=== PATIENT | male | born 1950 | race Caucasian/White ===

== ENCOUNTER → 2017-03-26 | Outpatient (CLI) | payer MEDICARE, OTHER | END | disposition home or self-care (01) | LOC: LABPAT 09:42 | PROVIDERS: ATTEND Orthopaedic Surgery | DX: Z01.812 Encounter for preprocedural laboratory examination (principal); Z79.01 Long term (current) use of anticoagulants; Z51.81 Encounter for therapeutic drug level monitoring; Z01.810 Encounter for preprocedural cardiovascular examination | CPT/HCPCS: 87070 ==

== ENCOUNTER → 2017-05-11 | Outpatient (CLI) | payer MEDICARE, OTHER ==
[2017-05-11 11:22] LABS: Appearance,Urine Clear (Clear); Bilirubin,Urine Negative (Negative); Blood,Urine Negative (Negative); Color,Urine Yellow; Glucose,Urine (UA) Negative (Negative); Ketones,Urine Negative (Negative); Leukocyte Esterase,Urine Negative (Negative); Protein,Urine Negative (Negative); Specific Gravity,Urine 1.015 (1.001-1.035); Urobilinogen,Urine <2.0 mg/dL (<2.0)
[2017-05-11 11:32] LABS: HCT 39.5 % (39.0-53.0); HGB 13.7 gm/dL (13.0-17.5); MCH 30.6 pg (25.0-35.0); MCHC 34.7 g/dL (31.0-37.0); MCV 88.1 fL (80.0-100.0); Mean Platelet Volume 9.6; Platelet Count 248 k/uL (150-450); RBC 4.49 m/uL (4.30-5.90); WBC 6.9 k/uL (3.8-10.6)
[2017-05-11 11:40] LABS: Albumin 4.3 g/dL (3.5-5.0); Calcium 10.8 mg/dL (8.4-10.2); Potassium 4.9 mmol/L (3.5-5.1); Total Bilirubin 0.9 mg/dL (0.2-1.3); Total Protein 7.5 g/dL (6.3-8.2)
[2017-05-11 11:55] LABS: Partial Thromboplastin Time 22.7 sec (22.0-30.0); Prothrombin Time 10.2 sec (9.0-12.0)
== END | disposition home or self-care (01) ==
LOC: LABPAT 10:40
PROVIDERS: ATTEND Orthopaedic Surgery
DX: Z01.812 Encounter for preprocedural laboratory examination (principal)
CPT/HCPCS: 36415; 80053; 81003; 85027; 85610; 85730

== ENCOUNTER 2017-06-01 11:08 | Inpatient (IN) | payer MEDICARE, OTHER ==
[2017-05-18 13:09] VITALS: BMI 36.3
[~2017-06-01 11:08] MED LIST: ACETAMINOPHEN TAB 500 MG TAB PO ONE; DEXAMETHASONE SOD PHOSPHATE 10 MG/ML 1 ML VIAL IV ONE; LIDOCAINE 1% 20 ML VIAL (10MG/ML) FOR IV START INTRADERMA PRN; MELOXICAM 7.5 MG TAB PO ONE; MIDAZOLAM 2 MG/2 ML VIAL IV PRN; MORPHINE SULFATE 2 MG/ML SYRINGE IV PRN; ONDANSETRON 4 MG/2 ML VIAL IVP ONE; ROPIVACAINE 246.25 MG, EPINEPHrine 0.5 MG, KETOROLAC 30 MG, cloNIDine HCL/PF 80 MCG, WA... MISCELLANE ONE; SCOPOLAMINE 1.5MG/72HR PATCH TRANSDERM ONE; TRANEXAMIC ACID 1,000 MG in SODIUM CHLORIDE 0.9% 50 ML IVPB ONE; ceFAZolin IN SWFI 2 GM/20 ML SYRINGE IVP ONE
[2017-06-01] MEDS ORDERED: ONDANSETRON 4 MG/2 ML VIAL ONE (12:27)
[2017-06-01] MEDS ORDERED: MIDAZOLAM 2 MG/2 ML VIAL ONE ×2 (12:28→13:12)
[2017-06-01] MEDS: LACTATED RINGERS 1,000 ML IV SCH ×2 (12:30→18:34)
[2017-06-01] MEDS ORDERED: PROPOFOL 10 MG/ML 20 ML VIAL IV ONE (13:12)
[2017-06-01] MEDS ORDERED: LIDOCAINE 1% INJ 10MG/ML (20 ML MDV) ONE (13:12)
[2017-06-01] MEDS ORDERED: SODIUM CHLORIDE 0.9% 100 ML BAG ONE (13:12)
[2017-06-01] MEDS ORDERED: PHENYLEPHRINE-0.9% NACL SYG 1 MG/10 ML SYRINGE ONE (13:12)
[2017-06-01] MEDS ORDERED: ePHEDrine SULFATE/0.9% NACL/PF 50 MG/5 ML SYRINGE IV ONE (13:12)
[2017-06-01] MEDS ORDERED: fentaNYL (PF) 50 MCG/ML 2 ML AMP ONE (13:12)
[2017-06-01] MEDS ORDERED: ceFAZolin 3,000 MG in SODIUM CHLORIDE 0.9% IRRIGATIO 3,000 ML IRRIGATION ONE (13:12)
[2017-06-01] MEDS ORDERED: TRANEXAMIC ACID 1,000 MG/10 ML VIAL ONE (13:12)
[2017-06-01] MEDS ORDERED: ROPIVACAINE 1,100 MG, SODIUM CHLORIDE 0.9% 330 ML MISCELLANE PRN ×2 (13:13)
--- NOTE | 2017-06-01 13:14 | P.ONQ ---
Anesthesiology Proc Note - PNB - Peripheral Nerve Block Performed Left Adductor Canal Indication: Acute Post-Operative Pain, Requested by physician (Dr Quan Roy ) Sedation Type: Sedate with meaningful contact maintained Preparation: Sterile Dressing Position: Supine Catheter: Indwelling Needle Types: Other (see comment) (Aman) Needle Size: 100mm (4") Needle Gauge: 18 Technique: Ultrasound Injectate: 0.5% Ropivacaine (see comment for volume) (20cc) Blood Aspirated: No Pain Paresthesia on Injection Noted: No Resistance on Injection: Normal Events: Uneventful and Well Tolerated
[2017-06-01] MEDS ORDERED: HYDROcodone/APAP 5-325MG 1 EACH TAB PO PRN (13:21)
[2017-06-01] MEDS ORDERED: NALOXONE 0.4 MG/ML 1 ML VIAL IV PRN (13:21)
[2017-06-01] MEDS ORDERED: BISACODYL 10 MG SUPP RECTAL PRN (13:21)
[2017-06-01] MEDS ORDERED: NA PHOS,M-B/NA PHOS,DI-BA 133 ML ENEMA RECTAL PRN (13:21)
[2017-06-01] MEDS ORDERED: MORPHINE SULFATE/PF 10MG/10ML VL IVP PRN ×4 (13:21)
[2017-06-01] MEDS ORDERED: DIAZEPAM 5 MG TAB PO PRN (13:21)
[2017-06-01] MEDS ORDERED: ONDANSETRON 4 MG/2 ML VIAL IVP PRN (13:21)
[2017-06-01] MEDS ORDERED: MAGNESIUM HYDROXIDE 2,400 MG/10 ML CUP PO PRN (13:21)
--- NOTE | 2017-06-01 14:40 | P.OP ---
Date of Procedure: 06/01/17 Preoperative Diagnosis: Severe osteoarthritis left knee Postoperative Diagnosis: Severe osteoarthritis left knee Procedure(s) Performed: Left total knee arthroplasty Implants: Maguire [employer] Nephew Oxinium femoral component size 6, left Maguire [employer]hew Gloria II left nonporous tibial baseplate size 5 [employer]uire [employer]hew size 9 mm Legion XLPE dished articular insert, size 5-6 [employer]hew Gloria II resurfacing patellar component, 29 mm All components were cemented using Jeffrey bone cement.. The articulation is Oxinium on polyethylene. Anesthesia: spinal Surgeon: Quan Roy Land Degradation Analyst #1: Nichol Buckner Estimated Blood Loss (ml): 50 Pathology: other (Bone and cartilage) Condition: stable Disposition: PACU Indications for Procedure: After failure of conservative treatment we discussed the surgical and nonsurgical treatment options at length. Patient wishes to proceed with a total knee arthroplasty. Complications specific to this procedure were discussed at length, including but not limited to infection, bleeding, stiffness , and nerve injury. Patient is aware of all these complications and informed consent was obtained Operative Findings: The operative findings are consistent with severe osteoarthritis of the left knee Description of Procedure: Patient was seen in the preoperative area consent was reviewed and operative site was marked with a skin marker. An adductor canal pain catheter was placed by anesthesia in the preoperative area. Patient was then brought to the operating room and given preoperative antibiotics intravenously. A spinal anesthetic was administered by the anesthesia department. A tourniquet was placed on the upper thigh and the lower extremity was prepped and draped in usual sterile fashion. A gram of transexamic acid was given. A universal timeout was then performed which confirmed the patient's name, surgical site, ALLERGIES, and consent. The lower extremity was then exsanguinated and tourniquet was inflated to 250 mmHg. A standard and anterior midline approach to the knee was performed. The skin and subcutaneous tissue was dissected down to the patellar tendon. A medial parapatellar arthrotomy was then performed. The knee was then extended, the patellar was everted, and the knee was again flexed. Anterior horns of both menisci were excised, and a release was performed to the posterior medial aspect of the knee. On gross visual inspection, there was complete loss of articular cartilage in the medial and patellofemoral joint spaces. There was also significant cartilage damage in the lateral compartment. There were multiple periarticular osteophytes which were then removed with a Ronguer. The femoral canal was then opened with the appropriate drill, and the intramedullary femoral cutting guide was then placed and set for 4 of valgus. The distal femoral cutting block was then pinned in place, and the distal femur was then cut. The cutting block was then removed and the cut was checked for flatness. Next, the sizing guide was then placed and set for 3 external rotation based off of the epicondylar axis and Whitesides line. After the femur was sized, the appropriate 4-in-1 cutting block was then pinned in place. The anterior condyles were cut without notching. The posterior and chamfer cuts were performed while protecting the collateral ligaments. The cutting block was then removed, and the femoral canal was plugged with autologous bone. Attention was then directed to the tibia. The remaining ACL was removed with a Ronguer, and the tibia was then gently subluxed forward with a large bent knee retractor. Any remaining menisci was excised. The posterior lateral corner was cauterized in order to cauterize the lateral geniculate artery. The extra medullary tibial cutting guide was then placed, set for the appropriate rotation , slope, and depth of resection. The proximal tibia cutting guide was then pinned in place. Proximal tibia was then cut and sized. Next trials were then placed with the appropriate-sized insert. The knee was able to fully extend and flex to 130 and was stable throughout all range of motion. The knee was then extended, patella everted. Patella was then measured, and then using an osteotomy guide, the patella was cut at the appropriate level. The patella was then measured and drilled and the patella trial was then placed. The knee was then taken through range of motion with the patella trial and the patella tracked normally. The knee was then extended patella trial was then removed and the patella was everted. Knee was then flexed and lug holes were drilled through the femoral trial and the femoral trial was then removed. The tibial was then exposed, and the tibial broach guide was then pinned in place after it was set for the appropriate rotation to allow for the most coverage without overhang. The tibia was then reamed and broached. The cut surfaces of bone were then irrigated with pulsatile lavage. The posterior structures were injected with the ropivacaine solution. The knee was also irrigated with Irrisept solution. The components were then opened, the cement was mixed, and the components were then cemented in place. The cement was allowed to harden with the knee in full extension. While the cement was hardening, the remaining soft tissues were then injected with a ropivacaine solution, which consisted of 246.25 mg of ropivacaine, 0.5 mg of epinephrine, 30 mg of Toradol, 80 g of clonidine, and 48.45 mL of sterile water, for a total of 100 mL of fluid injected. After the cemented hardened. The tourniquet was released, and hemostasis was obtained. A second gram of transexamic acid was given. The knee was again irrigated. The knee was again taken through range of motion and found to be stable throughout all range of motion of 0-130 , and the patella tracked normally. The fascia was then closed with #2 strata fix suture. The subcutaneous tissue was closed with 3-0 Vicryl and 3-0 strata fix. Dermabond glue was used for the skin and placed with the knee in flexion. The patient was placed in a sterile silver dressing. Patient was then transferred to recovery room in stable condition. The assistant director of security KATLYN Davison was required due the complexity surgery and the need for a skilled surgical clinical reviewer. She assisted in positioning, draping, retraction, and closure of the wound.
--- NOTE | 2017-06-01 15:27 | XR ---
Limited left knee HISTORY: Postop left knee arthroplasty 2 views of the left knee No comparisons Patient is status post left knee arthroplasty. There is anatomic alignment. Lucency is present in the soft tissues compatible with postop state. IMPRESSION: Orthopedic follow-up
[2017-06-01] MEDS: SODIUM CHLORIDE 0.9% 1,000 ML IV SCH (16:46)
[2017-06-01] MEDS: HYDROcodone/APAP 5-325MG 1 EACH TAB PO PRN (19:25)
[2017-06-01] MEDS: ceFAZolin IN SWFI 2 GM/20 ML SYRINGE IVP SCH (20:47)
[2017-06-01] MEDS: FUROSEMIDE 20 MG TAB PO SCH (20:47)
[2017-06-01] MEDS: SENNOSIDES-DOCUSATE SODIUM 1 EACH TAB PO SCH (20:47)
[2017-06-01] MEDS: POTASSIUM CHLORIDE ER 20 MEQ TAB.ER PO SCH (20:47)
[2017-06-01] MEDS: ASPIRIN 325 MG TAB PO SCH (20:47)
[2017-06-01] MEDS: DIAZEPAM 5 MG TAB PO PRN (22:47)
[2017-06-02] MEDS: hydrOXYzine PAMOATE 25 MG CAP PO PRN ×2 (01:25→20:28)
[2017-06-02] MEDS: HYDROcodone/APAP 5-325MG 1 EACH TAB PO PRN ×4 (01:25→20:27)
[2017-06-02] MEDS: SODIUM CHLORIDE 0.9% 1,000 ML IV SCH ×2 (05:02→20:19)
[2017-06-02] MEDS: ceFAZolin IN SWFI 2 GM/20 ML SYRINGE IVP SCH (05:02)
--- NOTE | 2017-06-02 06:27 | P.PN ---
Progress Note - Text The patient is status post left adductor canal catheter placement. The catheter was placed for postoperative pain control, status post total left arthroplasty. Ropivacaine 0.2% is infusing at 8 mLs per hour. The patient has no complaints of left lower extremity numbness or weakness. Patient's VAS score is 0 -10. Assessment: Patient's adductor canal catheter is in place and working appropriately. Plan: continue infusion and adjust it as needed.
[2017-06-02 07:11] LABS: Glucose,Whole Blood 120 mg/dL (75-99)
[2017-06-02 07:57] LABS: Basophils % (A) 0 %; Eosinophils % (A) 0 %; HCT 33.4 % (39.0-53.0); HGB 11.3 gm/dL (13.0-17.5); Lymphocytes # (A) 0.8 k/uL (1.0-4.8); Lymphocytes % (A) 6 %; MCH 29.9 pg (25.0-35.0); MCHC 33.9 g/dL (31.0-37.0); MCV 88.1 fL (80.0-100.0); Mean Platelet Volume 8.2; Monocytes # (A) 0.7 k/uL (0-1.0); Monocytes % (A) 6 %; Neutrophils # (A) 10.6 k/uL (1.3-7.7); Neutrophils % (A) 86 %; Platelet Count 212 k/uL (150-450); RBC 3.79 m/uL (4.30-5.90); RDW 14.4 % (11.5-15.5); WBC 12.3 k/uL (3.8-10.6)
[2017-06-02] MEDS: amLODIPine 5 MG TAB PO SCH (08:37)
[2017-06-02] MEDS: PANTOPRAZOLE 40 MG TABLET PO SCH (08:37)
[2017-06-02] MEDS: ISOSORBIDE MONONITRATE ER 30 MG TAB.ER.24H PO SCH (08:37)
[2017-06-02] MEDS: ASPIRIN 325 MG TAB PO SCH ×2 (08:37→20:27)
[2017-06-02] MEDS: POTASSIUM CHLORIDE ER 20 MEQ TAB.ER PO SCH ×2 (08:37→20:27)
[2017-06-02] MEDS: FUROSEMIDE 20 MG TAB PO SCH ×2 (08:38→15:51)
[2017-06-02] MEDS: METOPROLOL SUCCINATE (ER) 50 MG TAB.ER.24H PO SCH (08:38)
[2017-06-02] MEDS: ATORVASTATIN 20 MG TAB PO SCH (08:38)
[2017-06-02] MEDS: ALLOPURINOL 300 MG TAB PO SCH (08:38)
[2017-06-02] MEDS: MELOXICAM 7.5 MG TAB PO SCH (08:38)
[2017-06-02] MEDS ORDERED: ASPIRIN 81 MG PO SCH (09:00)
--- NOTE | 2017-06-02 09:19 | P.PN ---
Subjective Progress Note Date: 06/02/17 This is a 67-year-old male who is status post a left total knee arthroplasty. This is postoperative day #1. Patient is seen and evaluated at bedside with Dr. Quan Roy. Patient does complain of pain to the left knee, but states this is controlled. Patient does report some pain and stiffness in the left ankle and he has a history of previous left ankle fusion. Patient states he has not been up and walking with physical therapy yet. Patient denies any fever/ chills, numbness, weakness, tingling, abdominal pain, shortness of breath or chest pain. Objective - Vital Signs Vital signs: Vital Signs Temp 97.9 F 06/02/17 08:27 Pulse 66 06/02/17 08:27 Resp 16 06/02/17 08:27 BP 126/69 06/02/17 08:27 Pulse Ox 96 06/02/17 08:27 Intake & Output 06/01/17 06/02/17 06/02/17 18:59 06:59 18:59 Intake Total 1051 520 300 Output Total 50 250 275 Balance 1001 270 25 Weight 102.058 kg Intake: IV 801 Intake, IV Titration 520 Amount Sodium Chloride 0.9% 1, 520 000 ml @ 65 mls/hr IV . [id number] [facility] Rx#:[id number] Oral 250 300 Output: Urine 250 275 Estimated Blood Loss 50 Other: Voiding Method Toilet # Voids 3 - Exam Vital signs are stable. Patient is in no acute distress and is alert and oriented 3. Calf is soft and nontender to palpation. Dressing is clean, dry, and intact. Patient has limited foot and ankle motion with some discomfort in the ankle due to previous left ankle fusion. Neurovascular status and circulatory status are intact. - Labs CBC & Chem 7: 06/02/17 06:51 Labs: Abnormal Lab Results - Last 24 Hours (Table) 06/02/17 06/02/17 Range/Units 06:51 07:07 WBC 12.3 H (3.8-10.6) k/uL RBC 3.79 L (4.30-5.90) m/uL Hgb 11.3 L (13.0-17.5) gm/dL Hct 33.4 L (39.0-53.0) % Neutrophils # 10.6 H (1.3-7.7) k/uL Lymphocytes # 0.8 L (1.0-4.8) k/uL POC Glucose (mg/dL) 120 H (75-99) mg/dL Assessment and Plan (1) Primary osteoarthritis of left knee Current Visit: Yes Status: Acute Code(s): M17.12 - UNILATERAL PRIMARY OSTEOARTHRITIS, LEFT KNEE SNOMED Code(s): 387836665349799 (2) S/P total knee arthroplasty Current Visit: Yes Status: Acute Code(s): Z96.659 - PRESENCE OF UNSPECIFIED ARTIFICIAL KNEE JOINT SNOMED Code(s): 3076943025165 Plan: #1 Continue with routine postoperative care, leave dressing in place for 10-14 days. #2 Anticoagulation with aspirin. #3 Physical therapy and CPM today. #4 Appreciate input from medicine. #5 Anticipate discharge home with home care likely tomorrow.
[2017-06-02] MEDS ORDERED: HYDROmorphone 2 MG TAB PO PRN ×3 (14:55→14:56)
[2017-06-02] MEDS ORDERED: HYDROmorphone 4 MG TABLET PO PRN (14:56)
--- NOTE | 2017-06-02 18:00 | P.HPIM ---
History of Present Illness H&P Date: 06/02/17 Patient is a 67-year-old male who was admitted to [facility] with severe arthritis of the left knee. He is status post a left total knee arthroplasty post operative day #1. Medical cosultation was requested for management while hospitalized. 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 Date of last positivie culture/infection: 1999 MDRO Source:: right knee Past Surgical History: Hernia Repair, Joint Replacement, Orthopedic Surgery Additional Past Surgical History / Comment(s): left ankle & right knee replaced , arthroscopies knee, ulnar nerve surg., multiple EGD's Past Anesthesia/Blood Transfusion Reactions: Previous Problems w/ Anesthesia Additional Past Anesthesia/Blood Transfusion Reaction / Comment(s): states had problem after knee replacement w/paranoia-from anesthesia-didn't start until 4- 5 days after surg., cannot fully extend sara arms d/t fixated elbows Past Psychological History: No Psychological Hx Reported Smoking Status: Never smoker Past Alcohol Use History: Rare Past Drug Use History: None Reported - Past Family History Mother Family Medical History: Cancer Father Family Medical History: Cancer Medications and Allergies Home Medications Medication Instructions Recorded Confirmed Type Allopurinol [Zyloprim] 300 mg PO DAILY 04/08/15 06/01/17 History Aspirin 81 mg PO DAILY 04/08/15 06/01/17 History Atorvastatin [Lipitor] 20 mg PO DAILY 04/08/15 06/01/17 History Furosemide [Lasix] 20 mg PO BID 04/08/15 06/01/17 History Isosorbide Mononitrate [Isosorbide 30 mg PO DAILY 04/08/15 06/01/17 History Mononitrate ER] Metoprolol Succinate [Toprol XL] 50 mg PO DAILY 04/08/15 06/01/17 History Omeprazole 40 mg PO AC-BRKFST 04/08/15 06/01/17 History Potassium Chloride [Klor-Con 20] 20 meq PO BID 04/08/15 06/01/17 History amLODIPine [Norvasc] 5 mg PO DAILY 04/08/15 06/01/17 History Meloxicam 15 mg PO DAILY PRN 05/18/17 06/01/17 History Allergies Allergy/AdvReac Type Severity Reaction Status Date / Time gabapentin Allergy severe pain Verified 06/01/17 15:29 tramadol Allergy severe pain Verified 06/01/17 15:29 Physical Exam Vitals: Vital Signs Temp Pulse Resp BP BP Pulse Ox 06/02/17 15:00 97.8 F 60 16 107/68 99 06/02/17 08:27 97.9 F 66 16 126/69 96 06/02/17 00:47 97.9 F 68 16 108/69 97 06/01/17 20:00 98.5 F 95 18 127/66 95 06/01/17 17:53 97 Intake and Output 06/02/17 06/02/17 06/02/17 06:59 14:59 22:59 Intake Total 300 Output Total 250 275 Balance -250 25 Intake: Intake, IV Titration 0 Amount Sodium Chloride 0.9% 1, 0 000 ml @ 65 mls/hr IV . [id number] [facility] Rx#:[id number] Oral 300 Output: Urine 250 275 Other: Voiding Method Toilet Toilet In General patient is alert and oriented in no apparent distress HEENT head normocephalic and atraumatic Neck is supple no JVD, no goiter Chest exam is clear to ausc. no crackles no wheezing Cardiac exam reveals regular S1 S2 no gallop no murmur Abdomen is soft non tender no organomegaly EXtrmities exam reveals no edema Results CBC & Chem 7: 06/02/17 06:51 Labs: Abnormal Lab Results - Last 24 Hours (Table) 06/02/17 06/02/17 Range/Units 06:51 07:07 WBC 12.3 H (3.8-10.6) k/uL RBC 3.79 L (4.30-5.90) m/uL Hgb 11.3 L (13.0-17.5) gm/dL Hct 33.4 L (39.0-53.0) % Neutrophils # 10.6 H (1.3-7.7) k/uL Lymphocytes # 0.8 L (1.0-4.8) k/uL POC Glucose (mg/dL) 120 H (75-99) mg/dL Thrombosis Risk Factor Assmnt - Choose All That Apply Any of the Below Risk Factors Present?: Yes Each Factor Represents 1 point: Obesity (BMI >25) Each Risk Factor Represents 2 Points: Age 61-74 years Each Risk Factor Represents 5 Points: Elective major lower extremity arthoplasty Thrombosis Risk Factor Assessment Total Risk Factor Score: 8 Thrombosis Risk Factor Assessment Level: High Risk Assessment and Plan Plan: #1 Osteoarthritis of the left knee S/P left TKA #2 History of hypertention #3 History of hyperlipidemia #4 History of Gout Medication reviewed and reordered Labs reviewed Continue current care will follow in am
[2017-06-02] MEDS: SENNOSIDES-DOCUSATE SODIUM 1 EACH TAB PO SCH (20:28)
[2017-06-02] MEDS: DIAZEPAM 5 MG TAB PO PRN (23:24)
[2017-06-03] MEDS: HYDROcodone/APAP 5-325MG 1 EACH TAB PO PRN ×2 (04:59→10:03)
[2017-06-03] MEDS: hydrOXYzine PAMOATE 25 MG CAP PO PRN ×2 (05:00→10:03)
[2017-06-03 07:14] VITALS: RESP 17; TEMP 97.1
[2017-06-03] MEDS: ISOSORBIDE MONONITRATE ER 30 MG TAB.ER.24H PO SCH (07:14)
[2017-06-03] MEDS: ATORVASTATIN 20 MG TAB PO SCH (07:15)
[2017-06-03] MEDS: POTASSIUM CHLORIDE ER 20 MEQ TAB.ER PO SCH (07:15)
[2017-06-03] MEDS: ALLOPURINOL 300 MG TAB PO SCH (07:15)
[2017-06-03] MEDS: METOPROLOL SUCCINATE (ER) 50 MG TAB.ER.24H PO SCH (07:15)
[2017-06-03] MEDS: ASPIRIN 325 MG TAB PO SCH (07:15)
[2017-06-03] MEDS: MELOXICAM 7.5 MG TAB PO SCH (07:15)
[2017-06-03] MEDS: PANTOPRAZOLE 40 MG TABLET PO SCH (07:16)
[2017-06-03] MEDS: FUROSEMIDE 20 MG TAB PO SCH (07:16)
[2017-06-03] MEDS: amLODIPine 5 MG TAB PO SCH (07:16)
--- NOTE | 2017-06-03 07:54 | P.PN ---
Progress Note - Text The patient is status post left adductor canal catheter placement. The catheter was placed for postoperative pain control, status post total left arthroplasty. Ropivacaine 0.2% is infusing at 8 mLs per hour. The patient has no complaints of left lower extremity numbness or weakness. Patient's VAS score is 1 -10. Assessment: Patient's adductor canal catheter is in place and working appropriately. Plan: continue infusion and adjust it as needed.
[2017-06-03] MEDS: SODIUM CHLORIDE 0.9% 1,000 ML IV SCH (08:09)
[2017-06-03 08:17] LABS: Basophils # (A) 0.1 k/uL (0-0.2); Basophils % (A) 1 %; Eosinophils # (A) 0.3 k/uL (0-0.7); Eosinophils % (A) 5 %; HCT 33.4 % (39.0-53.0); HGB 11.5 gm/dL (13.0-17.5); Lymphocytes # (A) 1.2 k/uL (1.0-4.8); Lymphocytes % (A) 17 %; MCH 30.2 pg (25.0-35.0); MCHC 34.5 g/dL (31.0-37.0); MCV 87.7 fL (80.0-100.0); Mean Platelet Volume 8.7; Monocytes # (A) 0.6 k/uL (0-1.0); Monocytes % (A) 8 %; Neutrophils # (A) 4.8 k/uL (1.3-7.7); Neutrophils % (A) 67 %; Platelet Count 205 k/uL (150-450); RBC 3.81 m/uL (4.30-5.90); RDW 15.1 % (11.5-15.5); WBC 7.2 k/uL (3.8-10.6)
[2017-06-03 08:44] LABS: Albumin 3.5 g/dL (3.5-5.0); Calcium 9.2 mg/dL (8.4-10.2); Potassium 4.5 mmol/L (3.5-5.1); Total Bilirubin 0.5 mg/dL (0.2-1.3)
--- NOTE | 2017-06-03 09:02 | P.DS ---
Providers Date of admission: 06/01/17 11:08 Expected date of discharge: 06/03/17 Attending physician: Quan Roy Consults: 06/01/17 13:21 Consult Physician Routine Consulting Provider: Adie Nguyen Consult Reason/Comments: medical management Do you want consulting provider notified?: Yes Primary care physician: Liz Lucero - Discharge Diagnosis(es) (1) Primary osteoarthritis of left knee Current Visit: Yes Status: Acute (2) S/P total knee arthroplasty Current Visit: Yes Status: Acute Hospital Course: This is a 67-year-old male with known history of degenerative arthritis of the left knee. The patient presents for evaluation. After discussion and consideration patient elects to proceed with total knee arthroplasty. The patient is seen preoperatively by Dr. Roy and medically cleared for surgery by their primary care physician. Patient is admitted to [facility] on 06/01/2017 for total knee arthroplasty. The procedures performed without complication or sequelae. The patient is doing well postoperatively. Labs and vital signs are stable on day of discharge. On day of discharge patient's knee incision is healing well. There is minimal erythema. There is no drainage noted at this time. There is minimal soft tissue swelling to the knee. Patient has full foot and ankle motion without difficulty or pain. Neurovascular status to the left lower extremity is intact. Patient is discharged home in good condition. Please see med rec for accurate list of home medications. Plan - Discharge Summary Discharge Rx Participant: Yes New Discharge Prescriptions: New Aspirin 325 mg PO BID #60 tab HYDROcodone/APAP 5-325MG [Clements 5-325] 1 - 2 tab PO Q4-6H PRN #90 tab PRN Reason: Pain Sennosides [Senokot] 1 tab PO BID #60 tablet No Action amLODIPine [Norvasc] 5 mg PO DAILY Potassium Chloride [Klor-Con 20] 20 meq PO BID Atorvastatin [Lipitor] 20 mg PO DAILY Omeprazole 40 mg PO AC-BRKFST Metoprolol Succinate [Toprol XL] 50 mg PO DAILY Furosemide [Lasix] 20 mg PO BID Allopurinol [Zyloprim] 300 mg PO DAILY Aspirin 81 mg PO DAILY Isosorbide Mononitrate [Isosorbide Mononitrate ER] 30 mg PO DAILY Meloxicam 15 mg PO DAILY PRN PRN Reason: Pain Discharge Medication List Allopurinol [Zyloprim] 300 mg PO DAILY 04/08/15 [History] Aspirin 81 mg PO DAILY 04/08/15 [History] Atorvastatin [Lipitor] 20 mg PO DAILY 04/08/15 [History] Furosemide [Lasix] 20 mg PO BID 04/08/15 [History] Isosorbide Mononitrate [Isosorbide Mononitrate ER] 30 mg PO DAILY 04/08/15 [ History] Metoprolol Succinate [Toprol XL] 50 mg PO DAILY 04/08/15 [History] Omeprazole 40 mg PO AC-BRKFST 04/08/15 [History] Potassium Chloride [Klor-Con 20] 20 meq PO BID 04/08/15 [History] amLODIPine [Norvasc] 5 mg PO DAILY 04/08/15 [History] Meloxicam 15 mg PO DAILY PRN 05/18/17 [History] Aspirin 325 mg PO BID #60 tab 06/03/17 [Rx] HYDROcodone/APAP 5-325MG [Clements 5-325] 1 - 2 tab PO Q4-6H PRN #90 tab 06/03/17 [ Rx] Sennosides [Senokot] 1 tab PO BID #60 tablet 06/03/17 [Rx] Follow up Appointment(s)/Referral(s): [facility], [NON-STAFF] - Quan Roy DO [Doctor of Osteopathic Medicine] - 2 Weeks Ambulatory/Diagnostic Orders: Continuous Passive Motion (CPM) Machine [DME.AMB1] Time Frame: 3 Weeks, Location : Determined By Patient Activity/Diet/Wound Care/Special Instructions: Weightbearing as tolerated with a walker Leave dressing intact. May be removed by home care nurse in 10-14 days. May shower with dressing on. [facility] with questions or concerns [phone] Discharge Disposition: HOME WITH HOME HEALTH SERVICES
[2017-06-03 09:33] VITALS: BP 107/66; PULSE 78
--- NOTE | 2017-06-03 09:46 | P.PN ---
Subjective Progress Note Date: 06/03/17 Status post left total knee arthroplasty Patient has been up and ambulating without difficulty. Denies any chest pain or shortness of breath. Denies any nausea or vomiting. Reports having regular bowel movements. Denies any difficulty urinating. Orthopedics have cleared him for discharge. He'll be discharged home with home care today. Patient had a blood pressure this morning of 111/72 and received blood pressure pills. Repeat blood pressure 107/66. Patient denies any dizziness or lightheadedness. We'll continue with current regimen of BP meds Objective - Vital Signs Vital signs: Vital Signs Temp 97.1 F L 06/03/17 07:13 Pulse 78 06/03/17 09:33 Resp 17 06/03/17 08:31 BP 107/66 06/03/17 09:33 Pulse Ox 96 06/03/17 07:13 Intake & Output 06/02/17 06/03/17 06/03/17 18:59 06:59 18:59 Intake Total 300 820 240 Output Total 275 900 Balance 25 -80 240 Intake: Intake, IV Titration 0 Amount Sodium Chloride 0.9% 1, 0 000 ml @ 65 mls/hr IV . [id number] [facility] Rx#:[id number] Oral 300 240 Other 820 Output: Urine 275 900 Other: Voiding Method Toilet Toilet # Voids 3 1 - Exam Head normocephalic Neck supple Lungs clear to auscultation bilaterally no wheezing or crackles Heart regular rate and rhythm S1-S2, no rub or gallop Abdomen is soft nontender nondistended positive bowel sounds no hepatosplenomegaly Extremities left knee swelling. Dressing clean dry and intact. No calf tenderness. Neuro alert and orientated to 3 - Labs CBC & Chem 7: 06/03/17 07:45 06/03/17 07:45 Labs: Abnormal Lab Results - Last 24 Hours (Table) 06/03/17 06/03/17 Range/Units 07:45 07:45 RBC 3.81 L (4.30-5.90) m/uL Hgb 11.5 L (13.0-17.5) gm/dL Hct 33.4 L (39.0-53.0) % BUN 23 H (9-20) mg/dL AST 13 L (17-59) U/L ALT 16 L (21-72) U/L Total Protein 6.0 L (6.3-8.2) g/dL Assessment and Plan Assessment: #1 Osteoarthritis of the left knee S/P left TKA #2 History of hypertention: BP stable. #3 History of hyperlipidemia #4 History of Gout Patient is medically stable for discharge. He's follow-up with his PCP on June 10. I performed an examination of the patient and discussed their management with the physician Branch Library Clerk. I have reviewed the Physician Branch Library Clerk's notes and agree with the documented findings and plan of care
== END 2017-06-03 10:33 | disposition home health service (06) | DRG 470 ==
LOC: 2ORMAIN 11:08 → 3SUR 16:42
PROVIDERS: ADMIT Orthopaedic Surgery; ATTEND Orthopaedic Surgery
PROC: 0SRD069 Replacement of Left Knee Joint with Oxidized Zirconium on Polyethylene Synthetic Substitute, Cemented, Open Approach (ICD-10-PCS; principal; 2017-06-01 14:00)
DX: M17.12 Unilateral primary osteoarthritis, left knee (principal); E78.5 Hyperlipidemia, unspecified; K21.9 Gastro-esophageal reflux disease without esophagitis; G47.33 Obstructive sleep apnea (adult) (pediatric); I25.10 Atherosclerotic heart disease of native coronary artery without angina pectoris; M10.9 Gout, unspecified; I10 Essential (primary) hypertension; K44.9 Diaphragmatic hernia without obstruction or gangrene; H91.90 Unspecified hearing loss, unspecified ear; Z79.82 Long term (current) use of aspirin; Z79.899 Other long term (current) drug therapy; Z86.14 Personal history of Methicillin resistant Staphylococcus aureus infection; Z77.098 Contact with and (suspected) exposure to other hazardous, chiefly nonmedicinal, chemicals; Z96.651 Presence of right artificial knee joint; Z88.5 Allergy status to narcotic agent; Z88.8 Allergy status to other drugs, medicaments and biological substances
CPT/HCPCS: 80053; 85025; 88300; 94760

== ENCOUNTER 2023-09-13 01:23 | Inpatient (IN) | payer MEDICARE ==
[2023-09-13 02:12] LABS: Basophils # (A) 0.1 k/uL (0-0.2); Basophils % (A) 1 %; Eosinophils # (A) 0.3 k/uL (0-0.7); Eosinophils % (A) 3 %; HCT 41.5 % (39.0-53.0); HGB 13.3 gm/dL (13.0-17.5); Lymphocytes # (A) 1.7 k/uL (1.0-4.8); Lymphocytes % (A) 21 %; MCH 29.1 pg (25.0-35.0); Mean Platelet Volume 10.2; Monocytes # (A) 0.5 k/uL (0-1.0); Monocytes % (A) 6 %; Neutrophils # (A) 5.2 k/uL (1.3-7.7); Neutrophils % (A) 65 %; Platelet Count 228 k/uL (150-450); RBC 4.56 m/uL (4.30-5.90); RDW 14.7 % (11.5-15.5)
[2023-09-13 02:21] LABS: Prothrombin Time 10.8 sec (10.0-12.5)
--- NOTE | 2023-09-13 02:36 | ED ---
General Adult HPI - General Chief complaint: Chest Pain Stated complaint: chest pain Time Seen by Provider: 09/13/23 01:34 Source: patient, RN notes reviewed, old records reviewed Mode of arrival: ambulatory Limitations: no limitations - History of Present Illness Initial comments: 73-year-old male presenting for evaluation of central chest pressure radiating to the bilateral shoulders. Patient states he has previous diagnosis of coronary artery disease but does not have any stenting. Patient states the pain was severe at onset but has improved. He was diaphoretic according to his . No abdominal pain nausea or vomiting. - Related Data Home Medications Medication Instructions Recorded Confirmed Atorvastatin [Lipitor] 20 mg PO DAILY 04/08/15 06/01/17 Furosemide [Lasix] 20 mg PO BID 04/08/15 06/01/17 Isosorbide Mononitrate [Isosorbide 30 mg PO DAILY 04/08/15 06/01/17 Mononitrate ER] Metoprolol Succinate [Toprol XL] 50 mg PO DAILY 04/08/15 06/01/17 Omeprazole 40 mg PO AC-BRKFST 04/08/15 06/01/17 Potassium Chloride [Klor-Con 20] 20 meq PO BID 04/08/15 06/01/17 allopurinoL [Zyloprim] 300 mg PO DAILY 04/08/15 06/01/17 amLODIPine [Norvasc] 5 mg PO DAILY 04/08/15 06/01/17 Previous Rx's Medication Instructions Recorded Aspirin 325 mg PO BID #60 tab 06/03/17 HYDROcodone/APAP 5-325MG [[place] 1 - 2 tab PO Q4-6H PRN #90 tab 06/03/17 5-325] Sennosides [Senokot] 1 tab PO BID #60 tablet 06/03/17 Allergies Allergy/AdvReac Type Severity Reaction Status Date / Time gabapentin Allergy severe pain Verified 09/13/23 01:28 tramadol Allergy severe pain Verified 09/13/23 01:28 Review of Systems ROS Statement: Those systems with pertinent positive or pertinent negative responses have been documented in the HPI. ROS Other: All systems not noted in ROS Statement are negative. 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 Past Psychological History: No Psychological Hx Reported Past Alcohol Use History: Rare Past Drug Use History: None Reported - Past Family History Mother Family Medical History: Cancer Father Family Medical History: Cancer General Exam Limitations: no limitations General appearance: alert, in no apparent distress Head exam: Present: atraumatic, normocephalic Eye exam: Present: normal appearance, PERRL ENT exam: Present: normal exam Neck exam: Present: normal inspection. Absent: tenderness, meningismus Respiratory exam: Present: normal lung sounds bilaterally. Absent: respiratory distress, wheezes Cardiovascular Exam: Present: regular rate, normal rhythm GI/Abdominal exam: Present: soft. Absent: distended, tenderness, guarding Extremities exam: Present: normal capillary refill, pedal edema Neurological exam: Present: alert, oriented X3, CN II-XII intact. Absent: motor sensory deficit Psychiatric exam: Present: normal affect, normal mood Skin exam: Present: warm, dry, intact Course Vital Signs 09/13/23 09/13/23 09/13/23 01:25 03:06 05:58 Temperature 98.2 F 97.9 F Pulse Rate 67 62 63 Respiratory 20 16 16 Rate Blood Pressure 159/91 143/92 144/95 O2 Sat by Pulse 98 96 95 Oximetry - Reevaluation(s) Reevaluation #1: 09/13/23 05:48 Patient reevaluated, no further chest pain, no complaints. Medical Decision Making - Medical Decision Making Was pt. sent in by a medical professional or institution (, PA, PERSONAL INJURY LAW SPECIALIST, urgent care, hospital, or snf...) When possible be specific @ -No Did you speak to anyone other than the patient for history (EMS, parent, family, police, friend...)? What history was obtained from this source @ -No Did you review nursing and triage notes (agree or disagree)? Why? @ -I reviewed and agree with nursing and triage notes Were old charts reviewed (outside hosp., previous admission, EMS record, old EKG, old radiological studies, urgent care reports/EKG's, snf records)? Report findings @ -No old charts were reviewed Differential Diagnosis (chest pain, altered mental status, abdominal pain women, abdominal pain men, vaginal bleeding, weakness, fever, dyspnea, syncope, headache, dizziness, GI bleed, back pain, seizure, CVA, palpatations, mental health, musculoskeletal)? @ -Not applicable EKG interpreted by me (3pts min.). @ -EKG obtained at 0 131, sinus rhythm rate of 66, OH interval 186, QRS duration 105 EKG obtained at 0144 sinus rhythm low voltage, rate of 63, OH interval 186, QRS duration 92, QTc 416 EG obtained at 0203 sinus rhythm ventricular rate of 65, OH interval 191, QRS duration 91, QTc 423, persistent T wave inversion in the lateral precordium X-rays interpreted by me (1pt min.). @ -Chest x-ray negative for acute cardiopulmonary disease CT interpreted by me (1pt min.). @ -None done U/S interpreted by me (1pt. min.). @ -None done What testing was considered but not performed or refused? (CT, X-rays, U/S, labs)? Why? @ -None What meds were considered but not given or refused? Why? @ -None Did you discuss the management of the patient with other professionals (professionals i.e. , PA, PERSONAL INJURY LAW SPECIALIST, lab, RT, psych nurse, dialysis social worker, wind energy mechanic, teacher, emergency response officer, housing case manager)? Give summary @ -[Discussed with Dr Galvez, will admit. [facility] has been paged Was smoking cessation discussed for >3mins.? @ -No Was critical care preformed (if so, how long)? @ -[Yes, 35 minutes Were there social determinants of health that impacted care today? How? (Homelessness, low income, unemployed, alcoholism, drug addiction, transportation, low edu. Level, literacy, decrease access to med. care, [place] [facility], rehab)? @ -No Was there de-escalation of care discussed even if they declined (Discuss DNR or withdrawal of care, Hospice)? DNR status @ -No What co-morbidities impacted this encounter? (DM, HTN, Smoking, COPD, CAD, Cancer, CVA, ARF, Chemo, Hep., AIDS, mental health diagnosis, sleep apnea, morbid obesity)? @ -None Was patient admitted / discharged? Hospital course, mention meds given and route , prescriptions, significant lab abnormalities, going to OR and other pertinent info. @ -[23-year-old male presenting with chest pain, pain is typical in nature concerning for ACS. EKG was obtained, serial EKGs obtained with T wave abnormality without ST segment elevation. Chest x-ray is clear. Normal CBC. Patient has a magnesium 1.5 which is replaced. He has a initial troponin of 0.06. His symptoms are concerning for ACS and heparin and nitroglycerin are initiated. He is reevaluated and resting comfortably stating pain is significantly improved. Patient will be admitted for non-ST segment elevated CA. Undiagnosed new problem with uncertain prognosis? @ -No Drug Therapy requiring intensive monitoring for toxicity (Heparin, Nitro, Insulin, Cardizem)? @ -No Were any procedures done? @ -No Diagnosis/symptom? @ -[NSTEMI Acute, or Chronic, or Acute on Chronic? @ -Acute Uncomplicated (without systemic symptoms) or Complicated (systemic symptoms)? @ -Default Side effects of treatment? @ -No Exacerbation, Progression, or Severe Exacerbation? @ -No Poses a threat to life or bodily function? How? (Chest pain, USA, CA, pneumonia, PE, COPD, DKA, ARF, appy, cholecystitis, CVA, Diverticulitis, Homicidal, Suicidal, threat to staff... and all critical care pts) @Yes, ACS - Lab Data Result diagrams: 09/13/23 04:22 09/13/23 01:42 Lab Results 09/13/23 09/13/23 09/13/23 Range/Units 01:42 01:42 01:42 WBC 8.0 (3.8-10.6) k/uL RBC 4.56 (4.30-5.90) m/uL Hgb 13.3 (13.0-17.5) gm/dL Hct 41.5 (39.0-53.0) % MCV 91.0 (80.0-100.0) fL MCH 29.1 (25.0-35.0) pg MCHC 32.0 (31.0-37.0) g/dL RDW 14.7 (11.5-15.5) % Plt Count 228 (150-450) k/uL MPV 10.2 Neutrophils % 65 % Lymphocytes % 21 % Monocytes % 6 % Eosinophils % 3 % Basophils % 1 % Neutrophils # 5.2 (1.3-7.7) k/uL Lymphocytes # 1.7 (1.0-4.8) k/uL Monocytes # 0.5 (0-1.0) k/uL Eosinophils # 0.3 (0-0.7) k/uL Basophils # 0.1 (0-0.2) k/uL PT 10.8 (10.0-12.5) sec INR 1.0 (<1.2) APTT 24.0 (22.0-30.0) sec Sodium 142 (137-145) mmol/L Potassium 4.0 (3.5-5.1) mmol/L Chloride 110 H (98-107) mmol/L Carbon Dioxide 22 (22-30) mmol/L Anion Gap 10 mmol/L BUN 23 H (9-20) mg/dL Creatinine 1.12 (0.66-1.25) mg/dL Est GFR (CKD-EPI)AfAm 74 (>60 ml/min/1.73 sqM) Est GFR (CKD-EPI)NonAf 64 (>60 ml/min/1.73 sqM) Glucose 101 H (74-99) mg/dL Calcium 9.9 (8.4-10.2) mg/dL Magnesium 1.4 L (1.6-2.3) mg/dL Total Bilirubin 0.6 (0.2-1.3) mg/dL AST 20 (17-59) U/L ALT 16 (4-49) U/L Alkaline Phosphatase 81 (38-126) U/L Troponin I (0.000-0.034) ng/mL NT-Pro-B Natriuret Pep 368 pg/mL Total Protein 6.7 (6.3-8.2) g/dL Albumin 4.1 (3.5-5.0) g/dL 07/08/24 Range/Units 01:42 WBC (3.8-10.6) k/uL RBC (4.30-5.90) m/uL Hgb (13.0-17.5) gm/dL Hct (39.0-53.0) % MCV (80.0-100.0) fL MCH (25.0-35.0) pg MCHC (31.0-37.0) g/dL RDW (11.5-15.5) % Plt Count (150-450) k/uL MPV Neutrophils % % Lymphocytes % % Monocytes % % Eosinophils % % Basophils % % Neutrophils # (1.3-7.7) k/uL Lymphocytes # (1.0-4.8) k/uL Monocytes # (0-1.0) k/uL Eosinophils # (0-0.7) k/uL Basophils # (0-0.2) k/uL PT (10.0-12.5) sec INR (<1.2) APTT (22.0-30.0) sec Sodium (137-145) mmol/L Potassium (3.5-5.1) mmol/L Chloride (98-107) mmol/L Carbon Dioxide (22-30) mmol/L Anion Gap mmol/L BUN (9-20) mg/dL Creatinine (0.66-1.25) mg/dL Est GFR (CKD-EPI)AfAm (>60 ml/min/1.73 sqM) Est GFR (CKD-EPI)NonAf (>60 ml/min/1.73 sqM) Glucose (74-99) mg/dL Calcium (8.4-10.2) mg/dL Magnesium (1.6-2.3) mg/dL Total Bilirubin (0.2-1.3) mg/dL AST (17-59) U/L ALT (4-49) U/L Alkaline Phosphatase (38-126) U/L Troponin I 0.060 H* (0.000-0.034) ng/mL NT-Pro-B Natriuret Pep pg/mL Total Protein (6.3-8.2) g/dL Albumin (3.5-5.0) g/dL Critical Care Time Critical Care Time: Yes Total Critical Care Time: 35 Disposition Clinical Impression: Acute non-ST elevation myocardial infarction (NSTEMI) Disposition: ADMITTED IP TO THIS HOSP Condition: Stable Is patient prescribed a controlled substance at d/c from ED?: No Time of Disposition: 03:35
[2023-09-13 02:37] LABS: African American GFR (CKD) 74 (>60 ml/min/1.73 sqM); Albumin 4.1 g/dL (3.5-5.0); Anion Gap 10 mmol/L; Blood Urea Nitrogen 23 mg/dL (9-20); Calcium 9.9 mg/dL (8.4-10.2); Carbon Dioxide 22 mmol/L (22-30); Chloride 110 mmol/L (98-107); Glucose 101 mg/dL (74-99); Magnesium 1.4 mg/dL (1.6-2.3); Non-African American GFR(CKD) 64 (>60 ml/min/1.73 sqM); Sodium 142 mmol/L (137-145); Total Bilirubin 0.6 mg/dL (0.2-1.3); Total Protein 6.7 g/dL (6.3-8.2)
[2023-09-13 02:38] LABS: ALT 16 U/L (4-49); AST 20 U/L (17-59); Alkaline Phosphatase 81 U/L (38-126)
[2023-09-13 02:46] LABS: NT-Pro-B-Type Natriuretic Pept 368 pg/mL
[2023-09-13] MEDS: ASPIRIN 325 MG TAB PO STA (03:00)
[2023-09-13] MEDS: MAGNESIUM SULFATE-D5W PMX 1 GM in DEXTROSE/WATER 1 100ML.BAG IVPB ONE (03:02)
[2023-09-13] MEDS ORDERED: NITROGLYCERIN SL TABS 0.4 MG TAB SUBLINGUAL PRN ×2 (03:17→08:58)
--- NOTE | 2023-09-13 03:20 | XR ---
EXAM: XR Chest, 1 View CLINICAL HISTORY: ITS.REASON XR Reason: chest pain TECHNIQUE: Frontal view of the chest. COMPARISON: No relevant prior studies available. FINDINGS: Lungs: No consolidation or mass. Pleural space: No acute findings Heart: cardiomegaly. Bones/joints: No acute findings. IMPRESSION: No acute cardiopulmonary process.
[2023-09-13] MEDS: HEPARIN SODIUM 1,000 UN/ML (10ML VL) IV ONE (04:22)
[2023-09-13] MEDS: HEPARIN SOD,PORK IN 0.45% NACL 25,000 UNIT in 0.45% NACL 1 250ML.BAG IV SCH (04:23)
[2023-09-13 05:02] LABS: Mean Platelet Volume 10.3; Platelet Count 204 k/uL (150-450)
[2023-09-13] MEDS: NITROGLYCERIN OINT 1 INCH/GM PACKET TOPICAL SCH (08:51)
[2023-09-13] MEDS: amLODIPine 5 MG TAB PO SCH (08:53)
[2023-09-13] MEDS: LOSARTAN 25 MG TAB PO SCH (08:53)
[2023-09-13] MEDS: SOTALOL 80 MG TAB PO SCH (08:53)
[2023-09-13] MEDS ORDERED: ALPRAZolam 0.25 MG TAB PO PRN (08:58)
[2023-09-13] MEDS ORDERED: ALPRAZolam 0.5 MG TAB PO PRN (08:58)
[2023-09-13] MEDS ORDERED: ATORVASTATIN 80 MG TAB PO SCH (09:00)
--- NOTE | 2023-09-13 09:52 | P.CRDCN ---
History of Present Illness History of present illness: HISTORY OF PRESENT ILLNESS: This is a 73-year-old male with a past medical history significant for AAA, ischemic cardiomyopathy, atrial fibrillation, hypertension, and hyperlipidemia. Patient follows with 2 driving teacher at [facility], Dr. Head and Dr. Parkinson. We have been asked to see the patient in consultation for elevated troponins. Patient examined at the bedside in the emergency room. Patient states that yesterday evening while he was in bed he developed chest discomfort in the middle of his chest. He states the pain went into his shoulders and into his jaw. He also states that he broke out into a sweat. His brought him to the hospital for further evaluation. Patient was found to have elevated troponins and was started on IV heparin. At the time of examination, he denies any chest pain or pressure. Denies any shortness of breath. Vital signs are st able. The patient does report he had a cardiac catheterization performed approximately 10 years ago. He states that he has never had any stenting or bypass surgery. However he does state he has a history of ischemic heart disease. DIAGNOSTICS: - EKG reveals sinus mechanism with T wave inversions in V3V5 - Chest xray negative for acute process - Laboratory data: WBC 8.0. Hemoglobin 13.3. Platelet count 204. Sodium 142. Potassium 4.0. BUN 23. Creatinine 1.12. Magnesium 1.4. Troponin 0.060. 0.931. 3.330. proBNP 368. - Current home cardiac medications include Lasix 20 mg daily, aspirin 81 mg daily, Eliquis 5 mg twice a day, amlodipine 5 mg daily, sotalol 80 mg twice a day, losartan 25 mg daily, Lipitor 20 mg daily. REVIEW OF SYSTEMS: At the time of my exam: CONSTITUTIONAL: Denies fever or chills. HEENT: Denies blurred vision, vision changes, or eye pain. Denies hemoptysis CARDIOVASCULAR: Denies chest pain. Denies orthopnea. Denies PND. Denies palpitations RESPIRATORY: Denies shortness of breath. GASTROINTESTINAL: Denies abdominal pain. Denies nausea or vomiting. HEMATOLOGIC: Denies bleeding disorders. GENITOURINARY: Denies any blood in urine. SKIN: Denies pruitis. Denies rash. PHYSICAL EXAM: VITAL SIGNS: Reviewed. GENERAL: Well-developed in no acute distress. HEENT: Head is normocephalic. Pupils are equal, round. Sclerae anicteric. Mucous membranes of the mouth are moist. Neck supple. No JVD or thyromegaly LUNGS: Respirations even and unlabored. Lungs essentially clear to auscultation bilaterally. HEART: Regular rate and rhythm. S1 and S2 heard. ABDOMEN: Soft. Nondistended. Nontender. EXTREMITIES: Normal range of motion. No clubbing or cyanosis. Peripheral pulses intact. No lower extremity edema NEUROLOGIC: Awake and alert. Oriented x 3. ASSESSMENT: Non-STEMI History of CAD with ischemic cardiomyopathy, per patient, details unknown Paroxysmal atrial fibrillation History of cardioversion Hypertension Hyperlipidemia History of AAA PLAN: 2D echo to assess cardiac structure and function Continue IV heparin Resume home cardiac medications Continue aspirin 81 mg daily and atorvastatin 80 mg at night Begin Nitropaste 1 inch every 8 hours N.p.o. at midnight Patient to undergo cardiac catheterization tomorrow with Dr. Campoverde Further recommendations pending patient course Nurse practitioner note has been reviewed by physician. Signing provider agrees with the documented findings, assessment, and plan of care documented by [employer] TEACHER as a scribe. 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 Past Psychological History: No Psychological Hx Reported Past Alcohol Use History: Rare Past Drug Use History: None Reported - Past Family History Mother Family Medical History: Cancer Father Family Medical History: Cancer Medications and Allergies Home Medications Medication Instructions Recorded Confirmed Type Atorvastatin [Lipitor] 20 mg PO DAILY 04/08/15 09/13/23 History Furosemide [Lasix] 20 mg PO DAILY 04/08/15 09/13/23 History Omeprazole 40 mg PO DAILY 04/08/15 09/13/23 History Potassium Chloride [Klor-Con 20] 20 meq PO DAILY 04/08/15 09/13/23 History allopurinoL [Zyloprim] 300 mg PO DAILY 04/08/15 09/13/23 History amLODIPine [Norvasc] 5 mg PO DAILY 04/08/15 09/13/23 History Apixaban [Eliquis] 5 mg PO BID 09/13/23 09/13/23 History Aspirin 81 mg PO DAILY 09/13/23 09/13/23 History Celecoxib [CeleBREX] 200 mg PO DAILY 09/13/23 09/13/23 History Levothyroxine Sodium [Synthroid] 50 mcg PO DAILY 09/13/23 09/13/23 History Losartan [Cozaar] 25 mg PO DAILY 09/13/23 09/13/23 History Sotalol [Betapace] 80 mg PO BID 09/13/23 09/13/23 History lamoTRIgine [LaMICtal] 25 mg PO HS 09/13/23 09/13/23 History Allergies Allergy/AdvReac Type Severity Reaction Status Date / Time gabapentin Allergy severe pain Verified 09/13/23 08:27 tramadol Allergy severe pain Verified 09/13/23 08:27 Physical Exam Vitals: Vital Signs Temp Pulse Resp BP Pulse Ox 09/13/23 05:58 97.9 F 63 16 144/95 95 09/13/23 03:06 62 16 143/92 96 09/13/23 01:25 98.2 F 67 20 159/91 98 Intake and Output 09/12/23 09/13/23 09/13/23 22:59 06:59 14:59 Other: Weight 65.771 kg Results 09/13/23 04:22 09/13/23 01:42 Cardiac Enzymes 09/13/23 09/13/23 09/13/23 Range/Units 01:42 01:42 04:22 AST 20 (17-59) U/L Troponin I 0.060 H* 0.931 H* (0.000-0.034) ng/mL Coagulation 09/13/23 09/13/23 Range/Units 01:42 04:22 PT 10.8 (10.0-12.5) sec APTT 24.0 53.2 H (22.0-30.0) sec CBC 09/13/23 09/13/23 Range/Units 01:42 04:22 WBC 8.0 (3.8-10.6) k/uL RBC 4.56 (4.30-5.90) m/uL Hgb 13.3 (13.0-17.5) gm/dL Hct 41.5 (39.0-53.0) % Plt Count 228 204 (150-450) k/uL Comprehensive Metabolic Panel 09/13/23 Range/Units 01:42 Sodium 142 (137-145) mmol/L Potassium 4.0 (3.5-5.1) mmol/L Chloride 110 H (98-107) mmol/L Carbon Dioxide 22 (22-30) mmol/L BUN 23 H (9-20) mg/dL Creatinine 1.12 (0.66-1.25) mg/dL Glucose 101 H (74-99) mg/dL Calcium 9.9 (8.4-10.2) mg/dL AST 20 (17-59) U/L ALT 16 (4-49) U/L Alkaline Phosphatase 81 (38-126) U/L Total Protein 6.7 (6.3-8.2) g/dL Albumin 4.1 (3.5-5.0) g/dL Current Medications Generic Name Dose Route Start Last Admin Trade Name Freq PRN Reason Stop Dose Admin Aspirin 325 mg 09/14/23 09:00 Aspirin 325 Mg Tab PO DAILY [facility] Atorvastatin Calcium 80 mg 09/13/23 09:00 Atorvastatin 80 Mg Tab PO DAILY [facility] Heparin Sodium/Sodium Chloride 250 mls @ 7.893 mls/hr 09/13/23 03:30 09/13/23 04:23 25,000 unit/ Sodium Chloride IV 12 units/kg/hr .Q24H ADILIA 7.893 mls/hr Administration Protocol 12 UNITS/KG/HR Nitroglycerin 0.4 mg 09/13/23 03:17 Nitroglycerin Sl Tabs 0.4 Mg Tab SUBLINGUAL Q5M PRN Chest Pain Intake and Output 09/12/23 09/13/23 09/13/23 22:59 06:59 14:59 Other: Weight 65.771 kg 09/13/23 04:22 09/13/23 01:42
[2023-09-13 15:25] LABS: Glucose,Whole Blood 116 mg/dL (70-110)
--- NOTE | 2023-09-13 19:07 | P.HPIM ---
History of Present Illness H&P Date: 09/13/23 Chief Complaint: Chest pain This is a pleasant 73-year-old gentleman with past medical history significant for ischemic cardiomyopathy, atrial fibrillation,AAA, hypertension, h yperlipidemia, sleep apnea wears CPAP, hiatal hernia, gastroesophageal reflux disease and multiple other medical issues follows with [facility] cardiology, presented to the ER with complaints of chest pain. Reports he developed midsternal chest pressure while up at his cottage in [place]. Re ports nonexertional. Chest pain occurred after midnight last night, radiated to bilateral shoulders and into his jaw, accompanied by sweating, shortness of breath and bilateral lower extremity edema. transported him to the ER, troponins elevated, 0.060, 0.931, 3.330, heparin drip initiated. He currently denies any chest pain, palpitations or shortness of breath. Evaluated by cardiology with abnormal EKG reviewed sinus with-T wave inversion. Chest x-ray reporting no acute cardiopulmonary process.. Hematology, coagulation unremarkable. Sodium 142, potassium 4, bicarb 22, BUN 23, creatinine 1.12 glucose 101 magnesium 1.4-supplemented. Review of Systems ROS Statement: Those systems with pertinent positive or pertinent negative responses have been documented in the HPI. ROS Other: All systems not noted in ROS Statement are negative. 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 Past Psychological History: No Psychological Hx Reported Past Alcohol Use History: Rare Past Drug Use History: None Reported - Past Family History Mother Family Medical History: Cancer Father Family Medical History: Cancer Medications and Allergies Home Medications Medication Instructions Recorded Confirmed Type Atorvastatin [Lipitor] 20 mg PO DAILY 04/08/15 09/13/23 History Furosemide [Lasix] 20 mg PO DAILY 04/08/15 09/13/23 History Omeprazole 40 mg PO DAILY 04/08/15 09/13/23 History Potassium Chloride [Klor-Con 20] 20 meq PO DAILY 04/08/15 09/13/23 History allopurinoL [Zyloprim] 300 mg PO DAILY 04/08/15 09/13/23 History amLODIPine [Norvasc] 5 mg PO DAILY 04/08/15 09/13/23 History Apixaban [Eliquis] 5 mg PO BID 09/13/23 09/13/23 History Aspirin 81 mg PO DAILY 09/13/23 09/13/23 History Celecoxib [CeleBREX] 200 mg PO DAILY 09/13/23 09/13/23 History Levothyroxine Sodium [Synthroid] 50 mcg PO DAILY 09/13/23 09/13/23 History Losartan [Cozaar] 25 mg PO DAILY 09/13/23 09/13/23 History Sotalol [Betapace] 80 mg PO BID 09/13/23 09/13/23 History lamoTRIgine [LaMICtal] 25 mg PO HS 09/13/23 09/13/23 History Allergies Allergy/AdvReac Type Severity Reaction Status Date / Time gabapentin Allergy severe pain Verified 09/13/23 08:27 tramadol Allergy severe pain Verified 09/13/23 08:27 Physical Exam Vitals: Vital Signs Temp Pulse Resp BP Pulse Ox 09/13/23 18:21 98.3 F 76 19 145/89 96 09/13/23 14:16 67 14 127/93 95 09/13/23 08:39 72 16 170/110 94 L 09/13/23 05:58 97.9 F 63 16 144/95 95 09/13/23 03:06 62 16 143/92 96 09/13/23 01:25 98.2 F 67 20 159/91 98 Intake and Output 09/13/23 09/13/23 09/13/23 06:59 14:59 22:59 Output Total 1500 Balance -1500 Output: Urine 1500 Other: # Voids 5 Weight 65.771 kg PHYSICAL EXAM: VITAL SIGNS: [As above] GENERAL: Alert and oriented x 3, no acute distress HEENT: Normocephalic, atraumatic, conjunctivae normal. eyes normal. NECK: Supple, no JVD. No thyroid enlargement. No LNs CARDIOVASCULAR: S1, S2 regular. No murmur RESPIRATION: Unlabored, equal air entry, clear to auscultation. ABDOMEN: Soft, nondistended, nontender . No guarding. no masses palpable. No ascites, No hepatosplenomegaly.Bowel sounds heard. LEGS: No edema. no swelling PSYCHIATRY: Alert and oriented X3, mood and affect normal. NERVOUS SYSTEM: Cranial N 2-12 grossly normal. No focal deficits. Strength and sensation grossly intact. Skin: Warm and dry, no rash Results CBC & Chem 7: 09/13/23 04:22 09/13/23 01:42 Labs: Abnormal Lab Results - Last 24 Hours (Table) 09/13/23 09/13/23 09/13/23 Range/Units 01:42 01:42 04:22 APTT 53.2 H (22.0-30.0) sec Chloride 110 H (98-107) mmol/L BUN 23 H (9-20) mg/dL Glucose 101 H (74-99) mg/dL POC Glucose (mg/dL) (70-110) mg/dL Magnesium 1.4 L (1.6-2.3) mg/dL Troponin I 0.060 H* (0.000-0.034) ng/mL 09/13/23 09/13/23 09/13/23 Range/Units 04:22 07:01 15:24 APTT (22.0-30.0) sec Chloride (98-107) mmol/L BUN (9-20) mg/dL Glucose (74-99) mg/dL POC Glucose (mg/dL) 116 H (70-110) mg/dL Magnesium (1.6-2.3) mg/dL Troponin I 0.931 H* 3.330 H* (0.000-0.034) ng/mL Assessment and Plan Assessment: Chest pain, NSTEMI CAD with ischemic cardiomyopathy, no stenting, follows with [facility] cardiology Paroxysmal atrial fibrillation Hypertension Hyperlipidemia History of AAA Plan: Continue on current medication resume ,monitoring and symptomatic treatment. Evaluated by cardiology, patient is scheduled for cardiac cathet erization tomorrow. 2D echo ordered. Maintain IV heparin drip. The impression and plan of care has been dictated as directed. : I performed a history and examination of this patient, discussed the same with the dictator. I agree with the dictator's note ,documented as a scribe. Any additional findings or plans will be noted.
[2023-09-13] MEDS: ATORVASTATIN 80 MG TAB PO SCH (20:43)
[2023-09-14] MEDS: SODIUM CHLORIDE 0.9% 1,000 ML in EMPTY BAG 1 BAG IV SCH (01:58)
[2023-09-14] MEDS: ASPIRIN 81 MG PO SCH (03:31)
[2023-09-14] MEDS: ASPIRIN 325 MG TAB PO ONE (05:43)
[2023-09-14] MEDS: ATORVASTATIN 80 MG TAB PO ONE (05:43)
[2023-09-14 05:56] LABS: Glucose,Whole Blood 94 mg/dL (70-110)
[2023-09-14] MEDS ORDERED: HEPARIN SODIUM,PORCINE 10,000 UNIT in SODIUM CHLORIDE 0.9% 1,000 ML IRRIGATION PRN (07:00)
[2023-09-14] MEDS ORDERED: HEPARIN SODIUM,PORCINE (1 ML) 2,500 UNIT in SODIUM CHLORIDE 0.9% 250 ML IRRIGATION PRN (07:00)
[2023-09-14] MEDS ORDERED: VERAPAMIL 2.5 MG/ML 2 ML AMP ONE (08:47)
[2023-09-14] MEDS ORDERED: LIDOCAINE 1% INJ 10MG/ML (20 ML MDV) ONE (08:47)
[2023-09-14] MEDS ORDERED: ASPIRIN 325 MG TAB PO SCH (09:00)
[2023-09-14] MEDS ORDERED: fentaNYL (PF) 50 MCG/ML 2 ML AMP ONE (09:19)
[2023-09-14] MEDS: fentaNYL (PF) 50 MCG/ML 2 ML AMP IVP ONE (09:21)
[2023-09-14] MEDS ORDERED: HEPARIN SODIUM 1,000 UN/ML (10ML VL) ONE (09:21)
[2023-09-14] MEDS: LIDOCAINE 1% INJ 10MG/ML (20 ML MDV) SQ ONE (09:21)
[2023-09-14] MEDS: IV FLUID CONTINUATION 600 ML IV ONE (09:21)
[2023-09-14] MEDS: MIDAZOLAM 2 MG/2 ML VIAL IVP ONE (09:21)
[2023-09-14] MEDS: VERAPAMIL SYRINGE (5 MG/10 ML) INTRAARTER ONE (09:24)
[2023-09-14] MEDS: IOPAMIDOL-370 100ML BTL INJ ONE (09:53)
--- NOTE | 2023-09-14 10:27 | CC ---
CARDIAC CATHETERIZATION REPORT INDICATION: Acute [id number] elevation IA. PROCEDURE NOTE: After obtaining informed consent, left heart catheterization and coronary angiogram were performed via the right femoral artery using standard Faith catheters. The patient tolerated the procedure well without any immediate complications. A femoral angiogram was performed and Angio-Seal was deployed for hemostasis. The patient received moderate conscious sedation. Total sedation time was 33 minutes. I initially attempted cardiac cath via the right radial artery. The right radial artery access was obtained using Seldinger technique. A 6-Mont[place]grin sheath was placed. Catheters and wires were floated into the subclavian area; however, because of tortuosity, we could not pass the catheter and wire into the ascending aorta. Hence, I decided to proceed with the femoral catheterization. A TR band will be used for hemostasis. FINDINGS: 1. Hemodynamics: Left ventricular end-diastolic pressure is 18 mm. There is a gradient of 10 mm across the aortic valve. 2. Left ventriculogram: Left ventriculogram is not performed. 3. Angiographic Data: a.Right coronary artery: Right coronary artery is a large dominant vessel that shows a 40% to 50% stenosis in the mid RCA. Left main coronary artery is a small vessel and is free of stenosis divides into left anterior descending coronary artery and circumflex coronary artery. Circumflex coronary artery shows a 70% stenosis in its proximal portion. LAD shows a focal segment of 95% stenosis in the proximal area. CONCLUSIONS: Severe multivessel coronary artery disease including a tight stenosis in the proximal LAD, proximal circumflex coronary artery, and an intermediate disease involving right coronary artery. PLAN: I reviewed angiographic data with Dr. Watkins, the on-call appointment coordinator, who felt the patient will be better after surgical revascularization. I am going to consult Dr. Cox for surgical revascularization on this patient. I have explained these issues at length with the patient. He understands and in agreement with the plans. Echo is still pending on this patient. MMODL / IJN: [id number] /
[2023-09-14] MEDS ORDERED: RX INFO: IV CONTRAST WAS GIVEN 1 EACH MISC MISCELLANE PRN (10:29)
[2023-09-14] MEDS: SODIUM CHLORIDE 0.9% 1,000 ML IV SCH (10:45)
[2023-09-14 11:41] LABS: Glucose,Whole Blood 89 mg/dL (70-110)
[2023-09-14 11:41] LABS: Mean Platelet Volume 9.8; Platelet Count 205 k/uL (150-450)
[2023-09-14 11:58] LABS: African American GFR (CKD) >90 (>60 ml/min/1.73 sqM); Anion Gap 7 mmol/L; Blood Urea Nitrogen 15 mg/dL (9-20); Calcium 9.8 mg/dL (8.4-10.2); Carbon Dioxide 22 mmol/L (22-30); Chloride 108 mmol/L (98-107); Glucose 92 mg/dL (74-99); Magnesium 1.7 mg/dL (1.6-2.3); Non-African American GFR(CKD) 87 (>60 ml/min/1.73 sqM); Sodium 137 mmol/L (137-145)
--- NOTE | 2023-09-14 13:30 | CA ---
Transthoracic Echo Report Name: Cliff Mayer Age: 73 Gender: M : 1950 Exam Date: 09/14/2023 10:18 Exam Location: [facility] Ht (in): 67 Wt (lb): 243 Ordering Physician: Jet Hernandez MD Attending/Referring Phys: [id number], Mary Manager Social Work Melissa Valiente RDCS Procedure CPT: Indications: nstemi Cardiac Hx: Technical Quality: Technically difficult study Contrast 1: Definity Total Dose (mL): 2 Contrast 2: Total Dose (mL): MEASUREMENTS (Male / Female) Normal Values 2D ECHO LV Diastolic Diameter PLAX 5.0 cm 4.2 - 5.9 / 3.9 - 5.3 cm LV Systolic Diameter PLAX 3.2 cm IVS Diastolic Thickness 1.3 cm 0.6 - 1.0 / 0.6 - 0.9 cm LVPW Diastolic Thickness 1.3 cm 0.6 - 1.0 / 0.6 - 0.9 cm LV Relative Wall Thickness 0.5 LVOT Diameter 2.3 cm Ascending Aorta Diameter 4.5 cm DOPPLER AV Peak Velocity 137.6 cm/s AV Peak Gradient 7.6 mmHg AV Mean Velocity 102.7 cm/s AV Mean Gradient 4.5 mmHg AV Velocity Time Integral 29.5 cm LVOT Peak Velocity 94.1 cm/s LVOT Peak Gradient 3.5 mmHg LVOT Velocity Time Integral 20.7 cm LVOT Stroke Volume 83.4 cm??? LVOT Stroke Volume Index 38.0 ml/m??? LVOT Cardiac Index 2254.9 cm???/min???m??? AV Area Cont Eq vti 2.8 cm??? AV Area Cont Eq pk 2.8 cm??? MV Area PHT 3.8 cm??? Mitral E Point Velocity 86.5 cm/s Mitral A Point Velocity 59.9 cm/s Mitral E to A Ratio 1.4 MV Deceleration Time 201.7 ms PV Peak Velocity 93.3 cm/s PV Peak Gradient 3.5 mmHg FINDINGS Left Ventricle Left ventricular ejection fraction is estimated at 55-60 %. Moderately increased septal wall thickness. Apical left ventricular aneurysm. Left ventricular cavity size normal. No obvious regional wall motion abnormalities. Right Ventricle Normal right ventricular size and function. Unable to estimate the right ventricular systolic pressure. Right Atrium Normal right atrial size. Left Atrium Left atrial dilatation by visual. Mitral Valve Structurally normal mitral valve. No evidence for mitral valve prolapse. No mitral stenosis. Trace mitral regurgitation. Aortic Valve Trileaflet aortic valve. Aortic valve sclerosis. No aortic stenosis. Trace aortic regurgitation. Tricuspid Valve Structurally normal tricuspid valve. No tricuspid stenosis. Trace tricuspid regurgitation. Pulmonic Valve Pulmonic valve not well visualized. No pulmonic stenosis. No pulmonic regurgitation. Pericardium No pericardial effusion. Aorta Aortic annulus normal. Mildly dilated ascending aorta. 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 Consider cardiac MRI if clinically indicated Trace mitral regurgitation Trace tricuspid regurgitation Previewed by: Dr. Ilan Watkins DO (Electronically Signed) Final Date: 14 September 2023 13:29
--- NOTE | 2023-09-14 15:01 | P.GSCN ---
History of Present Illness Consult date: 09/14/23 Reason for Consult: Multivessel coronary artery disease, non-ST elevated myocardial infarction this admission Requesting physician: Davis Campoverde History of present illness: This is a 73-year-old gentleman who follows on outpatient basis with Dr. Liz Lucero for his primary care and with Dr. Head and Dr. aPrkinson out of [facility] for his cardiology care. The patient presented to the emergency department here at [facility] on September 13, 2023, after being woken up from sleep with chest pain which radiated to his bilateral shoulders. The patient reports he did have some diaphoresis associated with the chest pain. He denies any complaints of nausea, vomiting, constipation, diarrhea, fever, chills, palpitations, shortness of breath, visual disturbances, headache, presyncope or syncope. The patient has a past medical history significant for coronary artery disease in which he reports he had a heart cath completed around 8 to 9 years ago with no intervention completed at that time, hypertension, hyperlipidemia, ischemic heart disease in which he states is from agent orange exposure in the [place], an ascending aortic aneurysm followed by Dr. Head with serial chest CAT scans, hard of hearing, obstructive sleep apnea wears a home CPAP, atrial fibrillation on Eliquis for anticoagulation as an outpatient, obesity with a BMI of 38.0 kg/m, gout, hypothyroid, prostate disorder on Flomax as an outpatient, neuropathy to his left foot, GERD, PTSD and is a lifetime non- smoker. A chest x-ray was completed in the emergency department which showed no acute cardiopulmonary process. A twelve-lead EKG was completed which showed normal sinus rhythm with T wave inversion and a heart rate of 65 bpm. Initial laboratory results showed a WBC count of 8.0, hemoglobin 13.3, hematocrit 41.5, platelets 228, PT 10.8, INR 1.0, PTT 24.0, sodium 142, potassium 4.0, chloride 110, BUN 23, creatinine 1.12, glucose 101, calcium 9.9, magnesium 1.4, proBNP 368, and elevated serial troponins as high as 3.330. Due to the patient's presenting symptoms and elevated troponins cardiology was consulted and he was recommended to undergo a cardiac catheterization which was completed today by Dr. Campoverde and the cardiac catheterization revealed severe multivessel coronary artery disease including a tight stenosis of 95% in the proximal left anterior descending coronary artery, a 70% stenosis to his his proximal circumflex coronary artery, and intermediate disease involving the right coronary artery with a 40 to 50% stenosis. The patient also had a transthoracic 2D echocardiogram completed today which demonstrated a left ventricular ejection fraction estimated at 55 to 60%, no obvious regional wall motion abnormalities, trace mitral valve regurgitation, trace aortic valve regurgitation, trace tricuspid valve regurgitation, no pericardial effusion and a mildly dilated ascending aorta. Subsequently, due to the findings on the cardiac catheterization films a consult was placed to cardiothoracic surgery for further evaluation and treatment recommendations including myocardial vascularization surgery. Review of Systems A review of systems was completed and was negative except as mentioned in the HPI. 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 Year Discovered:: 1999 MDRO Source:: right knee Past Surgical History: Hernia Repair, Joint Replacement, Orthopedic Surgery Additional Past Surgical History / Comment(s): left ankle & bilat knee replaced, arthroscopies knee., multiple EGD's Past Anesthesia/Blood Transfusion Reactions: Previous Problems w/ Anesthesia Additional Past Anesthesia/Blood Transfusion Reaction / Comm: prolonged confusion Past Psychological History: PTSD (PTSD from previous experiences in [place] war) Smoking Status: Never smoker Past Alcohol Use History: Rare Past Drug Use History: None Reported - Past Family History Mother Family Medical History: Cancer (Leukemia) Father Family Medical History: Cancer (Type of cancer unknown) Medications and Allergies Home Medications Medication Instructions Recorded Confirmed Type Atorvastatin [Lipitor] 20 mg PO DAILY 04/08/15 09/13/23 History Furosemide [Lasix] 20 mg PO DAILY 04/08/15 09/13/23 History Omeprazole 40 mg PO DAILY 04/08/15 09/13/23 History Potassium Chloride [Klor-Con 20] 20 meq PO DAILY 04/08/15 09/13/23 History allopurinoL [Zyloprim] 300 mg PO DAILY 04/08/15 09/13/23 History amLODIPine [Norvasc] 5 mg PO DAILY 04/08/15 09/13/23 History Apixaban [Eliquis] 5 mg PO BID 09/13/23 09/13/23 History Aspirin 81 mg PO DAILY 09/13/23 09/13/23 History Celecoxib [CeleBREX] 200 mg PO DAILY 09/13/23 09/13/23 History Levothyroxine Sodium [Synthroid] 50 mcg PO DAILY 09/13/23 09/13/23 History Losartan [Cozaar] 25 mg PO DAILY 09/13/23 09/13/23 History Sotalol [Betapace] 80 mg PO BID 09/13/23 09/13/23 History lamoTRIgine [LaMICtal] 25 mg PO HS 09/13/23 09/13/23 History Allergies Allergy/AdvReac Type Severity Reaction Status Date / Time gabapentin Allergy severe pain Verified 09/13/23 08:27 tramadol Allergy severe pain Verified 09/13/23 08:27 Surgical - Exam Vital Signs Temp Pulse Resp BP Pulse Ox 98.2 F 67 20 159/91 98 09/13/23 01:25 09/13/23 01:25 09/13/23 01:25 09/13/23 01:25 09/13/23 01:25 - General well developed, well nourished, no distress, no pain, obese - Eyes PERRL, normal ocular movement, no pale, no icteric - ENT normal pinna, normal nares, normal mucosa, no congestion, decreased hearing (Hearing aid bilateral) - Neck Neck is supple, no lymphadenopathy. no masses, no bruits, trachea midline, no venous distension - Respiratory Lung sounds essentially clear throughout, no wheezes, rhonchi or crackles. Respirations are symmetrical and nonlabored. Oxygen saturations 95% on room air. - Cardiovascular Regular rhythm and rate. S1 and S2 present, negative for S3, gallop or murmur. - Abdomen Abdomen is soft, nontender and nondistended. Active bowel sounds present all 4 abdominal quadrants. No guarding or rigidity. No organomegaly appreciated. Obese. - Genitourinary Deferred - Rectum Deferred - Integumentary Skin is warm and dry. No clubbing or cyanosis is present. no rash, no growths, no abnormal pigmentation - Neurologic No focal deficits. - Musculoskeletal Moves all 4 extremities with equal strength bilateral. - Psychiatric oriented to time, oriented to person, oriented to place, speech is normal, memory intact Results - Labs 09/15/23 06:13 09/14/23 11:19 Abnormal Lab Results - Last 24 Hours (Table) 09/13/23 09/14/23 Range/Units 15:24 11:19 Chloride 108 H (98-107) mmol/L POC Glucose (mg/dL) 116 H (70-110) mg/dL Diabetes panel 09/14/23 Range/Units 11:19 Sodium 137 (137-145) mmol/L Potassium 4.0 (3.5-5.1) mmol/L Chloride 108 H (98-107) mmol/L Carbon Dioxide 22 (22-30) mmol/L BUN 15 (9-20) mg/dL Creatinine 0.82 (0.66-1.25) mg/dL Glucose 92 (74-99) mg/dL Calcium 9.8 (8.4-10.2) mg/dL Thyroid panel 09/14/23 Range/Units 11:19 TSH 1.080 (0.465-4.680) mIU/L Calcium panel 09/14/23 Range/Units 11:19 Calcium 9.8 (8.4-10.2) mg/dL Pituitary panel 09/14/23 Range/Units 11:19 Sodium 137 (137-145) mmol/L Potassium 4.0 (3.5-5.1) mmol/L Chloride 108 H (98-107) mmol/L Carbon Dioxide 22 (22-30) mmol/L BUN 15 (9-20) mg/dL Creatinine 0.82 (0.66-1.25) mg/dL Glucose 92 (74-99) mg/dL Calcium 9.8 (8.4-10.2) mg/dL TSH 1.080 (0.465-4.680) mIU/L Adrenal panel 09/14/23 Range/Units 11:19 Sodium 137 (137-145) mmol/L Potassium 4.0 (3.5-5.1) mmol/L Chloride 108 H (98-107) mmol/L Carbon Dioxide 22 (22-30) mmol/L BUN 15 (9-20) mg/dL Creatinine 0.82 (0.66-1.25) mg/dL Glucose 92 (74-99) mg/dL Calcium 9.8 (8.4-10.2) mg/dL - Imaging Chest x-ray: report reviewed, image reviewed EKG: image reviewed Assessment and Plan Assessment: Multivessel coronary artery disease Ischemic cardiomyopathy, according to patient related to agent orange exposure Non-ST elevated myocardial infarction this admission Paroxysmal atrial fibrillation on Eliquis as an outpatient, status post 2 previous cardioversions Hypertension Hyperlipidemia History of ascending aortic aneurysm, followed by Dr. Head Obstructive sleep apnea with home CPAP use Benign prostatic hypertrophy, on Flomax as an outpatient Hard of hearing Gout, on allopurinol GERD Neuropathy to his left foot Lifetime non-smoker PTSD from experiences in [place] Osteoarthritis Plan: The patient was seen and examined at his bedside on the third floor cardiac stepdown unit. His chart and diagnostics were reviewed. His case was discussed in detail with Dr. Luis Stockton from cardiothoracic surgery. The usual perioperative course of open-heart surgery was discussed in detail with the patient, risks and benefits were reviewed, all questions were answered. Preoperative testing and preoperative teaching were initiated. Once completed we will calculate STS risk score and discussed with the patient. Continue to maximize medical management with aspirin, statin and beta-boyd. Once the patient is off bedrest a 5 m walk test test will be completed to complete his frailty testing. A clinical frailty score was calculated which showed a score of 2 which is well, fit/mild frailty. Medical management of other comorbidities per internal medicine, cardiology. More recommendations to follow based on patient's clinical course and has his preoperative testing has been obtained and reviewed. Thank you Dr. Campoverde for this consult and we look forward to working with you in the care of this patient. I have personally seen and examined the patient, performed the documentation and the assessment and plan as written. Number of minutes spent on the visit: 30. VARGHESE Baldwin Attending Addendum: Pt seen and evaluated with the CORRECTIONS CASEWORKER above. Agree with his assessment and plan. This is a 73 year-old M who presents with NSTEMI. Coronary angiography reveals signficant 3v CAD and echo reveals good EF. He does also have a history of recent p-afib. He is a good candidate for CABG with PVI this admission, which is what we have recommended. I spent 45 minutes reviewing the data and discussing the plan of care with the team. Time with Patient: Greater than 30
--- NOTE | 2023-09-14 15:18 | US ---
EXAMINATION TYPE: US vein mapping [facility] DATE OF EXAM: 09/14/2023 1:13 PM COMPARISON: NONE CLINICAL INDICATION: Male, 73 years old with history of PreOp Cardiac Surgery; SIDE PERFORMED: Bilateral TECHNIQUE: Lower extremity saphenous vein is examined and measured utilizing real time linear array sonography. Patient History: Smoker: N/A Heart Disease: yes Previous DVT: no Vascular Surgery: no Discoloration: no Hypertension: N/A Diabetes: N/a Paralysis: no Varicosities: no Edema: bilat ankles DUPLEX FINDINGS: Greater Saphenous: Color flow seen Lesser Saphenous: Color flow seen Measurements in mm: Right Greater Saphenous: Groin: 5.1 x 3.5 mm High Thigh: 5.4 x 3.6 mm Mid Thigh: 3.5 x 3.0 mm Above Knee: 4.0 x 3.6 mm Knee: 2.5 x 2.4 mm Below Knee: 2.4 x 1.6 mm Mid Calf: 1.9 x 1.4 mm At Ankle: 2.6 x 1.6 mm Left Greater Saphenous: Groin: 3.4 x 2.5 mm High Thigh: 3.5 x 3.3 mm Mid Thigh: 3.4 x 2.5 mm Above Knee: 2.2 x 2.0 mm Knee: 2.3 x 2.1 mm Below Knee: 3.1 x 2.1 mm Mid Calf: 2.1 x 1.6 mm At Ankle: 2.1 x 3.1 mm IMPRESSION: 1. Bilateral GSV measurements listed above. 2. Performing surgeon to determine viability as conduit.
--- NOTE | 2023-09-14 15:19 | US ---
EXAMINATION TYPE: Pre-Operative Non-Invasive Evaluation of the hand for Potential Radial Artery Cosmo , Measurements only DATE OF EXAM: 09/14/2023 1:13 PM CLINICAL INDICATION: Male, 73 years old with history of Pre-Op Cardiac Surgery; SIDE PERFORMED: Left TECHNIQUE: Radial artery is measured utilizing real time linear array sonography. Dominant hand: Right Duplex Findings: Radial Artery: Color flow seen Measurements in mm, transverse view: Left Radial: Proximal: 2.8 x 2.7 mm Mid: 2.8 x 2.6 mm Distal: 3.1 x 2.5 mm IMPRESSION: 1. Left Radial artery measurements listed above. 2. Performing surgeon to determine viability as conduit.
--- NOTE | 2023-09-14 15:30 | US ---
EXAMINATION TYPE: US carotid duplex BILAT DATE OF EXAM: 09/14/2023 COMPARISON: NONE CLINICAL INDICATION: Male, 73 years old with history of Pre-Op Cardiac Surgery; PreCABG TECHNIQUE: Carotid duplex ultrasound examination. Indirect Doppler criteria was utilized. FINDINGS: EXAM MEASUREMENTS: RIGHT: Peak Systolic Velocity (PSV) cm/sec ----- Right CCA: 68.8 ----- Right ICA: 66.9 ----- Right ECA: 84.0 ICA/CCA ratio: 1.0 RIGHT: End Diastole cm/sec ----- Right CCA: 12.8 ----- Right ICA: 14.2 ----- Right ECA: 0.0 LEFT: Peak Systolic Velocity (PSV) cm/sec ----- Left CCA: 73.6 ----- Left ICA: 79.8 ----- Left ECA: 58.4 ICA/CCA ratio: 1.1 LEFT: End Diastole cm/sec ----- Left CCA: 16.7 ----- Left ICA: 24.8 ----- Left ECA: 0.0 VERTEBRALS (direction of flow): Right Vertebral: Antegrade Left Vertebral: Antegrade Rhythm: Arrhythmia AIRCRAFT SERVICER NOTES: Limited due to posterior location. Possible plaque right bulb. No prominent w all thickening. IMPRESSION: Atheromatous plaque in bilateral carotid bifurcations without significant flow-limiting stenosis base d on densities. Criteria for Assigning % of Stenosis / Diameter reduction (Estimation based on the indirect measurements of the internal carotid artery velocities (ICA PSV). 1. Normal (no stenosis)=ICA PSV < 125 cm/s: ratio < 2.0: ICA EDV<40 cm/s. 2. Less than 50% stenosis=ICA PSV < 125 cm/s: ratio < 2.0: ICA EDV<40 cm/s. 3. 50 to 69% stenosis=ICA PSV of 125 to 230 cm/s: ration 2.0 ? 4.0: ICA EDV 40-100 cm/s. 4. Greater than 70% stenosis to near occlusion= ICA PSV > 230 cm/s: ratio > 4.0: ICA EDV > 100 cm/s. 5. Near occlusion= ICA PSV velocities may be low or undetectable: variable ratio and ICA EDV. 6. Total occlusion=unable to detect flow.
--- NOTE | 2023-09-14 16:34 | P.PN ---
Subjective Progress Note Date: 09/14/23 H&P Date: 09/13/23 Chief Complaint: Chest pain This is a pleasant 73-year-old gentleman with past medical history significant for ischemic cardiomyopathy, atrial fibrillation,AAA, hypertension, hyperlipidemia, sleep apnea wears CPAP, hiatal hernia, gastroesophageal reflux disease and multiple other medical issues follows with [facility], presented to the ER with complaints of chest pain. Reports he developed midsternal chest pressure while up at his cottage in [place]. Reports nonexertional. Chest pain occurred after midnight last night, radiated to bilateral shoulders and into his jaw, accompanied by sweating, shortness of breath and bilateral lower extremity edema. transported him to the ER, troponins elevated, 0.060, 0.931, 3.330, heparin drip initiated. He currently denies any chest pain, palpitations or shortness of breath. Evaluated by cardiology with abnormal EKG reviewed sinus with-T wave inversion. Chest x-ray reporting no acute cardiopulmonary process.. Hematology, coagulation unremarkable. Sodium 142, potassium 4, bicarb 22, BUN 23, creatinine 1.12 glucose 101 magnesium 1.4-supplemented. 09/14/2023 Just returning back from cardiac catheterization, reporting severe multivessel CAD including a tight stenosis in the proximal LAD, proximal circumflex and intermediate disease involving RCA. 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 C ardiothoracic surgery consulted. Currently denies chest pain, palpitations or shortness of breath. Maintaining O2 sats in the mid 90s on room air. Telemetry sinus rhythm. Objective - Vital Signs Vital signs: Vital Signs Temp 97.4 F L 09/14/23 08:00 Pulse 66 09/14/23 13:30 Resp 18 09/14/23 11:38 BP 141/87 09/14/23 11:38 Pulse Ox 95 09/14/23 11:38 FiO2 Intake & Output 09/13/23 09/14/23 09/14/23 18:59 06:59 18:59 Intake Total 199.824 72.1 Output Total 1500 225 Balance -1500 -25.176 72.1 Weight 110.1 kg Intake: IV 50 Intake, IV Titration 199.824 22.1 Amount Heparin Sod,Pork in 0.45% 199.824 22.1 NaCl 25,000 unit In 0.45 % NaCl 1 250ml.bag @ 12 UNITS/KG/HR 7.893 mls/hr IV .Q24H [facility] Rx#: [id number] Output: Urine 1500 225 Other: Voiding Method Toilet Urinal # Voids 5 - Exam PHYSICAL EXAM: VITAL SIGNS: [As above] GENERAL: Alert and oriented x 3, no acute distress HEENT: Normocephalic, atraumatic, conjunctivae normal. eyes normal. NECK: Supple, no JVD. CARDIOVASCULAR: S1, S2 regular. No murmur RESPIRATION: Unlabored, equal air entry, clear to auscultation. ABDOMEN: Soft, nondistended, nontender . No guarding. +BS LEGS: No edema. no swelling NERVOUS SYSTEM: Cranial N 2-12 grossly normal. No focal deficits. Skin: Warm and dry, no rash - Labs CBC & Chem 7: 09/14/23 11:19 09/14/23 11:19 Labs: Abnormal Lab Results - Last 24 Hours (Table) 09/13/23 09/14/23 Range/Units 15:24 11:19 Chloride 108 H (98-107) mmol/L POC Glucose (mg/dL) 116 H (70-110) mg/dL Assessment and Plan Assessment: Chest pain, NSTEMI. Status post catheterization reporting multivessel CAD CAD with ischemic cardiomyopathy, no stenting, follows with [facility]. 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 Chronic paroxysmal atrial fibrillation Obstructive sleep apnea uses CPAP Hypertension Hyperlipidemia History of AAA, monitoring outpatient with Dr. Head BPH Plan: Continue on current medication resume ,monitoring and symptomatic treatment. Maximizing medical therapy with beta-boyd, statin and aspirin.Anticoagulation as per cardiology. Multivessel CAD ,cardiothoracic surgery consult in place, recommendations pending. The impression and plan of care has been dictated as directed. : I performed a history and examination of this patient, discussed the same with the dictator. I agree with the dictator's note ,documented as a scribe. Any additional findings or plans will be noted.
[2023-09-14 16:46] LABS: Glucose,Whole Blood 122 mg/dL (70-110)
[2023-09-14 17:21] LABS: Appearance,Urine Clear (Clear); Bilirubin,Urine Negative (Negative); Blood,Urine Negative (Negative); Color,Urine Colorless; Glucose,Urine (UA) Negative (Negative); Ketones,Urine Negative (Negative); Leukocyte Esterase,Urine Negative (Negative); Nitrite,Urine Negative (Negative); Protein,Urine Negative (Negative); Specific Gravity,Urine 1.039 (1.001-1.035); Urobilinogen,Urine <2.0 mg/dL (<2.0)
[2023-09-14 18:01] LABS: Chol/HDL Ratio 4.45 Ratio; LDL Cholesterol,Calculated 87.4 mg/dL (0.0-131.0)
[2023-09-14 18:01] LABS: Hepatitis A Antibody IgM Nonreactive (Nonreactive); Hepatitis B Surface Antigen Nonreactive (Nonreactive); Hepatitis C IgG Antibody Nonreactive (Nonreactive)
[2023-09-14 19:25] LABS: Hepatitis B Core IgM Nonreactive (Nonreactive)
[2023-09-14] MEDS: MUPIROCIN 2% OINT 22 GM TUBE NASAL SCH (20:21)
[2023-09-14 20:42] LABS: Glucose,Whole Blood 131 mg/dL (70-110)
[2023-09-15 05:42] LABS: Glucose,Whole Blood 107 mg/dL (70-110)
[2023-09-15 07:08] LABS: Mean Platelet Volume 9.8; Platelet Count 187 k/uL (150-450)
--- NOTE | 2023-09-15 09:52 | P.PN ---
Subjective Progress Note Date: 09/15/23 Principal diagnosis: Multivessel coronary artery disease, NSTEMI this admission. 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 Stockton sitting up at the bedside about to eat breakfast in no acute distress. Denies any current chest pain or shortness of breath. He was seen yesterday as well by Dr. Stockton, recommendations are for coronary artery bypass surgery with pulmonary vein isolation this admission, currently tentatively scheduled for Wednesday. Timing was discussed with the patient and his as well as cardiology and they are in agreement. STS risk score was calculated at 1.4% for operative mortality making patient low risk. Will obtain pulmonary consult for clearance. No other new concerns. Objective - Vital Signs Vital signs: Vital Signs Temp 97.3 F L 09/15/23 04:00 Pulse 64 09/15/23 04:00 Resp 20 09/15/23 04:00 BP 146/84 09/15/23 04:00 Pulse Ox 95 09/15/23 04:00 FiO2 Intake & Output 09/14/23 09/15/23 09/15/23 18:59 06:59 18:59 Intake Total 308.1 61.302 0 Output Total 1000 350 Balance -691.9 -288.698 0 Weight 107 kg Intake: IV 50 Intake, IV Titration 22.1 61.302 Amount Heparin Sod,Pork in 0.45% 22.1 61.302 NaCl 25,000 unit In 0.45 % NaCl 1 250ml.bag @ 12 UNITS/KG/HR 7.893 mls/hr IV .Q24H [facility] Rx#: [id number] Oral 236 0 Output: Urine 1000 350 Other: Voiding Method Toilet Urinal - Exam CONSTITUTIONAL: Appears comfortable, cooperative, no acute distress RESPIRATORY: Lungs sounds diminished bilaterally. Respirations even, nonlabored. Currently on room air with oxygen saturation 93%. Able to achieve 1500 mL on incentive spirometry. Strong cough. CARDIOVASCULAR: S1, S2 present. Regular rate and rhythm, sinus rhythm on telemetry. Palpable peripheral pulses bilaterally. No edema present. No calf pain or tenderness noted GASTROINTESTINAL: Abdomen soft, nontender, nondistended. Active bowel sounds present 4 quadrants. Tolerating diet GENITOURINARY: Continues to void INTEGUMENTARY: Skin is warm and dry NEUROLOGIC: Cranial nerves II through XII intact MUSKULOSKELETAL: Able to move all extremities, strength equal bilaterally, gait normal PSYCHIATRIC: Alert and oriented to person place and time, appropriate affect, intact judgment and insight - Labs CBC & Chem 7: 09/15/23 06:13 09/14/23 11:19 Labs: Abnormal Lab Results - Last 24 Hours (Table) 09/14/23 09/14/23 09/14/23 Range/Units 11:19 16:44 17:10 Chloride 108 H (98-107) mmol/L POC Glucose (mg/dL) 122 H (70-110) mg/dL Triglycerides 249.00 H (0.00-149.00) mg/dL VLDL Cholesterol, Calc 49.80 H (5.00-40.00) mg/dL HDL Cholesterol 39.80 L (40.00-60.00) mg/dL Ur Specific [place] 1.039 H (1.001-1.035) 09/14/23 Range/Units 20:41 Chloride (98-107) mmol/L POC Glucose (mg/dL) 131 H (70-110) mg/dL Triglycerides (0.00-149.00) mg/dL VLDL Cholesterol, Calc (5.00-40.00) mg/dL HDL Cholesterol (40.00-60.00) mg/dL Ur Specific [place] (1.001-1.035) - Imaging and Cardiology Chest x-ray: image reviewed CT scan - chest: pending Assessment and Plan Assessment: Multivessel coronary artery disease, NSTEMI this admission History of ischemic 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 Head Obstructive sleep apnea with home CPAP use Benign prostatic hypertrophy Gout GERD Neuropathy to left foot PTSD from experiences in [place] Osteoarthritis Lifetime non-smoker, preoperative FEV1 89% of predicted Plan: Continue to maximize medical therapy with aspirin, statin, beta-boyd Increase activity as tolerated Encourage incentive spirometry use Will consult pulmonology for open heart clearance Tentatively we are planning on pump coronary artery bypass surgery with left internal mammary artery, left radial artery, endoscopic vein harvesting, ligation of the left atrial appendage and pulmonary vein isolation by Dr. Stockton this Monday, September 18, 2023 5 m walk test completed by cardiac rehab, STS risk score calculated Await CT of the chest to evaluate the ascending aorta for clamp ability, patient does state he is claustrophobic Medical management of other comorbidities per internal medicine, cardiology More recommendations to follow
[2023-09-15 12:04] LABS: Glucose,Whole Blood 92 mg/dL (70-110)
--- NOTE | 2023-09-15 12:21 | US ---
EXAMINATION TYPE: US arterial LE single level DATE OF EXAM: 09/15/2023 10:47 AM CLINICAL INDICATION: Male, 73 years old with history of Ankle Brachial Index ([place]) ; Pre CABG testing Doppler Waveforms: Right: Multiphasic Left: Multiphasic Right Brachial Pressure: 139 Left Brachial Pressure: 138 Ankle-Brachial Indices: Right: 1.1 Left: 1.2 (Vessel hardening > 1.4; Normal 0.9 - 1.4, Moderate 0.7 - 0.9, Severe 0.5-0.7) IMPRESSION: No suspicious flow limiting stenosis.
[2023-09-15] MEDS: ISOSORBIDE MONONITRATE ER 30 MG TAB.ER.24H PO SCH (12:44)
--- NOTE | 2023-09-15 13:33 | P.PN ---
Subjective HISTORY OF PRESENT ILLNESS: This is a 73-year-old male with a past medical history significant for AAA, ischemic cardiomyopathy, atrial fibrillation, hypertension, and hyperlipidemia. Patient follows with 2 corrugated box machine operator at [facility], Dr. Head and Dr. Parkinson. We have been asked to see the patient in consultation for elevated troponins. Patient examined at the bedside in the emergency room. Patient states that yesterday evening while he was in bed he developed chest discomfort in the middle of his chest. He states the pain went into his shoulders and into his jaw. He also states that he broke out into a sweat. His brought him to the hospital for further evaluation. Patient was found to have elevated troponins and was started on IV heparin. At the time of examination, he denies any chest pain or pressure. Denies any shortness of breath. Vital signs are stable. The patient does report he had a cardiac catheterization performed approximately 10 years ago. He states that he has never had any stenting or bypass surgery. However he does state he has a history of ischemic heart disease. DIAGNOSTICS: - EKG reveals sinus mechanism with T wave inversions in V3V5 - Chest xray negative for acute process - Laboratory data: WBC 8.0. Hemoglobin 13.3. Platelet count 204. Sodium 142. Potassium 4.0. BUN 23. Creatinine 1.12. Magnesium 1.4. Troponin 0.060. 0.931. 3.330. proBNP 368. - Current home cardiac medications include Lasix 20 mg daily, aspirin 81 mg daily, Eliquis 5 mg twice a day, amlodipine 5 mg daily, sotalol 80 mg twice a day, losartan 25 mg daily, Lipitor 20 mg daily. 09/15/2023 Patient examined this morning. Patient is sitting up in the chair. Patient currently denies chest pain or pressure. He denies shortness of breath. He remains on IV heparin. 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 Trace MR, trace TR. Vital signs are stable. PHYSICAL EXAM: VITAL SIGNS: Reviewed. GENERAL: Well-developed in no acute distress. HEENT: Head is normocephalic. Pupils are equal, round. Sclerae anicteric. Mucous membranes of the mouth are moist. Neck supple. No JVD or thyromegaly LUNGS: Respirations even and unlabored. Lungs essentially clear to auscultation bilaterally. HEART: Regular rate and rhythm. S1 and S2 heard. ABDOMEN: Soft. Nondistended. Nontender. EXTREMITIES: Normal range of motion. No clubbing or cyanosis. Peripheral pulses intact. No lower extremity edema NEUROLOGIC: Awake and alert. Oriented x 3. ASSESSMENT: Non-STEMI Status post postcardiac catheterization revealing severe multivessel CAD including tight lesion in the proximal LAD, proximal circumflex, and intermediate disease involving right coronary artery Paroxysmal atrial fibrillation History of cardioversion Hypertension Hyperlipidemia History of AAA PLAN: Continue current cardiac medications Continue IV heparin. Patient will need to be transition to Eliquis post operati vely Continue Nitropaste. Begin Imdur [address] surgery is following. Patient is tentatively scheduled for CABG on Wednesday Further recommendations pending patient course Nurse practitioner note has been reviewed by physician. Signing provider agrees with the documented findings, assessment, and plan of care documented by HEEL SANDER RUBBER as a scribe. Objective - Vital Signs Vital signs: Vital Signs Temp 97.9 F 09/15/23 08:00 Pulse 65 09/15/23 08:00 Resp 18 09/15/23 08:00 BP 140/79 09/15/23 08:00 Pulse Ox 94 L 09/15/23 08:00 FiO2 Intake & Output 09/14/23 09/15/23 09/15/23 18:59 06:59 18:59 Intake Total 308.1 61.302 150 Output Total 1000 350 Balance -691.9 -288.698 150 Weight 107 kg Intake: IV 50 Intake, IV Titration 22.1 61.302 Amount Heparin Sod,Pork in 0.45% 22.1 61.302 NaCl 25,000 unit In 0.45 % NaCl 1 250ml.bag @ 12 UNITS/KG/HR 7.893 mls/hr IV .Q24H [facility] Rx#: [id number] Oral 236 150 Output: Urine 1000 350 Other: Voiding Method Toilet Urinal # Bowel Movements 1 - Labs CBC & Chem 7: 09/15/23 06:13 09/14/23 11:19 Labs: Abnormal Lab Results - Last 24 Hours (Table) 09/14/23 09/14/23 09/14/23 Range/Units 11:19 16:44 17:10 Chloride 108 H (98-107) mmol/L POC Glucose (mg/dL) 122 H (70-110) mg/dL Triglycerides 249.00 H (0.00-149.00) mg/dL VLDL Cholesterol, Calc 49.80 H (5.00-40.00) mg/dL HDL Cholesterol 39.80 L (40.00-60.00) mg/dL Ur Specific [place] 1.039 H (1.001-1.035) 09/14/23 Range/Units 20:41 Chloride (98-107) mmol/L POC Glucose (mg/dL) 131 H (70-110) mg/dL Triglycerides (0.00-149.00) mg/dL VLDL Cholesterol, Calc (5.00-40.00) mg/dL HDL Cholesterol (40.00-60.00) mg/dL Ur Specific [place] (1.001-1.035)
--- NOTE | 2023-09-15 15:12 | P.CNPUL ---
History of Present Illness Consult date: 09/15/23 Requesting physician: Luis Stockton Reason for consult: other (Ventilator/critical care management) Chief complaint: Chest pain with radiation to bilateral shoulders History of present illness: This is a very pleasant 73-year-old male patient with a history of atrial fibrillation with previous cardioversions, anticoagulated with Eliquis, gastroesophageal reflux disease, hyperlipidemia, hypertension, obstructive sleep apnea utilizing CPAP at 12 cm of water, gout, agent orange exposure while in [place], multiple orthopedic surgeries. He is a lifelong non-smoker. No history of asthma. No oxygen or inhalers. His FEV1 value was found to be 2.45 L and 89% of predicted. He had presented here to the emergency room on September 13, 2023 with complaints of midsternal chest discomfort radiating to the bilateral shoulders. Troponins were 0.060, 0.931, 3.330. White count 8.0. Hemoglobin 13.3. Platelets 204. Sodium 137. Potassium 4.0. Bicarb 22. BUN 15. Creatinine 0.82. Glucose 131. Chest x-ray revealed no acute pulmonary process. Echocardiogram revealed preserved left ventricular systolic function with ejection fraction 55 to 60%. He did undergo cardiac catheterization on 09/14/2023 that revealed severe multivessel coronary artery disease including a tight stenosis in the proximal LAD, proximal circumflex and intermittent disease involving the RCA. He was recommended surgical revascularization. The plan is for surgery on 09/18/2023. He is seen today in consultation on the selective care unit. He is sitting up in a chair. Awake and alert in no acute distress. He denies any shortness of breath, cough or congestion. Maintaining good O2 saturations in the 90s on room air. He is practicing well with the incentive spirometer. He remains on a heparin drip. He denies any chest discomfort currently. Review of Systems REVIEW OF SYSTEMS: CONSTITUTIONAL: Denies any recent significant weight loss or weight gain. EYES: Denies change in vision. EARS, NOSE, MOUTH, THROAT: Denies headaches, denies sore throat. CARDIOVASCULAR: Positive for chest pain radiating to the bilateral shoulders, no palpitations or syncopal episodes. RESPIRATORY: Denies shortness of breath, cough, congestion or hemoptysis. GASTROINTESTINAL: Denies change in appetite, denies abdominal pain GENITOURINARY: Denies hematuria, denies infections. MUSKULOSKELETAL: Denies pain, denies swelling. INTEGUMENTARY: Denies rash, denies eczema. NEUROLOGICAL: Denies recent memory loss, no recent seizure activity. PSYCHIATRIC: Denies anxiety, denies depression. HEMATOLOGIC/LYMPHATIC: Denies anemia, denies enlarged lymph nodes. 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 Date of last positivie culture/infection: 1999 MDRO Source:: right knee Past Surgical History: Hernia Repair, Joint Replacement, Orthopedic Surgery Additional Past Surgical History / Comment(s): left ankle & bilat knee replaced, arthroscopies knee., multiple EGD's Past Anesthesia/Blood Transfusion Reactions: Previous Problems w/ Anesthesia Additional Past Anesthesia/Blood Transfusion Reaction / Comment(s): prolonged confusion Past Psychological History: PTSD (PTSD from previous experiences in [place] war) Smoking Status: Never smoker Past Alcohol Use History: Rare Past Drug Use History: None Reported - Past Family History Mother Family Medical History: Cancer (Leukemia) Father Family Medical History: Cancer (Type of cancer unknown) Medications and Allergies Home Medications Medication Instructions Recorded Confirmed Type Atorvastatin [Lipitor] 20 mg PO DAILY 04/08/15 09/13/23 History Furosemide [Lasix] 20 mg PO DAILY 04/08/15 09/13/23 History Omeprazole 40 mg PO DAILY 04/08/15 09/13/23 History Potassium Chloride [Klor-Con 20] 20 meq PO DAILY 04/08/15 09/13/23 History allopurinoL [Zyloprim] 300 mg PO DAILY 04/08/15 09/13/23 History amLODIPine [Norvasc] 5 mg PO DAILY 04/08/15 09/13/23 History Apixaban [Eliquis] 5 mg PO BID 09/13/23 09/13/23 History Aspirin 81 mg PO DAILY 09/13/23 09/13/23 History Celecoxib [CeleBREX] 200 mg PO DAILY 09/13/23 09/13/23 History Levothyroxine Sodium [Synthroid] 50 mcg PO DAILY 09/13/23 09/13/23 History Losartan [Cozaar] 25 mg PO DAILY 09/13/23 09/13/23 History Sotalol [Betapace] 80 mg PO BID 09/13/23 09/13/23 History lamoTRIgine [LaMICtal] 25 mg PO HS 09/13/23 09/13/23 History Allergies Allergy/AdvReac Type Severity Reaction Status Date / Time gabapentin Allergy severe pain Verified 09/13/23 08:27 tramadol Allergy severe pain Verified 09/13/23 08:27 Physical Exam Vitals: Vital Signs Temp Pulse Resp BP Pulse Ox 09/15/23 13:43 65 09/15/23 12:00 65 18 143/85 95 09/15/23 08:00 97.9 F 65 18 140/79 94 L 09/15/23 04:00 97.3 F L 64 20 146/84 95 09/15/23 02:00 62 20 09/15/23 00:00 62 20 106/77 93 L 09/14/23 20:00 72 20 161/87 93 L 09/14/23 16:00 64 18 147/82 96 Intake and Output 09/15/23 09/15/23 09/15/23 06:59 14:59 22:59 Intake Total 61.302 150 Output Total 350 Balance -288.698 150 Intake: Intake, IV Titration 61.302 Amount Heparin Sod,Pork in 0.45% 61.302 NaCl 25,000 unit In 0.45 % NaCl 1 250ml.bag @ 12 UNITS/KG/HR 7.893 mls/hr IV .Q24H [facility] Rx#: [id number] Oral 150 Output: Urine 350 Other: Voiding Method Toilet Urinal # Bowel Movements 1 Weight 107 kg GENERAL EXAM: Alert, very pleasant 73-year-old male, up in a chair, on room air, comfortable in no apparent distress. HEAD: Normocephalic. EYES: Normal reaction of pupils, equal size. NOSE: Clear with pink turbinates. THROAT: No erythema or exudates. NECK: No masses, no JVD. CHEST: No chest wall deformity. LUNGS: Equal air entry with no crackles, wheeze, rhonchi or dullness. CVS: S1 and S2 normal with no audible murmur, regular rhythm. ABDOMEN: No hepatosplenomegaly, normal bowel sounds, no guarding or rigidity. SPINE: No scoliosis or deformity SKIN: No rashes CENTRAL NERVOUS SYSTEM: No focal deficits, tone is normal in all 4 extremities. EXTREMITIES: There is no peripheral edema. No clubbing, no cyanosis. Peripheral pulses are intact. Results - Laboratory Findings CBC and BMP: 09/15/23 06:13 09/14/23 11:19 PT/INR, D-dimer PT 10.8 sec (10.0-12.5) 09/13/23 01:42 INR 1.0 (<1.2) 09/13/23 01:42 Abnormal lab findings: Abnormal Labs 09/13/23 09/13/23 09/13/23 01:42 01:42 04:22 APTT 53.2 H Chloride 110 H BUN 23 H Glucose 101 H POC Glucose (mg/dL) Magnesium 1.4 L Troponin I 0.060 H* Triglycerides VLDL Cholesterol, Calc HDL Cholesterol Ur Specific Hart 09/13/23 09/13/23 09/13/23 04:22 07:01 15:24 APTT Chloride BUN Glucose POC Glucose (mg/dL) 116 H Magnesium Troponin I 0.931 H* 3.330 H* Triglycerides VLDL Cholesterol, Calc HDL Cholesterol Ur Specific Hart 09/14/23 09/14/23 09/14/23 11:19 16:44 17:10 APTT Chloride 108 H BUN Glucose POC Glucose (mg/dL) 122 H Magnesium Troponin I Triglycerides 249.00 H VLDL Cholesterol, Calc 49.80 H HDL Cholesterol 39.80 L Ur Specific Hart 1.039 H 09/14/23 20:41 APTT Chloride BUN Glucose POC Glucose (mg/dL) 131 H Magnesium Troponin I Triglycerides VLDL Cholesterol, Calc HDL Cholesterol Ur Specific Hart - Diagnostic Findings Chest x-ray: image reviewed Assessment and Plan Assessment: Acute non-ST segment elevation myocardial infarction in a patient found to have severe multivessel coronary artery disease History of paroxysmal atrial fibrillation with previous cardioversions, anticoa gulated with Eliquis Hypertension Hyperlipidemia Obstructive sleep apnea utilizing home CPAP at 12 cm of water, nasal pillow due to significant claustrophobia History of gout Gastroesophageal reflux disease Agent orange exposure while in [place] Lifelong non-smoker, FEV1 value 2.45 L, 89% of predicted Plan: The patient was seen and evaluated Chest x-ray, labs and medications reviewed Echocardiogram and PFT results reviewed Stable for surgery from the pulmonary standpoint Plan is for CABG on 09/18/2023 Working well with the incentive spirometer Remains on a heparin drip Stable and on room air We will continue to follow and make further recommendations based on his clinical status I have personally seen and examined the patient, performed the documentation and the assessment and plan as written. Number of minutes spent on the visit: 20.
--- NOTE | 2023-09-15 15:52 | CT ---
EXAMINATION TYPE: CT chest wo con DATE OF EXAM: 09/15/2023 COMPARISON: None HISTORY: 73-year-old male Preop CABG evaluate aorta, history with exposure to agent orange TECHNIQUE: Contiguous axial scanning of the chest without IV contrast. Coronal/sagittal reconstructio ns performed. CT DLP: 889.4mGycm. Automatic exposure control utilized for a dose reduction. FINDINGS: Heart mildly enlarged without pericardial effusion. LAD and lesser extent circumflex and RCA coronary artery calcifications are present. Aneurysm ascending aorta 4.7 cm. Conventional arch vessel branching anatomy. Ectatic upper descending thoracic aorta 3.3 cm. A couple borderline sized mediastinal lymph nodes measuring up to 1.0 cm lower right paratracheal. Moderate to severe bilateral gynecomastia. [id number] diffuse bronchial wall thickening. 4 mm posterior right upper lobe pulmonary nodule, axial image 27. 4 mm subpleural pulmonary nodule posterior left lower lobe, axial image 42. Some scattered mosaic attenuation probably reflecting small airways disease. Some hazy dependent atel ectasis in the lower lungs. No consolidation or pleural effusion. Mild circumferential wall thickening distal esophagus. Otherwise, the visualized upper abdomen shows a 3.0 cm fat density mass right adrenal gland. A couple calcified granulomas in the spleen. Probable 1.5 cm cortical cyst lateral upper pole left kidney. Bones: Moderate to severe degenerative disc disease lower thoracic and upper lumbar spine. IMPRESSION: 1. Aneurysmal ascending aorta at 4.7 cm. Ectatic upper descending thoracic aorta at 3.3 cm. Conventio nal arch vessel branching anatomy. 2. Mild cardiomegaly. Hazy opacities, probably atelectasis in the lower lungs. Bronchial wall thicken ing can be seen with bronchitis or chronic asthma. 3. There are a couple 4 mm pulmonary nodules which can be reassessed at a six-month follow-up CT ches t. 4. Mild circumferential wall thickening distal esophagus may reflect a nonspecific mild esophagitis. Correlate with symptoms. 5. An incidental 3.0 cm benign right adrenal myelolipoma.
[2023-09-15 16:58] LABS: Glucose,Whole Blood 115 mg/dL (70-110)
[2023-09-15 20:36] LABS: Glucose,Whole Blood 120 mg/dL (70-110)
[2023-09-15] MEDS: HEPARIN SODIUM 1,000 UN/ML (10ML VL) IV PRN (21:30)
[2023-09-16 06:14] LABS: Glucose,Whole Blood 107 mg/dL (70-110)
--- NOTE | 2023-09-16 10:02 | P.PN ---
Subjective Progress Note Date: 09/16/23 Principal diagnosis: Multivessel coronary artery disease, NSTEMI this admission. 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 Preoperative nasal swab positive for MSSA The patient was seen and examined this morning sitting up at the bedside about to eat breakfast in no acute distress. Denies any current chest pain or shortness of breath. He was seen yesterday as well by Dr. Stockton, recommendations are for coronary artery bypass surgery with pulmonary vein isolation this admission, currently tentatively scheduled for Wednesday. Remains in sinus rhythm, hemodynamically stable. Patient is in good spirits. No other new concerns. Objective - Vital Signs Vital signs: Vital Signs Temp 98.3 F 09/16/23 04:00 Pulse 57 L 09/16/23 04:00 Resp 18 09/16/23 04:00 BP 144/84 09/16/23 04:00 Pulse Ox 96 09/16/23 04:00 FiO2 Intake & Output 09/15/23 09/16/23 09/16/23 18:59 06:59 18:59 Intake Total 426.349 158.382 118 Output Total 950 Balance 426.349 -791.618 118 Weight 111.1 kg Intake: Intake, IV Titration 158.349 158.382 Amount Heparin Sod,Pork in 0.45% 158.349 158.382 NaCl 25,000 unit In 0.45 % NaCl 1 250ml.bag @ 12 UNITS/KG/HR 7.893 mls/hr IV .Q24H [facility] Rx#: [id number] Oral 268 118 Output: Urine 950 Other: Voiding Method Toilet Urinal # Bowel Movements 1 1 - Exam CONSTITUTIONAL: Appears comfortable, cooperative, no acute distress RESPIRATORY: Lungs sounds clear bilaterally. Respirations even, nonlabored. Currently on room air with oxygen saturation 96%. Able to achieve 3000 mL on incentive spirometry. Strong cough. CARDIOVASCULAR: S1, S2 present. Regular rate and rhythm, sinus rhythm on telemetry. Palpable peripheral pulses bilaterally. No edema present. No calf pain or tenderness noted GASTROINTESTINAL: Abdomen soft, nontender, nondistended. Active bowel sounds present 4 quadrants. Tolerating diet. Positive bowel movement 09/14 GENITOURINARY: Continues to void INTEGUMENTARY: Skin is warm and dry NEUROLOGIC: Cranial nerves II through XII intact MUSKULOSKELETAL: Able to move all extremities, strength equal bilaterally, gait normal PSYCHIATRIC: Alert and oriented to person place and time, appropriate affect, intact judgment and insight - Allied health notes Allied health notes reviewed: nursing - Labs CBC & Chem 7: 09/15/23 06:13 09/14/23 11:19 Labs: Abnormal Lab Results - Last 24 Hours (Table) 09/15/23 09/15/23 09/16/23 Range/Units 16:57 20:32 03:44 APTT 42.3 H (22.0-30.0) sec POC Glucose (mg/dL) 115 H 120 H (70-110) mg/dL Microbiology - Last 24 Hours (Table) 09/14/23 11:47 Nasal Screen MRSA/MSSA - Final Nasal Swab Staphylococcus aureus,Not MRSA Assessment and Plan Assessment: Multivessel coronary artery disease, NSTEMI this admission History of ischemic 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 Head Obstructive sleep apnea with home CPAP use Benign prostatic hypertrophy Gout GERD Neuropathy to left foot PTSD from experiences in [place] Osteoarthritis Lifetime non-smoker, preoperative FEV1 89% of predicted Preoperative nasal swab positive for MSSA, treated Plan: Continue to maximize medical therapy with aspirin, statin, beta-boyd Increase activity as tolerated Encourage incentive spirometry use Tentatively we are planning on pump coronary artery bypass surgery with left internal mammary artery, left radial artery, endoscopic vein harvesting, liga tion of the left atrial appendage and pulmonary vein isolation by Dr. Stockton this Monday, September 18, 2023 Medical management of other comorbidities per internal medicine, cardiology More recommendations to follow
[2023-09-16 11:28] LABS: Glucose,Whole Blood 105 mg/dL (70-110)
--- NOTE | 2023-09-16 13:51 | P.PN ---
Subjective HISTORY OF PRESENT ILLNESS: This is a 73-year-old male with a past medical history significant for AAA, ischemic cardiomyopathy, atrial fibrillation, hypertension, and hyperlipidemia. Patient follows with 2 software applications designer at [facility], Dr. Head and Dr. Parkinson. We have been asked to see the patient in consultation for elevated troponins. Patient examined at the bedside in the emergency room. Patient states that yesterday evening while he was in bed he developed chest discomfort in the middle of his chest. He states the pain went into his shoulders and into his jaw. He also states that he broke out into a sweat. His brought him to the hospital for further evaluation. Patient was found to have elevated troponins and was started on IV heparin. At the time of examination, he denies any chest pain or pressure. Denies any shortness of breath. Vital signs are stable. The patient does report he had a cardiac catheterization performed approximately 10 years ago. He states that he has never had any stenting or bypass surgery. However he does state he has a history of ischemic heart disease. DIAGNOSTICS: - EKG reveals sinus mechanism with T wave inversions in V3V5 - Chest xray negative for acute process - Laboratory data: WBC 8.0. Hemoglobin 13.3. Platelet count 204. Sodium 142. Potassium 4.0. BUN 23. Creatinine 1.12. Magnesium 1.4. Troponin 0.060. 0.931. 3.330. proBNP 368. - Current home cardiac medications include Lasix 20 mg daily, aspirin 81 mg daily, Eliquis 5 mg twice a day, amlodipine 5 mg daily, sotalol 80 mg twice a day, losartan 25 mg daily, Lipitor 20 mg daily. 09/15/2023 Patient examined this morning. Patient is sitting up in the chair. Patient currently denies chest pain or pressure. He denies shortness of breath. He remains on IV heparin. 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 Trace MR, trace TR. Vital signs are stable. 09/16/2023 Patient examined this morning. Patient's family is present. Patient is sitting up in the chair. Patient currently denies chest pain or pressure. He denies shortness of breath. He remains on IV heparin. Vital signs are stable. PHYSICAL EXAM: VITAL SIGNS: Reviewed. GENERAL: Well-developed in no acute distress. HEENT: Head is normocephalic. Pupils are equal, round. Sclerae anicteric. Mucous membranes of the mouth are moist. Neck supple. No JVD or thyromegaly LUNGS: Respirations even and unlabored. Lungs essentially clear to auscultation bilaterally. HEART: Regular rate and rhythm. S1 and S2 heard. ABDOMEN: Soft. Nondistended. Nontender. EXTREMITIES: Normal range of motion. No clubbing or cyanosis. Peripheral pulses intact. No lower extremity edema NEUROLOGIC: Awake and alert. Oriented x 3. ASSESSMENT: Non-STEMI Status post postcardiac catheterization revealing severe multivessel CAD inc luding tight lesion in the proximal LAD, proximal circumflex, and intermediate disease involving right coronary artery Paroxysmal atrial fibrillation History of cardioversion Hypertension Hyperlipidemia History of AAA PLAN: Continue current cardiac medications Continue IV heparin. Patient will need to be transition to Eliquis post operatively CT surgery is following. Patient is tentatively scheduled for CABG on Wednesday Further recommendations pending patient course Nurse practitioner note has been reviewed by physician. Signing provider agrees with the documented findings, assessment, and plan of care documented by [employer] as a scribe. Objective - Vital Signs Vital signs: Vital Signs Temp 98.4 F 09/16/23 08:00 Pulse 65 09/16/23 08:00 Resp 18 09/16/23 08:00 BP 129/77 09/16/23 08:00 Pulse Ox 96 09/16/23 08:00 FiO2 Intake & Output 09/15/23 09/16/23 09/16/23 18:59 06:59 18:59 Intake Total 426.349 158.382 209.125 Output Total 950 Balance 426.349 -791.618 209.125 Weight 111.1 kg Intake: Intake, IV Titration 158.349 158.382 91.125 Amount Heparin Sod,Pork in 0.45% 158.349 158.382 91.125 NaCl 25,000 unit In 0.45 % NaCl 1 250ml.bag @ 12 UNITS/KG/HR 7.893 mls/hr IV .Q24H [facility] Rx#: [id number] Oral 268 118 Output: Urine 950 Other: Voiding Method Toilet Urinal # Bowel Movements 1 1 - Labs CBC & Chem 7: 09/15/23 06:13 09/14/23 11:19 Labs: Abnormal Lab Results - Last 24 Hours (Table) 09/15/23 09/15/23 09/16/23 Range/Units 16:57 20:32 03:44 APTT 42.3 H (22.0-30.0) sec POC Glucose (mg/dL) 115 H 120 H (70-110) mg/dL 09/16/23 Range/Units 10:46 APTT 36.5 H (22.0-30.0) sec POC Glucose (mg/dL) (70-110) mg/dL Microbiology - Last 24 Hours (Table) 09/14/23 11:47 Nasal Screen MRSA/MSSA - Final Nasal Swab Staphylococcus aureus,Not MRSA
--- NOTE | 2023-09-16 15:04 | P.PN ---
Subjective Progress Note Date: 09/16/23 Principal diagnosis: Acute non-ST elevation myocardial infarction and severe multivessel coronary artery disease This is a very pleasant 73-year-old male patient with a history of atrial fibrillation with previous cardioversions, anticoagulated with Eliquis, gastroesophageal reflux disease, hyperlipidemia, hypertension, obstructive sleep apnea utilizing CPAP at 12 cm of water, gout, agent orange exposure while in [place], multiple orthopedic surgeries. He is a lifelong non-smoker. No history of asthma. No oxygen or inhalers. His FEV1 value was found to be 2.45 L and 89% of predicted. He had presented here to the emergency room on September 13, 2023 with complaints of midsternal chest discomfort radiating to the bilateral shoulders. Troponins were 0.060, 0.931, 3.330. White count 8.0. Hemoglobin 13.3. Platelets 204. Sodium 137. Potassium 4.0. Bicarb 22. BUN 15. Creatinine 0.82. Glucose 131. Chest x-ray revealed no acute pulmonary process. Echocardiogram revealed preserved left ventricular systolic function with ejection fraction 55 to 60%. He did undergo cardiac catheterization on 09/14/2023 that revealed severe multivessel coronary artery disease including a tight stenosis in the proximal LAD, proximal circumflex and intermittent disease involving the RCA. He was recommended surgical revascularization. The plan is for surgery on 09/18/2023. He is seen today in consultation on the selective care unit. He is sitting up in a chair. Awake and alert in no acute distress. He denies any shortness of breath, cough or congestion. Maintaining good O2 saturations in the 90s on room air. He is practicing well with the incentive spirometer. He remains on a heparin drip. He denies any chest discomfort currently. Patient was evaluated today on 09/16/2023, patient is doing well, scheduled to have surgery in the next few days, continues to have no active pulmonary symptoms no cough no wheezing no shortness of breath, doing excellent with his incentive spirometry. CT of the chest was reviewed, no worrisome findings at this point. Patient had FEV1 of 89%, he never smoked. Objective - Vital Signs Vital signs: Vital Signs Temp 98.4 F 09/16/23 08:00 Pulse 57 L 09/16/23 14:00 Resp 18 09/16/23 12:00 BP 126/58 09/16/23 12:00 Pulse Ox 98 09/16/23 12:00 FiO2 Intake & Output 09/15/23 09/16/23 09/16/23 18:59 06:59 18:59 Intake Total 426.349 158.382 565.125 Output Total 950 Balance 426.349 -791.618 565.125 Weight 111.1 kg Intake: Intake, IV Titration 158.349 158.382 91.125 Amount Heparin Sod,Pork in 0.45% 158.349 158.382 91.125 NaCl 25,000 unit In 0.45 % NaCl 1 250ml.bag @ 12 UNITS/KG/HR 7.893 mls/hr IV .Q24H [facility] Rx#: [id number] Oral 268 474 Output: Urine 950 Other: Voiding Method Toilet Urinal # Voids 3 # Bowel Movements 1 1 1 - Exam General: Revealed a very pleasant 73-year-old white male in no distress Skin: Skin is warm and dry and no rashes or lesions are noted. Eye: Pupils are equal, round and reactive to light, extra-ocular movements are intact; there is normal conjunctiva bilaterally. Ears, nose, mouth and throat: There are moist mucous membranes and no oral lesi ons. Neck: The neck is supple, there is no tenderness or JVD. Cardiovascular: S1-S2, no S3 gallop. Respiratory: Throughout no crackles rhonchi or wheezes Gastrointestinal: Soft, non-distended, non-tender abdomen without masses or organomegaly noted. There is no rebound or guarding present. Bowel sounds are unremarkable. Back: There is no tenderness to palpation in the midline. There is no obvious deformity. Musculoskeletal: Normal ROM, no tenderness, There is no pedal edema. There is no calf tenderness or swelling. No cords were appreciated. Neurological: CN II-XII intact, Cranial nerves III through XII are intact. There are no obvious motor or sensory deficits. Coordination appears grossly intact. Speech is normal. Psychiatric: Cooperative, appropriate mood & affect, normal judgment. - Labs CBC & Chem 7: 09/15/23 06:13 09/14/23 11:19 Labs: Abnormal Lab Results - Last 24 Hours (Table) 09/15/23 09/15/23 09/16/23 Range/Units 16:57 20:32 03:44 APTT 42.3 H (22.0-30.0) sec POC Glucose (mg/dL) 115 H 120 H (70-110) mg/dL 09/16/23 Range/Units 10:46 APTT 36.5 H (22.0-30.0) sec POC Glucose (mg/dL) (70-110) mg/dL Microbiology - Last 24 Hours (Table) 09/14/23 11:47 Nasal Screen MRSA/MSSA - Final Nasal Swab Staphylococcus aureus,Not MRSA Assessment and Plan Assessment: Impression: Acute non-ST segment elevation myocardial infarction in a patient found to have severe multivessel coronary artery disease History of paroxysmal atrial fibrillation with previous cardioversions, antico agulated with Eliquis Hypertension Hyperlipidemia Obstructive sleep apnea utilizing home CPAP at 12 cm of water, nasal pillow due to significant claustrophobia History of gout Gastroesophageal reflux disease Agent orange exposure while in [place] Lifelong non-smoker, FEV1 value 2.45 L, 89% of predicted Recommendation: Continue incentive spirometry Cleared from the pulmonary perspective for surgery as scheduled tomorrow Continue heparin drip for now. CT of the chest was reviewed. All his medications were also reviewed. No contraindication from the pulmonary perspective for surgery. Time with Patient: Less than 30
--- NOTE | 2023-09-16 15:16 | P.PN ---
Subjective Progress Note Date: 09/15/23 H&P Date: 09/13/23 Chief Complaint: Chest pain This is a pleasant 73-year-old gentleman with past medical history significant for ischemic cardiomyopathy, atrial fibrillation,AAA, hypertension, hyperlipidemia, sleep apnea wears CPAP, hiatal hernia, gastroesophageal reflux disease and multiple other medical issues follows with [facility] cardiology, presented to the ER with complaints of chest pain. Reports he developed midsternal chest pressure while up at his cottage in [place]. Reports nonexertional. Chest pain occurred after midnight last night, radiated to bilateral shoulders and into his jaw, accompanied by sweating, shortness of breath and bilateral lower extremity edema. transported him to the ER, troponins elevated, 0.060, 0.931, 3.330, heparin drip initiated. He currently denies any chest pain, palpitations or shortness of breath. Evaluated by cardiology with abnormal EKG reviewed sinus with-T wave inversion. Chest x-ray reporting no acute cardiopulmonary process.. Hematology, coagulation unremarkable. Sodium 142, potassium 4, bicarb 22, BUN 23, creatinine 1.12 glucose 101 magnesium 1.4-supplemented. 09/14/2023 Just returning back from cardiac catheterization, reporting severe multivessel CAD including a tight stenosis in the proximal LAD, proximal circumflex and intermediate disease involving RCA. 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 C ardiothoracic surgery consulted. Currently denies chest pain, palpitations or shortness of breath. Maintaining O2 sats in the mid 90s on room air. Telemetry sinus rhythm. 09/15/23 maintained on heparin drip, IV fluid hydration. Telemetry sinus rhythm .denies chest pain, palpitations or shortness of breath. Maintaining O2 sats in the mid 90s on room air. Objective - Vital Signs Vital signs: Vital Signs Temp 97.9 F 09/15/23 08:00 Pulse 65 09/15/23 13:43 Resp 18 09/15/23 12:00 BP 143/85 09/15/23 12:00 Pulse Ox 95 09/15/23 12:00 FiO2 Intake & Output 09/14/23 09/15/23 09/15/23 18:59 06:59 18:59 Intake Total 308.1 61.302 308.349 Output Total 1000 350 Balance -691.9 -288.698 308.349 Weight 107 kg Intake: IV 50 Intake, IV Titration 22.1 61.302 158.349 Amount Heparin Sod,Pork in 0.45% 22.1 61.302 158.349 NaCl 25,000 unit In 0.45 % NaCl 1 250ml.bag @ 12 UNITS/KG/HR 7.893 mls/hr IV .Q24H [facility] Rx#: [id number] Oral 236 150 Output: Urine 1000 350 Other: Voiding Method Toilet Urinal # Bowel Movements 1 - Exam PHYSICAL EXAM: VITAL SIGNS: [As above] GENERAL: Alert and oriented x 3, sitting up in chair, no acute distress HEENT: Normocephalic, atraumatic, conjunctivae normal. eyes normal. NECK: Supple, no JVD. CARDIOVASCULAR: S1, S2 regular. No murmur RESPIRATION: Unlabored, equal air entry, clear to auscultation. ABDOMEN: Soft, nondistended, nontender . No guarding. +BS LEGS: No edema. no swelling NERVOUS SYSTEM: Cranial N 2-12 grossly normal. No focal deficits. Skin: Warm and dry, no rash - Labs CBC & Chem 7: 09/15/23 06:13 09/14/23 11:19 Labs: Abnormal Lab Results - Last 24 Hours (Table) 09/14/23 09/14/23 09/14/23 Range/Units 11:19 17:10 20:41 Chloride 108 H (98-107) mmol/L POC Glucose (mg/dL) 131 H (70-110) mg/dL Triglycerides 249.00 H (0.00-149.00) mg/dL VLDL Cholesterol, Calc 49.80 H (5.00-40.00) mg/dL HDL Cholesterol 39.80 L (40.00-60.00) mg/dL Ur Specific [place] 1.039 H (1.001-1.035) 09/15/23 Range/Units 16:57 Chloride (98-107) mmol/L POC Glucose (mg/dL) 115 H (70-110) mg/dL Triglycerides (0.00-149.00) mg/dL VLDL Cholesterol, Calc (5.00-40.00) mg/dL HDL Cholesterol (40.00-60.00) mg/dL Ur Specific [place] (1.001-1.035) Microbiology - Last 24 Hours (Table) 09/14/23 11:47 Nasal Screen MRSA/MSSA - Final Nasal Swab Staphylococcus aureus,Not MRSA Assessment and Plan Assessment: Chest pain, NSTEMI. Status post catheterization reporting severe multivessel CAD CAD with ischemic cardiomyopathy, no stenting, follows with [facility] cardiology. 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 Chronic paroxysmal atrial fibrillation, history of cardioversions Obstructive sleep apnea uses CPAP Claustrophobia Agent orange exposure in [place] Hypertension Hyperlipidemia History of AAA, monitoring outpatient with Dr. Head BPH Plan: Continue on current medication resume ,monitoring and symptomatic treatment. Maximizing medical therapy.Anticoagulation with heparin drip. Aggres sive pulmonary toileting with incentive spirometer reinforced. CABG tentatively scheduled for Wednesday. The impression and plan of care has been dictated as directed. : I performed a history and examination of this patient, discussed the same with the dictator. I agree with the dictator's note ,documented as a scribe. Any additional findings or plans will be noted.
--- NOTE | 2023-09-16 15:25 | P.PN ---
Subjective Progress Note Date: 09/16/23 H&P Date: 09/13/23 Chief Complaint: Chest pain This is a pleasant 73-year-old gentleman with past medical history significant for ischemic cardiomyopathy, atrial fibrillation,AAA, hypertension, hyperlipidemia, sleep apnea wears CPAP, hiatal hernia, gastroesophageal reflux disease and multiple other medical issues follows with [facility] cardiology, presented to the ER with complaints of chest pain. Reports he developed midsternal chest pressure while up at his cottage in [place]. Reports nonexertional. Chest pain occurred after midnight last night, radiated to bilateral shoulders and into his jaw, accompanied by sweating, shortness of breath and bilateral lower extremity edema. transported him to the ER, troponins elevated, 0.060, 0.931, 3.330, heparin drip initiated. He currently denies any chest pain, palpitations or shortness of breath. Evaluated by cardiology with abnormal EKG reviewed sinus with-T wave inversion. Chest x-ray reporting no acute cardiopulmonary process.. Hematology, coagulation unremarkable. Sodium 142, potassium 4, bicarb 22, BUN 23, creatinine 1.12 glucose 101 magnesium 1.4-supplemented. 09/14/2023 Just returning back from cardiac catheterization, reporting severe multivessel CAD including a tight stenosis in the proximal LAD, proximal circumflex and intermediate disease involving RCA. 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 C ardiothoracic surgery consulted. Currently denies chest pain, palpitations or shortness of breath. Maintaining O2 sats in the mid 90s on room air. Telemetry sinus rhythm. 09/15/23 maintained on heparin drip, IV fluid hydration. Telemetry sinus rhythm .denies chest pain, palpitations or shortness of breath. Maintaining O2 sats in the mid 90s on room air. 09/16/2023 telemetry sinus rhythm. Sitting up in chair, incentive spirometer 3000. Anticoagulated on heparin drip. Continues on IV fluid hydration. Chest CT reviewed by superintendent of generation. Denies nausea or vomiting. Denies chest pain, pal pitations or shortness of breath. Maintaining O2 sats of 96% on room air. Objective - Vital Signs Vital signs: Vital Signs Temp 98.4 F 09/16/23 08:00 Pulse 57 L 09/16/23 14:00 Resp 18 09/16/23 12:00 BP 126/58 09/16/23 12:00 Pulse Ox 98 09/16/23 12:00 FiO2 Intake & Output 09/15/23 09/16/23 09/16/23 18:59 06:59 18:59 Intake Total 426.349 158.382 565.125 Output Total 950 Balance 426.349 -791.618 565.125 Weight 111.1 kg Intake: Intake, IV Titration 158.349 158.382 91.125 Amount Heparin Sod,Pork in 0.45% 158.349 158.382 91.125 NaCl 25,000 unit In 0.45 % NaCl 1 250ml.bag @ 12 UNITS/KG/HR 7.893 mls/hr IV .Q24H [facility] Rx#: [id number] Oral 268 474 Output: Urine 950 Other: Voiding Method Toilet Urinal # Voids 3 # Bowel Movements 1 1 1 - Exam PHYSICAL EXAM: VITAL SIGNS: [As above] GENERAL: Alert and oriented x 3, sitting up in chair, no acute distress HEENT: Normocephalic, atraumatic, conjunctivae normal. eyes normal. NECK: Supple, no JVD. CARDIOVASCULAR: S1, S2 regular. No murmur RESPIRATION: Unlabored, equal air entry, clear to auscultation. ABDOMEN: Soft, nondistended, nontender . No guarding. +BS LEGS: No edema. no swelling NERVOUS SYSTEM: Cranial N 2-12 grossly normal. No focal deficits. Skin: Warm and dry, no rash - Labs CBC & Chem 7: 09/15/23 06:13 09/14/23 11:19 Labs: Abnormal Lab Results - Last 24 Hours (Table) 09/15/23 09/15/23 09/16/23 Range/Units 16:57 20:32 03:44 APTT 42.3 H (22.0-30.0) sec POC Glucose (mg/dL) 115 H 120 H (70-110) mg/dL 09/16/23 Range/Units 10:46 APTT 36.5 H (22.0-30.0) sec POC Glucose (mg/dL) (70-110) mg/dL Microbiology - Last 24 Hours (Table) 09/14/23 11:47 Nasal Screen MRSA/MSSA - Final Nasal Swab Staphylococcus aureus,Not MRSA Assessment and Plan Assessment: Chest pain, NSTEMI. Status post catheterization reporting severe multivessel CAD CAD with ischemic cardiomyopathy, no stenting, follows with [facility] cardiology. 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 Chronic paroxysmal atrial fibrillation, history of cardioversions Obstructive sleep apnea uses CPAP Claustrophobia Agent orange exposure in [place] Hypertension Hyperlipidemia History of AAA, monitoring outpatient with Dr. Head BPH Plan: Continue on current medication resume ,monitoring and symptomatic treatment. Maintain aggressive pulmonary toileting with incentive spirometer reinforced .increase activity as tolerated. Maximizing medical therapy.Anticoagulation with heparin drip. CABG tentatively scheduled for Wednesday. The impression and plan of care has been dictated as directed. : I performed a history and examination of this patient, discussed the same with the dictator. I agree with the dictator's note ,documented as a scribe. Any additional findings or plans will be noted.
[2023-09-16 16:17] LABS: Glucose,Whole Blood 103 mg/dL (70-110)
[2023-09-16 23:53] LABS: Glucose,Whole Blood 112 mg/dL (70-110)
[2023-09-17 06:14] LABS: Glucose,Whole Blood 102 mg/dL (70-110)
[2023-09-17 08:03] LABS: HCT 35.6 % (39.0-53.0); MCH 30.5 pg (25.0-35.0); MCHC 33.7 g/dL (31.0-37.0); MCV 90.7 fL (80.0-100.0); Mean Platelet Volume 10.4; Platelet Count 184 k/uL (150-450); RBC 3.92 m/uL (4.30-5.90); RDW 14.8 % (11.5-15.5); WBC 7.8 k/uL (3.8-10.6)
[2023-09-17 08:12] LABS: Partial Thromboplastin Time 58.7 sec (22.0-30.0); Prothrombin Time 11.1 sec (10.0-12.5)
[2023-09-17 08:57] LABS: ALT 28 U/L (4-49); AST 31 U/L (17-59); African American GFR (CKD) >90 (>60 ml/min/1.73 sqM); Albumin 3.6 g/dL (3.5-5.0); Alkaline Phosphatase 71 U/L (38-126); Anion Gap 6 mmol/L; Blood Urea Nitrogen 18 mg/dL (9-20); Calcium 9.7 mg/dL (8.4-10.2); Carbon Dioxide 22 mmol/L (22-30); Chloride 111 mmol/L (98-107); Glucose 86 mg/dL (74-99); Magnesium 1.7 mg/dL (1.6-2.3); Non-African American GFR(CKD) 79 (>60 ml/min/1.73 sqM); Sodium 139 mmol/L (137-145); Total Bilirubin 0.8 mg/dL (0.2-1.3); Total Protein 6.1 g/dL (6.3-8.2)
[2023-09-17] MEDS: LEVOTHYROXINE 50 MCG TAB PO SCH (09:11)
--- NOTE | 2023-09-17 10:37 | P.PN ---
Subjective Progress Note Date: 09/17/23 Principal diagnosis: Multivessel coronary artery disease, NSTEMI this admission. 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 Preoperative nasal swab positive for MSSA, treated. The patient was seen and examined in follow-up today September 17, 2023 at his bedside on the third floor cardiac stepdown unit. He is currently sitting up to the bedside chair, his is present at his bedside, he is awake, alert, oriented x 3 and is in no acute apparent distress. Denies any complaints of chest pain, shortness of breath or nausea. He is scheduled for myocardial vascularization surgery tomorrow September 18, 2023 with left internal mammary artery, endoscopic left radial artery harvest, endoscopic vein harvest, exclusion left atrial appendage, pulmonary vein isolation, and intraoperative transesophageal echocardiogram. He remains hemodynamically stable and is currently on no inotropic or pressor support. Preoperative teaching has been reinforced with the patient and his questions have been answered to the best of my ability. Laboratory results reviewed. Preoperative nasal swab was positive for MSSA which is currently being treated. Objective - Vital Signs Vital signs: Vital Signs Temp 98.0 F 09/17/23 08:10 Pulse 55 L 09/17/23 08:10 Resp 16 09/17/23 08:10 BP 139/80 09/17/23 08:10 Pulse Ox 95 09/17/23 08:10 FiO2 Intake & Output 09/16/23 09/17/23 09/17/23 18:59 06:59 18:59 Intake Total 921.125 270.000 Output Total 1225 Balance 921.125 -955.000 Weight 110.7 kg Intake: IV 20 Invasive Line 1 20 Intake, IV Titration 91.125 250.000 Amount Heparin Sod,Pork in 0.45% 91.125 250.000 NaCl 25,000 unit In 0.45 % NaCl 1 250ml.bag @ 12 UNITS/KG/HR 7.893 mls/hr IV .Q24H [facility] Rx#: [id number] Oral 830 Output: Urine 1225 Other: Voiding Method Toilet Toilet Urinal Urinal # Voids 3 # Bowel Movements 1 - Exam CONSTITUTIONAL: Appears comfortable, cooperative, no acute distress. RESPIRATORY: Lungs sounds clear bilaterally. Respirations symmetrical, nonlabored. Currently on room air with oxygen saturation 97%. Able to achieve 3000 mL on his incentive spirometry. Strong cough. CARDIOVASCULAR: S1, S2 present, negative for S3, gallop or murmur. Regular rate and rhythm, normal sinus rhythm on telemetry. Palpable peripheral pulses bilaterally. No edema present. No calf pain or tenderness noted GASTROINTESTINAL: Abdomen soft, nontender, nondistended. Active bowel sounds present 4 quadrants. Tolerating diet. Bowel movement 09/15/23. GENITOURINARY: Continues to void. INTEGUMENTARY: Skin is warm and dry, no clubbing or cyanosis is present. NEUROLOGIC: Cranial nerves II through XII intact. No focal deficit. MUSKULOSKELETAL: Able to move all extremities, strength equal bilaterally, gait normal. PSYCHIATRIC: Alert and oriented to person place and time, appropriate affect, intact judgment and insight. - Allied health notes Allied health notes reviewed: nursing - Labs CBC & Chem 7: 09/17/23 06:22 09/17/23 06:22 Labs: Abnormal Lab Results - Last 24 Hours (Table) 09/16/23 09/16/23 09/16/23 Range/Units 10:46 18:41 23:51 RBC (4.30-5.90) m/uL Hgb (13.0-17.5) gm/dL Hct (39.0-53.0) % APTT 36.5 H 40.4 H (22.0-30.0) sec Chloride (98-107) mmol/L POC Glucose (mg/dL) 112 H (70-110) mg/dL Total Protein (6.3-8.2) g/dL 09/17/23 09/17/23 09/17/23 Range/Units 01:53 06:22 06:22 RBC 3.92 L (4.30-5.90) m/uL Hgb 12.0 L (13.0-17.5) gm/dL Hct 35.6 L (39.0-53.0) % APTT 52.7 H 58.7 H (22.0-30.0) sec Chloride (98-107) mmol/L POC Glucose (mg/dL) (70-110) mg/dL Total Protein (6.3-8.2) g/dL 09/17/23 Range/Units 06:22 RBC (4.30-5.90) m/uL Hgb (13.0-17.5) gm/dL Hct (39.0-53.0) % APTT (22.0-30.0) sec Chloride 111 H (98-107) mmol/L POC Glucose (mg/dL) (70-110) mg/dL Total Protein 6.1 L (6.3-8.2) g/dL Assessment and Plan Assessment: Multivessel coronary artery disease Ischemic cardiomyopathy, according to patient related to agent orange exposure Non-ST elevated myocardial infarction this admission Paroxysmal atrial fibrillation on Eliquis as an outpatient, status post 2 previous cardioversions, currently normal sinus rhythm Hypertension Hyperlipidemia, treated, cholesterol 177, LDL 87 History of ascending aortic aneurysm, followed by Dr. Head on an outpatient basis Obstructive sleep apnea with home CPAP use, preoperative FEV1 89% of predicted Benign prostatic hypertrophy, on Flomax as an outpatient Hard of hearing Gout, on allopurinol GERD Neuropathy to his left foot Lifetime non-smoker PTSD from experiences in [place] Osteoarthritis Preoperative nasal swab positive for MSSA, treated Plan: Continue to maximize medical therapy with aspirin, statin, and beta-boyd. Increase activity as tolerated. Encourage incentive spirometry use 10 times every hour while awake. Scheduled for on pump coronary artery bypass surgery with left internal mammary artery, left radial artery endoscopic harvesting, endoscopic vein harvesting, ligation of the left atrial appendage and pulmonary vein isolation by Dr. Stockton this Monday, September 18, 2023. Medical management of other comorbidities per internal medicine, and cardiology. N.p.o. after midnight. More recommendations to follow based on patient's clinical course. Time with Patient: Greater than 30
[2023-09-17] MEDS ORDERED: MD COMMUNICATION TO PHARMACY 1 EACH MISC PO ONE ×4 (10:38)
[2023-09-17 11:19] LABS: Glucose,Whole Blood 95 mg/dL (70-110)
--- NOTE | 2023-09-17 13:34 | P.PN ---
Subjective HISTORY OF PRESENT ILLNESS: This is a 73-year-old male with a past medical history significant for AAA, ischemic cardiomyopathy, atrial fibrillation, hypertension, and hyperlipidemia. Patient follows with 2 engineering consultant at [facility], Dr. Head and Dr. Parkinson. We have been asked to see the patient in consultation for elevated troponins. Patient examined at the bedside in the emergency room. Patient states that yesterday evening while he was in bed he developed chest discomfort in the middle of his chest. He states the pain went into his shoulders and into his jaw. He also states that he broke out into a sweat. His brought him to the hospital for further evaluation. Patient was found to have elevated troponins and was started on IV heparin. At the time of examination, he denies any chest pain or pressure. Denies any shortness of breath. Vital signs are stable. The patient does report he had a cardiac catheterization performed approximately 10 years ago. He states that he has never had any stenting or bypass surgery. However he does state he has a history of ischemic heart disease. DIAGNOSTICS: - EKG reveals sinus mechanism with T wave inversions in V3V5 - Chest xray negative for acute process - Laboratory data: WBC 8.0. Hemoglobin 13.3. Platelet count 204. Sodium 142. Potassium 4.0. BUN 23. Creatinine 1.12. Magnesium 1.4. Troponin 0.060. 0.931. 3.330. proBNP 368. - Current home cardiac medications include Lasix 20 mg daily, aspirin 81 mg daily, Eliquis 5 mg twice a day, amlodipine 5 mg daily, sotalol 80 mg twice a day, losartan 25 mg daily, Lipitor 20 mg daily. 09/15/2023 Patient examined this morning. Patient is sitting up in the chair. Patient currently denies chest pain or pressure. He denies shortness of breath. He remains on IV heparin. 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 Trace MR, trace TR. Vital signs are stable. 09/16/2023 Patient examined this morning. Patient's family is present. Patient is sitting up in the chair. Patient currently denies chest pain or pressure. He denies shortness of breath. He remains on IV heparin. Vital signs are stable. 09/17/2023 Patient examined this morning. Patient is sitting up in the chair. Patient currently denies chest pain or pressure. He denies shortness of breath. He remains on IV heparin. Vital signs are stable. PHYSICAL EXAM: VITAL SIGNS: Reviewed. GENERAL: Well-developed in no acute distress. HEENT: Head is normocephalic. Pupils are equal, round. Sclerae anicteric. Mucous membranes of the mouth are moist. Neck supple. No JVD or thyromegaly LUNGS: Respirations even and unlabored. Lungs essentially clear to auscultation bilaterally. HEART: Regular rate and rhythm. S1 and S2 heard. ABDOMEN: Soft. Nondistended. Nontender. EXTREMITIES: Normal range of motion. No clubbing or cyanosis. Peripheral pulses intact. No lower extremity edema NEUROLOGIC: Awake and alert. Oriented x 3. ASSESSMENT: Non-STEMI Status post postcardiac catheterization revealing severe multivessel CAD including tight lesion in the proximal LAD, proximal circumflex, and intermediate disease involving right coronary artery Paroxysmal atrial fibrillation History of cardioversion Hypertension Hyperlipidemia History of AAA PLAN: Continue current cardiac medications Continue IV heparin. Patient will need to be transition to [facility] post operatively CT surgery is following. Patient is scheduled for CABG on Wednesday Further recommendations pending patient course Nurse practitioner note has been reviewed by physician. Signing provider agrees with the documented findings, assessment, and plan of care documented by SPAGHETTI PRESS HELPER as a scribe. Objective - Vital Signs Vital signs: Vital Signs Temp 98.0 F 09/17/23 08:10 Pulse 62 09/17/23 12:00 Resp 18 09/17/23 12:00 BP 122/75 09/17/23 12:00 Pulse Ox 96 09/17/23 12:00 FiO2 Intake & Output 09/16/23 09/17/23 09/17/23 18:59 06:59 18:59 Intake Total 921.125 270.000 180 Output Total 1225 450 Balance 921.125 -955.000 -270 Weight 110.7 kg Intake: IV 20 Invasive Line 1 20 Intake, IV Titration 91.125 250.000 Amount Heparin Sod,Pork in 0.45% 91.125 250.000 NaCl 25,000 unit In 0.45 % NaCl 1 250ml.bag @ 12 UNITS/KG/HR 7.893 mls/hr IV .Q24H [facility] Rx#: [id number] Oral 830 180 Output: Urine 1225 450 Other: Voiding Method Toilet Toilet Urinal Urinal # Voids 3 # Bowel Movements 1 - Labs CBC & Chem 7: 09/17/23 06:22 09/17/23 06:22 Labs: Abnormal Lab Results - Last 24 Hours (Table) 09/16/23 09/16/23 09/17/23 Range/Units 18:41 23:51 01:53 RBC (4.30-5.90) m/uL Hgb (13.0-17.5) gm/dL Hct (39.0-53.0) % APTT 40.4 H 52.7 H (22.0-30.0) sec Chloride (98-107) mmol/L POC Glucose (mg/dL) 112 H (70-110) mg/dL Total Protein (6.3-8.2) g/dL Crossmatch 09/17/23 09/17/23 09/17/23 Range/Units 06:22 06:22 06:22 RBC 3.92 L (4.30-5.90) m/uL Hgb 12.0 L (13.0-17.5) gm/dL Hct 35.6 L (39.0-53.0) % APTT 58.7 H (22.0-30.0) sec Chloride (98-107) mmol/L POC Glucose (mg/dL) (70-110) mg/dL Total Protein (6.3-8.2) g/dL Crossmatch See Detail 09/17/23 Range/Units 06:22 RBC (4.30-5.90) m/uL Hgb (13.0-17.5) gm/dL Hct (39.0-53.0) % APTT (22.0-30.0) sec Chloride 111 H (98-107) mmol/L POC Glucose (mg/dL) (70-110) mg/dL Total Protein 6.1 L (6.3-8.2) g/dL Crossmatch
--- NOTE | 2023-09-17 13:39 | P.PN ---
Subjective Progress Note Date: 09/17/23 This is a very pleasant 73-year-old male patient with a history of atrial fibrillation with previous cardioversions, anticoagulated with Eliquis, gastroesophageal reflux disease, hyperlipidemia, hypertension, obstructive sleep apnea utilizing CPAP at 12 cm of water, gout, agent orange exposure while in [facility], multiple orthopedic surgeries. He is a lifelong non-smoker. No history of asthma. No oxygen or inhalers. His FEV1 value was found to be 2.45 L and 89% of predicted. He had presented here to the emergency room on September 13, 2023 with complaints of midsternal chest discomfort radiating to the bilateral shoulders. Troponins were 0.060, 0.931, 3.330. White count 8.0. Hemoglobin 13.3. Platelets 204. Sodium 137. Potassium 4.0. Bicarb 22. BUN 15. Creatinine 0.82. Glucose 131. Chest x-ray revealed no acute pulmonary process. Echocardiogram revealed preserved left ventricular systolic function with ejection fraction 55 to 60%. He did undergo cardiac catheterization on 09/14/2023 that revealed severe multivessel coronary artery disease including a tight stenosis in the proximal LAD, proximal circumflex and intermittent disease involving the RCA. He was recommended surgical revascularization. The plan is for surgery on 09/18/2023. He is seen today in consultation on the selective care unit. He is sitting up in a chair. Awake and alert in no acute distress. He denies any shortness of breath, cough or congestion. Maintaining good O2 saturations in the 90s on room air. He is practicing well with the incentive spirometer. He remains on a heparin drip. He denies any chest discomfort currently. Patient was evaluated today on 09/16/2023, patient is doing well, scheduled to have surgery in the next few days, continues to have no active pulmonary symptoms no cough no wheezing no shortness of breath, doing excellent with his incentive spirometry. CT of the chest was reviewed, no worrisome findings at this point. Patient had FEV1 of 89%, he never smoked. The patient is seen today September 17, 2023 in follow-up on the regular medical floor. He is awake and alert in no acute distress. Sitting up at the bedside. He is working well with his incentive spirometer. He denies any shortness of breath, cough or congestion. No chest pain presently. White count 7.8. Hemoglobin 12.0. Platelets 184. Sodium 139. Potassium 4.0. Bicarb 22. BUN 18. Creatinine 0.94. Glucose 86. He remains on a heparin drip. Objective - Vital Signs Vital signs: Vital Signs Temp 98.0 F 09/17/23 08:10 Pulse 62 09/17/23 12:00 Resp 18 09/17/23 12:00 BP 122/75 09/17/23 12:00 Pulse Ox 96 09/17/23 12:00 FiO2 Intake & Output 09/16/23 09/17/23 09/17/23 18:59 06:59 18:59 Intake Total 921.125 270.000 180 Output Total 1225 450 Balance 921.125 -955.000 -270 Weight 110.7 kg Intake: IV 20 Invasive Line 1 20 Intake, IV Titration 91.125 250.000 Amount Heparin Sod,Pork in 0.45% 91.125 250.000 NaCl 25,000 unit In 0.45 % NaCl 1 250ml.bag @ 12 UNITS/KG/HR 7.893 mls/hr IV .Q24H [facility] Rx#: [id number] Oral 830 180 Output: Urine 1225 450 Other: Voiding Method Toilet Toilet Urinal Urinal # Voids 3 # Bowel Movements 1 - Exam GENERAL EXAM: Alert, active, very pleasant 73-year-old male patient, on room air, comfortable in no apparent distress. HEAD: Normocephalic. EYES: Normal reaction of pupils, equal size. NOSE: Clear with pink turbinates. THROAT: No erythema or exudates. NECK: No masses, no JVD. CHEST: No chest wall deformity. LUNGS: Equal air entry with no crackles, wheeze, rhonchi or dullness. CVS: S1 and S2 normal with no audible murmur, regular rhythm. ABDOMEN: No hepatosplenomegaly, normal bowel sounds, no guarding or rigidity. SPINE: No scoliosis or deformity SKIN: No rashes CENTRAL NERVOUS SYSTEM: No focal deficits, tone is normal in all 4 extremities. EXTREMITIES: There is no peripheral edema. No clubbing, no cyanosis. Peripheral pulses are intact. - Labs CBC & Chem 7: 09/17/23 06:22 09/17/23 06:22 Labs: Abnormal Lab Results - Last 24 Hours (Table) 09/16/23 09/16/23 09/17/23 Range/Units 18:41 23:51 01:53 RBC (4.30-5.90) m/uL Hgb (13.0-17.5) gm/dL Hct (39.0-53.0) % APTT 40.4 H 52.7 H (22.0-30.0) sec Chloride (98-107) mmol/L POC Glucose (mg/dL) 112 H (70-110) mg/dL Total Protein (6.3-8.2) g/dL Crossmatch 09/17/23 09/17/23 09/17/23 Range/Units 06:22 06:22 06:22 RBC 3.92 L (4.30-5.90) m/uL Hgb 12.0 L (13.0-17.5) gm/dL Hct 35.6 L (39.0-53.0) % APTT 58.7 H (22.0-30.0) sec Chloride (98-107) mmol/L POC Glucose (mg/dL) (70-110) mg/dL Total Protein (6.3-8.2) g/dL Crossmatch See Detail 09/17/23 Range/Units 06:22 RBC (4.30-5.90) m/uL Hgb (13.0-17.5) gm/dL Hct (39.0-53.0) % APTT (22.0-30.0) sec Chloride 111 H (98-107) mmol/L POC Glucose (mg/dL) (70-110) mg/dL Total Protein 6.1 L (6.3-8.2) g/dL Crossmatch Assessment and Plan Assessment: Acute non-ST segment elevation myocardial infarction in a patient found to have severe multivessel coronary artery disease. And is for revascularization on 09/18/2023 History of paroxysmal atrial fibrillation with previous cardioversions, anticoagulated with Eliquis currently on hold, on a heparin drip Hypertension Hyperlipidemia Obstructive sleep apnea utilizing home CPAP at 12 cm of water, nasal pillow due to significant claustrophobia History of gout Gastroesophageal reflux disease Agent orange exposure while in [place] Lifelong non-smoker, FEV1 value 2.45 L, 89% of predicted Plan: The patient was seen and evaluated Labs and medications reviewed Plan is for CABG on 09/18/2023 Working well with the incentive spirometer Remains on a heparin drip Stable and on room air Will plan for early extubation protocol if tolerated We will continue to follow I have personally seen and examined the patient, performed the documentation and the assessment and plan as written. Number of minutes spent on the visit: 10.
--- NOTE | 2023-09-17 15:08 | P.PN ---
Subjective Progress Note Date: 09/17/23 H&P Date: 09/13/23 Chief Complaint: Chest pain This is a pleasant 73-year-old gentleman with past medical history significant for ischemic cardiomyopathy, atrial fibrillation,AAA, hypertension, hyperlipidemia, sleep apnea wears CPAP, hiatal hernia, gastroesophageal reflux disease and multiple other medical issues follows with [facility] cardiology, presented to the ER with complaints of chest pain. Reports he developed midsternal chest pressure while up at his cottage in [place]. Reports nonexertional. Chest pain occurred after midnight last night, radiated to bilateral shoulders and into his jaw, accompanied by sweating, shortness of breath and bilateral lower extremity edema. transported him to the ER, troponins elevated, 0.060, 0.931, 3.330, heparin drip initiated. He currently denies any chest pain, palpitations or shortness of breath. Evaluated by cardiology with abnormal EKG reviewed sinus with-T wave inversion. Chest x-ray reporting no acute cardiopulmonary process.. Hematology, coagulation unremarkable. Sodium 142, potassium 4, bicarb 22, BUN 23, creatinine 1.12 glucose 101 magnesium 1.4-supplemented. 09/14/2023 Just returning back from cardiac catheterization, reporting severe multivessel CAD including a tight stenosis in the proximal LAD, proximal circumflex and intermediate disease involving RCA. 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 C ardiothoracic surgery consulted. Currently denies chest pain, palpitations or shortness of breath. Maintaining O2 sats in the mid 90s on room air. Telemetry sinus rhythm. 09/15/23 maintained on heparin drip, IV fluid hydration. Telemetry sinus rhythm .denies chest pain, palpitations or shortness of breath. Maintaining O2 sats in the mid 90s on room air. 09/16/2023 telemetry sinus rhythm. Sitting up in chair, incentive spirometer 3000. Anticoagulated on heparin drip. Continues on IV fluid hydration. Chest CT reviewed by budget specialist. Denies nausea or vomiting. Denies chest pain, pal pitations or shortness of breath. Maintaining O2 sats of 96% on room air. 09/17/2023 maintained on heparin drip. Denies chest pain, palpitations or shortness of breath. 3100 on I-S. Awaiting CABG tomorrow, no complaints. Afebrile, normal WBC. Hemoglobin 12, platelets 184. Electrolytes within normal limits. Bicarb 22, BUN 18, creatinine 0.94. Blood sugars controlled. Objective - Vital Signs Vital signs: Vital Signs Temp 98.0 F 09/17/23 08:10 Pulse 62 09/17/23 12:00 Resp 18 09/17/23 12:00 BP 122/75 09/17/23 12:00 Pulse Ox 96 09/17/23 12:00 FiO2 Intake & Output 09/16/23 09/17/23 09/17/23 18:59 06:59 18:59 Intake Total 921.125 270.000 180 Output Total 1225 450 Balance 921.125 -955.000 -270 Weight 110.7 kg Intake: IV 20 Invasive Line 1 20 Intake, IV Titration 91.125 250.000 Amount Heparin Sod,Pork in 0.45% 91.125 250.000 NaCl 25,000 unit In 0.45 % NaCl 1 250ml.bag @ 12 UNITS/KG/HR 7.893 mls/hr IV .Q24H [facility] Rx#: [id number] Oral 830 180 Output: Urine 1225 450 Other: Voiding Method Toilet Toilet Urinal Urinal # Voids 3 # Bowel Movements 1 - Exam PHYSICAL EXAM: VITAL SIGNS: [As above] GENERAL: Alert and oriented x 3, sitting up in chair, no acute distress HEENT: Normocephalic, atraumatic, conjunctivae normal. eyes normal. NECK: Supple, no JVD. CARDIOVASCULAR: S1, S2 regular. No murmur RESPIRATION: Unlabored, equal air entry, clear to auscultation. ABDOMEN: Soft, nondistended, nontender . No guarding. +BS LEGS: No edema. no swelling NERVOUS SYSTEM: Cranial N 2-12 grossly normal. No focal deficits. Skin: Warm and dry, no rash - Labs CBC & Chem 7: 09/17/23 06:22 09/17/23 06:22 Labs: Abnormal Lab Results - Last 24 Hours (Table) 09/16/23 09/16/23 09/17/23 Range/Units 18:41 23:51 01:53 RBC (4.30-5.90) m/uL Hgb (13.0-17.5) gm/dL Hct (39.0-53.0) % APTT 40.4 H 52.7 H (22.0-30.0) sec Chloride (98-107) mmol/L POC Glucose (mg/dL) 112 H (70-110) mg/dL Total Protein (6.3-8.2) g/dL Crossmatch 09/17/23 09/17/23 09/17/23 Range/Units 06:22 06:22 06:22 RBC 3.92 L (4.30-5.90) m/uL Hgb 12.0 L (13.0-17.5) gm/dL Hct 35.6 L (39.0-53.0) % APTT 58.7 H (22.0-30.0) sec Chloride (98-107) mmol/L POC Glucose (mg/dL) (70-110) mg/dL Total Protein (6.3-8.2) g/dL Crossmatch See Detail 09/17/23 Range/Units 06:22 RBC (4.30-5.90) m/uL Hgb (13.0-17.5) gm/dL Hct (39.0-53.0) % APTT (22.0-30.0) sec Chloride 111 H (98-107) mmol/L POC Glucose (mg/dL) (70-110) mg/dL Total Protein 6.1 L (6.3-8.2) g/dL Crossmatch Assessment and Plan Assessment: Chest pain, NSTEMI. Status post catheterization reporting severe multivessel CAD CAD with ischemic cardiomyopathy, no stenting, follows with [facility] cardiology. 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 Chronic paroxysmal atrial fibrillation, history of cardioversions Obstructive sleep apnea uses CPAP Claustrophobia Agent orange exposure in [place] Hypertension Hyperlipidemia History of AAA, monitoring outpatient with Dr. Head BPH Plan: Continue on current medication resume ,monitoring and symptomatic treatment. CABG scheduled for tomorrow. Maximizing medical therapy.Anticoagulation with heparin drip. Aggressive pulmonary toileting with incentive spirometer reinforced. The impression and plan of care has been dictated as directed. : I performed a history and examination of this patient, discussed the same with the dictator. I agree with the dictator's note ,documented as a scribe. Any additional findings or plans will be noted.
[2023-09-17 16:27] LABS: Glucose,Whole Blood 115 mg/dL (70-110)
[2023-09-17 19:49] LABS: Glucose,Whole Blood 132 mg/dL (70-110)
[2023-09-18] MEDS ORDERED: PROTAMINE SULFATE 250 MG in EMPTY BAG 1 BAG IV ONE (05:00)
[2023-09-18] MEDS ORDERED: HEPARIN SODIUM 1,000 UN/ML (10ML VL) IV ONE (05:00)
[2023-09-18] MEDS ORDERED: MANNITOL 25% 12.5 GM/50 ML VIAL IV ONE ×2 (05:00)
[2023-09-18] MEDS ORDERED: CLEVIDIPINE BUTYRATE 25 MG in EMPTY BAG 1 BAG IV SCH (05:00)
[2023-09-18] MEDS ORDERED: NITROGLYCERIN-D5W PMX 50 MG in DEXTROSE/WATER 1 250ML.BAG IV SCH (05:00)
[2023-09-18] MEDS ORDERED: PROTAMINE SULFATE 10 MG/ML 25 ML VIAL IV ONE ×2 (05:00→07:45)
[2023-09-18] MEDS ORDERED: ALBUMIN HUMAN 25% 50 ML in EMPTY BAG 1 BAG IVPB ONE (05:00)
[2023-09-18] MEDS ORDERED: NITROGLYCERIN-D5W PMX 25 MG/250 ML BTL IV ONE (05:00)
[2023-09-18] MEDS ORDERED: CHLORHEXIDINE GLUCONATE 15 ML CUP MUCOUS MEM ONE (05:00)
[2023-09-18] MEDS ORDERED: PHENYLEPHRINE 40 MG in SODIUM CHLORIDE 0.9% 250 ML IV ONE (05:00)
[2023-09-18] MEDS ORDERED: ALBUMIN HUMAN 5% 500 ML in EMPTY BAG 1 BAG IVPB ONE ×5 (05:00)
[2023-09-18] MEDS ORDERED: SODIUM BICARB 8.4% 50 ML SYR (1 MEQ/ML) IV ONE (05:00)
[2023-09-18] MEDS ORDERED: MAGNESIUM SULFATE 16.24 MEQ in EMPTY SYRINGE 1 SYR IV ONE (05:00)
[2023-09-18] MEDS ORDERED: NOREPINEPHRINE 4 MG in SODIUM CHLORIDE 0.9% 250 ML IV SCH (05:00)
[2023-09-18] MEDS ORDERED: TRANEXAMIC ACID 2,000 MG in SODIUM CHLORIDE 0.9% 80 ML IV ONE (05:00)
[2023-09-18] MEDS ORDERED: CALCIUM CHLORIDE 100 MG/ML 10 ML SYRINGE IVP ONE (05:00)
[2023-09-18 05:27] LABS: Glucose,Whole Blood 114 mg/dL (70-110)
[2023-09-18] MEDS: METOPROLOL TARTRATE 12.5 MG TAB PO ONE (05:37)
[2023-09-18] MEDS: ASPIRIN 81 MG PO ONE (05:38)
[2023-09-18] MEDS: ATORVASTATIN 10 MG TAB PO ONE (05:38)
[2023-09-18] MEDS ORDERED: INSULIN REGULAR 100 UNIT in SODIUM CHLORIDE 0.9% 100 ML IV SCH (06:00)
[2023-09-18] MEDS ORDERED: PHENYLEPHRINE 10 MG/ML VIAL IV ONE (06:00)
[2023-09-18] MEDS ORDERED: ELECTROLYTE-A SOLUTION 1,000 ML with POTASSIUM CHLORIDE 100 MEQ, MAGNESIUM SULFATE 16 M... IV ONE (06:00)
[2023-09-18] MEDS ORDERED: ELECTROLYTE-A SOLUTION 1,000 ML with POTASSIUM CHLORIDE 40 MEQ, MAGNESIUM SULFATE 16 ME... IV ONE (06:00)
[2023-09-18] MEDS ORDERED: fentaNYL (PF) 50 MCG/ML 50 ML VIAL ONE (07:45)
[2023-09-18] MEDS ORDERED: ePHEDrine 50 MG/ML 1 ML VIAL ONE (07:45)
[2023-09-18] MEDS ORDERED: HEPARIN SODIUM,PORCINE 10,000 UNIT/ML 1 ML VIAL ONE (07:45)
[2023-09-18] MEDS ORDERED: SODIUM BICARB 8.4% 50 ML SYR (1 MEQ/ML) ONE (07:45)
[2023-09-18] MEDS ORDERED: VECURONIUM 10 MG VIAL IV ONE (07:45)
[2023-09-18] MEDS ORDERED: MIDAZOLAM HCL 10 MG/10 ML VIAL ONE (07:45)
[2023-09-18] MEDS ORDERED: PROPOFOL 10 MG/ML 20 ML VIAL IV ONE (07:45)
[2023-09-18] MEDS ORDERED: LIDOCAINE 2% SYG (PF) 100 MG/5 ML ONE (07:45)
[2023-09-18] MEDS ORDERED: ALBUMIN HUMAN 5% (25gm) 500 ML VIAL IVPB ONE (07:45)
[2023-09-18] MEDS ORDERED: TRANEXAMIC 1,000 MG/100ML-NACL PREMIX BAG ONE (07:45)
[2023-09-18] MEDS ORDERED: HEPARIN SODIUM,PORCINE 5,000 UNIT/ML 1 ML VIAL ONE (07:45)
[2023-09-18] MEDS ORDERED: INSULIN REGULAR 100 UNIT/ML VIAL (IV) ONE (07:45)
[2023-09-18 08:40] LABS: ABG Base Excess -5.4 mmol/L; ABG Glucose Whole Blood 95 mg/dL (75-99); ABG HCO3 21 mmol/L (21-25); ABG Hematocrit 34 % (34.0-46.0); ABG Ionized Calcium 5.3 mg/dL (4.5-5.3); ABG Lactic Acid Whole Blood 1.7 mmol/L (0.5-1.6); ABG Oxygen Saturation 96.6 % (94-97); ABG PCO2 42 mmHg (35-45); ABG PO2 92 mmHg (83-108); ABG Sodium Whole Blood 141 mmol/L (135-146); ABG TCO2 20 mmol/L (19-24); Allen Test Performed? Yes
--- NOTE | 2023-09-18 08:47 | P.ANPRN ---
Procedure Note - Anesthesia - Invasive Line Right Central Line Time Out Performed: Yes (0722) Date of Procedure: 09/18/23 Time of Procedure: 07:23 Location of Patient: Phase I Preparation: Sterile Prep, Sterile Dressing Central Line Location: Internal Jugular (right IJ cordis) Ultrasound Used: Yes Purpose - Visualization and Identification of Vasculature: Yes Needle Guage: 18g angio Image Stored and Saved: Yes Narrative: Invasive line placement per sterile protocol utilized. Anesthesia note Procedure: Right internal jugular central venous catheter insertion: 8.5-Slovak Cordis Sterile protocol followed. Right neck prepped. Ultrasound used. Lidocaine 1% used. Using ultrasound local anesthetic was instilled site over right Internal Jugular vein. Angiocath was used to gain access via ultrasound. Once free flow non-pulsatile blood flow was confirmed, 12 inch extension tubing was then placed on Angiocath. Once central venous pressure was confirmed, J-wire was then placed through Angiocath. Angiocath was then withdrawn. Local was instilled at J-wire site. Small skin katina was then made with provided sterile scalpel. 8.5- Slovak Cordis was then inserted over the wire while maintaining control of wire at all times. Uneventful insertion with dilation. Free flow nonpulsatile blood flow through Cordis. Hooked up to IV tubing. Secured with suture. Dressings applied. Drapes Removed. Attempts x1.
--- NOTE | 2023-09-18 08:48 | P.ANPRN ---
Procedure Note - Anesthesia - Invasive Line Right Boone Roselyn Time Out Performed: Yes (0722) Date of Procedure: 09/18/23 Time of Procedure: 07:34 Location of Patient: Phase I Preparation: Sterile Prep, Sterile Dressing Boone Roselyn Line Location: Internal Jugular (Right) Ultrasound Used: No Purpose - Visualization and Identification of Vasculature: No Image Stored and Saved: No Narrative: Invasive line placement per sterile protocol utilized. Anesthesia note Procedure right Boone-Roselyn catheter placed through right internal jugular central venous catheter Sterile protocol maintained from previous procedure. Boone-Roselyn catheter sterilely placed in sheath and flushed prior to insertion. After advancing 15 cm Boone-Roselyn catheter was then slowly inserted with balloon up. Advanced through CVP, RV to PA waveform. Boone-Roselyn catheter wedged around 54 cm. Balloon down. Catheter withdrawn 5 cm. . No wedge. Proximal and distal sites locked on sheath. Attempts x1. Sterile drapes removed and dressings applied.
[2023-09-18] MEDS: ceFAZolin 1,000 MG in SODIUM CHLORIDE 0.9% IRRIGATIO 1,000 ML IRRIGATION ONE (09:08)
[2023-09-18] MEDS: PAPAVERINE 360 MG in SODIUM CHLORIDE 0.9% 90 ML IV ONE (09:08)
[2023-09-18] MEDS: HEPARIN SODIUM,PORCINE (1 ML) 5,000 UNIT in SODIUM CHLORIDE 0.9% 500 ML 500 ML IV ONE (09:08)
[2023-09-18] MEDS: DILTIAZEM 125 MG in SODIUM CHLORIDE 0.9% 100 ML IV SCH (09:08)
[2023-09-18 09:49] LABS: ABG Base Excess -4.6 mmol/L; ABG Glucose Whole Blood 105 mg/dL (75-99); ABG HCO3 21 mmol/L (21-25); ABG Hematocrit 30 % (34.0-46.0); ABG Ionized Calcium 4.9 mg/dL (4.5-5.3); ABG Lactic Acid Whole Blood 1.5 mmol/L (0.5-1.6); ABG PCO2 42 mmHg (35-45); ABG PH 7.31 (7.35-7.45); ABG PO2 133 mmHg (83-108); ABG Sodium Whole Blood 142 mmol/L (135-146); ABG TCO2 20 mmol/L (19-24); Allen Test Performed? Yes
--- NOTE | 2023-09-18 10:24 | P.ANPRN ---
Procedure Note - Anesthesia - SIRENA Intraop Pre Bypass SIRENA Intraop - Anesthesia Indication: cad Date of Procedure: 09/18/23 Pre-operative Diagnosis: cad Post-operative Diagnosis: s/P CABG CAD Surgeon: Luis Stockton Left Ventricle: EF 50%. No thrombus appreciated. Ejection Fraction: Normal Regional Wall Motion Abnormalities: None Left Ventricle Hypertrophy: No R. Ventricle Function: Normal Anatomy: Trileaflet Aortic Stenosis: None Aortic Regurgitation: None Mitral Stenosis: None Mitral Regurgitation: Trace Tricuspid Stenosis: None Tricuspid Regurgitation: Trace Pulmonic Stenosis: None Pulmonic Regurgitation: None R. Atrial Dilation: No R. Atrial PFO: No Left Atrium: SHIMON clear L. Atrial Dilation: No Aortic Dissection: No Aortic Calcification: None Plural Effusion: None
[2023-09-18 10:53] LABS: ABG Base Excess -1.1 mmol/L; ABG Glucose Whole Blood 105 mg/dL (75-99); ABG HCO3 23 mmol/L (21-25); ABG Hematocrit 25 % (34.0-46.0); ABG Ionized Calcium 4.2 mg/dL (4.5-5.3); ABG Lactic Acid Whole Blood 1.3 mmol/L (0.5-1.6); ABG Oxygen Saturation >99.4 % (94-97); ABG PCO2 36 mmHg (35-45); ABG PH 7.42 (7.35-7.45); ABG Potassium Whole Blood 4.2 mmol/L (3.4-4.5); ABG Sodium Whole Blood 143 mmol/L (135-146); Allen Test Performed? Yes
[2023-09-18 11:21] LABS: ABG Base Excess -1.5 mmol/L; ABG Glucose Whole Blood 115 mg/dL (75-99); ABG HCO3 23 mmol/L (21-25); ABG Hematocrit 25 % (34.0-46.0); ABG Ionized Calcium 4.3 mg/dL (4.5-5.3); ABG Lactic Acid Whole Blood 1.4 mmol/L (0.5-1.6); ABG Oxygen Saturation >99.4 % (94-97); ABG PCO2 36 mmHg (35-45); ABG PH 7.42 (7.35-7.45); ABG Potassium Whole Blood 4.8 mmol/L (3.4-4.5); ABG Sodium Whole Blood 141 mmol/L (135-146); Allen Test Performed? Yes
[2023-09-18 11:52] LABS: ABG Base Excess 0.8 mmol/L; ABG Glucose Whole Blood 140 mg/dL (75-99); ABG HCO3 25 mmol/L (21-25); ABG Ionized Calcium 4.3 mg/dL (4.5-5.3); ABG Lactic Acid Whole Blood 1.2 mmol/L (0.5-1.6); ABG Oxygen Saturation >99.4 % (94-97); ABG PCO2 36 mmHg (35-45); ABG PH 7.45 (7.35-7.45); ABG Sodium Whole Blood 142 mmol/L (135-146); Allen Test Performed? Yes
[2023-09-18 12:15] LABS: ABG Base Excess -1.3 mmol/L; ABG Glucose Whole Blood 131 mg/dL (75-99); ABG HCO3 24 mmol/L (21-25); ABG Hematocrit 25 % (34.0-46.0); ABG Ionized Calcium 4.4 mg/dL (4.5-5.3); ABG Lactic Acid Whole Blood 1.5 mmol/L (0.5-1.6); ABG Oxygen Saturation >99.4 % (94-97); ABG PCO2 39 mmHg (35-45); ABG PH 7.39 (7.35-7.45); ABG PO2 366 mmHg (83-108); ABG Potassium Whole Blood 4.7 mmol/L (3.4-4.5); ABG Sodium Whole Blood 143 mmol/L (135-146); Allen Test Performed? Yes
--- NOTE | 2023-09-18 12:39 | P.ANPRN ---
Procedure Note - Anesthesia - SIRENA Intraop Post Bypass SIRENA Intraop Post Bypass Procedure Performed: s/p on pump bypass Left Ventricle: unchanged Ejection Fraction: Normal Regional Wall Motion Abnormalities: None R. Ventricle Function: Normal Aortic Valve: Unchanged Mitral Valve: Unchanged Tricuspid: Unchanged Pulmonic: Unchanged Aortic Dissection: No
[2023-09-18 12:54] LABS: ABG Base Excess -2.3 mmol/L; ABG Glucose Whole Blood 132 mg/dL (75-99); ABG HCO3 23 mmol/L (21-25); ABG Hematocrit 28 % (34.0-46.0); ABG Ionized Calcium 4.8 mg/dL (4.5-5.3); ABG Oxygen Saturation 98.1 % (94-97); ABG PCO2 43 mmHg (35-45); ABG PH 7.34 (7.35-7.45); ABG PO2 113 mmHg (83-108); ABG Potassium Whole Blood 4.4 mmol/L (3.4-4.5); ABG Sodium Whole Blood 143 mmol/L (135-146); ABG TCO2 22 mmol/L (19-24); Allen Test Performed? Yes
[2023-09-18 13:01] LABS: ABG PO2 >420 mmHg (83-108)
[2023-09-18 13:02] LABS: ABG PO2 >420 mmHg (83-108)
[2023-09-18 13:03] LABS: ABG Hematocrit 24 % (34.0-46.0); ABG PO2 >420 mmHg (83-108)
[2023-09-18 13:04] LABS: ABG Lactic Acid Whole Blood 2.1 mmol/L (0.5-1.6)
[2023-09-18] MEDS ORDERED: IPRATROPIUM-ALBUTEROL 3 ML NEB INHALATION PRN (13:31)
[2023-09-18] MEDS ORDERED: BENZOCAINE/MENTHOL LOZENG 1 EACH LOZENGE MUCOUS MEM PRN (13:31)
[2023-09-18] MEDS ORDERED: Phosphorus Replacement Protoco 1 EACH MISC MISCELLANE PRN (13:31)
[2023-09-18] MEDS ORDERED: CALCIUM GLUCONATE IN NACL 2 GM in SALINE 1 100ML.BAG IVPB PRN (13:31)
[2023-09-18] MEDS ORDERED: METOCLOPRAMIDE 5 MG/ML 2 ML VIAL IVP PRN (13:31)
[2023-09-18] MEDS ORDERED: Magnesium Replacement Protocol 1 EACH MISC MISCELLANE PRN (13:31)
[2023-09-18] MEDS ORDERED: hydrALAZINE HCL 20 MG/ML 1 ML VIAL IVP PRN (13:31)
[2023-09-18] MEDS ORDERED: DEXTROSE 50% SYRINGE 50 ML IVP PRN ×2 (13:31)
[2023-09-18] MEDS ORDERED: Potassium Replacement Protocol 1 EACH MISC MISCELLANE PRN (13:31)
[2023-09-18] MEDS ORDERED: ONDANSETRON 4 MG/2 ML VIAL IVP PRN (13:31)
--- NOTE | 2023-09-18 13:39 | P.OP ---
Date of Procedure: 09/18/23 Preoperative Diagnosis: NSTEMI, 3v CAD p a-fib htn hld hypothyroidism gerd morbid obesity Postoperative Diagnosis: Same Procedure(s) Performed: 1. On pump coronary artery bypass grafting x 4. Left internal thoracic artery (in-situ) to left anterior descending coronary artery. Radial artery from aorta sequential to ramus intermedius and obtuse marginal artery. Reverse saphenous vein from aorta to distal right coronary artery. 2. Left atrial appendage ligation using #35mm AtriClip 3. Bilateral pulmonary vein isolation with AtriCure RF Clamp 4. Endoscopic left radial artery and right greater saphenous vein harvest 5. Graft flow measurements using the Medi-Stim flow meter system 6. Trans-esophageal echo Implants: #35 AtriClip Anesthesia: ELSIA Surgeon: Luis Stockton Automatic Chief #1: Cliff Sharma Automatic Chief #2: Ivan Melgar Estimated Blood Loss (ml): 250 Pathology: none sent Condition: critical Disposition: ICU Indications for Procedure: This patient is a 73 year-old M with a PMHx of HTN, HLD, paroxysmal atrial fibrillation, hypothyroidism, morbid obesity and MARIELENA who presented with anginal symptoms. Work-up revealed an NSTEMI and angiography revealed significant 3v CAD. His STS risk of morbidity and mortality was discussed with him and CABG with PVI was recommended. He was in agreement to proceed. Operative Findings: TIFFANIE 2.0mm great conduit. LAD 1.75mm good target. CARLISLE-LAD Flow 130ml/min, P.I. 2.3 Radial artery 2.5mm good conduit. RAMUS 1.5mm good target. OM good target, 2.0mm RA-RAMUS-OM Flow 33ml/min, P.I. 2.7 SVG 2.0mm good conduit. RCA 2.0mm good target. SVG-RCA Flow 52ml/min, P.I. 1.6 Description of Procedure: The patient underwent central line, [place]-Roselyn catheter, and right radial arterial line placement by the anesthesia team. The patient was brought back to the operating room and placed on the table supine. General endotracheal anesthesia was induced and the patient was prepped and draped in the usual sterile fashion from the chin to the ankles. A time-out was performed and antibiotics were given. A midline incision was made on the chest. This was carried down to bone and a median sternotomy was performed. Hemostasis on the bone was achieved with electrocautery only. The left pleura was entered and the left internal thoracic artery was harvested in a skeletonized fashion. Simultaneously two other fozia glass harvested the left radial artery and right greater saphenous vein endoscopically. The patient was systemically heparinized and the TIFFANIE was transected and placed in a papaverine jacuzzi. A left sided chest tube was placed. The pericardium was opened in a T-fashion and a pericardial cradle was created. We then cannulated the aortic arch with a 22F arch cannula and right atrial appendage with a dual stage venous cannula. Only the aortic cannulation site was pledgeted. Antegrade and retrograde cannulas were placed in the ascending aorta and indirectly in the coronary sinus respectively. The conduits were prepared. Once the ACT > 480 we initiated cardiopulmonary bypass and evaluated our targets. I then encircled the right pulmonary veins using the favalaro clamp and red rubber was passed. The atricure RF clamp was threaded into the red rubber and the right sided pulmonary veins were clamped and ablated using three doublets. We then arrested the heart with 1L antegrade and 500cc retrograde blood based cardioplegia. Cardioplegia was re-dosed every 15 minutes. At this point, iesha's ligament was taken down and the left sided pulmonary veins were encircled with a red rubber and ablated with three doublets. A 35mm AtriClip was then placed on the left atrial appendage. Next, the distal right coronary artery was identified, and arteriotomy was created. We then performed an end to side with the saphenous vein to the right coronary artery using a running 7-0 Prolene. The RCA was 2.0mm but otherwise a descent target. Next the lateral wall of the heart was examined and the obtuse marginal artery was identified and arteriotomy created. Next we performed the distal end to side anastomosis with the radial artery to obtuse marginal artery using a running 7-0 Prolene. Next, the ramus intermedius artery was identified and opened. It was a good target. A side to side avani anastomosis between the radial artery and ramus was sewn using a running 7-0 prolene. Next, we performed an end to side anastomosis of the TIFFANIE to the LAD using a running 7-0 Prolene. We then performed the two proximal anastomosis with the saphenous vein and radial artery to the ascending aorta using a running 6-0 prolene. The cross-clamp was removed and two ventricular wires were placed on the inferior RV. The patient was then weaned from cardiopulmonary bypass and decannulated. The retrograde site was oversewn and hemostasis was secured. A 19F jacqueline and 32F chest tube was placed in mediastinum. Atrial wires were placed. Graft flows were checked and they were excellent. The sternum was closed with cables. The fascia was closed with Ethibond. The subcutaneous tissues and skin of the sternum, arm and leg were closed in layers of vicryl. All counts were correct and the patient was transported to the CVICU in critical condition on nitro gtt.
[2023-09-18 13:52] LABS: Glucose,Whole Blood 119 mg/dL (70-110)
[2023-09-18 14:02] LABS: Ionized Calcium 4.9 mg/dL (4.5-5.3)
[2023-09-18 14:07] LABS: Basophils % (A) 0 %; Eosinophils # (A) 0.1 k/uL (0-0.7); Eosinophils % (A) 1 %; HCT 29.3 % (39.0-53.0); Lymphocytes # (A) 0.9 k/uL (1.0-4.8); Lymphocytes % (A) 9 %; MCH 31.1 pg (25.0-35.0); MCHC 34.2 g/dL (31.0-37.0); MCV 90.9 fL (80.0-100.0); Mean Platelet Volume 11.2; Monocytes # (A) 0.7 k/uL (0-1.0); Monocytes % (A) 6 %; Neutrophils # (A) 9.2 k/uL (1.3-7.7); Neutrophils % (A) 84 %; Platelet Count 129 k/uL (150-450); RBC 3.22 m/uL (4.30-5.90)
[2023-09-18 14:08] LABS: INR 1.2 (<1.2); Partial Thromboplastin Time 24.8 sec (22.0-30.0); Prothrombin Time 12.4 sec (10.0-12.5)
[2023-09-18 14:11] LABS: ALT 41 U/L (4-49); AST 70 U/L (17-59); African American GFR (CKD) >90 (>60 ml/min/1.73 sqM); Albumin 2.8 g/dL (3.5-5.0); Alkaline Phosphatase 45 U/L (38-126); Anion Gap 6 mmol/L; Blood Urea Nitrogen 20 mg/dL (9-20); Calcium 8.5 mg/dL (8.4-10.2); Carbon Dioxide 22 mmol/L (22-30); Chloride 113 mmol/L (98-107); Glucose 110 mg/dL (74-99); Magnesium 2.3 mg/dL (1.6-2.3); Non-African American GFR(CKD) 87 (>60 ml/min/1.73 sqM); Potassium 4.3 mmol/L (3.5-5.1); Sodium 141 mmol/L (137-145); Total Bilirubin 0.9 mg/dL (0.2-1.3); Total Protein 4.7 g/dL (6.3-8.2)
[2023-09-18 14:12] LABS: ABG Base Excess -1.1 mmol/L; ABG HCO3 24 mmol/L (21-25); ABG Oxygen Saturation 100.3 % (94-97); ABG PCO2 43 mmHg (35-45); ABG PH 7.36 (7.35-7.45); ABG PO2 238 mmHg (83-108); ABG TCO2 26 mmol/L (19-24)
[2023-09-18 14:14] LABS: Allen Test Performed? no
[2023-09-18] MEDS: NITROGLYCERIN-D5W PMX 50 MG in DEXTROSE/WATER 1 250ML.BAG IV SCH (14:18)
[2023-09-18] MEDS: SODIUM CHLORIDE 0.9% 1,000 ML IV SCH (14:19)
--- NOTE | 2023-09-18 14:25 | XR ---
EXAMINATION TYPE: XR chest 1V portable DATE OF EXAM: 09/18/2023 2:08 PM CLINICAL INDICATION:Male, 73 years old with history of Post Operative Cardiac Surgery; [facility] COMPARISON: Chest radiographs from 09/13/2023. TECHNIQUE: XR chest 1V portable Frontal view of the chest. FINDINGS: Lungs/Pleura: There is no evidence of pleural effusion, focal consolidation, or pneumothorax. Pulmonary vascularity: Unremarkable. Heart/mediastinum: Cardiomediastinal silhouette is unremarkable. Left atrial appendage occlusion luly ce is present. Musculoskeletal: No acute osseous pathology. Midline sternotomy wires are noted. Other findings: None Lines/Tubes: Endotracheal tube with distal tip 2.5 cm above the gloria. Nasogastric tube with its distal tip and side-port projecting under the diaphragm. There is a [place]-Roselyn catheter with tip projecting over the spine. Left thoracotomy tube is present without evidence of pneumothorax. IMPRESSION: Postsurgical change with lines and tubes in appropriate position.
[2023-09-18] MEDS: CLEVIDIPINE BUTYRATE 25 MG in EMPTY BAG 1 BAG IV SCH (14:35)
[2023-09-18 14:50] LABS: Glucose,Whole Blood 127 mg/dL (70-110)
--- NOTE | 2023-09-18 15:10 | P.PN ---
Subjective Progress Note Date: 09/18/23 This is a pleasant 73-year-old gentleman with past medical history significant for ischemic cardiomyopathy, atrial fibrillation,AAA, hypertension, hyperlipidemia, sleep apnea wears CPAP, hiatal hernia, gastroesophageal reflux disease and multiple other medical issues follows with [facility] cardiology, presented to the ER with complaints of chest pain. Reports he developed midsternal chest pressure while up at his [place] in [place]. Reports nonexertional. Chest pain occurred after midnight last night, radiated to bilateral shoulders and into his jaw, accompanied by sweating, shortness of breath and bilateral lower extremity edema. transported him to the ER, troponins elevated, 0.060, 0.931, 3.330, heparin drip initiated. He currently denies any chest pain, palpitations or shortness of breath. Evaluated by cardiology with abnormal EKG reviewed sinus with-T wave inversion. Chest x-ray reporting no acute cardiopulmonary process.. Hematology, coagulation unremarkable. Sodium 142, potassium 4, bicarb 22, BUN 23, creatinine 1.12 glucose 101 magnesium 1.4-supplemented. 09/14/2023 Just returning back from cardiac catheterization, reporting severe multivessel CAD including a tight stenosis in the proximal LAD, proximal circumflex and intermediate disease involving RCA. 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 Cardiothoracic surgery consulted. Currently denies chest pain, palpitations or shortness of breath. Maintaining O2 sats in the mid 90s on room air. Telemetry sinus rhythm. 09/15/23 maintained on heparin drip, IV fluid hydration. Telemetry sinus rhythm .denies chest pain, palpitations or shortness of breath. Maintaining O2 sats in the mid 90s on room air. 09/16/2023 telemetry sinus rhythm. Sitting up in chair, incentive spirometer 3000. Anticoagulated on heparin drip. Continues on IV fluid hydration. Chest CT reviewed by mold sheet cleaner. Denies nausea or vomiting. Denies chest pain, p alpitations or shortness of breath. Maintaining O2 sats of 96% on room air. 09/17/2023 maintained on heparin drip. Denies chest pain, palpitations or shortness of breath. 3100 on I-S. Awaiting CABG tomorrow, no complaints. Afebrile, normal WBC. Hemoglobin 12, platelets 184. Electrolytes within normal limits. Bicarb 22, BUN 18, creatinine 0.94. Blood sugars controlled. 09/17. Patient seen and examined. Patient underwent coronary artery bypass grafting x 4. Currently intubated and sedated. REVIEW OF SYSTEMS: Review of system cannot be obtained as patient is intubated and sedated PHYSICAL EXAMINATION: GENERAL: The patient is intubated and sedated HEENT: Pupils are round and equally reacting to light. EOMI. No scleral icterus. No conjunctival pallor. Normocephalic, atraumatic. No pharyngeal erythema. No thyromegaly. CARDIOVASCULAR: S1 and S2 present. No murmurs, rubs, or gallops. PULMONARY: Chest is clear to auscultation, no wheezing or crackles. Chest tube seen, mediastinal tube seen ABDOMEN: Soft, nontender, nondistended, normoactive bowel sounds. No palpable organomegaly. MUSCULOSKELETAL: No joint swelling or deformity. EXTREMITIES: No cyanosis, clubbing, or pedal edema. NEUROLOGICAL: Intubated and sedated SKIN: No rashes. Assessment and plan severe multivessel CAD s/p CABG CAD with ischemic cardiomyopathy, no stenting, follows with Keely cazares. 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 Chronic paroxysmal atrial fibrillation, history of cardioversions Obstructive sleep apnea uses CPAP Claustrophobia Agent orange exposure in [place] Hypertension Hyperlipidemia History of AAA, monitoring outpatient with Dr. Head BPH Monitor vital signs Monitor CBC Monitor CMP Continue vent management per ICU Continue postop antibiotics per cardiac surgery Continue chest tube management per cardiac surgery Monitor blood sugar levels, if needed patient will be started on insulin drip Critical care following Labs and medication were reviewed.. Continue same treatment. Continue with symptomatic treatment. Resume home medication. Monitor labs and vitals. DVT a nd GI prophylaxis. Further recommendations as per clinical course of the patient Dictation was produced using yoone dictation software. please excuse any grammatical, word or spelling errors. Objective - Vital Signs Vital signs: Vital Signs Temp 97.2 F L 09/18/23 14:00 Pulse 61 09/18/23 14:00 Resp 17 09/18/23 14:00 BP 150/88 09/18/23 05:42 Pulse Ox 100 09/18/23 14:00 FiO2 60 07/13/24 14:15 Intake & Output 09/17/23 09/18/23 09/18/23 18:59 06:59 18:59 Intake Total 180 113.523 Output Total 650 1090 Balance -470 -976.477 Weight 108.9 kg Intake: IV 54 Intake, IV Titration 59.523 Amount Nitroglycerin-D5w Pmx 50 1.90 mg In Dextrose/Water 1 250ml.bag @ 5 MCG/MIN 1.5 mls/hr IV .Q24H ADILIA Rx#: [id number] Sodium Chloride 0.9% 1, 50 000 ml @ 50 mls/hr IV . Q20H ADILIA Rx#:[id number] propofoL 1,000 mg In 7.623 Empty Bag 1 bag @ Titrate IV .Q0M ADILIA Rx#: [id number] Oral 180 Output: Chest Tube Drainage 50 Chest Tube Mediastinal 10 Pleural Catheter Left 40 Urine 650 540 Estimated Blood Loss 500 Other: Voiding Method Toilet Toilet Urinal # Bowel Movements 1 ABP, PAP, CO, CI - Last Documented Arterial Blood Pressure 143/70 Pulmonary Artery Pressure 43/23 Cardiac Output 4.7 Cardiac Index 2.2 - Labs CBC & Chem 7: 09/18/23 13:45 09/18/23 13:45 Labs: Abnormal Lab Results - Last 24 Hours (Table) 09/17/23 09/17/23 09/17/23 Range/Units 06:22 16:25 19:47 WBC (3.8-10.6) k/uL RBC (4.30-5.90) m/uL Hgb (13.0-17.5) gm/dL Hct (39.0-53.0) % Plt Count (150-450) k/uL Neutrophils # (1.3-7.7) k/uL Lymphocytes # (1.0-4.8) k/uL INR (<1.2) APTT (22.0-30.0) sec ABG pH (7.35-7.45) ABG pO2 (83-108) mmHg ABG Total CO2 (19-24) mmol/L ABG O2 Saturation (94-97) % ABG Hematocrit (34.0-46.0) % ABG Potassium (3.4-4.5) mmol/L ABG Ionized Calcium (4.5-5.3) mg/dL ABG Glucose (75-99) mg/dL ABG Lactic Acid (0.5-1.6) mmol/L Hemoglobin (13.0-17.5) gm/dL Chloride (98-107) mmol/L Glucose (74-99) mg/dL POC Glucose (mg/dL) 115 H 132 H (70-110) mg/dL AST (17-59) U/L Total Protein (6.3-8.2) g/dL Albumin (3.5-5.0) g/dL Arterial Blood Potassium (3.4-4.5) mmol/L Arterial Blood Glucose (75-99) mg/dL Crossmatch See Detail 09/18/23 09/18/23 09/18/23 Range/Units 05:26 06:16 08:35 WBC (3.8-10.6) k/uL RBC (4.30-5.90) m/uL Hgb (13.0-17.5) gm/dL Hct (39.0-53.0) % Plt Count (150-450) k/uL Neutrophils # (1.3-7.7) k/uL Lymphocytes # (1.0-4.8) k/uL INR (<1.2) APTT 59.1 H (22.0-30.0) sec ABG pH 7.30 L (7.35-7.45) ABG pO2 (83-108) mmHg ABG Total CO2 (19-24) mmol/L ABG O2 Saturation (94-97) % ABG Hematocrit (34.0-46.0) % ABG Potassium (3.4-4.5) mmol/L ABG Ionized Calcium (4.5-5.3) mg/dL ABG Glucose (75-99) mg/dL ABG Lactic Acid 1.7 H (0.5-1.6) mmol/L Hemoglobin 11.2 L (13.0-17.5) gm/dL Chloride (98-107) mmol/L Glucose (74-99) mg/dL POC Glucose (mg/dL) 114 H (70-110) mg/dL AST (17-59) U/L Total Protein (6.3-8.2) g/dL Albumin (3.5-5.0) g/dL Arterial Blood Potassium (3.4-4.5) mmol/L Arterial Blood Glucose (75-99) mg/dL Crossmatch 09/18/23 09/18/23 09/18/23 Range/Units 09:51 10:55 11:23 WBC (3.8-10.6) k/uL RBC (4.30-5.90) m/uL Hgb (13.0-17.5) gm/dL Hct (39.0-53.0) % Plt Count (150-450) k/uL Neutrophils # (1.3-7.7) k/uL Lymphocytes # (1.0-4.8) k/uL INR (<1.2) APTT (22.0-30.0) sec ABG pH 7.31 L (7.35-7.45) ABG pO2 133 H >420 H >420 H (83-108) mmHg ABG Total CO2 (19-24) mmol/L ABG O2 Saturation 98.0 H >99.4 H >99.4 H (94-97) % ABG Hematocrit 30 L 25 L 25 L (34.0-46.0) % ABG Potassium 4.8 H (3.4-4.5) mmol/L ABG Ionized Calcium 4.2 L 4.3 L (4.5-5.3) mg/dL ABG Glucose 105 H 105 H 115 H (75-99) mg/dL ABG Lactic Acid (0.5-1.6) mmol/L Hemoglobin 9.7 L 8.3 L 8.1 L (13.0-17.5) gm/dL Chloride (98-107) mmol/L Glucose (74-99) mg/dL POC Glucose (mg/dL) (70-110) mg/dL AST (17-59) U/L Total Protein (6.3-8.2) g/dL Albumin (3.5-5.0) g/dL Arterial Blood Potassium 4.8 H (3.4-4.5) mmol/L Arterial Blood Glucose 105 H 105 H 115 H (75-99) mg/dL Crossmatch 09/18/23 09/18/23 09/18/23 Range/Units 11:55 12:18 12:56 WBC (3.8-10.6) k/uL RBC (4.30-5.90) m/uL Hgb (13.0-17.5) gm/dL Hct (39.0-53.0) % Plt Count (150-450) k/uL Neutrophils # (1.3-7.7) k/uL Lymphocytes # (1.0-4.8) k/uL INR (<1.2) APTT (22.0-30.0) sec ABG pH 7.34 L (7.35-7.45) ABG pO2 >420 H 366 H 113 H (83-108) mmHg ABG Total CO2 (19-24) mmol/L ABG O2 Saturation >99.4 H >99.4 H 98.1 H (94-97) % ABG Hematocrit 24 L 25 L 28 L (34.0-46.0) % ABG Potassium 5.0 H 4.7 H (3.4-4.5) mmol/L ABG Ionized Calcium 4.3 L 4.4 L (4.5-5.3) mg/dL ABG Glucose 140 H 131 H 132 H (75-99) mg/dL ABG Lactic Acid 2.1 H (0.5-1.6) mmol/L Hemoglobin 7.9 L 8.2 L 9.1 L (13.0-17.5) gm/dL Chloride (98-107) mmol/L Glucose (74-99) mg/dL POC Glucose (mg/dL) (70-110) mg/dL AST (17-59) U/L Total Protein (6.3-8.2) g/dL Albumin (3.5-5.0) g/dL Arterial Blood Potassium 5.0 H 4.7 H (3.4-4.5) mmol/L Arterial Blood Glucose 140 H 131 H 132 H (75-99) mg/dL Crossmatch 09/18/23 09/18/23 09/18/23 Range/Units 13:45 13:45 13:45 WBC 11.0 H (3.8-10.6) k/uL RBC 3.22 L (4.30-5.90) m/uL Hgb 10.0 L D (13.0-17.5) gm/dL Hct 29.3 L (39.0-53.0) % Plt Count 129 L (150-450) k/uL Neutrophils # 9.2 H (1.3-7.7) k/uL Lymphocytes # 0.9 L (1.0-4.8) k/uL INR 1.2 H (<1.2) APTT (22.0-30.0) sec ABG pH (7.35-7.45) ABG pO2 (83-108) mmHg ABG Total CO2 (19-24) mmol/L ABG O2 Saturation (94-97) % ABG Hematocrit (34.0-46.0) % ABG Potassium (3.4-4.5) mmol/L ABG Ionized Calcium (4.5-5.3) mg/dL ABG Glucose (75-99) mg/dL ABG Lactic Acid (0.5-1.6) mmol/L Hemoglobin (13.0-17.5) gm/dL Chloride 113 H (98-107) mmol/L Glucose 110 H (74-99) mg/dL POC Glucose (mg/dL) (70-110) mg/dL AST 70 H (17-59) U/L Total Protein 4.7 L (6.3-8.2) g/dL Albumin 2.8 L (3.5-5.0) g/dL Arterial Blood Potassium (3.4-4.5) mmol/L Arterial Blood Glucose (75-99) mg/dL Crossmatch 09/18/23 09/18/23 09/18/23 Range/Units 13:50 14:11 14:48 WBC (3.8-10.6) k/uL RBC (4.30-5.90) m/uL Hgb (13.0-17.5) gm/dL Hct (39.0-53.0) % Plt Count (150-450) k/uL Neutrophils # (1.3-7.7) k/uL Lymphocytes # (1.0-4.8) k/uL INR (<1.2) APTT (22.0-30.0) sec ABG pH (7.35-7.45) ABG pO2 238 H (83-108) mmHg ABG Total CO2 26 H (19-24) mmol/L ABG O2 Saturation 100.3 H (94-97) % ABG Hematocrit (34.0-46.0) % ABG Potassium (3.4-4.5) mmol/L ABG Ionized Calcium (4.5-5.3) mg/dL ABG Glucose (75-99) mg/dL ABG Lactic Acid (0.5-1.6) mmol/L Hemoglobin (13.0-17.5) gm/dL Chloride (98-107) mmol/L Glucose (74-99) mg/dL POC Glucose (mg/dL) 119 H 127 H (70-110) mg/dL AST (17-59) U/L Total Protein (6.3-8.2) g/dL Albumin (3.5-5.0) g/dL Arterial Blood Potassium (3.4-4.5) mmol/L Arterial Blood Glucose (75-99) mg/dL Crossmatch
[2023-09-18] MEDS: ALBUMIN HUMAN 5% 500 ML in EMPTY BAG 1 BAG IVPB ONE (15:17)
[2023-09-18] MEDS: HEPARIN SODIUM,PORCINE 5,000 UNIT/ML 1 ML VIAL SQ SCH (15:43)
[2023-09-18] MEDS: DEXMEDETOMIDINE/0.9% NACL(PMX) 400 MCG in EMPTY BAG 1 BAG IV SCH (15:56)
[2023-09-18 16:06] LABS: Glucose,Whole Blood 140 mg/dL (70-110)
[2023-09-18] MEDS: ALBUMIN HUMAN 5% 250 ML in EMPTY BAG 1 BAG IVPB PRN (16:21)
[2023-09-18 17:00] LABS: Glucose,Whole Blood 138 mg/dL (70-110)
[2023-09-18 17:20] LABS: Basophils # (A) 0.1 k/uL (0-0.2); Basophils % (A) 0 %; Eosinophils % (A) 0 %; HCT 29.9 % (39.0-53.0); HGB 10.2 gm/dL (13.0-17.5); Lymphocytes % (A) 6 %; MCH 31.1 pg (25.0-35.0); MCHC 34.1 g/dL (31.0-37.0); MCV 91.1 fL (80.0-100.0); Mean Platelet Volume 10.7; Monocytes % (A) 6 %; Neutrophils # (A) 13.9 k/uL (1.3-7.7); Neutrophils % (A) 86 %; Platelet Count 174 k/uL (150-450); RBC 3.29 m/uL (4.30-5.90); RDW 15.3 % (11.5-15.5); WBC 16.2 k/uL (3.8-10.6)
[2023-09-18] MEDS: ACETAMINOPHEN IV (For NPO) 1,000 MG in EMPTY BAG 1 BAG IVPB SCH (17:23)
[2023-09-18] MEDS: IPRATROPIUM-ALBUTEROL 3 ML NEB INHALATION SCH ×2 (17:46→21:07)
[2023-09-18 18:02] LABS: Glucose,Whole Blood 136 mg/dL (70-110)
[2023-09-18 18:14] LABS: ABG Base Excess -1.1 mmol/L; ABG HCO3 23 mmol/L (21-25); ABG PCO2 37 mmHg (35-45); ABG PH 7.41 (7.35-7.45); ABG PO2 107 mmHg (83-108); ABG TCO2 24 mmol/L (19-24)
[2023-09-18 18:15] LABS: Allen Test Performed? no
[2023-09-18 19:11] LABS: Glucose,Whole Blood 140 mg/dL (70-110)
[2023-09-18 20:16] LABS: Glucose,Whole Blood 139 mg/dL (70-110)
[2023-09-18 20:30] LABS: Basophils % (A) 0 %; Eosinophils % (A) 0 %; HCT 28.5 % (39.0-53.0); HGB 9.3 gm/dL (13.0-17.5); Lymphocytes # (A) 0.6 k/uL (1.0-4.8); Lymphocytes % (A) 7 %; MCHC 32.5 g/dL (31.0-37.0); MCV 92.3 fL (80.0-100.0); Monocytes # (A) 0.4 k/uL (0-1.0); Monocytes % (A) 4 %; Neutrophils # (A) 7.4 k/uL (1.3-7.7); Neutrophils % (A) 88 %; Platelet Count 138 k/uL (150-450); RBC 3.09 m/uL (4.30-5.90); WBC 8.4 k/uL (3.8-10.6)
[2023-09-18] MEDS: MUPIROCIN 2% OINT 22 GM TUBE NASAL SCH (21:08)
[2023-09-18 21:35] LABS: Glucose,Whole Blood 136 mg/dL (70-110)
[2023-09-18 22:08] LABS: Glucose,Whole Blood 139 mg/dL (70-110)
[2023-09-18] MEDS: INSULIN REGULAR 100 UNIT in SODIUM CHLORIDE 0.9% 100 ML IV SCH (22:09)
[2023-09-18 23:09] LABS: Glucose,Whole Blood 131 mg/dL (70-110)
[2023-09-19 00:26] LABS: Glucose,Whole Blood 129 mg/dL (70-110)
[2023-09-19 01:17] LABS: Glucose,Whole Blood 127 mg/dL (70-110)
[2023-09-19 02:14] LABS: Glucose,Whole Blood 128 mg/dL (70-110)
[2023-09-19 03:16] LABS: Glucose,Whole Blood 126 mg/dL (70-110)
[2023-09-19 04:04] LABS: Glucose,Whole Blood 125 mg/dL (70-110)
[2023-09-19 04:22] LABS: Basophils % (A) 0 %; Eosinophils % (A) 0 %; HCT 28.5 % (39.0-53.0); HGB 9.4 gm/dL (13.0-17.5); Lymphocytes # (A) 0.9 k/uL (1.0-4.8); Lymphocytes % (A) 8 %; MCH 30.1 pg (25.0-35.0); MCV 91.3 fL (80.0-100.0); Monocytes # (A) 0.5 k/uL (0-1.0); Monocytes % (A) 5 %; Neutrophils % (A) 84 %; Platelet Count 168 k/uL (150-450); RBC 3.12 m/uL (4.30-5.90); RDW 15.2 % (11.5-15.5); WBC 10.7 k/uL (3.8-10.6)
[2023-09-19 04:34] LABS: Ionized Calcium 4.8 mg/dL (4.5-5.3)
[2023-09-19 04:46] LABS: ALT 42 U/L (4-49); AST 64 U/L (17-59); African American GFR (CKD) 89 (>60 ml/min/1.73 sqM); Albumin 3.2 g/dL (3.5-5.0); Alkaline Phosphatase 47 U/L (38-126); Anion Gap 7 mmol/L; Blood Urea Nitrogen 23 mg/dL (9-20); Calcium 8.7 mg/dL (8.4-10.2); Carbon Dioxide 21 mmol/L (22-30); Chloride 111 mmol/L (98-107); Glucose 119 mg/dL (74-99); Non-African American GFR(CKD) 77 (>60 ml/min/1.73 sqM); Potassium 4.1 mmol/L (3.5-5.1); Sodium 139 mmol/L (137-145); Total Bilirubin 0.7 mg/dL (0.2-1.3); Total Protein 5.1 g/dL (6.3-8.2)
[2023-09-19] MEDS: ACETAMINOPHEN TAB 500 MG TAB PO PRN (05:00)
[2023-09-19 05:09] LABS: Glucose,Whole Blood 129 mg/dL (70-110)
[2023-09-19] MEDS: HYDROmorphone 1 MG/ML 1 ML SYRINGE IVP STA (06:01)
[2023-09-19 07:08] LABS: Glucose,Whole Blood 140 mg/dL (70-110)
--- NOTE | 2023-09-19 07:54 | XR ---
EXAMINATION TYPE: XR chest 1V portable DATE OF EXAM: 09/19/2023 HISTORY: Shortness of breath. COMPARISON: 09/18/2023 TECHNIQUE: Single view of the chest is submitted. FINDINGS: [place]-Roselyn catheter remains in place. Left atrial appendage clip noted. Continued cardiomegaly and mil d pulmonary venous engorgement. Hilar and mediastinal structures are within normal limits. Degenerative changes are seen of the dorsal spine. IMPRESSION: 1. Stable post cardiac surgery changes
[2023-09-19 08:26] LABS: Glucose,Whole Blood 143 mg/dL (70-110)
[2023-09-19] MEDS: ASPIRIN 325 MG TAB PO SCH (08:42)
[2023-09-19] MEDS: METOPROLOL TARTRATE 12.5 MG TAB PO SCH (08:42)
[2023-09-19] MEDS: CLOPIDOGREL 75 MG TAB PO SCH (08:42)
[2023-09-19] MEDS: KETOROLAC 15 MG/ML 1 ML VIAL IVP SCH (08:44)
[2023-09-19] MEDS: PANTOPRAZOLE 40 MG/10 ML VIAL IVP SCH (08:44)
[2023-09-19] MEDS: amLODIPine 2.5 MG TAB PO SCH (08:46)
[2023-09-19] MEDS: ATORVASTATIN 40 MG TAB PO SCH (08:46)
[2023-09-19] MEDS ORDERED: bisacodyL 10 MG SUPP RECTAL PRN (09:00)
[2023-09-19] MEDS ORDERED: METOPROLOL TARTRATE 25 MG TAB PO SCH (09:00)
[2023-09-19] MEDS ORDERED: METOPROLOL TARTRATE 12.5 MG TAB PO SCH (09:00)
[2023-09-19 09:15] LABS: Glucose,Whole Blood 137 mg/dL (70-110)
[2023-09-19 11:06] LABS: Glucose,Whole Blood 126 mg/dL (70-110)
[2023-09-19] MEDS: METOPROLOL TARTRATE 12.5 MG TAB PO STA (11:53)
[2023-09-19] MEDS: DEXTROSE 5% IN WATER 100 ML with AMIODARONE 150 MG IV PRN (11:56)
[2023-09-19] MEDS: AMIODARONE 360 MG in DEXTROSE 5% IN WATER 200 ML IV PRN (11:57)
--- NOTE | 2023-09-19 12:04 | P.PN ---
Subjective Progress Note Date: 09/19/23 Principal diagnosis: Multivessel coronary artery disease, NSTEMI this admission. 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 Preoperative nasal swab positive for MSSA, treated. POD #1 On pump coronary artery bypass grafting x 4. Left internal thoracic artery (in-situ) to left anterior descending coronary artery. Radial artery from aorta sequential to ramus intermedius and obtuse marginal artery. Reverse saphenous vein from aorta to distal right coronary artery. Left atrial appendage ligation using #35mm AtriClip. Bilateral pulmonary vein isolation with AtriCure RF Clamp. Endoscopic left radial artery and right greater saphenous vein harvest. Graft flow measurements using the Butter-Stim flow meter system. Trans- esophageal echocardiogram performed by anesthesia. Postoperative acute blood loss anemia, expected given hemodilution and cardiopulmonary bypass. The patient was seen and examined in follow-up today September 19, 2023 at his bedside in the intensive care unit. He is currently sitting up to the bedside chair, he was successfully extubated at 6:22 PM last evening, is currently on 3 L nasal cannula with oxygen saturations 93% and is achieving 500 mL on his incentive spirometry with encouragement. He is awake, alert, oriented x 3 and is in no acute apparent distress. Denies any complaints of shortness of breath at this time, although is complaining of some surgical type pain to his chest tube insertion sites and taking a deep breath. Currently rating his pain 5 out of 10 on the pain scale. Bedside telemetry is showing normal sinus rhythm heart rate 66 bpm. He remains hemodynamically stable and is currently on no inotropic or pressor support. Right IJ cordis and [place]Roselyn catheter remains in place with current hemodynamics showing a cardiac output 4.7, cardiac index 2.2, PA pressures 42/15, and CVP 11 mmHg. Mediastinal and left pleural chest tubes remain in place to low continuous wall suction -20 cm H2O. No air leak is present. Mediastinal chest tube draining thin serosanguineous drainage with 180 mL output in the last 8 hours and 520 mL output since surgery. Left pleural chest tube draining 270 mL of thin serosanguineous drainage in the last 8 hours and 500 mL output since surgery. He has been afebrile in the last 24 hours. Laboratory and chest x-ray results reviewed. Objective - Vital Signs Vital signs: Vital Signs Temp 97.7 F 09/19/23 08:00 Pulse 68 09/19/23 11:00 Resp 19 09/19/23 11:00 BP 148/82 09/19/23 08:00 Pulse Ox 91 L 09/19/23 11:00 FiO2 50 09/18/23 17:48 Intake & Output 09/18/23 09/19/23 09/19/23 18:59 06:59 18:59 Intake Total 724.391 958.370 64.156 Output Total 1625 1145 170 Balance -900.609 -186.630 -105.844 Weight 114.3 kg Intake: IV 134 670 50 ACETAMINOPHEN IV (For NPO 100 ) 1,000 mg In Empty Bag 1 bag @ 400 mls/hr IVPB Q6HR [facility] Rx#:[id number] CO/CI 80 170 Sodium Chloride 0.9% 1, 350 50 000 ml @ 50 mls/hr IV . Q20H [facility] Rx#:[id number] ceFAZolin 2 gm In Sodium 50 Chloride 0.9% 50 ml @ 100 mls/hr IVPB ONCE ONE Rx# :[id number] Intake, IV Titration 590.391 288.370 14.156 Amount Albumin Human 5% 250 ml 250 In Empty Bag 1 bag @ 250 mls/hr IVPB Q1HR PRN Rx#: [id number] Clevidipine Butyrate 25 0.833 mg In Empty Bag 1 bag @ 1 MG/HR 2 mls/hr IV .Q24H [facility] Rx#:[id number] Dexmedetomidine/0.9% NaCl 25.320 36.754 (Pmx) 400 mcg In Empty Bag 1 bag @ Titrate IV . Q0M [facility] Rx#:[id number] Insulin Regular 100 unit 1.616 14.156 In Sodium Chloride 0.9% 100 ml @ Per Protocol IV .Q0M [facility] Rx#:[id number] Nitroglycerin-D5w Pmx 50 5.65 mg In Dextrose/Water 1 250ml.bag @ 5 MCG/MIN 1.5 mls/hr IV .Q24H [facility] Rx#: [id number] Sodium Chloride 0.9% 1, 250 250 000 ml @ 50 mls/hr IV . Q20H [facility] Rx#:[id number] propofoL 1,000 mg In 58.588 Empty Bag 1 bag @ Titrate IV .Q0M [facility] Rx#: [id number] Output: Chest Tube Drainage 280 620 90 Chest Tube Mediastinal 180 320 20 Pleural Catheter Left 100 300 70 Drainage 20 20 Left Arm 20 20 Urine 845 505 60 Estimated Blood Loss 500 Other: Voiding Method Indwelling Catheter Indwelling Catheter ABP, PAP, CO, CI - Last Documented Arterial Blood Pressure 100/43 Pulmonary Artery Pressure 42/15 Cardiac Output 4.7 Cardiac Index 2.2 - Exam CONSTITUTIONAL: Sitting up to the bedside chair in the intensive care unit, appears comfortable, cooperative, no apparent acute distress. HEENT: Neck is supple, no JVD, no lymphadenopathy. Right IJ Cordis and [place] Roselyn catheter in place and functioning. RESPIRATORY: Lungs sounds essentially clear throughout, diminished to his bilateral bases. Respirations are symmetrical and nonlabored. Currently on 3 L nasal cannula with oxygen saturations 93%. Able to achieve 500 mL on his incentive spirometry. Strong cough. CARDIOVASCULAR: Regular rhythm and rate. S1 and S2 present, negative for S3, gallop or murmur. Bedside telemetry showing normal sinus rhythm heart rate 66 bpm. Sternum is stable. Palpable peripheral pulses bilaterally. No calf pain or tenderness noted. Heart hugger in place with patient demonstrating appropriate use. Knee-high ANGEL hose and sequential compression devices in place to his bilateral lower extremities. GASTROINTESTINAL: Abdomen soft, nontender, nondistended. Hypoactive bowel kassandra nds present 4 quadrants. Tolerating diet. Passing flatus. No guarding or rigidity. GENITOURINARY: Johansen present draining clear, yellow urine. Urine output 445 mL in the last 8 hours. INTEGUMENTARY: Skin is warm and dry with no evidence of clubbing or cyanosis. Midline sternal incision clean dry and well approximated, covered with dry intact dressing. Right lower extremity EVH sites well approximated without redness or drainage. Left arm radial artery harvest sites clean, dry and approx imated. No drainage or redness is present. NEUROLOGIC: Cranial nerves II through XII intact. No focal deficits. MUSKULOSKELETAL: Able to move all extremities, strength equal bilaterally, generalized weakness. PSYCHIATRIC: Alert and oriented to person place and time, appropriate affect, intact judgment and insight. INVASIVE LINES AND TUBES: Mediastinal/left pleural chest tubes present and con nected to low continuous wall suction, no air leaks present. Mediastinal tube with 180 mL of thin serosanguineous drainage overnight, 520 mL output in the last 24 hours. Left pleural chest tube with 270 mL of thin serosanguineous drainage overnight, 500 mL output in the last 24 hours. Atrial and ventricular epicardial pacemaker wires present, connected to generator, VVI backup rate 50 bpm. Right internal jugular [place]/Cordis, right radial arterial line present. Last CO 4.7, CI 2.2, PA 42/15 and CVP 11 mmHg. Left arm LAW drain in place with scant thin serosanguineous drainage, 20 mL output in the last 8 hours. - Allied health notes Allied health notes reviewed: nursing - Labs CBC & Chem 7: 09/19/23 04:10 09/19/23 04:10 Labs: Abnormal Lab Results - Last 24 Hours (Table) 09/17/23 09/18/23 09/18/23 Range/Units 06:22 08:35 09:51 WBC (3.8-10.6) k/uL RBC (4.30-5.90) m/uL Hgb (13.0-17.5) gm/dL Hct (39.0-53.0) % Plt Count (150-450) k/uL Neutrophils # (1.3-7.7) k/uL Lymphocytes # (1.0-4.8) k/uL INR (<1.2) ABG pH 7.30 L 7.31 L (7.35-7.45) ABG pO2 133 H (83-108) mmHg ABG Total CO2 (19-24) mmol/L ABG O2 Saturation 98.0 H (94-97) % ABG Hematocrit 30 L (34.0-46.0) % ABG Potassium (3.4-4.5) mmol/L ABG Ionized Calcium (4.5-5.3) mg/dL ABG Glucose 105 H (75-99) mg/dL ABG Lactic Acid 1.7 H (0.5-1.6) mmol/L Hemoglobin 11.2 L 9.7 L (13.0-17.5) gm/dL Chloride (98-107) mmol/L Carbon Dioxide (22-30) mmol/L BUN (9-20) mg/dL Glucose (74-99) mg/dL POC Glucose (mg/dL) (70-110) mg/dL AST (17-59) U/L Total Protein (6.3-8.2) g/dL Albumin (3.5-5.0) g/dL Arterial Blood Potassium (3.4-4.5) mmol/L Arterial Blood Glucose 105 H (75-99) mg/dL Crossmatch See Detail 09/18/23 09/18/23 09/18/23 Range/Units 10:55 11:23 11:55 WBC (3.8-10.6) k/uL RBC (4.30-5.90) m/uL Hgb (13.0-17.5) gm/dL Hct (39.0-53.0) % Plt Count (150-450) k/uL Neutrophils # (1.3-7.7) k/uL Lymphocytes # (1.0-4.8) k/uL INR (<1.2) ABG pH (7.35-7.45) ABG pO2 >420 H >420 H >420 H (83-108) mmHg ABG Total CO2 (19-24) mmol/L ABG O2 Saturation >99.4 H >99.4 H >99.4 H (94-97) % ABG Hematocrit 25 L 25 L 24 L (34.0-46.0) % ABG Potassium 4.8 H 5.0 H (3.4-4.5) mmol/L ABG Ionized Calcium 4.2 L 4.3 L 4.3 L (4.5-5.3) mg/dL ABG Glucose 105 H 115 H 140 H (75-99) mg/dL ABG Lactic Acid (0.5-1.6) mmol/L Hemoglobin 8.3 L 8.1 L 7.9 L (13.0-17.5) gm/dL Chloride (98-107) mmol/L Carbon Dioxide (22-30) mmol/L BUN (9-20) mg/dL Glucose (74-99) mg/dL POC Glucose (mg/dL) (70-110) mg/dL AST (17-59) U/L Total Protein (6.3-8.2) g/dL Albumin (3.5-5.0) g/dL Arterial Blood Potassium 4.8 H 5.0 H (3.4-4.5) mmol/L Arterial Blood Glucose 105 H 115 H 140 H (75-99) mg/dL Crossmatch 09/18/23 09/18/23 09/18/23 Range/Units 12:18 12:56 13:45 WBC 11.0 H (3.8-10.6) k/uL RBC 3.22 L (4.30-5.90) m/uL Hgb 10.0 L D (13.0-17.5) gm/dL Hct 29.3 L (39.0-53.0) % Plt Count 129 L (150-450) k/uL Neutrophils # 9.2 H (1.3-7.7) k/uL Lymphocytes # 0.9 L (1.0-4.8) k/uL INR (<1.2) ABG pH 7.34 L (7.35-7.45) ABG pO2 366 H 113 H (83-108) mmHg ABG Total CO2 (19-24) mmol/L ABG O2 Saturation >99.4 H 98.1 H (94-97) % ABG Hematocrit 25 L 28 L (34.0-46.0) % ABG Potassium 4.7 H (3.4-4.5) mmol/L ABG Ionized Calcium 4.4 L (4.5-5.3) mg/dL ABG Glucose 131 H 132 H (75-99) mg/dL ABG Lactic Acid 2.1 H (0.5-1.6) mmol/L Hemoglobin 8.2 L 9.1 L (13.0-17.5) gm/dL Chloride (98-107) mmol/L Carbon Dioxide (22-30) mmol/L BUN (9-20) mg/dL Glucose (74-99) mg/dL POC Glucose (mg/dL) (70-110) mg/dL AST (17-59) U/L Total Protein (6.3-8.2) g/dL Albumin (3.5-5.0) g/dL Arterial Blood Potassium 4.7 H (3.4-4.5) mmol/L Arterial Blood Glucose 131 H 132 H (75-99) mg/dL Crossmatch 09/18/23 09/18/23 09/18/23 Range/Units 13:45 13:45 13:50 WBC (3.8-10.6) k/uL RBC (4.30-5.90) m/uL Hgb (13.0-17.5) gm/dL Hct (39.0-53.0) % Plt Count (150-450) k/uL Neutrophils # (1.3-7.7) k/uL Lymphocytes # (1.0-4.8) k/uL INR 1.2 H (<1.2) ABG pH (7.35-7.45) ABG pO2 (83-108) mmHg ABG Total CO2 (19-24) mmol/L ABG O2 Saturation (94-97) % ABG Hematocrit (34.0-46.0) % ABG Potassium (3.4-4.5) mmol/L ABG Ionized Calcium (4.5-5.3) mg/dL ABG Glucose (75-99) mg/dL ABG Lactic Acid (0.5-1.6) mmol/L Hemoglobin (13.0-17.5) gm/dL Chloride 113 H (98-107) mmol/L Carbon Dioxide (22-30) mmol/L BUN (9-20) mg/dL Glucose 110 H (74-99) mg/dL POC Glucose (mg/dL) 119 H (70-110) mg/dL AST 70 H (17-59) U/L Total Protein 4.7 L (6.3-8.2) g/dL Albumin 2.8 L (3.5-5.0) g/dL Arterial Blood Potassium (3.4-4.5) mmol/L Arterial Blood Glucose (75-99) mg/dL Crossmatch 09/18/23 09/18/23 09/18/23 Range/Units 14:11 14:48 16:04 WBC (3.8-10.6) k/uL RBC (4.30-5.90) m/uL Hgb (13.0-17.5) gm/dL Hct (39.0-53.0) % Plt Count (150-450) k/uL Neutrophils # (1.3-7.7) k/uL Lymphocytes # (1.0-4.8) k/uL INR (<1.2) ABG pH (7.35-7.45) ABG pO2 238 H (83-108) mmHg ABG Total CO2 26 H (19-24) mmol/L ABG O2 Saturation 100.3 H (94-97) % ABG Hematocrit (34.0-46.0) % ABG Potassium (3.4-4.5) mmol/L ABG Ionized Calcium (4.5-5.3) mg/dL ABG Glucose (75-99) mg/dL ABG Lactic Acid (0.5-1.6) mmol/L Hemoglobin (13.0-17.5) gm/dL Chloride (98-107) mmol/L Carbon Dioxide (22-30) mmol/L BUN (9-20) mg/dL Glucose (74-99) mg/dL POC Glucose (mg/dL) 127 H 140 H (70-110) mg/dL AST (17-59) U/L Total Protein (6.3-8.2) g/dL Albumin (3.5-5.0) g/dL Arterial Blood Potassium (3.4-4.5) mmol/L Arterial Blood Glucose (75-99) mg/dL Crossmatch 09/18/23 09/18/23 09/18/23 Range/Units 16:58 16:58 18:01 WBC 16.2 H (3.8-10.6) k/uL RBC 3.29 L (4.30-5.90) m/uL Hgb 10.2 L (13.0-17.5) gm/dL Hct 29.9 L (39.0-53.0) % Plt Count (150-450) k/uL Neutrophils # 13.9 H (1.3-7.7) k/uL Lymphocytes # (1.0-4.8) k/uL INR (<1.2) ABG pH (7.35-7.45) ABG pO2 (83-108) mmHg ABG Total CO2 (19-24) mmol/L ABG O2 Saturation (94-97) % ABG Hematocrit (34.0-46.0) % ABG Potassium (3.4-4.5) mmol/L ABG Ionized Calcium (4.5-5.3) mg/dL ABG Glucose (75-99) mg/dL ABG Lactic Acid (0.5-1.6) mmol/L Hemoglobin (13.0-17.5) gm/dL Chloride (98-107) mmol/L Carbon Dioxide (22-30) mmol/L BUN (9-20) mg/dL Glucose (74-99) mg/dL POC Glucose (mg/dL) 138 H 136 H (70-110) mg/dL AST (17-59) U/L Total Protein (6.3-8.2) g/dL Albumin (3.5-5.0) g/dL Arterial Blood Potassium (3.4-4.5) mmol/L Arterial Blood Glucose (75-99) mg/dL Crossmatch 09/18/23 09/18/23 09/18/23 Range/Units 18:12 19:09 20:04 WBC (3.8-10.6) k/uL RBC (4.30-5.90) m/uL Hgb (13.0-17.5) gm/dL Hct (39.0-53.0) % Plt Count (150-450) k/uL Neutrophils # (1.3-7.7) k/uL Lymphocytes # (1.0-4.8) k/uL INR (<1.2) ABG pH (7.35-7.45) ABG pO2 (83-108) mmHg ABG Total CO2 (19-24) mmol/L ABG O2 Saturation 99.0 H (94-97) % ABG Hematocrit (34.0-46.0) % ABG Potassium (3.4-4.5) mmol/L ABG Ionized Calcium (4.5-5.3) mg/dL ABG Glucose (75-99) mg/dL ABG Lactic Acid (0.5-1.6) mmol/L Hemoglobin (13.0-17.5) gm/dL Chloride (98-107) mmol/L Carbon Dioxide (22-30) mmol/L BUN (9-20) mg/dL Glucose (74-99) mg/dL POC Glucose (mg/dL) 140 H 139 H (70-110) mg/dL AST (17-59) U/L Total Protein (6.3-8.2) g/dL Albumin (3.5-5.0) g/dL Arterial Blood Potassium (3.4-4.5) mmol/L Arterial Blood Glucose (75-99) mg/dL Crossmatch 09/18/23 09/18/23 09/18/23 Range/Units 20:05 21:21 22:07 WBC (3.8-10.6) k/uL RBC 3.09 L (4.30-5.90) m/uL Hgb 9.3 L (13.0-17.5) gm/dL Hct 28.5 L (39.0-53.0) % Plt Count 138 L (150-450) k/uL Neutrophils # (1.3-7.7) k/uL Lymphocytes # 0.6 L (1.0-4.8) k/uL INR (<1.2) ABG pH (7.35-7.45) ABG pO2 (83-108) mmHg ABG Total CO2 (19-24) mmol/L ABG O2 Saturation (94-97) % ABG Hematocrit (34.0-46.0) % ABG Potassium (3.4-4.5) mmol/L ABG Ionized Calcium (4.5-5.3) mg/dL ABG Glucose (75-99) mg/dL ABG Lactic Acid (0.5-1.6) mmol/L Hemoglobin (13.0-17.5) gm/dL Chloride (98-107) mmol/L Carbon Dioxide (22-30) mmol/L BUN (9-20) mg/dL Glucose (74-99) mg/dL POC Glucose (mg/dL) 136 H 139 H (70-110) mg/dL AST (17-59) U/L Total Protein (6.3-8.2) g/dL Albumin (3.5-5.0) g/dL Arterial Blood Potassium (3.4-4.5) mmol/L Arterial Blood Glucose (75-99) mg/dL Crossmatch 09/18/23 09/19/23 09/19/23 Range/Units 23:08 00:24 01:16 WBC (3.8-10.6) k/uL RBC (4.30-5.90) m/uL Hgb (13.0-17.5) gm/dL Hct (39.0-53.0) % Plt Count (150-450) k/uL Neutrophils # (1.3-7.7) k/uL Lymphocytes # (1.0-4.8) k/uL INR (<1.2) ABG pH (7.35-7.45) ABG pO2 (83-108) mmHg ABG Total CO2 (19-24) mmol/L ABG O2 Saturation (94-97) % ABG Hematocrit (34.0-46.0) % ABG Potassium (3.4-4.5) mmol/L ABG Ionized Calcium (4.5-5.3) mg/dL ABG Glucose (75-99) mg/dL ABG Lactic Acid (0.5-1.6) mmol/L Hemoglobin (13.0-17.5) gm/dL Chloride (98-107) mmol/L Carbon Dioxide (22-30) mmol/L BUN (9-20) mg/dL Glucose (74-99) mg/dL POC Glucose (mg/dL) 131 H 129 H 127 H (70-110) mg/dL AST (17-59) U/L Total Protein (6.3-8.2) g/dL Albumin (3.5-5.0) g/dL Arterial Blood Potassium (3.4-4.5) mmol/L Arterial Blood Glucose (75-99) mg/dL Crossmatch 09/19/23 09/19/23 09/19/23 Range/Units 02:13 03:05 04:02 WBC (3.8-10.6) k/uL RBC (4.30-5.90) m/uL Hgb (13.0-17.5) gm/dL Hct (39.0-53.0) % Plt Count (150-450) k/uL Neutrophils # (1.3-7.7) k/uL Lymphocytes # (1.0-4.8) k/uL INR (<1.2) ABG pH (7.35-7.45) ABG pO2 (83-108) mmHg ABG Total CO2 (19-24) mmol/L ABG O2 Saturation (94-97) % ABG Hematocrit (34.0-46.0) % ABG Potassium (3.4-4.5) mmol/L ABG Ionized Calcium (4.5-5.3) mg/dL ABG Glucose (75-99) mg/dL ABG Lactic Acid (0.5-1.6) mmol/L Hemoglobin (13.0-17.5) gm/dL Chloride (98-107) mmol/L Carbon Dioxide (22-30) mmol/L BUN (9-20) mg/dL Glucose (74-99) mg/dL POC Glucose (mg/dL) 128 H 126 H 125 H (70-110) mg/dL AST (17-59) U/L Total Protein (6.3-8.2) g/dL Albumin (3.5-5.0) g/dL Arterial Blood Potassium (3.4-4.5) mmol/L Arterial Blood Glucose (75-99) mg/dL Crossmatch 09/19/23 09/19/23 09/19/23 Range/Units 04:10 04:10 05:08 WBC 10.7 H (3.8-10.6) k/uL RBC 3.12 L (4.30-5.90) m/uL Hgb 9.4 L (13.0-17.5) gm/dL Hct 28.5 L (39.0-53.0) % Plt Count (150-450) k/uL Neutrophils # 9.0 H (1.3-7.7) k/uL Lymphocytes # 0.9 L (1.0-4.8) k/uL INR (<1.2) ABG pH (7.35-7.45) ABG pO2 (83-108) mmHg ABG Total CO2 (19-24) mmol/L ABG O2 Saturation (94-97) % ABG Hematocrit (34.0-46.0) % ABG Potassium (3.4-4.5) mmol/L ABG Ionized Calcium (4.5-5.3) mg/dL ABG Glucose (75-99) mg/dL ABG Lactic Acid (0.5-1.6) mmol/L Hemoglobin (13.0-17.5) gm/dL Chloride 111 H (98-107) mmol/L Carbon Dioxide 21 L (22-30) mmol/L BUN 23 H (9-20) mg/dL Glucose 119 H (74-99) mg/dL POC Glucose (mg/dL) 129 H (70-110) mg/dL AST 64 H (17-59) U/L Total Protein 5.1 L (6.3-8.2) g/dL Albumin 3.2 L (3.5-5.0) g/dL Arterial Blood Potassium (3.4-4.5) mmol/L Arterial Blood Glucose (75-99) mg/dL Crossmatch 09/19/23 09/19/23 09/19/23 Range/Units 07:07 08:25 09:13 WBC (3.8-10.6) k/uL RBC (4.30-5.90) m/uL Hgb (13.0-17.5) gm/dL Hct (39.0-53.0) % Plt Count (150-450) k/uL Neutrophils # (1.3-7.7) k/uL Lymphocytes # (1.0-4.8) k/uL INR (<1.2) ABG pH (7.35-7.45) ABG pO2 (83-108) mmHg ABG Total CO2 (19-24) mmol/L ABG O2 Saturation (94-97) % ABG Hematocrit (34.0-46.0) % ABG Potassium (3.4-4.5) mmol/L ABG Ionized Calcium (4.5-5.3) mg/dL ABG Glucose (75-99) mg/dL ABG Lactic Acid (0.5-1.6) mmol/L Hemoglobin (13.0-17.5) gm/dL Chloride (98-107) mmol/L Carbon Dioxide (22-30) mmol/L BUN (9-20) mg/dL Glucose (74-99) mg/dL POC Glucose (mg/dL) 140 H 143 H 137 H (70-110) mg/dL AST (17-59) U/L Total Protein (6.3-8.2) g/dL Albumin (3.5-5.0) g/dL Arterial Blood Potassium (3.4-4.5) mmol/L Arterial Blood Glucose (75-99) mg/dL Crossmatch 09/19/23 Range/Units 11:06 WBC (3.8-10.6) k/uL RBC (4.30-5.90) m/uL Hgb (13.0-17.5) gm/dL Hct (39.0-53.0) % Plt Count (150-450) k/uL Neutrophils # (1.3-7.7) k/uL Lymphocytes # (1.0-4.8) k/uL INR (<1.2) ABG pH (7.35-7.45) ABG pO2 (83-108) mmHg ABG Total CO2 (19-24) mmol/L ABG O2 Saturation (94-97) % ABG Hematocrit (34.0-46.0) % ABG Potassium (3.4-4.5) mmol/L ABG Ionized Calcium (4.5-5.3) mg/dL ABG Glucose (75-99) mg/dL ABG Lactic Acid (0.5-1.6) mmol/L Hemoglobin (13.0-17.5) gm/dL Chloride (98-107) mmol/L Carbon Dioxide (22-30) mmol/L BUN (9-20) mg/dL Glucose (74-99) mg/dL POC Glucose (mg/dL) 126 H (70-110) mg/dL AST (17-59) U/L Total Protein (6.3-8.2) g/dL Albumin (3.5-5.0) g/dL Arterial Blood Potassium (3.4-4.5) mmol/L Arterial Blood Glucose (75-99) mg/dL Crossmatch - Imaging and Cardiology Chest x-ray: report reviewed, image reviewed Assessment and Plan Assessment: Multivessel coronary artery disease, status post four-vessel coronary artery bypass grafting surgery Ischemic cardiomyopathy, according to patient related to agent orange exposure Non-ST elevated myocardial infarction this admission Paroxysmal atrial fibrillation on Eliquis as an outpatient, status post 2 previous cardioversions, currently normal sinus rhythm, status post bilateral pulmonary vein isolation and exclusion left atrial appendage with a 35 mm Atriclip Hypertension Hyperlipidemia, treated, cholesterol 177, LDL 87 History of ascending aortic aneurysm, followed by Dr. 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 Will increase metoprolol tartrate to 25 mg p.o. twice daily with hold parameters Discontinue nitroglycerin drip. Start Norvasc 2.5 mg p.o. daily for radial artery spasm prophylaxis with hold parameters. Wean oxygen as tolerated. Bronchodilator management per pulmonary/critical care medicine recommendations. Encourage incentive spirometry use 10 times every hour while awake. Increase activity, ambulate as tolerated. PT/OT/cardiac rehab consulted. Will monitor daily labs and chest x-rays. Electrolyte replacement per protocol. GI/DVT prophylaxis. Insulin management per internal medicine, patient should remain on continuous IV insulin for 48 hours, then may transition to subcutaneous per protocol. The patient is a not diabetic, with a preoperative hemoglobin A1c 5.7%. Pain control with current medication regimen. Toradol added for additional pain control. Remove right IJ [place] Danii catheter, keep right IJ cordis in place with continuous CVP monitoring, continue arterial line for now. Continue chest tubes for another 24 hours, monitor output. Continue Johansen catheter for another 24 hours, continue to monitor strict accura te intake and output. Continue home dose of Synthroid.. Continue atrial and ventricular epicardial pacemaker wires, VVI backup mode of 50. More recommendations to follow based on patient's clinical course Time with Patient: Greater than 30
--- NOTE | 2023-09-19 12:06 | P.PN ---
Subjective Progress Note Date: 09/19/23 Principal diagnosis: Acute non-ST elevation myocardial infarction and severe multivessel coronary artery disease, status post on pump coronary artery bypass grafting x 4Left internal thoracic artery (in-situ) to left anterior descending coronary artery. Radial artery from aorta sequential to ramus intermedius and obtuse marginal artery. Reverse saphenous vein from aorta to distal right coronary artery. Postoperative day #1 This is a very pleasant 73-year-old male patient with a history of atrial fibrillation with previous cardioversions, anticoagulated with Eliquis, rosy roesophageal reflux disease, hyperlipidemia, hypertension, obstructive sleep apnea utilizing CPAP at 12 cm of water, gout, agent orange exposure while in [place], multiple orthopedic surgeries. He is a lifelong non-smoker. No history of asthma. No oxygen or inhalers. His FEV1 value was found to be 2.45 L and 89% of predicted. He had presented here to the emergency room on September 13, 2023 with complaints of midsternal chest discomfort radiating to the bilateral shoulders. Troponins were 0.060, 0.931, 3.330. White count 8.0. Hemoglobin 13.3. Platelets 204. Sodium 137. Potassium 4.0. Bicarb 22. BUN 15. Creatinine 0.82. Glucose 131. Chest x-ray revealed no acute pulmonary process. Echocardiogram revealed preserved left ventricular systolic function with ejection fraction 55 to 60%. He did undergo cardiac catheterization on 09/14/2023 that revealed severe multivessel coronary artery disease including a tight stenosis in the proximal LAD, proximal circumflex and intermittent disease involving the RCA. He was recommended surgical revascularization. The plan is for surgery on 09/18/2023. He is seen today in consultation on the selective care unit. He is sitting up in a chair. Awake and alert in no acute distress. He denies any shortness of breath, cough or congestion. Maintaining good O2 saturations in the 90s on room air. He is practicing well with the incentive sp irometer. He remains on a heparin drip. He denies any chest discomfort currently. Patient was evaluated today on 09/16/2023, patient is doing well, scheduled to have surgery in the next few days, continues to have no active pulmonary symptoms no cough no wheezing no shortness of breath, doing excellent with his incentive spirometry. CT of the chest was reviewed, no worrisome findings at this point. Patient had FEV1 of 89%, he never smoked. Patient was evaluated today on 09/19/2023, patient is status post On pump coronary artery bypass grafting x 4. Left internal thoracic artery (in-situ) to left anterior descending coronary artery. Radial artery from aorta sequential to ramus intermedius and obtuse marginal artery. Reverse saphenous vein from aorta to distal right coronary artery. Postoperative day #1. Patient was extubated few hours after his admission to the ICU, he is now on 4 L nasal cannula. Not requiring any inotropes or any pressors. Patient is only on 0.9 normal saline at 50 cc/h and receiving insulin at 1.5 units/h. Patient was actually extubated at 6:22 PM yesterday. Continues to have chest tubes in place, chest x-ray showed mostly postoperative changes, slight prominence of the pulmonary vasculature, and cardiomegaly. WBC count is 10.7 hemoglobin is 9.4. Basic metabolic profile is normal and renal profile is normal. No major events overnight. Patient is achieving just over 1000 cc with his incentive spirometer. Objective - Vital Signs Vital signs: Vital Signs Temp 97.7 F 09/19/23 08:00 Pulse 68 09/19/23 11:00 Resp 19 09/19/23 11:00 BP 148/82 09/19/23 08:00 Pulse Ox 91 L 09/19/23 11:00 FiO2 50 09/18/23 17:48 Intake & Output 09/18/23 09/19/23 09/19/23 18:59 06:59 18:59 Intake Total 724.391 958.370 64.156 Output Total 1625 1145 170 Balance -900.609 -186.630 -105.844 Weight 114.3 kg Intake: IV 134 670 50 ACETAMINOPHEN IV (For NPO 100 ) 1,000 mg In Empty Bag 1 bag @ 400 mls/hr IVPB Q6HR [facility] Rx#:[id number] CO/CI 80 170 Sodium Chloride 0.9% 1, 350 50 000 ml @ 50 mls/hr IV . Q20H [facility] Rx#:[id number] ceFAZolin 2 gm In Sodium 50 Chloride 0.9% 50 ml @ 100 mls/hr IVPB ONCE ONE Rx# :[id number] Intake, IV Titration 590.391 288.370 14.156 Amount Albumin Human 5% 250 ml 250 In Empty Bag 1 bag @ 250 mls/hr IVPB Q1HR PRN Rx#: [id number] Clevidipine Butyrate 25 0.833 mg In Empty Bag 1 bag @ 1 MG/HR 2 mls/hr IV .Q24H [facility] Rx#:[id number] Dexmedetomidine/0.9% NaCl 25.320 36.754 (Pmx) 400 mcg In Empty Bag 1 bag @ Titrate IV . Q0M [facility] Rx#:[id number] Insulin Regular 100 unit 1.616 14.156 In Sodium Chloride 0.9% 100 ml @ Per Protocol IV .Q0M [facility] Rx#:[id number] Nitroglycerin-D5w Pmx 50 5.65 mg In Dextrose/Water 1 250ml.bag @ 5 MCG/MIN 1.5 mls/hr IV .Q24H [facility] Rx#: [id number] Sodium Chloride 0.9% 1, 250 250 000 ml @ 50 mls/hr IV . Q20H [facility] Rx#:[id number] propofoL 1,000 mg In 58.588 Empty Bag 1 bag @ Titrate IV .Q0M [facility] Rx#: [id number] Output: Chest Tube Drainage 280 620 90 Chest Tube Mediastinal 180 320 20 Pleural Catheter Left 100 300 70 Drainage 20 20 Left Arm 20 20 Urine 845 505 60 Estimated Blood Loss 500 Other: Voiding Method Indwelling Catheter Indwelling Catheter ABP, PAP, CO, CI - Last Documented Arterial Blood Pressure 100/43 Pulmonary Artery Pressure 42/15 Cardiac Output 4.7 Cardiac Index 2.2 - Exam General: Revealed a very pleasant 73-year-old white male in no distress, extremely pleasant, on 4 L nasal cannula Skin: Skin is warm and dry and no rashes or lesions are noted. Eye: Pupils are equal, round and reactive to light, extra-ocular movements are intact; there is normal conjunctiva bilaterally. Ears, nose, mouth and throat: There are moist mucous membranes and no oral lesions. Neck: The neck is supple, there is no tenderness or JVD. Cardiovascular: S1-S2, no S3 gallop. Respiratory: Symmetrical chest expansion, minimal crackles at the bases no rhonchi no wheezes Gastrointestinal: Soft, non-distended, non-tender abdomen without masses or organomegaly noted. There is no rebound or guarding present. Bowel sounds are unremarkable. Back: There is no tenderness to palpation in the midline. There is no obvious deformity. Musculoskeletal: Normal ROM, no tenderness, There is no pedal edema. There is no calf tenderness or swelling. No cords were appreciated. Neurological: CN II-XII intact, Cranial nerves III through XII are intact. There are no obvious motor or sensory deficits. Coordination appears grossly intact. Speech is normal. Psychiatric: Cooperative, appropriate mood & affect, normal judgment. - Labs CBC & Chem 7: 09/19/23 04:10 09/19/23 04:10 Labs: Abnormal Lab Results - Last 24 Hours (Table) 09/17/23 09/18/23 09/18/23 Range/Units 06:22 08:35 09:51 WBC (3.8-10.6) k/uL RBC (4.30-5.90) m/uL Hgb (13.0-17.5) gm/dL Hct (39.0-53.0) % Plt Count (150-450) k/uL Neutrophils # (1.3-7.7) k/uL Lymphocytes # (1.0-4.8) k/uL INR (<1.2) ABG pH 7.30 L 7.31 L (7.35-7.45) ABG pO2 133 H (83-108) mmHg ABG Total CO2 (19-24) mmol/L ABG O2 Saturation 98.0 H (94-97) % ABG Hematocrit 30 L (34.0-46.0) % ABG Potassium (3.4-4.5) mmol/L ABG Ionized Calcium (4.5-5.3) mg/dL ABG Glucose 105 H (75-99) mg/dL ABG Lactic Acid 1.7 H (0.5-1.6) mmol/L Hemoglobin 11.2 L 9.7 L (13.0-17.5) gm/dL Chloride (98-107) mmol/L Carbon Dioxide (22-30) mmol/L BUN (9-20) mg/dL Glucose (74-99) mg/dL POC Glucose (mg/dL) (70-110) mg/dL AST (17-59) U/L Total Protein (6.3-8.2) g/dL Albumin (3.5-5.0) g/dL Arterial Blood Potassium (3.4-4.5) mmol/L Arterial Blood Glucose 105 H (75-99) mg/dL Crossmatch See Detail 09/18/23 09/18/23 09/18/23 Range/Units 10:55 11:23 11:55 WBC (3.8-10.6) k/uL RBC (4.30-5.90) m/uL Hgb (13.0-17.5) gm/dL Hct (39.0-53.0) % Plt Count (150-450) k/uL Neutrophils # (1.3-7.7) k/uL Lymphocytes # (1.0-4.8) k/uL INR (<1.2) ABG pH (7.35-7.45) ABG pO2 >420 H >420 H >420 H (83-108) mmHg ABG Total CO2 (19-24) mmol/L ABG O2 Saturation >99.4 H >99.4 H >99.4 H (94-97) % ABG Hematocrit 25 L 25 L 24 L (34.0-46.0) % ABG Potassium 4.8 H 5.0 H (3.4-4.5) mmol/L ABG Ionized Calcium 4.2 L 4.3 L 4.3 L (4.5-5.3) mg/dL ABG Glucose 105 H 115 H 140 H (75-99) mg/dL ABG Lactic Acid (0.5-1.6) mmol/L Hemoglobin 8.3 L 8.1 L 7.9 L (13.0-17.5) gm/dL Chloride (98-107) mmol/L Carbon Dioxide (22-30) mmol/L BUN (9-20) mg/dL Glucose (74-99) mg/dL POC Glucose (mg/dL) (70-110) mg/dL AST (17-59) U/L Total Protein (6.3-8.2) g/dL Albumin (3.5-5.0) g/dL Arterial Blood Potassium 4.8 H 5.0 H (3.4-4.5) mmol/L Arterial Blood Glucose 105 H 115 H 140 H (75-99) mg/dL Crossmatch 09/18/23 09/18/23 09/18/23 Range/Units 12:18 12:56 13:45 WBC 11.0 H (3.8-10.6) k/uL RBC 3.22 L (4.30-5.90) m/uL Hgb 10.0 L D (13.0-17.5) gm/dL Hct 29.3 L (39.0-53.0) % Plt Count 129 L (150-450) k/uL Neutrophils # 9.2 H (1.3-7.7) k/uL Lymphocytes # 0.9 L (1.0-4.8) k/uL INR (<1.2) ABG pH 7.34 L (7.35-7.45) ABG pO2 366 H 113 H (83-108) mmHg ABG Total CO2 (19-24) mmol/L ABG O2 Saturation >99.4 H 98.1 H (94-97) % ABG Hematocrit 25 L 28 L (34.0-46.0) % ABG Potassium 4.7 H (3.4-4.5) mmol/L ABG Ionized Calcium 4.4 L (4.5-5.3) mg/dL ABG Glucose 131 H 132 H (75-99) mg/dL ABG Lactic Acid 2.1 H (0.5-1.6) mmol/L Hemoglobin 8.2 L 9.1 L (13.0-17.5) gm/dL Chloride (98-107) mmol/L Carbon Dioxide (22-30) mmol/L BUN (9-20) mg/dL Glucose (74-99) mg/dL POC Glucose (mg/dL) (70-110) mg/dL AST (17-59) U/L Total Protein (6.3-8.2) g/dL Albumin (3.5-5.0) g/dL Arterial Blood Potassium 4.7 H (3.4-4.5) mmol/L Arterial Blood Glucose 131 H 132 H (75-99) mg/dL Crossmatch 09/18/23 09/18/23 09/18/23 Range/Units 13:45 13:45 13:50 WBC (3.8-10.6) k/uL RBC (4.30-5.90) m/uL Hgb (13.0-17.5) gm/dL Hct (39.0-53.0) % Plt Count (150-450) k/uL Neutrophils # (1.3-7.7) k/uL Lymphocytes # (1.0-4.8) k/uL INR 1.2 H (<1.2) ABG pH (7.35-7.45) ABG pO2 (83-108) mmHg ABG Total CO2 (19-24) mmol/L ABG O2 Saturation (94-97) % ABG Hematocrit (34.0-46.0) % ABG Potassium (3.4-4.5) mmol/L ABG Ionized Calcium (4.5-5.3) mg/dL ABG Glucose (75-99) mg/dL ABG Lactic Acid (0.5-1.6) mmol/L Hemoglobin (13.0-17.5) gm/dL Chloride 113 H (98-107) mmol/L Carbon Dioxide (22-30) mmol/L BUN (9-20) mg/dL Glucose 110 H (74-99) mg/dL POC Glucose (mg/dL) 119 H (70-110) mg/dL AST 70 H (17-59) U/L Total Protein 4.7 L (6.3-8.2) g/dL Albumin 2.8 L (3.5-5.0) g/dL Arterial Blood Potassium (3.4-4.5) mmol/L Arterial Blood Glucose (75-99) mg/dL Crossmatch 09/18/23 09/18/23 09/18/23 Range/Units 14:11 14:48 16:04 WBC (3.8-10.6) k/uL RBC (4.30-5.90) m/uL Hgb (13.0-17.5) gm/dL Hct (39.0-53.0) % Plt Count (150-450) k/uL Neutrophils # (1.3-7.7) k/uL Lymphocytes # (1.0-4.8) k/uL INR (<1.2) ABG pH (7.35-7.45) ABG pO2 238 H (83-108) mmHg ABG Total CO2 26 H (19-24) mmol/L ABG O2 Saturation 100.3 H (94-97) % ABG Hematocrit (34.0-46.0) % ABG Potassium (3.4-4.5) mmol/L ABG Ionized Calcium (4.5-5.3) mg/dL ABG Glucose (75-99) mg/dL ABG Lactic Acid (0.5-1.6) mmol/L Hemoglobin (13.0-17.5) gm/dL Chloride (98-107) mmol/L Carbon Dioxide (22-30) mmol/L BUN (9-20) mg/dL Glucose (74-99) mg/dL POC Glucose (mg/dL) 127 H 140 H (70-110) mg/dL AST (17-59) U/L Total Protein (6.3-8.2) g/dL Albumin (3.5-5.0) g/dL Arterial Blood Potassium (3.4-4.5) mmol/L Arterial Blood Glucose (75-99) mg/dL Crossmatch 09/18/23 09/18/23 09/18/23 Range/Units 16:58 16:58 18:01 WBC 16.2 H (3.8-10.6) k/uL RBC 3.29 L (4.30-5.90) m/uL Hgb 10.2 L (13.0-17.5) gm/dL Hct 29.9 L (39.0-53.0) % Plt Count (150-450) k/uL Neutrophils # 13.9 H (1.3-7.7) k/uL Lymphocytes # (1.0-4.8) k/uL INR (<1.2) ABG pH (7.35-7.45) ABG pO2 (83-108) mmHg ABG Total CO2 (19-24) mmol/L ABG O2 Saturation (94-97) % ABG Hematocrit (34.0-46.0) % ABG Potassium (3.4-4.5) mmol/L ABG Ionized Calcium (4.5-5.3) mg/dL ABG Glucose (75-99) mg/dL ABG Lactic Acid (0.5-1.6) mmol/L Hemoglobin (13.0-17.5) gm/dL Chloride (98-107) mmol/L Carbon Dioxide (22-30) mmol/L BUN (9-20) mg/dL Glucose (74-99) mg/dL POC Glucose (mg/dL) 138 H 136 H (70-110) mg/dL AST (17-59) U/L Total Protein (6.3-8.2) g/dL Albumin (3.5-5.0) g/dL Arterial Blood Potassium (3.4-4.5) mmol/L Arterial Blood Glucose (75-99) mg/dL Crossmatch 09/18/23 09/18/23 09/18/23 Range/Units 18:12 19:09 20:04 WBC (3.8-10.6) k/uL RBC (4.30-5.90) m/uL Hgb (13.0-17.5) gm/dL Hct (39.0-53.0) % Plt Count (150-450) k/uL Neutrophils # (1.3-7.7) k/uL Lymphocytes # (1.0-4.8) k/uL INR (<1.2) ABG pH (7.35-7.45) ABG pO2 (83-108) mmHg ABG Total CO2 (19-24) mmol/L ABG O2 Saturation 99.0 H (94-97) % ABG Hematocrit (34.0-46.0) % ABG Potassium (3.4-4.5) mmol/L ABG Ionized Calcium (4.5-5.3) mg/dL ABG Glucose (75-99) mg/dL ABG Lactic Acid (0.5-1.6) mmol/L Hemoglobin (13.0-17.5) gm/dL Chloride (98-107) mmol/L Carbon Dioxide (22-30) mmol/L BUN (9-20) mg/dL Glucose (74-99) mg/dL POC Glucose (mg/dL) 140 H 139 H (70-110) mg/dL AST (17-59) U/L Total Protein (6.3-8.2) g/dL Albumin (3.5-5.0) g/dL Arterial Blood Potassium (3.4-4.5) mmol/L Arterial Blood Glucose (75-99) mg/dL Crossmatch 09/18/23 09/18/23 09/18/23 Range/Units 20:05 21:21 22:07 WBC (3.8-10.6) k/uL RBC 3.09 L (4.30-5.90) m/uL Hgb 9.3 L (13.0-17.5) gm/dL Hct 28.5 L (39.0-53.0) % Plt Count 138 L (150-450) k/uL Neutrophils # (1.3-7.7) k/uL Lymphocytes # 0.6 L (1.0-4.8) k/uL INR (<1.2) ABG pH (7.35-7.45) ABG pO2 (83-108) mmHg ABG Total CO2 (19-24) mmol/L ABG O2 Saturation (94-97) % ABG Hematocrit (34.0-46.0) % ABG Potassium (3.4-4.5) mmol/L ABG Ionized Calcium (4.5-5.3) mg/dL ABG Glucose (75-99) mg/dL ABG Lactic Acid (0.5-1.6) mmol/L Hemoglobin (13.0-17.5) gm/dL Chloride (98-107) mmol/L Carbon Dioxide (22-30) mmol/L BUN (9-20) mg/dL Glucose (74-99) mg/dL POC Glucose (mg/dL) 136 H 139 H (70-110) mg/dL AST (17-59) U/L Total Protein (6.3-8.2) g/dL Albumin (3.5-5.0) g/dL Arterial Blood Potassium (3.4-4.5) mmol/L Arterial Blood Glucose (75-99) mg/dL Crossmatch 09/18/23 09/19/23 09/19/23 Range/Units 23:08 00:24 01:16 WBC (3.8-10.6) k/uL RBC (4.30-5.90) m/uL Hgb (13.0-17.5) gm/dL Hct (39.0-53.0) % Plt Count (150-450) k/uL Neutrophils # (1.3-7.7) k/uL Lymphocytes # (1.0-4.8) k/uL INR (<1.2) ABG pH (7.35-7.45) ABG pO2 (83-108) mmHg ABG Total CO2 (19-24) mmol/L ABG O2 Saturation (94-97) % ABG Hematocrit (34.0-46.0) % ABG Potassium (3.4-4.5) mmol/L ABG Ionized Calcium (4.5-5.3) mg/dL ABG Glucose (75-99) mg/dL ABG Lactic Acid (0.5-1.6) mmol/L Hemoglobin (13.0-17.5) gm/dL Chloride (98-107) mmol/L Carbon Dioxide (22-30) mmol/L BUN (9-20) mg/dL Glucose (74-99) mg/dL POC Glucose (mg/dL) 131 H 129 H 127 H (70-110) mg/dL AST (17-59) U/L Total Protein (6.3-8.2) g/dL Albumin (3.5-5.0) g/dL Arterial Blood Potassium (3.4-4.5) mmol/L Arterial Blood Glucose (75-99) mg/dL Crossmatch 09/19/23 09/19/23 09/19/23 Range/Units 02:13 03:05 04:02 WBC (3.8-10.6) k/uL RBC (4.30-5.90) m/uL Hgb (13.0-17.5) gm/dL Hct (39.0-53.0) % Plt Count (150-450) k/uL Neutrophils # (1.3-7.7) k/uL Lymphocytes # (1.0-4.8) k/uL INR (<1.2) ABG pH (7.35-7.45) ABG pO2 (83-108) mmHg ABG Total CO2 (19-24) mmol/L ABG O2 Saturation (94-97) % ABG Hematocrit (34.0-46.0) % ABG Potassium (3.4-4.5) mmol/L ABG Ionized Calcium (4.5-5.3) mg/dL ABG Glucose (75-99) mg/dL ABG Lactic Acid (0.5-1.6) mmol/L Hemoglobin (13.0-17.5) gm/dL Chloride (98-107) mmol/L Carbon Dioxide (22-30) mmol/L BUN (9-20) mg/dL Glucose (74-99) mg/dL POC Glucose (mg/dL) 128 H 126 H 125 H (70-110) mg/dL AST (17-59) U/L Total Protein (6.3-8.2) g/dL Albumin (3.5-5.0) g/dL Arterial Blood Potassium (3.4-4.5) mmol/L Arterial Blood Glucose (75-99) mg/dL Crossmatch 09/19/23 09/19/23 09/19/23 Range/Units 04:10 04:10 05:08 WBC 10.7 H (3.8-10.6) k/uL RBC 3.12 L (4.30-5.90) m/uL Hgb 9.4 L (13.0-17.5) gm/dL Hct 28.5 L (39.0-53.0) % Plt Count (150-450) k/uL Neutrophils # 9.0 H (1.3-7.7) k/uL Lymphocytes # 0.9 L (1.0-4.8) k/uL INR (<1.2) ABG pH (7.35-7.45) ABG pO2 (83-108) mmHg ABG Total CO2 (19-24) mmol/L ABG O2 Saturation (94-97) % ABG Hematocrit (34.0-46.0) % ABG Potassium (3.4-4.5) mmol/L ABG Ionized Calcium (4.5-5.3) mg/dL ABG Glucose (75-99) mg/dL ABG Lactic Acid (0.5-1.6) mmol/L Hemoglobin (13.0-17.5) gm/dL Chloride 111 H (98-107) mmol/L Carbon Dioxide 21 L (22-30) mmol/L BUN 23 H (9-20) mg/dL Glucose 119 H (74-99) mg/dL POC Glucose (mg/dL) 129 H (70-110) mg/dL AST 64 H (17-59) U/L Total Protein 5.1 L (6.3-8.2) g/dL Albumin 3.2 L (3.5-5.0) g/dL Arterial Blood Potassium (3.4-4.5) mmol/L Arterial Blood Glucose (75-99) mg/dL Crossmatch 09/19/23 09/19/23 09/19/23 Range/Units 07:07 08:25 09:13 WBC (3.8-10.6) k/uL RBC (4.30-5.90) m/uL Hgb (13.0-17.5) gm/dL Hct (39.0-53.0) % Plt Count (150-450) k/uL Neutrophils # (1.3-7.7) k/uL Lymphocytes # (1.0-4.8) k/uL INR (<1.2) ABG pH (7.35-7.45) ABG pO2 (83-108) mmHg ABG Total CO2 (19-24) mmol/L ABG O2 Saturation (94-97) % ABG Hematocrit (34.0-46.0) % ABG Potassium (3.4-4.5) mmol/L ABG Ionized Calcium (4.5-5.3) mg/dL ABG Glucose (75-99) mg/dL ABG Lactic Acid (0.5-1.6) mmol/L Hemoglobin (13.0-17.5) gm/dL Chloride (98-107) mmol/L Carbon Dioxide (22-30) mmol/L BUN (9-20) mg/dL Glucose (74-99) mg/dL POC Glucose (mg/dL) 140 H 143 H 137 H (70-110) mg/dL AST (17-59) U/L Total Protein (6.3-8.2) g/dL Albumin (3.5-5.0) g/dL Arterial Blood Potassium (3.4-4.5) mmol/L Arterial Blood Glucose (75-99) mg/dL Crossmatch 09/19/23 Range/Units 11:06 WBC (3.8-10.6) k/uL RBC (4.30-5.90) m/uL Hgb (13.0-17.5) gm/dL Hct (39.0-53.0) % Plt Count (150-450) k/uL Neutrophils # (1.3-7.7) k/uL Lymphocytes # (1.0-4.8) k/uL INR (<1.2) ABG pH (7.35-7.45) ABG pO2 (83-108) mmHg ABG Total CO2 (19-24) mmol/L ABG O2 Saturation (94-97) % ABG Hematocrit (34.0-46.0) % ABG Potassium (3.4-4.5) mmol/L ABG Ionized Calcium (4.5-5.3) mg/dL ABG Glucose (75-99) mg/dL ABG Lactic Acid (0.5-1.6) mmol/L Hemoglobin (13.0-17.5) gm/dL Chloride (98-107) mmol/L Carbon Dioxide (22-30) mmol/L BUN (9-20) mg/dL Glucose (74-99) mg/dL POC Glucose (mg/dL) 126 H (70-110) mg/dL AST (17-59) U/L Total Protein (6.3-8.2) g/dL Albumin (3.5-5.0) g/dL Arterial Blood Potassium (3.4-4.5) mmol/L Arterial Blood Glucose (75-99) mg/dL Crossmatch Assessment and Plan Assessment: Impression: Status post on pump coronary artery bypass grafting x 4. Left internal thoracic artery (in-situ) to left anterior descending coronary artery. Radial artery from aorta sequential to ramus intermedius and obtuse marginal artery. Reverse saphenous vein from aorta to distal right coronary artery. Postoperative day #1 Acute non-ST segment elevation myocardial infarction in a patient found to have severe multivessel coronary artery disease History of paroxysmal atrial fibrillation with previous cardioversions, anticoagulated with Eliquis Hypertension Hyperlipidemia Obstructive sleep apnea utilizing home CPAP at 12 cm of water, nasal pillow due to significant claustrophobia History of gout Gastroesophageal reflux disease Agent orange exposure while in [place] Lifelong non-smoker, FEV1 value 2.45 L, 89% of predicted Recommendation: Continue to monitor in the ICU Early ambulation Continue medical therapy including statin, Plavix, aspirin, and beta-blockers Continue incentive spirometry Discontinue unnecessary catheters Continue GI DVT prophylaxis Continue insulin Continue pain control management Will continue to follow Time with Patient: Less than 30
--- NOTE | 2023-09-19 12:47 | P.PN ---
Subjective Progress Note Date: 09/19/23 This is a pleasant 73-year-old gentleman with past medical history significant for ischemic cardiomyopathy, atrial fibrillation,AAA, hypertension, hyperlipidemia, sleep apnea wears CPAP, hiatal hernia, gastroesophageal reflux disease and multiple other medical issues follows with [facility] cardiology, presented to the ER with complaints of chest pain. Reports he developed midsternal chest pressure while up at his cottage in [place]. Reports nonexertional. Chest pain occurred after midnight last night, radiated to bilateral shoulders and into his jaw, accompanied by sweating, shortness of breath and bilateral lower extremity edema. transported him to the ER, troponins elevated, 0.060, 0.931, 3.330, heparin drip initiated. He currently denies any chest pain, palpitations or shortness of breath. Evaluated by cardiology with abnormal EKG reviewed sinus with-T wave inversion. Chest x-ray reporting no acute cardiopulmonary process.. Hematology, coagulation unremarkable. Sodium 142, potassium 4, bicarb 22, BUN 23, creatinine 1.12 glucose 101 magnesium 1.4-supplemented. 09/14/2023 Just returning back from cardiac catheterization, reporting severe multivessel CAD including a tight stenosis in the proximal LAD, proximal circumflex and intermediate disease involving RCA. 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 Cardiothoracic surgery consulted. Currently denies chest pain, palpitations or shortness of breath. Maintaining O2 sats in the mid 90s on room air. Telemetry sinus rhythm. 09/15/23 maintained on heparin drip, IV fluid hydration. Telemetry sinus rhythm .denies chest pain, palpitations or shortness of breath. Maintaining O2 sats in the mid 90s on room air. 09/16/2023 telemetry sinus rhythm. Sitting up in chair, incentive spirometer 3000. Anticoagulated on heparin drip. Continues on IV fluid hydration. Chest CT reviewed by ceramic tile installer. Denies nausea or vomiting. Denies chest pain, p alpitations or shortness of breath. Maintaining O2 sats of 96% on room air. 09/17/2023 maintained on heparin drip. Denies chest pain, palpitations or shortness of breath. 3100 on I-S. Awaiting CABG tomorrow, no complaints. Afebrile, normal WBC. Hemoglobin 12, platelets 184. Electrolytes within normal limits. Bicarb 22, BUN 18, creatinine 0.94. Blood sugars controlled. 09/17. Patient seen and examined. Patient underwent coronary artery bypass grafting x 4. Currently intubated and sedated. 09/18. Patient seen and examined. Patient was extubated yesterday, currently sitting upright in the chair. States he feels better. Complaining of hoarseness of voice REVIEW OF SYSTEMS: Denies any shortness of breath Denies any nausea or vomiting. Denies any lethargy or weak PHYSICAL EXAMINATION: GENERAL: The patient is alert HEENT: Pupils are round and equally reacting to light. EOMI. No scleral icterus. No conjunctival pallor. Normocephalic, atraumatic. No pharyngeal erythema. No thyromegaly. CARDIOVASCULAR: S1 and S2 present. No murmurs, rubs, or gallops. PULMONARY: Chest is clear to auscultation, no wheezing or crackles. Chest tube seen ABDOMEN: Soft, nontender, nondistended, normoactive bowel sounds. No palpable organomegaly. MUSCULOSKELETAL: No joint swelling or deformity. EXTREMITIES: No cyanosis, clubbing, or pedal edema. NEUROLOGICAL: Alert, moving all extremities SKIN: No rashes. Assessment and plan severe multivessel CAD s/p CABG CAD with ischemic cardiomyopathy, no stenting, follows with [facility] cardiology. 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 Chronic paroxysmal atrial fibrillation, history of cardioversions Obstructive sleep apnea uses CPAP Claustrophobia Agent orange exposure in [place] Hypertension Hyperlipidemia History of AAA, monitoring outpatient with Dr. Head BPH Monitor vital signs Monitor CBC Monitor CMP Aggressive bronchopulmonary hygiene encourage use of I-S Continue ox supplementation Continue aspirin, Plavix, statin, beta-blockers Continue postop antibiotics per cardiac surgery Continue chest tube management per cardiac surgery Monitor blood sugar levels, continue insulin drip Critical care following Cardiac surgery following Labs and medication were reviewed.. Continue same treatment. Continue with symptomatic treatment. Resume home medication. Monitor labs and vitals. DVT and GI prophylaxis. Further recommendations as per clinical course of the patient Dictation was produced using [employer] dictation software. please excuse any grammatical, word or spelling errors. Objective - Vital Signs Vital signs: Vital Signs Temp 97.7 F 09/19/23 08:00 Pulse 68 09/19/23 11:00 Resp 19 09/19/23 11:00 BP 148/82 09/19/23 08:00 Pulse Ox 91 L 09/19/23 11:00 FiO2 50 09/18/23 17:48 Intake & Output 09/18/23 09/19/23 09/19/23 18:59 06:59 18:59 Intake Total 724.391 958.370 432.156 Output Total 1625 1145 335 Balance -900.609 -186.630 97.156 Weight 114.3 kg Intake: IV 134 670 178 ACETAMINOPHEN IV (For NPO 100 ) 1,000 mg In Empty Bag 1 bag @ 400 mls/hr IVPB Q6HR [facility] Rx#:[id number] CO/CI 80 170 Sodium Chloride 0.9% 1, 350 160 000 ml @ 20 mls/hr IV . Q24H [facility] Rx#:[id number] ceFAZolin 2 gm In Sodium 50 Chloride 0.9% 50 ml @ 100 mls/hr IVPB ONCE ONE Rx# :[id number] pressure bags 18 Intake, IV Titration 590.391 288.370 14.156 Amount Albumin Human 5% 250 ml 250 In Empty Bag 1 bag @ 250 mls/hr IVPB Q1HR PRN Rx#: [id number] Clevidipine Butyrate 25 0.833 mg In Empty Bag 1 bag @ 1 MG/HR 2 mls/hr IV .Q24H [facility] Rx#:[id number] Dexmedetomidine/0.9% NaCl 25.320 36.754 (Pmx) 400 mcg In Empty Bag 1 bag @ Titrate IV . Q0M [facility] Rx#:[id number] Insulin Regular 100 unit 1.616 14.156 In Sodium Chloride 0.9% 100 ml @ Per Protocol IV .Q0M [facility] Rx#:[id number] Nitroglycerin-D5w Pmx 50 5.65 mg In Dextrose/Water 1 250ml.bag @ 5 MCG/MIN 1.5 mls/hr IV .Q24H [facility] Rx#: [id number] Sodium Chloride 0.9% 1, 250 250 000 ml @ 20 mls/hr IV . Q24H [facility] Rx#:[id number] propofoL 1,000 mg In 58.588 Empty Bag 1 bag @ Titrate IV .Q0M [facility] Rx#: [id number] Oral 240 Output: Chest Tube Drainage 280 620 160 Chest Tube Mediastinal 180 320 40 Pleural Catheter Left 100 300 120 Drainage 20 20 Left Arm 20 20 Urine 845 505 155 Estimated Blood Loss 500 Other: Voiding Method Indwelling Catheter Indwelling Catheter ABP, PAP, CO, CI - Last Documented Arterial Blood Pressure 100/43 Pulmonary Artery Pressure 42/15 Cardiac Output 4.7 Cardiac Index 2.2 - Labs CBC & Chem 7: 09/19/23 04:10 09/19/23 04:10 Labs: Abnormal Lab Results - Last 24 Hours (Table) 09/17/23 09/18/23 09/18/23 Range/Units 06:22 08:35 09:51 WBC (3.8-10.6) k/uL RBC (4.30-5.90) m/uL Hgb (13.0-17.5) gm/dL Hct (39.0-53.0) % Plt Count (150-450) k/uL Neutrophils # (1.3-7.7) k/uL Lymphocytes # (1.0-4.8) k/uL INR (<1.2) ABG pH 7.30 L 7.31 L (7.35-7.45) ABG pO2 133 H (83-108) mmHg ABG Total CO2 (19-24) mmol/L ABG O2 Saturation 98.0 H (94-97) % ABG Hematocrit 30 L (34.0-46.0) % ABG Potassium (3.4-4.5) mmol/L ABG Ionized Calcium (4.5-5.3) mg/dL ABG Glucose 105 H (75-99) mg/dL ABG Lactic Acid 1.7 H (0.5-1.6) mmol/L Hemoglobin 11.2 L 9.7 L (13.0-17.5) gm/dL Chloride (98-107) mmol/L Carbon Dioxide (22-30) mmol/L BUN (9-20) mg/dL Glucose (74-99) mg/dL POC Glucose (mg/dL) (70-110) mg/dL AST (17-59) U/L Total Protein (6.3-8.2) g/dL Albumin (3.5-5.0) g/dL Arterial Blood Potassium (3.4-4.5) mmol/L Arterial Blood Glucose 105 H (75-99) mg/dL Crossmatch See Detail 09/18/23 09/18/23 09/18/23 Range/Units 10:55 11:23 11:55 WBC (3.8-10.6) k/uL RBC (4.30-5.90) m/uL Hgb (13.0-17.5) gm/dL Hct (39.0-53.0) % Plt Count (150-450) k/uL Neutrophils # (1.3-7.7) k/uL Lymphocytes # (1.0-4.8) k/uL INR (<1.2) ABG pH (7.35-7.45) ABG pO2 >420 H >420 H >420 H (83-108) mmHg ABG Total CO2 (19-24) mmol/L ABG O2 Saturation >99.4 H >99.4 H >99.4 H (94-97) % ABG Hematocrit 25 L 25 L 24 L (34.0-46.0) % ABG Potassium 4.8 H 5.0 H (3.4-4.5) mmol/L ABG Ionized Calcium 4.2 L 4.3 L 4.3 L (4.5-5.3) mg/dL ABG Glucose 105 H 115 H 140 H (75-99) mg/dL ABG Lactic Acid (0.5-1.6) mmol/L Hemoglobin 8.3 L 8.1 L 7.9 L (13.0-17.5) gm/dL Chloride (98-107) mmol/L Carbon Dioxide (22-30) mmol/L BUN (9-20) mg/dL Glucose (74-99) mg/dL POC Glucose (mg/dL) (70-110) mg/dL AST (17-59) U/L Total Protein (6.3-8.2) g/dL Albumin (3.5-5.0) g/dL Arterial Blood Potassium 4.8 H 5.0 H (3.4-4.5) mmol/L Arterial Blood Glucose 105 H 115 H 140 H (75-99) mg/dL Crossmatch 09/18/23 09/18/23 09/18/23 Range/Units 12:18 12:56 13:45 WBC 11.0 H (3.8-10.6) k/uL RBC 3.22 L (4.30-5.90) m/uL Hgb 10.0 L D (13.0-17.5) gm/dL Hct 29.3 L (39.0-53.0) % Plt Count 129 L (150-450) k/uL Neutrophils # 9.2 H (1.3-7.7) k/uL Lymphocytes # 0.9 L (1.0-4.8) k/uL INR (<1.2) ABG pH 7.34 L (7.35-7.45) ABG pO2 366 H 113 H (83-108) mmHg ABG Total CO2 (19-24) mmol/L ABG O2 Saturation >99.4 H 98.1 H (94-97) % ABG Hematocrit 25 L 28 L (34.0-46.0) % ABG Potassium 4.7 H (3.4-4.5) mmol/L ABG Ionized Calcium 4.4 L (4.5-5.3) mg/dL ABG Glucose 131 H 132 H (75-99) mg/dL ABG Lactic Acid 2.1 H (0.5-1.6) mmol/L Hemoglobin 8.2 L 9.1 L (13.0-17.5) gm/dL Chloride (98-107) mmol/L Carbon Dioxide (22-30) mmol/L BUN (9-20) mg/dL Glucose (74-99) mg/dL POC Glucose (mg/dL) (70-110) mg/dL AST (17-59) U/L Total Protein (6.3-8.2) g/dL Albumin (3.5-5.0) g/dL Arterial Blood Potassium 4.7 H (3.4-4.5) mmol/L Arterial Blood Glucose 131 H 132 H (75-99) mg/dL Crossmatch 09/18/23 09/18/23 09/18/23 Range/Units 13:45 13:45 13:50 WBC (3.8-10.6) k/uL RBC (4.30-5.90) m/uL Hgb (13.0-17.5) gm/dL Hct (39.0-53.0) % Plt Count (150-450) k/uL Neutrophils # (1.3-7.7) k/uL Lymphocytes # (1.0-4.8) k/uL INR 1.2 H (<1.2) ABG pH (7.35-7.45) ABG pO2 (83-108) mmHg ABG Total CO2 (19-24) mmol/L ABG O2 Saturation (94-97) % ABG Hematocrit (34.0-46.0) % ABG Potassium (3.4-4.5) mmol/L ABG Ionized Calcium (4.5-5.3) mg/dL ABG Glucose (75-99) mg/dL ABG Lactic Acid (0.5-1.6) mmol/L Hemoglobin (13.0-17.5) gm/dL Chloride 113 H (98-107) mmol/L Carbon Dioxide (22-30) mmol/L BUN (9-20) mg/dL Glucose 110 H (74-99) mg/dL POC Glucose (mg/dL) 119 H (70-110) mg/dL AST 70 H (17-59) U/L Total Protein 4.7 L (6.3-8.2) g/dL Albumin 2.8 L (3.5-5.0) g/dL Arterial Blood Potassium (3.4-4.5) mmol/L Arterial Blood Glucose (75-99) mg/dL Crossmatch 09/18/23 09/18/23 09/18/23 Range/Units 14:11 14:48 16:04 WBC (3.8-10.6) k/uL RBC (4.30-5.90) m/uL Hgb (13.0-17.5) gm/dL Hct (39.0-53.0) % Plt Count (150-450) k/uL Neutrophils # (1.3-7.7) k/uL Lymphocytes # (1.0-4.8) k/uL INR (<1.2) ABG pH (7.35-7.45) ABG pO2 238 H (83-108) mmHg ABG Total CO2 26 H (19-24) mmol/L ABG O2 Saturation 100.3 H (94-97) % ABG Hematocrit (34.0-46.0) % ABG Potassium (3.4-4.5) mmol/L ABG Ionized Calcium (4.5-5.3) mg/dL ABG Glucose (75-99) mg/dL ABG Lactic Acid (0.5-1.6) mmol/L Hemoglobin (13.0-17.5) gm/dL Chloride (98-107) mmol/L Carbon Dioxide (22-30) mmol/L BUN (9-20) mg/dL Glucose (74-99) mg/dL POC Glucose (mg/dL) 127 H 140 H (70-110) mg/dL AST (17-59) U/L Total Protein (6.3-8.2) g/dL Albumin (3.5-5.0) g/dL Arterial Blood Potassium (3.4-4.5) mmol/L Arterial Blood Glucose (75-99) mg/dL Crossmatch 09/18/23 09/18/23 09/18/23 Range/Units 16:58 16:58 18:01 WBC 16.2 H (3.8-10.6) k/uL RBC 3.29 L (4.30-5.90) m/uL Hgb 10.2 L (13.0-17.5) gm/dL Hct 29.9 L (39.0-53.0) % Plt Count (150-450) k/uL Neutrophils # 13.9 H (1.3-7.7) k/uL Lymphocytes # (1.0-4.8) k/uL INR (<1.2) ABG pH (7.35-7.45) ABG pO2 (83-108) mmHg ABG Total CO2 (19-24) mmol/L ABG O2 Saturation (94-97) % ABG Hematocrit (34.0-46.0) % ABG Potassium (3.4-4.5) mmol/L ABG Ionized Calcium (4.5-5.3) mg/dL ABG Glucose (75-99) mg/dL ABG Lactic Acid (0.5-1.6) mmol/L Hemoglobin (13.0-17.5) gm/dL Chloride (98-107) mmol/L Carbon Dioxide (22-30) mmol/L BUN (9-20) mg/dL Glucose (74-99) mg/dL POC Glucose (mg/dL) 138 H 136 H (70-110) mg/dL AST (17-59) U/L Total Protein (6.3-8.2) g/dL Albumin (3.5-5.0) g/dL Arterial Blood Potassium (3.4-4.5) mmol/L Arterial Blood Glucose (75-99) mg/dL Crossmatch 09/18/23 09/18/23 09/18/23 Range/Units 18:12 19:09 20:04 WBC (3.8-10.6) k/uL RBC (4.30-5.90) m/uL Hgb (13.0-17.5) gm/dL Hct (39.0-53.0) % Plt Count (150-450) k/uL Neutrophils # (1.3-7.7) k/uL Lymphocytes # (1.0-4.8) k/uL INR (<1.2) ABG pH (7.35-7.45) ABG pO2 (83-108) mmHg ABG Total CO2 (19-24) mmol/L ABG O2 Saturation 99.0 H (94-97) % ABG Hematocrit (34.0-46.0) % ABG Potassium (3.4-4.5) mmol/L ABG Ionized Calcium (4.5-5.3) mg/dL ABG Glucose (75-99) mg/dL ABG Lactic Acid (0.5-1.6) mmol/L Hemoglobin (13.0-17.5) gm/dL Chloride (98-107) mmol/L Carbon Dioxide (22-30) mmol/L BUN (9-20) mg/dL Glucose (74-99) mg/dL POC Glucose (mg/dL) 140 H 139 H (70-110) mg/dL AST (17-59) U/L Total Protein (6.3-8.2) g/dL Albumin (3.5-5.0) g/dL Arterial Blood Potassium (3.4-4.5) mmol/L Arterial Blood Glucose (75-99) mg/dL Crossmatch 09/18/23 09/18/23 09/18/23 Range/Units 20:05 21:21 22:07 WBC (3.8-10.6) k/uL RBC 3.09 L (4.30-5.90) m/uL Hgb 9.3 L (13.0-17.5) gm/dL Hct 28.5 L (39.0-53.0) % Plt Count 138 L (150-450) k/uL Neutrophils # (1.3-7.7) k/uL Lymphocytes # 0.6 L (1.0-4.8) k/uL INR (<1.2) ABG pH (7.35-7.45) ABG pO2 (83-108) mmHg ABG Total CO2 (19-24) mmol/L ABG O2 Saturation (94-97) % ABG Hematocrit (34.0-46.0) % ABG Potassium (3.4-4.5) mmol/L ABG Ionized Calcium (4.5-5.3) mg/dL ABG Glucose (75-99) mg/dL ABG Lactic Acid (0.5-1.6) mmol/L Hemoglobin (13.0-17.5) gm/dL Chloride (98-107) mmol/L Carbon Dioxide (22-30) mmol/L BUN (9-20) mg/dL Glucose (74-99) mg/dL POC Glucose (mg/dL) 136 H 139 H (70-110) mg/dL AST (17-59) U/L Total Protein (6.3-8.2) g/dL Albumin (3.5-5.0) g/dL Arterial Blood Potassium (3.4-4.5) mmol/L Arterial Blood Glucose (75-99) mg/dL Crossmatch 09/18/23 09/19/23 09/19/23 Range/Units 23:08 00:24 01:16 WBC (3.8-10.6) k/uL RBC (4.30-5.90) m/uL Hgb (13.0-17.5) gm/dL Hct (39.0-53.0) % Plt Count (150-450) k/uL Neutrophils # (1.3-7.7) k/uL Lymphocytes # (1.0-4.8) k/uL INR (<1.2) ABG pH (7.35-7.45) ABG pO2 (83-108) mmHg ABG Total CO2 (19-24) mmol/L ABG O2 Saturation (94-97) % ABG Hematocrit (34.0-46.0) % ABG Potassium (3.4-4.5) mmol/L ABG Ionized Calcium (4.5-5.3) mg/dL ABG Glucose (75-99) mg/dL ABG Lactic Acid (0.5-1.6) mmol/L Hemoglobin (13.0-17.5) gm/dL Chloride (98-107) mmol/L Carbon Dioxide (22-30) mmol/L BUN (9-20) mg/dL Glucose (74-99) mg/dL POC Glucose (mg/dL) 131 H 129 H 127 H (70-110) mg/dL AST (17-59) U/L Total Protein (6.3-8.2) g/dL Albumin (3.5-5.0) g/dL Arterial Blood Potassium (3.4-4.5) mmol/L Arterial Blood Glucose (75-99) mg/dL Crossmatch 09/19/23 09/19/23 09/19/23 Range/Units 02:13 03:05 04:02 WBC (3.8-10.6) k/uL RBC (4.30-5.90) m/uL Hgb (13.0-17.5) gm/dL Hct (39.0-53.0) % Plt Count (150-450) k/uL Neutrophils # (1.3-7.7) k/uL Lymphocytes # (1.0-4.8) k/uL INR (<1.2) ABG pH (7.35-7.45) ABG pO2 (83-108) mmHg ABG Total CO2 (19-24) mmol/L ABG O2 Saturation (94-97) % ABG Hematocrit (34.0-46.0) % ABG Potassium (3.4-4.5) mmol/L ABG Ionized Calcium (4.5-5.3) mg/dL ABG Glucose (75-99) mg/dL ABG Lactic Acid (0.5-1.6) mmol/L Hemoglobin (13.0-17.5) gm/dL Chloride (98-107) mmol/L Carbon Dioxide (22-30) mmol/L BUN (9-20) mg/dL Glucose (74-99) mg/dL POC Glucose (mg/dL) 128 H 126 H 125 H (70-110) mg/dL AST (17-59) U/L Total Protein (6.3-8.2) g/dL Albumin (3.5-5.0) g/dL Arterial Blood Potassium (3.4-4.5) mmol/L Arterial Blood Glucose (75-99) mg/dL Crossmatch 09/19/23 09/19/23 09/19/23 Range/Units 04:10 04:10 05:08 WBC 10.7 H (3.8-10.6) k/uL RBC 3.12 L (4.30-5.90) m/uL Hgb 9.4 L (13.0-17.5) gm/dL Hct 28.5 L (39.0-53.0) % Plt Count (150-450) k/uL Neutrophils # 9.0 H (1.3-7.7) k/uL Lymphocytes # 0.9 L (1.0-4.8) k/uL INR (<1.2) ABG pH (7.35-7.45) ABG pO2 (83-108) mmHg ABG Total CO2 (19-24) mmol/L ABG O2 Saturation (94-97) % ABG Hematocrit (34.0-46.0) % ABG Potassium (3.4-4.5) mmol/L ABG Ionized Calcium (4.5-5.3) mg/dL ABG Glucose (75-99) mg/dL ABG Lactic Acid (0.5-1.6) mmol/L Hemoglobin (13.0-17.5) gm/dL Chloride 111 H (98-107) mmol/L Carbon Dioxide 21 L (22-30) mmol/L BUN 23 H (9-20) mg/dL Glucose 119 H (74-99) mg/dL POC Glucose (mg/dL) 129 H (70-110) mg/dL AST 64 H (17-59) U/L Total Protein 5.1 L (6.3-8.2) g/dL Albumin 3.2 L (3.5-5.0) g/dL Arterial Blood Potassium (3.4-4.5) mmol/L Arterial Blood Glucose (75-99) mg/dL Crossmatch 09/19/23 09/19/23 09/19/23 Range/Units 07:07 08:25 09:13 WBC (3.8-10.6) k/uL RBC (4.30-5.90) m/uL Hgb (13.0-17.5) gm/dL Hct (39.0-53.0) % Plt Count (150-450) k/uL Neutrophils # (1.3-7.7) k/uL Lymphocytes # (1.0-4.8) k/uL INR (<1.2) ABG pH (7.35-7.45) ABG pO2 (83-108) mmHg ABG Total CO2 (19-24) mmol/L ABG O2 Saturation (94-97) % ABG Hematocrit (34.0-46.0) % ABG Potassium (3.4-4.5) mmol/L ABG Ionized Calcium (4.5-5.3) mg/dL ABG Glucose (75-99) mg/dL ABG Lactic Acid (0.5-1.6) mmol/L Hemoglobin (13.0-17.5) gm/dL Chloride (98-107) mmol/L Carbon Dioxide (22-30) mmol/L BUN (9-20) mg/dL Glucose (74-99) mg/dL POC Glucose (mg/dL) 140 H 143 H 137 H (70-110) mg/dL AST (17-59) U/L Total Protein (6.3-8.2) g/dL Albumin (3.5-5.0) g/dL Arterial Blood Potassium (3.4-4.5) mmol/L Arterial Blood Glucose (75-99) mg/dL Crossmatch 09/19/23 Range/Units 11:06 WBC (3.8-10.6) k/uL RBC (4.30-5.90) m/uL Hgb (13.0-17.5) gm/dL Hct (39.0-53.0) % Plt Count (150-450) k/uL Neutrophils # (1.3-7.7) k/uL Lymphocytes # (1.0-4.8) k/uL INR (<1.2) ABG pH (7.35-7.45) ABG pO2 (83-108) mmHg ABG Total CO2 (19-24) mmol/L ABG O2 Saturation (94-97) % ABG Hematocrit (34.0-46.0) % ABG Potassium (3.4-4.5) mmol/L ABG Ionized Calcium (4.5-5.3) mg/dL ABG Glucose (75-99) mg/dL ABG Lactic Acid (0.5-1.6) mmol/L Hemoglobin (13.0-17.5) gm/dL Chloride (98-107) mmol/L Carbon Dioxide (22-30) mmol/L BUN (9-20) mg/dL Glucose (74-99) mg/dL POC Glucose (mg/dL) 126 H (70-110) mg/dL AST (17-59) U/L Total Protein (6.3-8.2) g/dL Albumin (3.5-5.0) g/dL Arterial Blood Potassium (3.4-4.5) mmol/L Arterial Blood Glucose (75-99) mg/dL Crossmatch
[2023-09-19] MEDS: LEVOTHYROXINE 50 MCG TAB PO SCH (12:58)
[2023-09-19 13:04] LABS: Glucose,Whole Blood 128 mg/dL (70-110)
[2023-09-19 14:07] LABS: Glucose,Whole Blood 130 mg/dL (70-110)
[2023-09-19 16:15] LABS: Glucose,Whole Blood 128 mg/dL (70-110)
[2023-09-19] MEDS: ACETAMINOPHEN IV (For NPO) 1,000 MG in EMPTY BAG 1 BAG IVPB STA (16:38)
[2023-09-19] MEDS: HYDROmorphone 0.5 MG/0.5 ML SYRINGE IVP PRN (16:38)
[2023-09-19 18:10] LABS: Glucose,Whole Blood 167 mg/dL (70-110)
[2023-09-19] MEDS: AMIODARONE 450 MG in DEXTROSE 5% IN WATER 250 ML IV PRN (18:17)
[2023-09-19 19:05] LABS: Glucose,Whole Blood 140 mg/dL (70-110)
[2023-09-19 20:00] LABS: Glucose,Whole Blood 112 mg/dL (70-110)
[2023-09-19] MEDS: SENNOSIDES-DOCUSATE SODIUM 1 EACH TAB PO SCH (20:07)
[2023-09-19] MEDS: METOPROLOL TARTRATE 25 MG TAB PO SCH (20:07)
[2023-09-19 21:14] LABS: Glucose,Whole Blood 113 mg/dL (70-110)
[2023-09-19 23:02] LABS: Glucose,Whole Blood 116 mg/dL (70-110)
--- NOTE | 2023-09-19 23:48 | PN ---
PROGRESS NOTE SUBJECTIVE: Leyla is a 73-year-old gentleman who is postop day #1 following bypass surgery. He is extubated, alert, awake, but developed atrial fibrillation. Heart rate is controlled. He is in the process of being started on amiodarone. He has history of paroxysmal atrial fibrillation and underwent ablation yesterday during surgery and also had a clip placed in the left atrial appendage. OBJECTIVE: VITAL SIGNS: Heart rate is 68 beats per minute, blood pressure is 111/45, respiratory rate is 18. CHEST: Reveals diminished air entry at the bases. HEART: Reveals first and second heart sounds. Irregular rhythm. ABDOMEN: Soft. EXTREMITIES: Did not reveal any edema. LABORATORY DATA: Labs show that the potassium is 4.1, creatinine is 0.97, hemoglobin is low at 9.4, platelet count is 168. ASSESSMENT: 1. Multivessel coronary artery disease, status post bypass surgery, postoperative day #1. 2. Postop atrial fibrillation. PLAN: I will continue on his current medications. The patient will work on incentive spirometry. If the patient's atrial fibrillation persists, consider restarting anticoagulant when it is feasible from surgical standpoint. MMODL / IJN: [id number] /
[2023-09-20 00:25] LABS: Glucose,Whole Blood 138 mg/dL (70-110)
[2023-09-20 01:13] LABS: Glucose,Whole Blood 129 mg/dL (70-110)
[2023-09-20 02:03] LABS: Glucose,Whole Blood 126 mg/dL (70-110)
[2023-09-20 04:17] LABS: Glucose,Whole Blood 112 mg/dL (70-110)
[2023-09-20 05:06] LABS: Glucose,Whole Blood 125 mg/dL (70-110)
[2023-09-20 05:50] LABS: Basophils # (A) 0.1 k/uL (0-0.2); Basophils % (A) 0 %; Eosinophils # (A) 0.1 k/uL (0-0.7); Eosinophils % (A) 1 %; HCT 28.4 % (39.0-53.0); HGB 9.4 gm/dL (13.0-17.5); Lymphocytes # (A) 1.3 k/uL (1.0-4.8); Lymphocytes % (A) 8 %; MCH 30.4 pg (25.0-35.0); MCV 92.2 fL (80.0-100.0); Mean Platelet Volume 10.8; Monocytes % (A) 6 %; Neutrophils # (A) 12.6 k/uL (1.3-7.7); Neutrophils % (A) 82 %; Platelet Count 160 k/uL (150-450); RBC 3.08 m/uL (4.30-5.90); RDW 15.4 % (11.5-15.5); WBC 15.4 k/uL (3.8-10.6)
[2023-09-20 05:58] LABS: ALT 28 U/L (4-49); AST 54 U/L (17-59); African American GFR (CKD) 82 (>60 ml/min/1.73 sqM); Albumin 3.2 g/dL (3.5-5.0); Alkaline Phosphatase 49 U/L (38-126); Anion Gap 6 mmol/L; Blood Urea Nitrogen 28 mg/dL (9-20); Carbon Dioxide 21 mmol/L (22-30); Chloride 110 mmol/L (98-107); Glucose 116 mg/dL (74-99); Non-African American GFR(CKD) 71 (>60 ml/min/1.73 sqM); Sodium 137 mmol/L (137-145); Total Bilirubin 0.7 mg/dL (0.2-1.3); Total Protein 5.6 g/dL (6.3-8.2)
[2023-09-20 06:14] LABS: Glucose,Whole Blood 147 mg/dL (70-110)
[2023-09-20 07:02] LABS: Glucose,Whole Blood 135 mg/dL (70-110)
--- NOTE | 2023-09-20 07:30 | XR ---
EXAMINATION TYPE: XR chest 1V portable DATE OF EXAM: 09/20/2023 COMPARISON: 09/19/2023 INDICATION: Postop cardiac surgery TECHNIQUE: Single frontal view of the chest is obtained. FINDINGS: The heart size is enlarged. The pulmonary vasculature is normal. Some increased linear markings are in the right upper lung field. Correlate for atelectasis. Some mil d left lower lobe infiltrate is present. Atelectasis and pneumonia could be considered. IMPRESSION: 1. Mild right upper lip lower lobe infiltrates. Correlate for atelectasis and pneumonia. Follow-up ca n be performed.
[2023-09-20 08:34] LABS: Glucose,Whole Blood 119 mg/dL (70-110)
[2023-09-20] MEDS: METOPROLOL TARTRATE 50 MG TAB PO SCH (08:56)
[2023-09-20] MEDS: allopurinoL 300 MG TAB PO SCH (08:56)
[2023-09-20] MEDS: AMIODARONE 200 MG TAB PO SCH (08:56)
--- NOTE | 2023-09-20 09:41 | P.PN ---
Subjective Progress Note Date: 09/20/23 Patient is a 73-year-old male who is currently admitted after undergoing coronary bypass for multivessel coronary artery disease. The patient states he did well overnight. He has been up to the recliner chair. He reports minimal discomfort. GENERAL: Well-appearing, well-nourished and in no acute distress. NECK: Supple without JVD or thyromegaly. LUNGS: Breath sounds clear to auscultation bilaterally. Respiration equal and unlabored. No wheezes, rales or rhonchi. HEART: Irregular rate and rhythm without murmurs, rubs or gallops. S1 and S2 heard. EXTREMITIES: Normal range of motion, no edema. No clubbing or cyanosis. Peripheral pulses intact and strong. TELEMETRY: Rate controlled atrial fibrillation. LABS: WBC 15.4, hemoglobin 9.4, hematocrit 28.4, platelet 160, sodium 137, potassium 4.0, BUN 28, creatinine 1.03 IMPRESSION: Multivessel coronary artery disease, status post CABG Postoperative atrial fibrillation History of paroxysmal atrial fibrillation History of hypertension PLAN: Resume anticoagulation when cleared by CV surgery Outpatient [facility] to assess appendage closure with primary marker assembler Continue supportive treatment including incentive spirometry I am dictating on behalf of Dr Home Yang's history/physical and assessment/plan. Objective - Vital Signs Vital signs: Vital Signs Temp 98.3 F 09/20/23 08:00 Pulse 82 09/20/23 09:00 Resp 20 09/20/23 09:00 BP 146/94 09/20/23 09:00 Pulse Ox 92 L 09/20/23 09:00 FiO2 50 09/18/23 17:48 Intake & Output 09/19/23 09/20/23 09/20/23 18:59 06:59 18:59 Intake Total 1638.156 322.462 172.791 Output Total 805 490 185 Balance 833.156 -167.538 -12.209 Weight 114.6 kg Intake: IV 536 312 52 ACETAMINOPHEN IV (For NPO 100 ) 1,000 mg In Empty Bag 1 bag @ 400 mls/hr IVPB Q6HR [facility] Rx#:[id number] Sodium Chloride 0.9% 1, 370 240 40 000 ml @ 20 mls/hr IV . Q24H [facility] Rx#:[id number] pressure bags 66 72 12 Intake, IV Titration 14.156 10.462 0.791 Amount Insulin Regular 100 unit 14.156 10.462 0.791 In Sodium Chloride 0.9% 100 ml @ Per Protocol IV .Q0M [facility] Rx#:[id number] Oral 240 120 Tube Feeding 848 Output: Chest Tube Drainage 400 140 10 Chest Tube Mediastinal 130 70 10 Pleural Catheter Left 270 70 0 Drainage 20 Left Arm 20 Urine 385 350 175 Other: Voiding Method Indwelling Catheter Indwelling Catheter ABP, PAP, CO, CI - Last Documented Arterial Blood Pressure 140/57 Pulmonary Artery Pressure 42/15 Cardiac Output 4.7 Cardiac Index 2.2 - Labs CBC & Chem 7: 09/20/23 05:05 09/20/23 05:05 Labs: Abnormal Lab Results - Last 24 Hours (Table) 09/19/23 09/19/23 09/19/23 Range/Units 11:06 13:03 14:05 WBC (3.8-10.6) k/uL RBC (4.30-5.90) m/uL Hgb (13.0-17.5) gm/dL Hct (39.0-53.0) % Neutrophils # (1.3-7.7) k/uL Chloride (98-107) mmol/L Carbon Dioxide (22-30) mmol/L BUN (9-20) mg/dL Glucose (74-99) mg/dL POC Glucose (mg/dL) 126 H 128 H 130 H (70-110) mg/dL Total Protein (6.3-8.2) g/dL Albumin (3.5-5.0) g/dL 09/19/23 09/19/23 09/19/23 Range/Units 16:13 18:09 19:03 WBC (3.8-10.6) k/uL RBC (4.30-5.90) m/uL Hgb (13.0-17.5) gm/dL Hct (39.0-53.0) % Neutrophils # (1.3-7.7) k/uL Chloride (98-107) mmol/L Carbon Dioxide (22-30) mmol/L BUN (9-20) mg/dL Glucose (74-99) mg/dL POC Glucose (mg/dL) 128 H 167 H 140 H (70-110) mg/dL Total Protein (6.3-8.2) g/dL Albumin (3.5-5.0) g/dL 09/19/23 09/19/23 09/19/23 Range/Units 19:58 21:03 23:00 WBC (3.8-10.6) k/uL RBC (4.30-5.90) m/uL Hgb (13.0-17.5) gm/dL Hct (39.0-53.0) % Neutrophils # (1.3-7.7) k/uL Chloride (98-107) mmol/L Carbon Dioxide (22-30) mmol/L BUN (9-20) mg/dL Glucose (74-99) mg/dL POC Glucose (mg/dL) 112 H 113 H 116 H (70-110) mg/dL Total Protein (6.3-8.2) g/dL Albumin (3.5-5.0) g/dL 09/20/23 09/20/23 09/20/23 Range/Units 00:23 01:00 02:01 WBC (3.8-10.6) k/uL RBC (4.30-5.90) m/uL Hgb (13.0-17.5) gm/dL Hct (39.0-53.0) % Neutrophils # (1.3-7.7) k/uL Chloride (98-107) mmol/L Carbon Dioxide (22-30) mmol/L BUN (9-20) mg/dL Glucose (74-99) mg/dL POC Glucose (mg/dL) 138 H 129 H 126 H (70-110) mg/dL Total Protein (6.3-8.2) g/dL Albumin (3.5-5.0) g/dL 09/20/23 09/20/23 09/20/23 Range/Units 04:16 05:04 05:05 WBC 15.4 H (3.8-10.6) k/uL RBC 3.08 L (4.30-5.90) m/uL Hgb 9.4 L (13.0-17.5) gm/dL Hct 28.4 L (39.0-53.0) % Neutrophils # 12.6 H (1.3-7.7) k/uL Chloride (98-107) mmol/L Carbon Dioxide (22-30) mmol/L BUN (9-20) mg/dL Glucose (74-99) mg/dL POC Glucose (mg/dL) 112 H 125 H (70-110) mg/dL Total Protein (6.3-8.2) g/dL Albumin (3.5-5.0) g/dL 09/20/23 09/20/23 09/20/23 Range/Units 05:05 06:09 07:01 WBC (3.8-10.6) k/uL RBC (4.30-5.90) m/uL Hgb (13.0-17.5) gm/dL Hct (39.0-53.0) % Neutrophils # (1.3-7.7) k/uL Chloride 110 H (98-107) mmol/L Carbon Dioxide 21 L (22-30) mmol/L BUN 28 H (9-20) mg/dL Glucose 116 H (74-99) mg/dL POC Glucose (mg/dL) 147 H 135 H (70-110) mg/dL Total Protein 5.6 L (6.3-8.2) g/dL Albumin 3.2 L (3.5-5.0) g/dL 09/20/23 Range/Units 08:32 WBC (3.8-10.6) k/uL RBC (4.30-5.90) m/uL Hgb (13.0-17.5) gm/dL Hct (39.0-53.0) % Neutrophils # (1.3-7.7) k/uL Chloride (98-107) mmol/L Carbon Dioxide (22-30) mmol/L BUN (9-20) mg/dL Glucose (74-99) mg/dL POC Glucose (mg/dL) 119 H (70-110) mg/dL Total Protein (6.3-8.2) g/dL Albumin (3.5-5.0) g/dL
--- NOTE | 2023-09-20 11:14 | P.PN ---
Subjective Progress Note Date: 09/20/23 This is a very pleasant 73-year-old male patient with a history of atrial fibrillation with previous cardioversions, anticoagulated with Eliquis, gastroesophageal reflux disease, hyperlipidemia, hypertension, obstructive sleep apnea utilizing CPAP at 12 cm of water, gout, agent orange exposure while in [facility], multiple orthopedic surgeries. He is a lifelong non-smoker. No history of asthma. No oxygen or inhalers. His FEV1 value was found to be 2.45 L and 89% of predicted. He had presented here to the emergency room on September 13, 2023 with complaints of midsternal chest discomfort radiating to the bilateral shoulders. Troponins were 0.060, 0.931, 3.330. White count 8.0. Hemoglobin 13.3. Platelets 204. Sodium 137. Potassium 4.0. Bicarb 22. BUN 15. Creatinine 0.82. Glucose 131. Chest x-ray revealed no acute pulmonary process. Echocardiogram revealed preserved left ventricular systolic function with ejection fraction 55 to 60%. He did undergo cardiac catheterization on 09/14/2023 that revealed severe multivessel coronary artery disease including a tight stenosis in the proximal LAD, proximal circumflex and intermittent disease involving the RCA. He was recommended surgical revascularization. The plan is for surgery on 09/18/2023. He is seen today in consultation on the selective care unit. He is sitting up in a chair. Awake and alert in no acute distress. He denies any shortness of breath, cough or congestion. Maintaining good O2 saturations in the 90s on room air. He is practicing well with the incentive spirometer. He remains on a heparin drip. He denies any chest discomfort currently. Patient was evaluated today on 09/16/2023, patient is doing well, scheduled to have surgery in the next few days, continues to have no active pulmonary symptoms no cough no wheezing no shortness of breath, doing excellent with his incentive spirometry. CT of the chest was reviewed, no worrisome findings at this point. Patient had FEV1 of 89%, he never smoked. The patient is seen today September 17, 2023 in follow-up on the regular medical floor. He is awake and alert in no acute distress. Sitting up at the bedside. He is working well with his incentive spirometer. He denies any shortness of breath, cough or congestion. No chest pain presently. White count 7.8. Hemoglobin 12.0. Platelets 184. Sodium 139. Potassium 4.0. Bicarb 22. BUN 18. Creatinine 0.94. Glucose 86. He remains on a heparin drip. The patient is seen today September 20, 2023 in follow-up in the intensive care unit. Postoperative day #2 following coronary artery bypass grafting x 4 utilizing a CARLISLE to the LAD, right radial artery to the ramus intermedius and obtuse marginal artery. Reverse saphenous vein graft to the distal RCA. Left atrial appendage ligation. He is awake and alert in no acute distress. He is maintaining good O2 saturations in the 90s on 4 L/min per nasal cannula. His chest tubes and lines have all been removed. He is working well with the incentive spirometer. Pulling approximately 1500 mL. Chest x-ray does show atelectatic changes in the bilateral bases. He is in atrial fibrillation in a controlled ventricular response. Count 15.4. Hemoglobin 9.4. Platelets 160. Sodium 137. Potassium 4.0. Bicarb 21. BUN 28. Creatinine 1.03. Glucose 116. He is continued on DuoNeb inhalations. Heparin for DVT prophylaxis. Objective - Vital Signs Vital signs: Vital Signs Temp 98.3 F 09/20/23 08:00 Pulse 104 H 09/20/23 10:00 Resp 20 09/20/23 10:00 BP 153/73 09/20/23 10:00 Pulse Ox 94 L 09/20/23 10:00 FiO2 50 09/18/23 17:48 Intake & Output 09/19/23 09/20/23 09/20/23 18:59 06:59 18:59 Intake Total 1638.156 322.462 173.574 Output Total 805 490 185 Balance 833.156 -167.538 -11.426 Weight 114.6 kg Intake: IV 536 312 52 ACETAMINOPHEN IV (For NPO 100 ) 1,000 mg In Empty Bag 1 bag @ 400 mls/hr IVPB Q6HR [facility] Rx#:[id number] Sodium Chloride 0.9% 1, 370 240 40 000 ml @ 20 mls/hr IV . Q24H [facility] Rx#:[id number] pressure bags 66 72 12 Intake, IV Titration 14.156 10.462 1.574 Amount Insulin Regular 100 unit 14.156 10.462 1.574 In Sodium Chloride 0.9% 100 ml @ Per Protocol IV .Q0M [facility] Rx#:[id number] Oral 240 120 Tube Feeding 848 Output: Chest Tube Drainage 400 140 10 Chest Tube Mediastinal 130 70 10 Pleural Catheter Left 270 70 0 Drainage 20 Left Arm 20 Urine 385 350 175 Other: Voiding Method Indwelling Catheter Indwelling Catheter ABP, PAP, CO, CI - Last Documented Arterial Blood Pressure 140/57 Pulmonary Artery Pressure 42/15 Cardiac Output 4.7 Cardiac Index 2.2 - Exam GENERAL EXAM: Alert, very pleasant 73-year-old male patient, on 4 L nasal cannula, fairly comfortable in no apparent distress. HEAD: Normocephalic. EYES: Normal reaction of pupils, equal size. NOSE: Clear with pink turbinates. THROAT: No erythema or exudates. NECK: No masses, no JVD. CHEST: Sternal dressing dry and intact. Heart hugger in place. LUNGS: Equal air entry with no crackles, wheeze, rhonchi or dullness. CVS: S1 and S2 normal with no audible murmur, regular rhythm. ABDOMEN: No hepatosplenomegaly, normal bowel sounds, no guarding or rigidity. SPINE: No scoliosis or deformity SKIN: No rashes CENTRAL NERVOUS SYSTEM: No focal deficits, tone is normal in all 4 extremities. EXTREMITIES: SCDs in place. There is trace peripheral edema. No clubbing, no cyanosis. Peripheral pulses are intact. - Labs CBC & Chem 7: 09/20/23 05:05 09/20/23 05:05 Labs: Abnormal Lab Results - Last 24 Hours (Table) 09/19/23 09/19/23 09/19/23 Range/Units 13:03 14:05 16:13 WBC (3.8-10.6) k/uL RBC (4.30-5.90) m/uL Hgb (13.0-17.5) gm/dL Hct (39.0-53.0) % Neutrophils # (1.3-7.7) k/uL Chloride (98-107) mmol/L Carbon Dioxide (22-30) mmol/L BUN (9-20) mg/dL Glucose (74-99) mg/dL POC Glucose (mg/dL) 128 H 130 H 128 H (70-110) mg/dL Total Protein (6.3-8.2) g/dL Albumin (3.5-5.0) g/dL 09/19/23 09/19/23 09/19/23 Range/Units 18:09 19:03 19:58 WBC (3.8-10.6) k/uL RBC (4.30-5.90) m/uL Hgb (13.0-17.5) gm/dL Hct (39.0-53.0) % Neutrophils # (1.3-7.7) k/uL Chloride (98-107) mmol/L Carbon Dioxide (22-30) mmol/L BUN (9-20) mg/dL Glucose (74-99) mg/dL POC Glucose (mg/dL) 167 H 140 H 112 H (70-110) mg/dL Total Protein (6.3-8.2) g/dL Albumin (3.5-5.0) g/dL 09/19/23 09/19/23 09/20/23 Range/Units 21:03 23:00 00:23 WBC (3.8-10.6) k/uL RBC (4.30-5.90) m/uL Hgb (13.0-17.5) gm/dL Hct (39.0-53.0) % Neutrophils # (1.3-7.7) k/uL Chloride (98-107) mmol/L Carbon Dioxide (22-30) mmol/L BUN (9-20) mg/dL Glucose (74-99) mg/dL POC Glucose (mg/dL) 113 H 116 H 138 H (70-110) mg/dL Total Protein (6.3-8.2) g/dL Albumin (3.5-5.0) g/dL 09/20/23 09/20/23 09/20/23 Range/Units 01:00 02:01 04:16 WBC (3.8-10.6) k/uL RBC (4.30-5.90) m/uL Hgb (13.0-17.5) gm/dL Hct (39.0-53.0) % Neutrophils # (1.3-7.7) k/uL Chloride (98-107) mmol/L Carbon Dioxide (22-30) mmol/L BUN (9-20) mg/dL Glucose (74-99) mg/dL POC Glucose (mg/dL) 129 H 126 H 112 H (70-110) mg/dL Total Protein (6.3-8.2) g/dL Albumin (3.5-5.0) g/dL 09/20/23 09/20/23 09/20/23 Range/Units 05:04 05:05 05:05 WBC 15.4 H (3.8-10.6) k/uL RBC 3.08 L (4.30-5.90) m/uL Hgb 9.4 L (13.0-17.5) gm/dL Hct 28.4 L (39.0-53.0) % Neutrophils # 12.6 H (1.3-7.7) k/uL Chloride 110 H (98-107) mmol/L Carbon Dioxide 21 L (22-30) mmol/L BUN 28 H (9-20) mg/dL Glucose 116 H (74-99) mg/dL POC Glucose (mg/dL) 125 H (70-110) mg/dL Total Protein 5.6 L (6.3-8.2) g/dL Albumin 3.2 L (3.5-5.0) g/dL 09/20/23 09/20/23 09/20/23 Range/Units 06:09 07:01 08:32 WBC (3.8-10.6) k/uL RBC (4.30-5.90) m/uL Hgb (13.0-17.5) gm/dL Hct (39.0-53.0) % Neutrophils # (1.3-7.7) k/uL Chloride (98-107) mmol/L Carbon Dioxide (22-30) mmol/L BUN (9-20) mg/dL Glucose (74-99) mg/dL POC Glucose (mg/dL) 147 H 135 H 119 H (70-110) mg/dL Total Protein (6.3-8.2) g/dL Albumin (3.5-5.0) g/dL Assessment and Plan Assessment: Acute non-ST segment elevation myocardial infarction in a patient found to have severe multivessel coronary artery disease. Status post coronary to bypass grafting x 4 with a CARLISLE to the LAD, radial artery to the ramus intermedius and obtuse marginal artery. Reverse saphenous vein graft to the RCA. Left atrial appendage ligation. Postoperative day #2. History of paroxysmal atrial fibrillation with previous cardioversions, anticoagulated with Eliquis currently on hold Hypertension Hyperlipidemia Obstructive sleep apnea utilizing home CPAP at 12 cm of water, nasal pillow due to significant claustrophobia History of gout Gastroesophageal reflux disease Agent orange exposure while in [place] Lifelong non-smoker, FEV1 value 2.45 L, 89% of predicted Plan: The patient was seen and evaluated Chest x-ray, labs and medications reviewed Working well with the incentive spirometer Currently on 4 L nasal cannula Titrate down the FiO2 as tolerated Increase his activity as tolerated We will continue to follow I have personally seen and examined the patient, performed the documentation and the assessment and plan as written. Number of minutes spent on the visit: 10.
[2023-09-20 12:04] LABS: Glucose,Whole Blood 118 mg/dL (70-110)
[2023-09-20] MEDS: INSULIN ASPART (NovoLOG) 100 UNIT/ML VIAL SQ SCH (12:06)
[2023-09-20] MEDS: polyethylene glycoL 3350 17 GM POWD.PACK PO STA (13:00)
--- NOTE | 2023-09-20 13:21 | P.PN ---
Subjective Progress Note Date: 09/20/23 Principal diagnosis: Multivessel coronary artery disease, NSTEMI this admission. 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 Preoperative nasal swab positive for MSSA, treated. POD #2 On pump coronary artery bypass grafting x 4. Left internal thoracic artery (in-situ) to left anterior descending coronary artery. Radial artery from aorta sequential to ramus intermedius and obtuse marginal artery. Reverse saphenous vein from aorta to distal right coronary artery. Left atrial appendage ligation using #35mm AtriClip. Bilateral pulmonary vein isolation with AtriCure RF Clamp. Endoscopic left radial artery and right greater saphenous vein harvest. Graft flow measurements using the Medi-Stim flow meter system. Trans- esophageal echocardiogram performed by anesthesia. Postoperative acute blood loss anemia, expected given hemodilution and cardiopulmonary bypass. Paroxysmal atrial fibrillation, a known common occurrence after cardiac surgery especially given his history of preoperative paroxysmal atrial fibrillation. The patient was seen in follow-up today September 20, 2023 at his bedside in the in tensive care unit. He is currently sitting up to the bedside chair, is awake, alert, oriented x 3 and is in no acute apparent distress. He denies any complaints of shortness of breath at this time, although is complaining of some surgical type pain to his chest tube insertion sites and taking a deep breath. Oxygen saturations are 92% on 3 L nasal cannula and he is achieving 1500 mL on his incentive spirometry with encouragement. Right IJ cordis remains in place with continuous CVP monitoring, current CVP pressure 7 mmHg. Mediastinal and left pleural chest tubes remain in place to low continuous wall suction -20 cm H2O. No air leak is present. Mediastinal chest tube draining 50 mL of thin serosanguineous drainage in the last 8 hours and 250 mL in the last 24 hours. Left pleural chest tube drained 50 mL output in the last 8 hours and 170 mL output in the last 24 hours. Johansen catheter remains in place with urine output in the last 8 hours 270 mL. He remains hemodynamically stable and is currently on no inotropic or pressor support. Amiodarone drip is infusing per protocol at 0.5 mg/min for some episodes of atrial fibrillation. Bedside telemetry is currently showing normal sinus rhythm heart rate 76 bpm. Laboratory and chest x-ray results were reviewed. Objective - Vital Signs Vital signs: Vital Signs Temp 98.4 F 09/20/23 04:00 Pulse 74 09/20/23 07:00 Resp 14 09/20/23 07:00 BP 129/81 09/20/23 07:00 Pulse Ox 93 L 09/20/23 07:00 FiO2 50 09/18/23 17:48 Intake & Output 09/19/23 09/20/23 09/20/23 18:59 06:59 18:59 Intake Total 1638.156 322.462 26.791 Output Total 805 490 60 Balance 833.156 -167.538 -33.209 Weight 114.6 kg Intake: IV 536 312 26 ACETAMINOPHEN IV (For NPO 100 ) 1,000 mg In Empty Bag 1 bag @ 400 mls/hr IVPB Q6HR [facility] Rx#:[id number] Sodium Chloride 0.9% 1, 370 240 20 000 ml @ 20 mls/hr IV . Q24H [facility] Rx#:[id number] pressure bags 66 72 6 Intake, IV Titration 14.156 10.462 0.791 Amount Insulin Regular 100 unit 14.156 10.462 0.791 In Sodium Chloride 0.9% 100 ml @ Per Protocol IV .Q0M [facility] Rx#:[id number] Oral 240 Tube Feeding 848 Output: Chest Tube Drainage 400 140 10 Chest Tube Mediastinal 130 70 10 Pleural Catheter Left 270 70 0 Drainage 20 Left Arm 20 Urine 385 350 50 Other: Voiding Method Indwelling Catheter Indwelling Catheter ABP, PAP, CO, CI - Last Documented Arterial Blood Pressure 147/57 Pulmonary Artery Pressure 42/15 Cardiac Output 4.7 Cardiac Index 2.2 - Exam CONSTITUTIONAL: Sitting up to the bedside chair in the intensive care unit, appears comfortable, cooperative, no apparent acute distress. HEENT: Neck is supple, no JVD, no lymphadenopathy. Right IJ Cordis in place and functioning. RESPIRATORY: Lungs sounds essentially clear throughout, diminished to his bilandateral bases. Respirations are symmetrical and nonlabored. Currently on 3 L nasal cannula with oxygen saturations 92%. Able to achieve 1500 mL on his incentive spirometry. Strong cough. CARDIOVASCULAR: Regular rhythm and rate. S1 and S2 present, negative for S3, gallop or murmur. Bedside telemetry showing normal sinus rhythm heart rate 76 bpm. Sternum is stable. Palpable peripheral pulses bilaterally. No calf pain or tenderness noted. Heart hugger in place with patient demonstrating appropriate use. Knee-high ANGEL hose and sequential compression devices in place to his bilateral lower extremities. GASTROINTESTINAL: Abdomen soft, nontender, nondistended. Hypoactive bowel sounds present 4 quadrants. Tolerating diet. Passing flatus. No guarding or rigidity. GENITOURINARY: Johansen present draining clear, yellow urine. Urine output 270 mL in the last 8 hours. INTEGUMENTARY: Skin is warm and dry with no evidence of clubbing or cyanosis. Midline sternal incision clean dry and well approximated, covered with dry intact dressing. Right lower extremity EVH sites well approximated without redness or drainage. Left arm radial artery harvest sites clean, dry and approximated. No drainage or redness is present. NEUROLOGIC: Cranial nerves II through XII intact. No focal deficits. MUSKULOSKELETAL: Able to move all extremities, strength equal bilaterally, generalized weakness. PSYCHIATRIC: Alert and oriented to person place and time, appropriate affect, intact judgment and insight. INVASIVE LINES AND TUBES: Mediastinal/left pleural chest tubes present and connected to low continuous wall suction, no air leaks present. Mediastinal tube with 50 mL of thin serosanguineous drainage overnight, 250 mL output in the last 24 hours. Left pleural chest tube with 50 mL of thin serosanguineous drainage overnight, 170 mL output in the last 24 hours. Atrial and ventricular epicardial pacemaker wires present, connected to generator, VVI backup rate 50 bpm. Right internal jugular Cordis, right radial arterial line present. Current CVP 8 mmHg. - Allied health notes Allied health notes reviewed: nursing - Labs CBC & Chem 7: 09/20/23 05:05 09/20/23 05:05 Labs: Abnormal Lab Results - Last 24 Hours (Table) 09/19/23 09/19/23 09/19/23 Range/Units 08:25 09:13 11:06 WBC (3.8-10.6) k/uL RBC (4.30-5.90) m/uL Hgb (13.0-17.5) gm/dL Hct (39.0-53.0) % Neutrophils # (1.3-7.7) k/uL Chloride (98-107) mmol/L Carbon Dioxide (22-30) mmol/L BUN (9-20) mg/dL Glucose (74-99) mg/dL POC Glucose (mg/dL) 143 H 137 H 126 H (70-110) mg/dL Total Protein (6.3-8.2) g/dL Albumin (3.5-5.0) g/dL 09/19/23 09/19/23 09/19/23 Range/Units 13:03 14:05 16:13 WBC (3.8-10.6) k/uL RBC (4.30-5.90) m/uL Hgb (13.0-17.5) gm/dL Hct (39.0-53.0) % Neutrophils # (1.3-7.7) k/uL Chloride (98-107) mmol/L Carbon Dioxide (22-30) mmol/L BUN (9-20) mg/dL Glucose (74-99) mg/dL POC Glucose (mg/dL) 128 H 130 H 128 H (70-110) mg/dL Total Protein (6.3-8.2) g/dL Albumin (3.5-5.0) g/dL 09/19/23 09/19/23 09/19/23 Range/Units 18:09 19:03 19:58 WBC (3.8-10.6) k/uL RBC (4.30-5.90) m/uL Hgb (13.0-17.5) gm/dL Hct (39.0-53.0) % Neutrophils # (1.3-7.7) k/uL Chloride (98-107) mmol/L Carbon Dioxide (22-30) mmol/L BUN (9-20) mg/dL Glucose (74-99) mg/dL POC Glucose (mg/dL) 167 H 140 H 112 H (70-110) mg/dL Total Protein (6.3-8.2) g/dL Albumin (3.5-5.0) g/dL 09/19/23 09/19/23 09/20/23 Range/Units 21:03 23:00 00:23 WBC (3.8-10.6) k/uL RBC (4.30-5.90) m/uL Hgb (13.0-17.5) gm/dL Hct (39.0-53.0) % Neutrophils # (1.3-7.7) k/uL Chloride (98-107) mmol/L Carbon Dioxide (22-30) mmol/L BUN (9-20) mg/dL Glucose (74-99) mg/dL POC Glucose (mg/dL) 113 H 116 H 138 H (70-110) mg/dL Total Protein (6.3-8.2) g/dL Albumin (3.5-5.0) g/dL 09/20/23 09/20/23 09/20/23 Range/Units 01:00 02:01 04:16 WBC (3.8-10.6) k/uL RBC (4.30-5.90) m/uL Hgb (13.0-17.5) gm/dL Hct (39.0-53.0) % Neutrophils # (1.3-7.7) k/uL Chloride (98-107) mmol/L Carbon Dioxide (22-30) mmol/L BUN (9-20) mg/dL Glucose (74-99) mg/dL POC Glucose (mg/dL) 129 H 126 H 112 H (70-110) mg/dL Total Protein (6.3-8.2) g/dL Albumin (3.5-5.0) g/dL 09/20/23 09/20/23 09/20/23 Range/Units 05:04 05:05 05:05 WBC 15.4 H (3.8-10.6) k/uL RBC 3.08 L (4.30-5.90) m/uL Hgb 9.4 L (13.0-17.5) gm/dL Hct 28.4 L (39.0-53.0) % Neutrophils # 12.6 H (1.3-7.7) k/uL Chloride 110 H (98-107) mmol/L Carbon Dioxide 21 L (22-30) mmol/L BUN 28 H (9-20) mg/dL Glucose 116 H (74-99) mg/dL POC Glucose (mg/dL) 125 H (70-110) mg/dL Total Protein 5.6 L (6.3-8.2) g/dL Albumin 3.2 L (3.5-5.0) g/dL 09/20/23 09/20/23 Range/Units 06:09 07:01 WBC (3.8-10.6) k/uL RBC (4.30-5.90) m/uL Hgb (13.0-17.5) gm/dL Hct (39.0-53.0) % Neutrophils # (1.3-7.7) k/uL Chloride (98-107) mmol/L Carbon Dioxide (22-30) mmol/L BUN (9-20) mg/dL Glucose (74-99) mg/dL POC Glucose (mg/dL) 147 H 135 H (70-110) mg/dL Total Protein (6.3-8.2) g/dL Albumin (3.5-5.0) g/dL - Imaging and Cardiology Chest x-ray: report reviewed, image reviewed Assessment and Plan Assessment: Multivessel coronary artery disease, status post four-vessel coronary artery bypass grafting surgery Ischemic cardiomyopathy, according to patient related to agent orange exposure Non-ST elevated myocardial infarction this admission Paroxysmal atrial fibrillation on Eliquis as an outpatient, status post 2 previous cardioversions, currently normal sinus rhythm, status post bilateral pulmonary vein isolation and exclusion left atrial appendage with a 35 mm Atriclip Hypertension Hyperlipidemia, treated, cholesterol 177, LDL 87 History of ascending aortic aneurysm, followed by Dr. Head on an outpatient basis Obstructive sleep apnea with home CPAP use, preoperative FEV1 89% of predicted Benign prostatic hypertrophy, on Flomax as an outpatient Hard of hearing Gout, on allopurinol GERD Neuropathy to his left foot Lifetime non-smoker PTSD from experiences in [place] Osteoarthritis Preoperative nasal swab positive for MSSA, treated Postoperative acute blood loss anemia, expected given cardiopulmonary bypass and hemodilution Plan: Continue to maximize medical therapy with aspirin, statin, Plavix and beta-blo cker. Will increase metoprolol tartrate to 50 mg p.o. twice daily with hold parameters. Finish out amiodarone drip per protocol, currently running at 0.5 mg/min, will transition to amiodarone 400 mg p.o. twice daily for atrial fibrillation prophylaxis. Bedside telemetry currently showing normal sinus rhythm heart rate 76 bpm. Continue Norvasc 2.5 mg p.o. daily for radial artery spasm prophylaxis with hold parameters. Wean oxygen as tolerated. Bronchodilator management per pulmonary/critical care medicine recommendations. Encourage incentive spirometry use 10 times every hour while awake. Increase activity, ambulate as tolerated. PT/OT/cardiac rehab following. Will monitor daily labs and chest x-rays. Electrolyte replacement per protocol. GI/DVT prophylaxis. Insulin management per internal medicine, patient should remain on continuous IV insulin for 48 hours, then may transition to subcutaneous per protocol. The patient is a not diabetic, with a preoperative hemoglobin A1c 5.7%. Pain control with current medication regimen. Discontinue oxycodone. Remove right IJ cordis. We will discontinue his mediastinal and left pleural chest tubes. Discontinue Johansen catheter, continue to monitor strict accurate intake and output. May bladder scan every 6 hours and as needed postvoid residual. If greater than or equal to 300 mL of urine straight cath. Continue home dose of Synthroid. Discharge planning is in place. Remove right radial arterial line Continue atrial and ventricular epicardial pacemaker wires, VVI backup mode of 50. Once his epicardial pacemaker wires have been removed we can restart the Eliquis for anticoagulation. More recommendations to follow based on patient's clinical course Time with Patient: Greater than 30
[2023-09-20] MEDS: FUROSEMIDE 10 MG/ML 2 ML VIAL IV STA (14:18)
[2023-09-20 17:04] LABS: Glucose,Whole Blood 154 mg/dL (70-110)
--- NOTE | 2023-09-20 18:15 | P.PN ---
Subjective Progress Note Date: 09/20/23 H&P Date: 09/13/23 Chief Complaint: Chest pain This is a pleasant 73-year-old gentleman with past medical history significant for ischemic cardiomyopathy, atrial fibrillation,AAA, hypertension, hyperlipidemia, sleep apnea wears CPAP, hiatal hernia, gastroesophageal reflux disease and multiple other medical issues follows with [facility], presented to the ER with complaints of chest pain. Reports he developed midsternal chest pressure while up at his cottage in [place]. Reports nonexertional. Chest pain occurred after midnight last night, radiated to bilateral shoulders and into his jaw, accompanied by sweating, shortness of breath and bilateral lower extremity edema. transported him to the ER, troponins elevated, 0.060, 0.931, 3.330, heparin drip initiated. He currently denies any chest pain, palpitations or shortness of breath. Evaluated by cardiology with abnormal EKG reviewed sinus with-T wave inversion. Chest x-ray reporting no acute cardiopulmonary process.. Hematology, coagulation unremarkable. Sodium 142, potassium 4, bicarb 22, BUN 23, creatinine 1.12 glucose 101 magnesium 1.4-supplemented. 09/14/2023 Just returning back from cardiac catheterization, reporting severe multivessel CAD including a tight stenosis in the proximal LAD, proximal circumflex and intermediate disease involving RCA. 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 C ardiothoracic surgery consulted. Currently denies chest pain, palpitations or shortness of breath. Maintaining O2 sats in the mid 90s on room air. Telemetry sinus rhythm. 09/15/23 maintained on heparin drip, IV fluid hydration. Telemetry sinus rhythm .denies chest pain, palpitations or shortness of breath. Maintaining O2 sats in the mid 90s on room air. 09/16/2023 telemetry sinus rhythm. Sitting up in chair, incentive spirometer 3000. Anticoagulated on heparin drip. Continues on IV fluid hydration. Chest CT reviewed by pharmacy grad intern. Denies nausea or vomiting. Denies chest pain, pal pitations or shortness of breath. Maintaining O2 sats of 96% on room air. 09/17/2023 maintained on heparin drip. Denies chest pain, palpitations or shortness of breath. 3100 on I-S. Awaiting CABG tomorrow, no complaints. Afebrile, normal WBC. Hemoglobin 12, platelets 184. Electrolytes within normal limits. Bicarb 22, BUN 18, creatinine 0.94. Blood sugars controlled. 09/20/2023 status post CABG X4, postop day #2. Telemetry atrial fibrillation, controlled ventricular rate. sitting up in bed, complains of inability to sleep, constipation. Maintaining O2 sats in the 90s on 4 L nasal cannula. Incentive spirometer 1500. chest x-ray increased linear markings right upper lung field, mild left lower lobe infiltrate, suspect atelectasis. afebrile, WBC 15.4. Hemoglobin 9.4, platelets 160 electrolytes within normal limits, bicarb 21 BUN 28 creatinine 1.03. Blood sugars controlled. Objective - Vital Signs Vital signs: Vital Signs Temp 98.3 F 09/20/23 08:00 Pulse 104 H 09/20/23 10:00 Resp 20 09/20/23 10:00 BP 153/73 09/20/23 10:00 Pulse Ox 94 L 09/20/23 10:00 FiO2 50 09/18/23 17:48 Intake & Output 09/19/23 09/20/23 09/20/23 18:59 06:59 18:59 Intake Total 1638.156 322.462 173.574 Output Total 805 490 185 Balance 833.156 -167.538 -11.426 Weight 114.6 kg Intake: IV 536 312 52 ACETAMINOPHEN IV (For NPO 100 ) 1,000 mg In Empty Bag 1 bag @ 400 mls/hr IVPB Q6HR [facility] Rx#:[id number] Sodium Chloride 0.9% 1, 370 240 40 000 ml @ 20 mls/hr IV . Q24H [facility] Rx#:[id number] pressure bags 66 72 12 Intake, IV Titration 14.156 10.462 1.574 Amount Insulin Regular 100 unit 14.156 10.462 1.574 In Sodium Chloride 0.9% 100 ml @ Per Protocol IV .Q0M [facility] Rx#:[id number] Oral 240 120 Tube Feeding 848 Output: Chest Tube Drainage 400 140 10 Chest Tube Mediastinal 130 70 10 Pleural Catheter Left 270 70 0 Drainage 20 Left Arm 20 Urine 385 350 175 Other: Voiding Method Indwelling Catheter Indwelling Catheter ABP, PAP, CO, CI - Last Documented Arterial Blood Pressure 140/57 Pulmonary Artery Pressure 42/15 Cardiac Output 4.7 Cardiac Index 2.2 - Exam PHYSICAL EXAM: VITAL SIGNS: [As above] GENERAL: Alert and oriented x 3, sitting up in bed, no acute distress HEENT: Normocephalic, atraumatic, conjunctivae normal. eyes normal. NECK: Supple, no JVD. CARDIOVASCULAR: S1, S2 regular. No murmur RESPIRATION: Unlabored, equal air entry, clear to auscultation. Wearing heart hugger ABDOMEN: Soft, nondistended, nontender . No guarding. +BS LEGS: Trace edema, wearing SCDs NERVOUS SYSTEM: Cranial N 2-12 grossly normal. No focal deficits. Skin: Warm and dry, no rash - Labs CBC & Chem 7: 09/20/23 05:05 09/20/23 05:05 Labs: Abnormal Lab Results - Last 24 Hours (Table) 09/19/23 09/19/23 09/19/23 Range/Units 11:06 13:03 14:05 WBC (3.8-10.6) k/uL RBC (4.30-5.90) m/uL Hgb (13.0-17.5) gm/dL Hct (39.0-53.0) % Neutrophils # (1.3-7.7) k/uL Chloride (98-107) mmol/L Carbon Dioxide (22-30) mmol/L BUN (9-20) mg/dL Glucose (74-99) mg/dL POC Glucose (mg/dL) 126 H 128 H 130 H (70-110) mg/dL Total Protein (6.3-8.2) g/dL Albumin (3.5-5.0) g/dL 09/19/23 09/19/23 09/19/23 Range/Units 16:13 18:09 19:03 WBC (3.8-10.6) k/uL RBC (4.30-5.90) m/uL Hgb (13.0-17.5) gm/dL Hct (39.0-53.0) % Neutrophils # (1.3-7.7) k/uL Chloride (98-107) mmol/L Carbon Dioxide (22-30) mmol/L BUN (9-20) mg/dL Glucose (74-99) mg/dL POC Glucose (mg/dL) 128 H 167 H 140 H (70-110) mg/dL Total Protein (6.3-8.2) g/dL Albumin (3.5-5.0) g/dL 09/19/23 09/19/23 09/19/23 Range/Units 19:58 21:03 23:00 WBC (3.8-10.6) k/uL RBC (4.30-5.90) m/uL Hgb (13.0-17.5) gm/dL Hct (39.0-53.0) % Neutrophils # (1.3-7.7) k/uL Chloride (98-107) mmol/L Carbon Dioxide (22-30) mmol/L BUN (9-20) mg/dL Glucose (74-99) mg/dL POC Glucose (mg/dL) 112 H 113 H 116 H (70-110) mg/dL Total Protein (6.3-8.2) g/dL Albumin (3.5-5.0) g/dL 09/20/23 09/20/23 09/20/23 Range/Units 00:23 01:00 02:01 WBC (3.8-10.6) k/uL RBC (4.30-5.90) m/uL Hgb (13.0-17.5) gm/dL Hct (39.0-53.0) % Neutrophils # (1.3-7.7) k/uL Chloride (98-107) mmol/L Carbon Dioxide (22-30) mmol/L BUN (9-20) mg/dL Glucose (74-99) mg/dL POC Glucose (mg/dL) 138 H 129 H 126 H (70-110) mg/dL Total Protein (6.3-8.2) g/dL Albumin (3.5-5.0) g/dL 09/20/23 09/20/23 09/20/23 Range/Units 04:16 05:04 05:05 WBC 15.4 H (3.8-10.6) k/uL RBC 3.08 L (4.30-5.90) m/uL Hgb 9.4 L (13.0-17.5) gm/dL Hct 28.4 L (39.0-53.0) % Neutrophils # 12.6 H (1.3-7.7) k/uL Chloride (98-107) mmol/L Carbon Dioxide (22-30) mmol/L BUN (9-20) mg/dL Glucose (74-99) mg/dL POC Glucose (mg/dL) 112 H 125 H (70-110) mg/dL Total Protein (6.3-8.2) g/dL Albumin (3.5-5.0) g/dL 09/20/23 09/20/23 09/20/23 Range/Units 05:05 06:09 07:01 WBC (3.8-10.6) k/uL RBC (4.30-5.90) m/uL Hgb (13.0-17.5) gm/dL Hct (39.0-53.0) % Neutrophils # (1.3-7.7) k/uL Chloride 110 H (98-107) mmol/L Carbon Dioxide 21 L (22-30) mmol/L BUN 28 H (9-20) mg/dL Glucose 116 H (74-99) mg/dL POC Glucose (mg/dL) 147 H 135 H (70-110) mg/dL Total Protein 5.6 L (6.3-8.2) g/dL Albumin 3.2 L (3.5-5.0) g/dL 09/20/23 Range/Units 08:32 WBC (3.8-10.6) k/uL RBC (4.30-5.90) m/uL Hgb (13.0-17.5) gm/dL Hct (39.0-53.0) % Neutrophils # (1.3-7.7) k/uL Chloride (98-107) mmol/L Carbon Dioxide (22-30) mmol/L BUN (9-20) mg/dL Glucose (74-99) mg/dL POC Glucose (mg/dL) 119 H (70-110) mg/dL Total Protein (6.3-8.2) g/dL Albumin (3.5-5.0) g/dL Assessment and Plan Assessment: Chest pain, NSTEMI. Status post catheterization reporting severe multivessel CAD, status post CABG x 4 Postoperative atelectasis CAD with ischemic cardiomyopathy, no stenting, follows with [facility]ology. 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 Head BPH Plan: Continue on current medication resume ,monitoring and symptomatic treatment.Aggressive pulmonary toileting with incentive spirometer reinforced. Increase ambulation as tolerated. Transitioning off of insulin drip to NovoLog sliding scale. Close monitoring of Accu-Cheks. MiraLAX for constipation. Melatonin for insomnia ordered. The impression and plan of care has been dictated as directed. : I performed a history and examination of this patient, discussed the same with the dictator. I agree with the dictator's note ,documented as a scribe. Any additional findings or plans will be noted.
[2023-09-20 20:43] LABS: Glucose,Whole Blood 150 mg/dL (70-110)
[2023-09-20] MEDS: MELATONIN 3 MG TABLET PO SCH (21:13)
[2023-09-20] MEDS: LORATADINE 10 MG TAB PO SCH (22:17)
[2023-09-21 06:15] LABS: Basophils # (A) 0.1 k/uL (0-0.2); Basophils % (A) 0 %; Eosinophils # (A) 0.2 k/uL (0-0.7); Eosinophils % (A) 1 %; HCT 29.9 % (39.0-53.0); HGB 9.5 gm/dL (13.0-17.5); Lymphocytes # (A) 1.4 k/uL (1.0-4.8); Lymphocytes % (A) 12 %; MCH 30.4 pg (25.0-35.0); MCHC 31.9 g/dL (31.0-37.0); MCV 95.3 fL (80.0-100.0); Mean Platelet Volume 10.3; Monocytes # (A) 0.6 k/uL (0-1.0); Monocytes % (A) 5 %; Neutrophils # (A) 9.7 k/uL (1.3-7.7); Neutrophils % (A) 79 %; Platelet Count 208 k/uL (150-450); RBC 3.14 m/uL (4.30-5.90); RDW 15.3 % (11.5-15.5); WBC 12.3 k/uL (3.8-10.6)
[2023-09-21 06:23] LABS: Glucose,Whole Blood 113 mg/dL (70-110)
[2023-09-21 06:48] LABS: ALT 25 U/L (4-49); AST 41 U/L (17-59); African American GFR (CKD) 80 (>60 ml/min/1.73 sqM); Albumin 3.3 g/dL (3.5-5.0); Alkaline Phosphatase 61 U/L (38-126); Anion Gap 7 mmol/L; Blood Urea Nitrogen 30 mg/dL (9-20); Calcium 9.3 mg/dL (8.4-10.2); Carbon Dioxide 20 mmol/L (22-30); Chloride 113 mmol/L (98-107); Glucose 126 mg/dL (74-99); Non-African American GFR(CKD) 69 (>60 ml/min/1.73 sqM); Potassium 3.9 mmol/L (3.5-5.1); Sodium 140 mmol/L (137-145); Total Bilirubin 0.7 mg/dL (0.2-1.3); Total Protein 5.8 g/dL (6.3-8.2)
[2023-09-21] MEDS: METOPROLOL TARTRATE 50 MG TAB PO SCH (08:42)
[2023-09-21] MEDS: POTASSIUM CHLORIDE ER 10 MEQ TAB.ER.PRT PO STA (08:42)
[2023-09-21] MEDS: FUROSEMIDE 10 MG/ML 2 ML VIAL IV STA (08:42)
--- NOTE | 2023-09-21 08:54 | XR ---
EXAMINATION TYPE: XR chest 2V DATE OF EXAM: 09/21/2023 COMPARISON: 09/20/2023 INDICATION: post CABG TECHNIQUE: Frontal and lateral views of the chest are obtained. FINDINGS: The heart size is borderline and stable. The pulmonary vasculature is normal. Left lower lobe infiltrate. IMPRESSION: 1. Worsening left lower lobe pneumonia. Follow up recommended.
[2023-09-21] MEDS: MAGNESIUM HYDROXIDE 2,400 MG/30 ML CUP PO PRN (08:55)
--- NOTE | 2023-09-21 09:36 | P.PN ---
Subjective Progress Note Date: 09/21/23 The patient is a 73-year-old male who is currently admitted after undergoing coronary bypass for multivessel coronary artery disease. Overall patient's postoperative period has been unremarkable. He does have rate controlled atrial fibrillation. Patient was interviewed and examined up resting in the recliner chair. He denies any current discomfort and states he is breathing well. GENERAL: Well-appearing, well-nourished and in no acute distress. NECK: Supple without JVD or thyromegaly. LUNGS: Breath sounds clear to auscultation bilaterally. Respiration equal and unlabored. No wheezes, rales or rhonchi. HEART: Irregular rate and rhythm without murmurs, rubs or gallops. S1 and S2 heard. Heart hugger in place. EXTREMITIES: Normal range of motion, no edema. No clubbing or cyanosis. Peripheral pulses intact and strong. TELEMETRY: Rate controlled atrial fibrillation. LABS: WBC 12.3, hemoglobin 9.5, hematocrit 29.9, platelet 208, sodium 140, potassium 3.9, BUN 30, creatinine 1.06 IMPRESSION: Multivessel coronary artery disease, status post CABG Postoperative atrial fibrillation History of paroxysmal atrial fibrillation History of hypertension PLAN: Resume Eliquis when cleared by CV surgery Continue supportive treatment including incentive spirometry Outpatient follow-up with Dr. Campoverde in 1 week I am dictating on behalf of Dr Home Yang's history/physical and assessment/plan. Objective - Vital Signs Vital signs: Vital Signs Temp 97.7 F 09/21/23 04:00 Pulse 98 09/21/23 08:05 Resp 9 L 09/21/23 07:00 BP 120/94 09/21/23 07:00 Pulse Ox 95 09/21/23 07:00 FiO2 21 09/20/23 22:01 Intake & Output 09/20/23 09/21/23 09/21/23 18:59 06:59 18:59 Intake Total 833.574 60 500 Output Total 535 300 0 Balance 298.574 -240 500 Weight 112.6 kg Intake: IV 52 Sodium Chloride 0.9% 1, 40 000 ml @ 20 mls/hr IV . Q24H [facility] Rx#:[id number] pressure bags 12 Intake, IV Titration 301.574 Amount Dextrose 5% in Water 100 300 ml @ 618 mls/hr IV .Q10M PRN with Amiodarone 150 mg Rx#:[id number] Insulin Regular 100 unit 1.574 In Sodium Chloride 0.9% 100 ml @ Per Protocol IV .Q0M [facility] Rx#:[id number] Oral 480 60 500 Output: Chest Tube Drainage 10 Chest Tube Mediastinal 10 Pleural Catheter Left 0 Urine 525 300 0 Other: Voiding Method Urinal Toilet # Voids 2 ABP, PAP, CO, CI - Last Documented Arterial Blood Pressure 140/57 Pulmonary Artery Pressure 42/15 Cardiac Output 4.7 Cardiac Index 2.2 - Labs CBC & Chem 7: 09/21/23 05:53 09/21/23 05:53 Labs: Abnormal Lab Results - Last 24 Hours (Table) 09/20/23 09/20/23 09/20/23 Range/Units 12:03 17:02 20:31 WBC (3.8-10.6) k/uL RBC (4.30-5.90) m/uL Hgb (13.0-17.5) gm/dL Hct (39.0-53.0) % Neutrophils # (1.3-7.7) k/uL Chloride (98-107) mmol/L Carbon Dioxide (22-30) mmol/L BUN (9-20) mg/dL Glucose (74-99) mg/dL POC Glucose (mg/dL) 118 H 154 H 150 H (70-110) mg/dL Total Protein (6.3-8.2) g/dL Albumin (3.5-5.0) g/dL 09/21/23 09/21/23 09/21/23 Range/Units 05:53 05:53 06:21 WBC 12.3 H (3.8-10.6) k/uL RBC 3.14 L (4.30-5.90) m/uL Hgb 9.5 L (13.0-17.5) gm/dL Hct 29.9 L (39.0-53.0) % Neutrophils # 9.7 H (1.3-7.7) k/uL Chloride 113 H (98-107) mmol/L Carbon Dioxide 20 L (22-30) mmol/L BUN 30 H (9-20) mg/dL Glucose 126 H (74-99) mg/dL POC Glucose (mg/dL) 113 H (70-110) mg/dL Total Protein 5.8 L (6.3-8.2) g/dL Albumin 3.3 L (3.5-5.0) g/dL
[2023-09-21 11:16] LABS: Glucose,Whole Blood 140 mg/dL (70-110)
[2023-09-21 11:31] VITALS: BMI 38.8
--- NOTE | 2023-09-21 11:59 | P.PN ---
Subjective Progress Note Date: 09/21/23 This is a very pleasant 73-year-old male patient with a history of atrial fibrillation with previous cardioversions, anticoagulated with Eliquis, gastroesophageal reflux disease, hyperlipidemia, hypertension, obstructive sleep apnea utilizing CPAP at 12 cm of water, gout, agent orange exposure while in [employer], multiple orthopedic surgeries. He is a lifelong non-smoker. No history of asthma. No oxygen or inhalers. His FEV1 value was found to be 2.45 L and 89% of predicted. He had presented here to the emergency room on September 13, 2023 with complaints of midsternal chest discomfort radiating to the bilateral shoulders. Troponins were 0.060, 0.931, 3.330. White count 8.0. Hemoglobin 13.3. Platelets 204. Sodium 137. Potassium 4.0. Bicarb 22. BUN 15. Creatinine 0.82. Glucose 131. Chest x-ray revealed no acute pulmonary process. Echocardiogram revealed preserved left ventricular systolic function with ejection fraction 55 to 60%. He did undergo cardiac catheterization on 09/14/2023 that revealed severe multivessel coronary artery disease including a tight stenosis in the proximal LAD, proximal circumflex and intermittent disease involving the RCA. He was recommended surgical revascularization. The plan is for surgery on 09/18/2023. He is seen today in consultation on the selective care unit. He is sitting up in a chair. Awake and alert in no acute distress. He denies any shortness of breath, cough or congestion. Maintaining good O2 saturations in the 90s on room air. He is practicing well with the incentive spirometer. He remains on a heparin drip. He denies any chest discomfort currently. Patient was evaluated today on 09/16/2023, patient is doing well, scheduled to have surgery in the next few days, continues to have no active pulmonary symptoms no cough no wheezing no shortness of breath, doing excellent with his incentive spirometry. CT of the chest was reviewed, no worrisome findings at this point. Patient had FEV1 of 89%, he never smoked. The patient is seen today September 17, 2023 in follow-up on the regular medical floor. He is awake and alert in no acute distress. Sitting up at the bedside. He is working well with his incentive spirometer. He denies any shortness of breath, cough or congestion. No chest pain presently. White count 7.8. Hemoglobin 12.0. Platelets 184. Sodium 139. Potassium 4.0. Bicarb 22. BUN 18. Creatinine 0.94. Glucose 86. He remains on a heparin drip. The patient is seen today September 20, 2023 in follow-up in the intensive care unit. Postoperative day #2 following coronary artery bypass grafting x 4 utilizing a CARLISLE to the LAD, right radial artery to the ramus intermedius and obtuse marginal artery. Reverse saphenous vein graft to the distal RCA. Left atrial appendage ligation. He is awake and alert in no acute distress. He is maintaining good O2 saturations in the 90s on 4 L/min per nasal cannula. His chest tubes and lines have all been removed. He is working well with the incentive spirometer. Pulling approximately 1500 mL. Chest x-ray does show atelectatic changes in the bilateral bases. He is in atrial fibrillation in a controlled ventricular response. Count 15.4. Hemoglobin 9.4. Platelets 160. Sodium 137. Potassium 4.0. Bicarb 21. BUN 28. Creatinine 1.03. Glucose 116. He is continued on DuoNeb inhalations. Heparin for DVT prophylaxis. The patient is seen today September 21, 2023 in follow-up in the intensive care unit. Postoperative day #3. He is currently sitting up in a chair. Awake and alert in no acute distress. He is maintaining good O2 saturations in the 90s on 2 L/min per nasal cannula. No IV fluids. Pacer wires remain in place. Chest x- ray reveals increasing left lower lobe infiltrate. He is working well with the incentive spirometer. He is continued on bronchodilators. Heparin for DVT prophylaxis. White count 12.3. Hemoglobin 9.5. Platelets 208. Sodium 140. Potassium 3.9. Bicarb 20. BUN 30. Creatinine 1.06. Glucose 126. Objective - Vital Signs Vital signs: Vital Signs Temp 98.3 F 09/21/23 08:00 Pulse 80 09/21/23 11:50 Resp 10 L 09/21/23 10:00 BP 120/94 09/21/23 10:00 Pulse Ox 96 09/21/23 10:00 FiO2 21 09/20/23 22:01 Intake & Output 09/20/23 09/21/23 09/21/23 18:59 06:59 18:59 Intake Total 833.122 63 1658 Output Total 535 300 400 Balance 298.574 -240 600 Weight 112.6 kg 112.6 kg Intake: IV 52 Sodium Chloride 0.9% 1, 40 000 ml @ 20 mls/hr IV . Q24H [facility] Rx#:[id number] pressure bags 12 Intake, IV Titration 301.574 Amount Dextrose 5% in Water 100 300 ml @ 618 mls/hr IV .Q10M PRN with Amiodarone 150 mg Rx#:[id number] Insulin Regular 100 unit 1.574 In Sodium Chloride 0.9% 100 ml @ Per Protocol IV .Q0M [facility] Rx#:[id number] Oral 316 16 6416 Output: Chest Tube Drainage 10 Chest Tube Mediastinal 10 Pleural Catheter Left 0 Urine 525 300 400 Other: Voiding Method Urinal Toilet Toilet # Voids 2 ABP, PAP, CO, CI - Last Documented Arterial Blood Pressure 140/57 Pulmonary Artery Pressure 42/15 Cardiac Output 4.7 Cardiac Index 2.2 - Exam GENERAL EXAM: Alert, very pleasant 73-year-old male patient, up in a chair, on 2 L nasal cannula, fairly comfortable in no apparent distress. HEAD: Normocephalic. EYES: Normal reaction of pupils, equal size. NOSE: Clear with pink turbinates. THROAT: No erythema or exudates. NECK: No masses, no JVD. CHEST: Sternal dressing dry and intact. Heart hugger in place. LUNGS: Equal air entry with no crackles, wheeze, rhonchi or dullness. CVS: S1 and S2 normal with no audible murmur, regular rhythm. ABDOMEN: No hepatosplenomegaly, normal bowel sounds, no guarding or rigidity. SPINE: No scoliosis or deformity SKIN: No rashes CENTRAL NERVOUS SYSTEM: No focal deficits, tone is normal in all 4 extremities. EXTREMITIES: SCDs in place. There is trace peripheral edema. No clubbing, no cyanosis. Peripheral pulses are intact. - Labs CBC & Chem 7: 09/21/23 05:53 09/21/23 05:53 Labs: Abnormal Lab Results - Last 24 Hours (Table) 09/20/23 09/20/23 09/20/23 Range/Units 12:03 17:02 20:31 WBC (3.8-10.6) k/uL RBC (4.30-5.90) m/uL Hgb (13.0-17.5) gm/dL Hct (39.0-53.0) % Neutrophils # (1.3-7.7) k/uL Chloride (98-107) mmol/L Carbon Dioxide (22-30) mmol/L BUN (9-20) mg/dL Glucose (74-99) mg/dL POC Glucose (mg/dL) 118 H 154 H 150 H (70-110) mg/dL Total Protein (6.3-8.2) g/dL Albumin (3.5-5.0) g/dL 09/21/23 09/21/23 09/21/23 Range/Units 05:53 05:53 06:21 WBC 12.3 H (3.8-10.6) k/uL RBC 3.14 L (4.30-5.90) m/uL Hgb 9.5 L (13.0-17.5) gm/dL Hct 29.9 L (39.0-53.0) % Neutrophils # 9.7 H (1.3-7.7) k/uL Chloride 113 H (98-107) mmol/L Carbon Dioxide 20 L (22-30) mmol/L BUN 30 H (9-20) mg/dL Glucose 126 H (74-99) mg/dL POC Glucose (mg/dL) 113 H (70-110) mg/dL Total Protein 5.8 L (6.3-8.2) g/dL Albumin 3.3 L (3.5-5.0) g/dL 09/21/23 Range/Units 11:15 WBC (3.8-10.6) k/uL RBC (4.30-5.90) m/uL Hgb (13.0-17.5) gm/dL Hct (39.0-53.0) % Neutrophils # (1.3-7.7) k/uL Chloride (98-107) mmol/L Carbon Dioxide (22-30) mmol/L BUN (9-20) mg/dL Glucose (74-99) mg/dL POC Glucose (mg/dL) 140 H (70-110) mg/dL Total Protein (6.3-8.2) g/dL Albumin (3.5-5.0) g/dL Assessment and Plan Assessment: Acute non-ST segment elevation myocardial infarction in a patient found to have severe multivessel coronary artery disease. Status post coronary to bypass grafting x 4 with a CARLISLE to the LAD, radial artery to the ramus intermedius and obtuse marginal artery. Reverse saphenous vein graft to the RCA. Left atrial appendage ligation. Postoperative day #3. History of paroxysmal atrial fibrillation with previous cardioversions, anticoagulated with Eliquis currently on hold Hypertension Hyperlipidemia Obstructive sleep apnea utilizing home CPAP at 12 cm of water, nasal pillow due to significant claustrophobia History of gout Gastroesophageal reflux disease Agent orange exposure while in [place] Lifelong non-smoker, FEV1 value 2.45 L, 89% of predicted Plan: The patient was seen and evaluated Chest x-ray, labs and medications reviewed Working well with the incentive spirometer Remains on bronchodilators Currently on 2 L nasal cannula Titrate down the FiO2 as tolerated Increase his activity as tolerated Heparin for DVT prophylaxis We will continue to follow I have personally seen and examined the patient, performed the documentation and the assessment and plan as written. Number of minutes spent on the visit: 10.
--- NOTE | 2023-09-21 15:51 | P.PN ---
Subjective Progress Note Date: 09/21/23 Principal diagnosis: Multivessel coronary artery disease, NSTEMI this admission. 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 Preoperative nasal swab positive for MSSA, treated. POD #3 On pump coronary artery bypass grafting x 4. Left internal thoracic artery (in-situ) to left anterior descending coronary artery. Radial artery from aorta sequential to ramus intermedius and obtuse marginal artery. Reverse saphenous vein from aorta to distal right coronary artery. Left atrial appendage ligation using #35mm AtriClip. Bilateral pulmonary vein isolation with AtriCure RF Clamp. Endoscopic left radial artery and right greater saphenous vein harvest. Graft flow measurements using the Medi-Stim flow meter system. Trans- esophageal echocardiogram performed by anesthesia. Postoperative acute blood loss anemia, expected given hemodilution and cardiopulmonary bypass. Paroxysmal atrial fibrillation, a known common occurrence after cardiac surgery especially given his history of preoperative paroxysmal atrial fibrillation. The patient was seen and examined in follow-up today 09/21/2023 at his bedside in the intensive care unit. He is currently sitting up to the bedside chair, is awake, alert, oriented x 3 and is in no acute apparent distress. He denies any complaints of pain or shortness of breath at this time. Oxygen saturations are 95% on 3 L nasal cannula and he is achieving 1500 mL on his incentive spirometry with encouragement. Bedside telemetry is showing atrial fibrillation heart rate 99 bpm, the patient does have a history of atrial fibrillation with 2 previous cardioversions. He remains hemodynamically stable and is currently on no inotropic or pressor support. His chest tubes were removed yesterday without incident. Atrial and ventricular epicardial pacemaker wires remain in place and are grounded. He has been up ambulating in the intensive care unit hallway with standby assist from nursing staff and therapy staff and tolerating well. Laboratory and chest x-ray results reviewed. Objective - Vital Signs Vital signs: Vital Signs Temp 97.7 F 09/21/23 04:00 Pulse 100 09/21/23 07:54 Resp 9 L 09/21/23 07:00 BP 120/94 09/21/23 07:00 Pulse Ox 95 09/21/23 07:00 FiO2 21 09/20/23 22:01 Intake & Output 09/20/23 09/21/23 09/21/23 18:59 06:59 18:59 Intake Total 833.574 60 500 Output Total 535 300 0 Balance 298.574 -240 500 Weight 112.6 kg Intake: IV 52 Sodium Chloride 0.9% 1, 40 000 ml @ 20 mls/hr IV . Q24H [facility] Rx#:[id number] pressure bags 12 Intake, IV Titration 301.574 Amount Dextrose 5% in Water 100 300 ml @ 618 mls/hr IV .Q10M PRN with Amiodarone 150 mg Rx#:[id number] Insulin Regular 100 unit 1.574 In Sodium Chloride 0.9% 100 ml @ Per Protocol IV .Q0M [facility] Rx#:[id number] Oral 480 60 500 Output: Chest Tube Drainage 10 Chest Tube Mediastinal 10 Pleural Catheter Left 0 Urine 525 300 0 Other: Voiding Method Urinal Toilet # Voids 2 ABP, PAP, CO, CI - Last Documented Arterial Blood Pressure 140/57 Pulmonary Artery Pressure 42/15 Cardiac Output 4.7 Cardiac Index 2.2 - Exam CONSTITUTIONAL: Sitting up to the bedside chair in the intensive care unit, appears comfortable, cooperative, no apparent acute distress. HEENT: Neck is supple, no JVD, no lymphadenopathy. RESPIRATORY: Lungs sounds essentially clear throughout, diminished to his bilandateral bases. Respirations are symmetrical and nonlabored. Currently on 3 L nasal cannula with oxygen saturations 95%. Able to achieve 1500 mL on his incentive spirometry. Strong cough. CARDIOVASCULAR: Irregular rhythm and controlled rate. S1 and S2 present, negative for S3, gallop or murmur. Bedside telemetry showing atrial fibrillation heart rate 99 bpm. Sternum is stable. Palpable peripheral pulses bilaterally. No calf pain or tenderness noted. Heart hugger in place with patient demonstrating appropriate use. Knee-high ANGEL hose and sequential compression devices in place to his bilateral lower extremities. GASTROINTESTINAL: Abdomen soft, nontender, nondistended. Active bowel sounds present 4 quadrants. Tolerating diet. Passing flatus. No guarding or rigidity. GENITOURINARY: Continues to void, urine output 300 mL in the last 8 hours. INTEGUMENTARY: Skin is warm and dry with no evidence of clubbing or cyanosis. Midline sternal incision clean dry and well approximated, covered with dry intact dressing. Right lower extremity EVH sites well approximated without redness or drainage. Left arm radial artery harvest sites clean, dry and appro ximated. No drainage or redness is present. NEUROLOGIC: Cranial nerves II through XII intact. No focal deficits. MUSKULOSKELETAL: Able to move all extremities, strength equal bilaterally, generalized weakness. PSYCHIATRIC: Alert and oriented to person place and time, appropriate affect, intact judgment and insight. INVASIVE LINES AND TUBES: Atrial and ventricular epicardial pacemaker wires pr esent, connected to generator, epicardial wires are grounded. - Allied health notes Allied health notes reviewed: nursing - Labs CBC & Chem 7: 09/21/23 05:53 09/21/23 05:53 Labs: Abnormal Lab Results - Last 24 Hours (Table) 09/20/23 09/20/23 09/20/23 Range/Units 08:32 12:03 17:02 WBC (3.8-10.6) k/uL RBC (4.30-5.90) m/uL Hgb (13.0-17.5) gm/dL Hct (39.0-53.0) % Neutrophils # (1.3-7.7) k/uL Chloride (98-107) mmol/L Carbon Dioxide (22-30) mmol/L BUN (9-20) mg/dL Glucose (74-99) mg/dL POC Glucose (mg/dL) 119 H 118 H 154 H (70-110) mg/dL Total Protein (6.3-8.2) g/dL Albumin (3.5-5.0) g/dL 09/20/23 09/21/23 09/21/23 Range/Units 20:31 05:53 05:53 WBC 12.3 H (3.8-10.6) k/uL RBC 3.14 L (4.30-5.90) m/uL Hgb 9.5 L (13.0-17.5) gm/dL Hct 29.9 L (39.0-53.0) % Neutrophils # 9.7 H (1.3-7.7) k/uL Chloride 113 H (98-107) mmol/L Carbon Dioxide 20 L (22-30) mmol/L BUN 30 H (9-20) mg/dL Glucose 126 H (74-99) mg/dL POC Glucose (mg/dL) 150 H (70-110) mg/dL Total Protein 5.8 L (6.3-8.2) g/dL Albumin 3.3 L (3.5-5.0) g/dL 09/21/23 Range/Units 06:21 WBC (3.8-10.6) k/uL RBC (4.30-5.90) m/uL Hgb (13.0-17.5) gm/dL Hct (39.0-53.0) % Neutrophils # (1.3-7.7) k/uL Chloride (98-107) mmol/L Carbon Dioxide (22-30) mmol/L BUN (9-20) mg/dL Glucose (74-99) mg/dL POC Glucose (mg/dL) 113 H (70-110) mg/dL Total Protein (6.3-8.2) g/dL Albumin (3.5-5.0) g/dL - Imaging and Cardiology Chest x-ray: report reviewed, image reviewed Assessment and Plan Assessment: Multivessel coronary artery disease, status post four-vessel coronary artery bypass grafting surgery Ischemic cardiomyopathy, according to patient related to agent orange exposure Non-ST elevated myocardial infarction this admission Paroxysmal atrial fibrillation on Eliquis as an outpatient, status post 2 previo us cardioversions, currently normal sinus rhythm, status post bilateral pulmonary vein isolation and exclusion left atrial appendage with a 35 mm Atriclip Hypertension Hyperlipidemia, treated, cholesterol 177, LDL 87 History of ascending aortic aneurysm, followed by Dr. 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 Will increase metoprolol tartrate to 75 mg p.o. twice daily with hold parameters. Continue amiodarone 400 mg p.o. twice daily. Continue Norvasc 2.5 mg p.o. daily for radial artery spasm prophylaxis with hold parameters. Wean oxygen as tolerated. Bronchodilator management per pulmonary/critical care medicine recommendations. Encourage incentive spirometry use 10 times every hour while awake. Increase activity, ambulate as tolerated. PT/OT/cardiac rehab following. Will monitor daily labs and chest x-rays. Electrolyte replacement per protocol. GI/DVT prophylaxis. Insulin management per internal medicine, patient should remain on continuous IV insulin for 48 hours, then may transition to subcutaneous per protocol. The patient is a not diabetic, with a preoperative hemoglobin A1c 5.7%. We will remove his atrial and ventricular epicardial pacemaker wires today, bedrest for 1 hour pacemaker wire removal. Continue to monitor strict accurate intake and output. May bladder scan every 6 hours and as needed postvoid residual. If greater than or equal to 300 mL of urine straight cath. Continue home dose of Synthroid. Discharge planning is in place, anticipate discharge home with home health care in the next 24 to 48 hours. Transfer orders have been placed to the third floor cardiac stepdown unit, transferred to the stepdown unit when bed available. More recommendations to follow based on patient's clinical course Time with Patient: Greater than 30
[2023-09-21 16:10] LABS: Glucose,Whole Blood 118 mg/dL (70-110)
--- NOTE | 2023-09-21 16:30 | P.PN ---
Subjective Progress Note Date: 09/21/23 H&P Date: 09/13/23 Chief Complaint: Chest pain This is a pleasant 73-year-old gentleman with past medical history significant for ischemic cardiomyopathy, atrial fibrillation,AAA, hypertension, hyperlipidemia, sleep apnea wears CPAP, hiatal hernia, gastroesophageal reflux disease and multiple other medical issues follows with [facility], presented to the ER with complaints of chest pain. Reports he developed midsternal chest pressure while up at his [place] in [place]. Reports nonexertional. Chest pain occurred after midnight last night, radiated to bilateral shoulders and into his jaw, accompanied by sweating, shortness of breath and bilateral lower extremity edema. transported him to the ER, troponins elevated, 0.060, 0.931, 3.330, heparin drip initiated. He currently denies any chest pain, palpitations or shortness of breath. Evaluated by cardiology with abnormal EKG reviewed sinus with-T wave inversion. Chest x-ray reporting no acute cardiopulmonary process.. Hematology, coagulation unremarkable. Sodium 142, potassium 4, bicarb 22, BUN 23, creatinine 1.12 glucose 101 magnesium 1.4-supplemented. 09/14/2023 Just returning back from cardiac catheterization, reporting severe multivessel CAD including a tight stenosis in the proximal LAD, proximal circumflex and intermediate disease involving RCA. 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 C ardiothoracic surgery consulted. Currently denies chest pain, palpitations or shortness of breath. Maintaining O2 sats in the mid 90s on room air. Telemetry sinus rhythm. 09/15/23 maintained on heparin drip, IV fluid hydration. Telemetry sinus rhythm .denies chest pain, palpitations or shortness of breath. Maintaining O2 sats in the mid 90s on room air. 09/16/2023 telemetry sinus rhythm. Sitting up in chair, incentive spirometer 3000. Anticoagulated on heparin drip. Continues on IV fluid hydration. Chest CT reviewed by restaurant and bar manager. Denies nausea or vomiting. Denies chest pain, pal pitations or shortness of breath. Maintaining O2 sats of 96% on room air. 09/17/2023 maintained on heparin drip. Denies chest pain, palpitations or shortness of breath. 3100 on I-S. Awaiting CABG tomorrow, no complaints. Afebrile, normal WBC. Hemoglobin 12, platelets 184. Electrolytes within normal limits. Bicarb 22, BUN 18, creatinine 0.94. Blood sugars controlled. 09/20/2023 status post CABG X4, postop day #2. Telemetry atrial fibrillation, controlled ventricular rate. sitting up in bed, complains of inability to sleep, constipation. Maintaining O2 sats in the 90s on 4 L nasal cannula. Incentive spirometer 1500. chest x-ray increased linear markings right upper lung field, mild left lower lobe infiltrate, suspect atelectasis. afebrile, WBC 15.4. Hemoglobin 9.4, platelets 160 electrolytes within normal limits, bicarb 21 BUN 28 creatinine 1.03. Blood sugars controlled. 09/21/2023 status post CABG, postop day #3, sitting up in chair. Maintaining O2 sats in the 90s on 2 L nasal cannula. Passing flatus no bowel movement, MiraLAX was not given yesterday. Chest x-ray reporting worsening left lower lobe infiltrate. Afebrile, WBC 12.3. Hemoglobin 9.56, platelet 208, bicarb 20, BUN 30, creatinine 1.06. Blood sugars controlled Objective - Vital Signs Vital signs: Vital Signs Temp 98.3 F 09/21/23 12:00 Pulse 103 H 09/21/23 14:00 Resp 18 09/21/23 14:00 BP 120/94 09/21/23 14:00 Pulse Ox 94 L 09/21/23 14:00 FiO2 21 09/20/23 22:01 Intake & Output 09/20/23 09/21/23 09/21/23 18:59 06:59 18:59 Intake Total 833.218 74 0513 Output Total 535 300 400 Balance 298.574 -240 1100 Weight 112.6 kg 112.6 kg Intake: IV 52 Sodium Chloride 0.9% 1, 40 000 ml @ 20 mls/hr IV . Q24H [facility] Rx#:[id number] pressure bags 12 Intake, IV Titration 301.574 Amount Dextrose 5% in Water 100 300 ml @ 618 mls/hr IV .Q10M PRN with Amiodarone 150 mg Rx#:[id number] Insulin Regular 100 unit 1.574 In Sodium Chloride 0.9% 100 ml @ Per Protocol IV .Q0M [facility] Rx#:[id number] Oral [phone] Output: Chest Tube Drainage 10 Chest Tube Mediastinal 10 Pleural Catheter Left 0 Urine 525 300 400 Other: Voiding Method Urinal Toilet Toilet # Voids 2 ABP, PAP, CO, CI - Last Documented Arterial Blood Pressure 140/57 Pulmonary Artery Pressure 42/15 Cardiac Output 4.7 Cardiac Index 2.2 - Exam PHYSICAL EXAM: VITAL SIGNS: [As above] GENERAL: Alert and oriented x 3, sitting up in chair, no acute distress HEENT: Normocephalic, atraumatic, conjunctivae normal. eyes normal. NECK: Supple, no JVD. CARDIOVASCULAR: S1, S2 regular. No murmur RESPIRATION: Unlabored, equal air entry, clear to auscultation. Wearing heart hugger ABDOMEN: Soft, nondistended, nontender . No guarding. +BS LEGS: Trace edema, wearing SCDs NERVOUS SYSTEM: Cranial N 2-12 grossly normal. No focal deficits. Skin: Warm and dry, no rash. - Labs CBC & Chem 7: 09/21/23 05:53 09/21/23 05:53 Labs: Abnormal Lab Results - Last 24 Hours (Table) 09/20/23 09/20/23 09/21/23 Range/Units 17:02 20:31 05:53 WBC 12.3 H (3.8-10.6) k/uL RBC 3.14 L (4.30-5.90) m/uL Hgb 9.5 L (13.0-17.5) gm/dL Hct 29.9 L (39.0-53.0) % Neutrophils # 9.7 H (1.3-7.7) k/uL Chloride (98-107) mmol/L Carbon Dioxide (22-30) mmol/L BUN (9-20) mg/dL Glucose (74-99) mg/dL POC Glucose (mg/dL) 154 H 150 H (70-110) mg/dL Total Protein (6.3-8.2) g/dL Albumin (3.5-5.0) g/dL 09/21/23 09/21/23 09/21/23 Range/Units 05:53 06:21 11:15 WBC (3.8-10.6) k/uL RBC (4.30-5.90) m/uL Hgb (13.0-17.5) gm/dL Hct (39.0-53.0) % Neutrophils # (1.3-7.7) k/uL Chloride 113 H (98-107) mmol/L Carbon Dioxide 20 L (22-30) mmol/L BUN 30 H (9-20) mg/dL Glucose 126 H (74-99) mg/dL POC Glucose (mg/dL) 113 H 140 H (70-110) mg/dL Total Protein 5.8 L (6.3-8.2) g/dL Albumin 3.3 L (3.5-5.0) g/dL 09/21/23 Range/Units 16:09 WBC (3.8-10.6) k/uL RBC (4.30-5.90) m/uL Hgb (13.0-17.5) gm/dL Hct (39.0-53.0) % Neutrophils # (1.3-7.7) k/uL Chloride (98-107) mmol/L Carbon Dioxide (22-30) mmol/L BUN (9-20) mg/dL Glucose (74-99) mg/dL POC Glucose (mg/dL) 118 H (70-110) mg/dL Total Protein (6.3-8.2) g/dL Albumin (3.5-5.0) g/dL Assessment and Plan Assessment: Chest pain, NSTEMI. Status post catheterization reporting severe multivessel CAD, status post CABG x 4 Postoperative atelectasis CAD with ischemic cardiomyopathy, no stenting, follows with [facility] cardiology. 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 Head BPH Plan: Continue on current medication resume ,monitoring and symptomatic treatment.Maintain aggressive pulmonary toileting with incentive spirometer reinforced. Increase ambulation as tolerated. Close monitoring of Accu-Cheks. Discharge planning in progress for tomorrow as per CTS. The impression and plan of care has been dictated as directed. : I performed a history and examination of this patient, discussed the same with the dictator. I agree with the dictator's note ,documented as a scribe. Any additional findings or plans will be noted.
[2023-09-21 20:03] LABS: Glucose,Whole Blood 153 mg/dL (70-110)
[2023-09-21] MEDS: APIXABAN 5 MG TAB PO SCH (20:08)
[2023-09-22 03:12] VITALS: TEMP 97.9
[2023-09-22 06:05] LABS: Glucose,Whole Blood 112 mg/dL (70-110)
[2023-09-22] MEDS: PANTOPRAZOLE 40 MG TABLET PO SCH (06:07)
--- NOTE | 2023-09-22 07:31 | XR ---
EXAMINATION TYPE: XR chest 2V DATE OF EXAM: 09/22/2023 COMPARISON: 09/21/2023 INDICATION: Postop CABG TECHNIQUE: Frontal and lateral views of the chest are obtained. FINDINGS: The heart size is enlarged. The pulmonary vasculature is normal. There is a left lower lobe persistent infiltrate. IMPRESSION: 1. Left lower lobe infiltrate. Correlate for pneumonia. Continued Follow-up is recommended.
[2023-09-22 08:55] LABS: HGB 9.1 gm/dL (13.0-17.5); MCH 30.5 pg (25.0-35.0); MCHC 32.6 g/dL (31.0-37.0); MCV 93.6 fL (80.0-100.0); Mean Platelet Volume 11.1; Platelet Count 224 k/uL (150-450); RBC 2.99 m/uL (4.30-5.90); RDW 15.2 % (11.5-15.5); WBC 10.2 k/uL (3.8-10.6)
[2023-09-22 09:05] VITALS: RESP 20
[2023-09-22] MEDS: ASPIRIN 81 MG PO SCH (09:06)
[2023-09-22 09:20] LABS: African American GFR (CKD) 80 (>60 ml/min/1.73 sqM); Anion Gap 10 mmol/L; Blood Urea Nitrogen 34 mg/dL (9-20); Calcium 9.4 mg/dL (8.4-10.2); Carbon Dioxide 20 mmol/L (22-30); Chloride 112 mmol/L (98-107); Glucose 135 mg/dL (74-99); Magnesium 2.2 mg/dL (1.6-2.3); Non-African American GFR(CKD) 70 (>60 ml/min/1.73 sqM); Potassium 3.9 mmol/L (3.5-5.1); Sodium 142 mmol/L (137-145)
--- NOTE | 2023-09-22 10:51 | P.PN ---
Subjective Progress Note Date: 09/22/23 Principal diagnosis: Multivessel coronary artery disease, NSTEMI this admission. 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 Preoperative nasal swab positive for MSSA POD #4 On pump coronary artery bypass grafting x 4, Left internal thoracic artery (in-situ) to left anterior descending coronary artery, radial artery from aorta sequential to ramus intermedius and obtuse marginal artery, reverse saphenous vein from aorta to distal right coronary artery, left atrial appendage ligation using #35mm AtriClip, bilateral pulmonary vein isolation with AtriCure RF Clamp, endoscopic left radial artery and right greater saphenous vein harvest, graft flow measurements using the [employer]-Stim flow meter system, trans- esophageal echocardiogram performed by anesthesia Postoperative acute blood loss anemia, expected given hemodilution and cardiopulmonary bypass Paroxysmal atrial fibrillation, a known common occurrence after cardiac surgery especially given his history of preoperative paroxysmal atrial fibrillation The patient was seen and examined this morning with Dr. Stockton sitting up in recliner on the cardiac stepdown unit in no acute distress. Remains in controlled atrial fibrillation, hemodynamically stable. Remains on room air, able to achieve 2000 mL on his incentive spirometry. Patient has been ambulatory in the hallway, has showered. All lines and tubes have been removed. Chest x-ray, labs reviewed. Radiologist documented possible left lower lobe pneumonia, doubt given patient has been afebrile, white blood cell count normal, no purulent sputum. Anticipates discharge to home with home care this afternoon. No other new concerns. Objective - Vital Signs Vital signs: Vital Signs Temp 97.9 F 09/22/23 03:12 Pulse 105 H 09/22/23 09:05 Resp 20 09/22/23 09:05 BP 145/85 09/22/23 09:05 Pulse Ox 93 L 09/22/23 09:05 FiO2 21 09/22/23 08:31 Intake & Output 09/21/23 09/22/23 09/22/23 18:59 06:59 18:59 Intake Total 1500 480 Output Total 400 650 Balance 1100 -170 Weight 112.6 kg 113.2 kg Intake: Oral 1500 480 Output: Urine 400 650 Other: Voiding Method Toilet Urinal ABP, PAP, CO, CI - Last Documented Arterial Blood Pressure 140/57 Pulmonary Artery Pressure 42/15 Cardiac Output 4.7 Cardiac Index 2.2 - Exam CONSTITUTIONAL: Appears comfortable, cooperative, no acute distress RESPIRATORY: Lungs sounds diminished bilaterally. Respirations even, nonlabored. Currently on room air with oxygen saturation 93%. Able to achieve 2000 mL on incentive spirometry. Strong cough. CARDIOVASCULAR: S1, S2 present. Irregular rate and rhythm, controlled atrial fibrillation on telemetry. Sternum stable. Palpable peripheral pulses bilaterally. No edema present. No calf pain or tenderness noted. Heart hugger in place with patient demonstrating appropriate use. Antiembolism stockings, SCDs present. GASTROINTESTINAL: Abdomen soft, nontender, nondistended. Active bowel sounds present 4 quadrants. Tolerating diet. Positive bowel movement 09/17 GENITOURINARY: Continues to void, 1050 milliliters in the last 24 hours INTEGUMENTARY: Skin is warm and dry with evidence of good perfusion. Anterior chest incision well approximated. Left radial artery as well as right lower extremity EVH site well approximated without redness or drainage. NEUROLOGIC: Cranial nerves II through XII intact MUSKULOSKELETAL: Able to move all extremities, strength equal bilaterally, gait normal PSYCHIATRIC: Alert and oriented to person place and time, appropriate affect, intact judgment and insight - Labs CBC & Chem 7: 09/22/23 08:21 09/22/23 08:21 Labs: Abnormal Lab Results - Last 24 Hours (Table) 09/21/23 09/21/23 09/21/23 Range/Units 11:15 16:09 20:02 RBC (4.30-5.90) m/uL Hgb (13.0-17.5) gm/dL Hct (39.0-53.0) % Chloride (98-107) mmol/L Carbon Dioxide (22-30) mmol/L BUN (9-20) mg/dL Glucose (74-99) mg/dL POC Glucose (mg/dL) 140 H 118 H 153 H (70-110) mg/dL 09/22/23 09/22/23 09/22/23 Range/Units 06:04 08:21 08:21 RBC 2.99 L (4.30-5.90) m/uL Hgb 9.1 L (13.0-17.5) gm/dL Hct 28.0 L (39.0-53.0) % Chloride 112 H (98-107) mmol/L Carbon Dioxide 20 L (22-30) mmol/L BUN 34 H (9-20) mg/dL Glucose 135 H (74-99) mg/dL POC Glucose (mg/dL) 112 H (70-110) mg/dL - Imaging and Cardiology Chest x-ray: report reviewed, image reviewed Assessment and Plan Assessment: Multivessel coronary artery disease, NSTEMI this admission, status post four- vessel CABG History of ischemic cardiomyopathy related to agent orange exposure Paroxysmal atrial fibrillation on Eliquis outpatient status post cardioversion x 2, status post left atrial appendage ligation and pulmonary vein isolation Hypertension Hyperlipidemia, treated, cholesterol 177, LDL 87 Ascending aortic aneurysm, followed outpatient by Dr. Head Obstructive sleep apnea with home CPAP use Benign prostatic hypertrophy Gout GERD Neuropathy to left foot PTSD from experiences in [place] Osteoarthritis Lifetime non-smoker, preoperative FEV1 89% of predicted Preoperative nasal swab positive for MSSA, treated Postoperative acute blood loss anemia, expected given hemodilution and cardiopulmonary bypass Plan: Continue to maximize medical therapy with aspirin, statin, beta-boyd Continue amiodarone for atrial fibrillation, continue Eliquis for a nticoagulation Continue low-dose calcium channel boyd for radial artery spasm prophylaxis Increase activity, ambulate as tolerated. PT/OT/cardiac rehab following Encourage incentive spirometry use. Bronchodilators per pulmonology GI/DVT prophylaxis Pain control with current medication regimen Insulin management per internal medicine, patient is not diabetic, preoperative hemoglobin A1c 5.7% Continue to monitor and record strict accurate intake and output Daily weights Discharge planning in place, anticipate discharge to home with home care this afternoon
[2023-09-22] MEDS: METOPROLOL TARTRATE 25 MG TAB PO STA (11:35)
[2023-09-22 11:36] LABS: Glucose,Whole Blood 152 mg/dL (70-110)
[2023-09-22 11:46] LABS: Glucose,Whole Blood 153 mg/dL (70-110)
[2023-09-22 12:04] VITALS: BP 102/69; PULSE 75
--- NOTE | 2023-09-22 12:10 | P.PN ---
Subjective Progress Note Date: 09/22/23 The patient is a 73-year-old male who is currently admitted after undergoing coronary bypass for multivessel coronary artery disease. Overall patient's postoperative period has been unremarkable. He does have rate controlled atrial fibrillation. He is complaining of being very uncomfortable due to his back hurting. He denies shortness of breath except relating to his back. No chest pain. Heart rate is running between 75 and 92, blood pressure 102/69, pulse ox 95% on room air. Telemetry is atrial fibrillation rate controlled. Repeat blood work reveals hemoglobin 9.1, BUN 34 creatinine 1.05. Potassium 3.9 and sodium 142. Patient was interviewed and examined up resting in the recliner chair. Patient has been resumed on Eliquis. Patient is anticipating discharge home later today. GENERAL: Well-appearing, well-nourished and in no acute distress. NECK: Supple without JVD or thyromegaly. LUNGS: Breath sounds clear to auscultation bilaterally. Respiration equal and unlabored. No wheezes, rales or rhonchi. HEART: Irregular rate and rhythm without murmurs, rubs or gallops. S1 and S2 hea rd. Heart hugger in place. EXTREMITIES: Normal range of motion, no edema. No clubbing or cyanosis. Peripheral pulses intact and strong. IMPRESSION: Multivessel coronary artery disease, status post CABG Postoperative atrial fibrillation History of paroxysmal atrial fibrillation History of hypertension PLAN: Continue Eliquis Increase Lopressor to 100 mg twice daily Continue supportive treatment including incentive spirometry Outpatient follow-up with Dr. Campoverde in 1 week I am dictating on behalf of Dr Home Yang's history/physical and assessment/plan. Objective - Vital Signs Vital signs: Vital Signs Temp 97.9 F 09/22/23 03:12 Pulse 105 H 09/22/23 09:05 Resp 20 09/22/23 09:05 BP 145/85 09/22/23 09:05 Pulse Ox 93 L 09/22/23 09:05 FiO2 21 09/22/23 08:31 Intake & Output 09/21/23 09/22/23 09/22/23 18:59 06:59 18:59 Intake Total 1500 480 Output Total 400 650 Balance 1100 -170 Weight 112.6 kg 113.2 kg Intake: Oral 1500 480 Output: Urine 400 650 Other: Voiding Method Toilet Urinal ABP, PAP, CO, CI - Last Documented Arterial Blood Pressure 140/57 Pulmonary Artery Pressure 42/15 Cardiac Output 4.7 Cardiac Index 2.2 - Labs CBC & Chem 7: 09/22/23 08:21 09/22/23 08:21 Labs: Abnormal Lab Results - Last 24 Hours (Table) 09/21/23 09/21/23 09/21/23 Range/Units 11:15 16:09 20:02 RBC (4.30-5.90) m/uL Hgb (13.0-17.5) gm/dL Hct (39.0-53.0) % Chloride (98-107) mmol/L Carbon Dioxide (22-30) mmol/L BUN (9-20) mg/dL Glucose (74-99) mg/dL POC Glucose (mg/dL) 140 H 118 H 153 H (70-110) mg/dL 09/22/23 09/22/23 09/22/23 Range/Units 06:04 08:21 08:21 RBC 2.99 L (4.30-5.90) m/uL Hgb 9.1 L (13.0-17.5) gm/dL Hct 28.0 L (39.0-53.0) % Chloride 112 H (98-107) mmol/L Carbon Dioxide 20 L (22-30) mmol/L BUN 34 H (9-20) mg/dL Glucose 135 H (74-99) mg/dL POC Glucose (mg/dL) 112 H (70-110) mg/dL
--- NOTE | 2023-09-22 15:42 | P.PN ---
Subjective Progress Note Date: 09/22/23 H&P Date: 09/13/23 Chief Complaint: Chest pain This is a pleasant 73-year-old gentleman with past medical history significant for ischemic cardiomyopathy, atrial fibrillation,AAA, hypertension, hyperlipidemia, sleep apnea wears CPAP, hiatal hernia, gastroesophageal reflux disease and multiple other medical issues follows with [facility], presented to the ER with complaints of chest pain. Reports he developed midsternal chest pressure while up at his cottage in [place]. Reports nonexertional. Chest pain occurred after midnight last night, radiated to bilateral shoulders and into his jaw, accompanied by sweating, shortness of breath and bilateral lower extremity edema. transported him to the ER, troponins elevated, 0.060, 0.931, 3.330, heparin drip initiated. He currently denies any chest pain, palpitations or shortness of breath. Evaluated by cardiology with abnormal EKG reviewed sinus with-T wave inversion. Chest x-ray reporting no acute cardiopulmonary process.. Hematology, coagulation unremarkable. Sodium 142, potassium 4, bicarb 22, BUN 23, creatinine 1.12 glucose 101 magnesium 1.4-supplemented. 09/14/2023 Just returning back from cardiac catheterization, reporting severe multivessel CAD including a tight stenosis in the proximal LAD, proximal circumflex and intermediate disease involving RCA. 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 C ardiothoracic surgery consulted. Currently denies chest pain, palpitations or shortness of breath. Maintaining O2 sats in the mid 90s on room air. Telemetry sinus rhythm. 09/15/23 maintained on heparin drip, IV fluid hydration. Telemetry sinus rhythm .denies chest pain, palpitations or shortness of breath. Maintaining O2 sats in the mid 90s on room air. 09/16/2023 telemetry sinus rhythm. Sitting up in chair, incentive spirometer 3000. Anticoagulated on heparin drip. Continues on IV fluid hydration. Chest CT reviewed by sifting operator. Denies nausea or vomiting. Denies chest pain, pal pitations or shortness of breath. Maintaining O2 sats of 96% on room air. 09/17/2023 maintained on heparin drip. Denies chest pain, palpitations or shortness of breath. 3100 on I-S. Awaiting CABG tomorrow, no complaints. Afebrile, normal WBC. Hemoglobin 12, platelets 184. Electrolytes within normal limits. Bicarb 22, BUN 18, creatinine 0.94. Blood sugars controlled. 09/20/2023 status post CABG X4, postop day #2. Telemetry atrial fibrillation, controlled ventricular rate. sitting up in bed, complains of inability to sleep, constipation. Maintaining O2 sats in the 90s on 4 L nasal cannula. Incentive spirometer 1500. chest x-ray increased linear markings right upper lung field, mild left lower lobe infiltrate, suspect atelectasis. afebrile, WBC 15.4. Hemoglobin 9.4, platelets 160 electrolytes within normal limits, bicarb 21 BUN 28 creatinine 1.03. Blood sugars controlled. 09/21/2023 status post CABG, postop day #3, sitting up in chair. Maintaining O2 sats in the 90s on 2 L nasal cannula. Passing flatus no bowel movement, MiraLAX was not given yesterday. Chest x-ray reporting worsening left lower lobe infiltrate. Afebrile, WBC 12.3. Hemoglobin 9.56, platelet 208, bicarb 20, BUN 30, creatinine 1.06. Blood sugars controlled. 09/22/2023 sitting up in chair, eager for discharge. Incentive spirometer up to 1999. Telemetry atrial fibrillation with controlled ventricular rate denies chest pain, palpitations or shortness of breath. Reports he ambulated in the hallway 5 times. Tolerated exertion well. Afebrile, normal WBC. Hemoglobin 9.1, platelets 224. Bicarb 20 BUN 34, creatinine 1.05. Blood sugars controlled. Objective - Vital Signs Vital signs: Vital Signs Temp 97.9 F 09/22/23 03:12 Pulse 75 09/22/23 12:01 Resp 20 09/22/23 12:01 BP 102/69 09/22/23 12:01 Pulse Ox 95 09/22/23 12:01 FiO2 21 09/22/23 08:31 Intake & Output 09/21/23 09/22/23 09/22/23 18:59 06:59 18:59 Intake Total 1500 480 Output Total 400 650 Balance 1100 -170 Weight 112.6 kg 113.2 kg Intake: Oral 1500 480 Output: Urine 400 650 Other: Voiding Method Toilet Urinal ABP, PAP, CO, CI - Last Documented Arterial Blood Pressure 140/57 Pulmonary Artery Pressure 42/15 Cardiac Output 4.7 Cardiac Index 2.2 - Exam PHYSICAL EXAM: VITAL SIGNS: [As above] GENERAL: Alert and oriented x 3, sitting up in chair, no acute distress HEENT: Normocephalic, atraumatic, conjunctivae normal. eyes normal. NECK: Supple, no JVD. CARDIOVASCULAR: S1, S2 .Irregular rate and rhythm, no murmur RESPIRATION: Unlabored, equal air entry, clear to auscultation. Wearing heart hugger ABDOMEN: Soft, nondistended, nontender . No guarding. +BS LEGS: Trace edema, wearing SCDs NERVOUS SYSTEM: Cranial N 2-12 grossly normal. No focal deficits. Skin: Warm and dry, no rash. - Labs CBC & Chem 7: 09/22/23 08:21 09/22/23 08:21 Labs: Abnormal Lab Results - Last 24 Hours (Table) 09/21/23 09/21/23 09/22/23 Range/Units 16:09 20:02 06:04 RBC (4.30-5.90) m/uL Hgb (13.0-17.5) gm/dL Hct (39.0-53.0) % Chloride (98-107) mmol/L Carbon Dioxide (22-30) mmol/L BUN (9-20) mg/dL Glucose (74-99) mg/dL POC Glucose (mg/dL) 118 H 153 H 112 H (70-110) mg/dL 09/22/23 09/22/23 09/22/23 Range/Units 08:21 08:21 11:35 RBC 2.99 L (4.30-5.90) m/uL Hgb 9.1 L (13.0-17.5) gm/dL Hct 28.0 L (39.0-53.0) % Chloride 112 H (98-107) mmol/L Carbon Dioxide 20 L (22-30) mmol/L BUN 34 H (9-20) mg/dL Glucose 135 H (74-99) mg/dL POC Glucose (mg/dL) 152 H (70-110) mg/dL 09/22/23 Range/Units 11:45 RBC (4.30-5.90) m/uL Hgb (13.0-17.5) gm/dL Hct (39.0-53.0) % Chloride (98-107) mmol/L Carbon Dioxide (22-30) mmol/L BUN (9-20) mg/dL Glucose (74-99) mg/dL POC Glucose (mg/dL) 153 H (70-110) mg/dL Assessment and Plan Assessment: Chest pain, NSTEMI. Status post catheterization reporting severe multivessel CAD, status post CABG x 4 Postoperative atelectasis CAD with ischemic cardiomyopathy, no stenting, follows with [facility]. 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 Head BPH Hemoglobin A1c 5.7 Plan: Continue on current medication resume ,monitoring and symptomatic treatment.discharge planning in progress for today as per CTS. Patient advised to continue aggressive pulmonary toileting with incentive spirometer as previously instructed. Follow-up with PCP in 1 week. The impression and plan of care has been dictated as directed. DrShyam: I performed a history and examination of this patient, discussed the same with the dictator. I agree with the dictator's note ,documented as a scribe. Any additional findings or plans will be noted.
--- NOTE | 2023-09-22 15:49 | P.PN ---
Subjective Progress Note Date: 09/22/23 Principal diagnosis: Non-ST segment elevation myocardial infarction. This is a very pleasant 73-year-old male patient with a history of atrial fibrillation with previous cardioversions, anticoagulated with Eliquis, gastroesophageal reflux disease, hyperlipidemia, hypertension, obstructive sleep apnea utilizing CPAP at 12 cm of water, gout, agent orange exposure while in [place], multiple orthopedic surgeries. He is a lifelong non-smoker. No history of asthma. No oxygen or inhalers. His FEV1 value was found to be 2.45 L and 89% of predicted. He had presented here to the emergency room on September 13, 2023 with complaints of midsternal chest discomfort radiating to the bilateral shoulders. Troponins were 0.060, 0.931, 3.330. White count 8.0. Hemoglobin 13.3. Platelets 204. Sodium 137. Potassium 4.0. Bicarb 22. BUN 15. Creatinine 0.82. Glucose 131. Chest x-ray revealed no acute pulmonary process. Echocardiogram revealed preserved left ventricular systolic function with ejection fraction 55 to 60%. He did undergo cardiac catheterization on 09/14/2023 that revealed severe multivessel coronary artery disease including a tight stenosis in the proximal LAD, proximal circumflex and intermittent disease involving the RCA. He was recommended surgical revascularization. The plan is for surgery on 09/18/2023. He is seen today in consultation on the selective care unit. He is sitting up in a chair. Awake and alert in no acute distress. He denies any shortness of breath, cough or congestion. Maintaining good O2 saturations in the 90s on room air. He is practicing well with the incentive spirometer. He remains on a heparin drip. He denies any chest discomfort currently. Patient was evaluated today on 09/16/2023, patient is doing well, scheduled to have surgery in the next few days, continues to have no active pulmonary symptoms no cough no wheezing no shortness of breath, doing excellent with his incentive spirometry. CT of the chest was reviewed, no worrisome findings at this point. Patient had FEV1 of 89%, he never smoked. The patient is seen today September 17, 2023 in follow-up on the regular medical floor. He is awake and alert in no acute distress. Sitting up at the bedside. He is working well with his incentive spirometer. He denies any shortness of breath, cough or congestion. No chest pain presently. White count 7.8. He moglobin 12.0. Platelets 184. Sodium 139. Potassium 4.0. Bicarb 22. BUN 18. Creatinine 0.94. Glucose 86. He remains on a heparin drip. The patient is seen today September 20, 2023 in follow-up in the intensive care unit. Postoperative day #2 following coronary artery bypass grafting x 4 utilizing a CARLISLE to the LAD, right radial artery to the ramus intermedius and obtuse marginal artery. Reverse saphenous vein graft to the distal RCA. Left atrial appendage ligation. He is awake and alert in no acute distress. He is maintaining good O2 saturations in the 90s on 4 L/min per nasal cannula. His chest tubes and lines have all been removed. He is working well with the incentive spirometer. Pulling approximately 1500 mL. Chest x-ray does show atelectatic changes in the bilateral bases. He is in atrial fibrillation in a controlled ventricular response. Count 15.4. Hemoglobin 9.4. Platelets 160. Sodium 137. Potassium 4.0. Bicarb 21. BUN 28. Creatinine 1.03. Glucose 116. He is continued on DuoNeb inhalations. Heparin for DVT prophylaxis. The patient is seen today September 21, 2023 in follow-up in the intensive care unit. Postoperative day #3. He is currently sitting up in a chair. Awake and alert in no acute distress. He is maintaining good O2 saturations in the 90s on 2 L/min per nasal cannula. No IV fluids. Pacer wires remain in place. Chest x- ray reveals increasing left lower lobe infiltrate. He is working well with the incentive spirometer. He is continued on bronchodilators. Heparin for DVT prophylaxis. White count 12.3. Hemoglobin 9.5. Platelets 208. Sodium 140. Potassium 3.9. Bicarb 20. BUN 30. Creatinine 1.06. Glucose 126. Progress note dated September 22, 2023. 73-year-old male seen today in room 383. He is on room air. No IV fluids. The patient is doing well, without complaints. He is postop day #4. He is sitting in a chair, next to his hospital bed. He denies any shortness of breath, cough, wheezing, chest tightness, or phlegm production. Current labs include a white count 10.2, hemoglobin 9.1, hematocrit 28, and a platelet count of 224,000. Sodium 142, potassium 3.9, chlorides 112, CO2 20, BUN 34, and creatinine 1.05. Glucose was 153. Calcium 9.4, magnesium 2.2. Chest x-ray shows some minimal left lower lobe infiltrate or atelectasis. Objective - Vital Signs Vital signs: Vital Signs Temp 97.9 F 09/22/23 03:12 Pulse 75 09/22/23 12:01 Resp 20 09/22/23 12:01 BP 102/69 09/22/23 12:01 Pulse Ox 95 09/22/23 12:01 FiO2 21 09/22/23 08:31 Intake & Output 09/21/23 09/22/23 09/22/23 18:59 06:59 18:59 Intake Total 1500 480 Output Total 400 650 Balance 1100 -170 Weight 112.6 kg 113.2 kg Intake: Oral 1500 480 Output: Urine 400 650 Other: Voiding Method Toilet Urinal ABP, PAP, CO, CI - Last Documented Arterial Blood Pressure 140/57 Pulmonary Artery Pressure 42/15 Cardiac Output 4.7 Cardiac Index 2.2 - Exam No acute distress, oriented 3. HEENT examination is grossly unremarkable. Mucous membranes are moist. No oral lesions. Neck supple. Full range of motion. No adenopathy thyromegaly or neck vein distention. Cardiovascular examination reveals regular rhythm rate. S1-S2 normal. No S3 or S4. No discernible murmur noted. Heart rate 73 bpm. Lungs reveal clear breath sounds. Breath sounds are equal bilaterally. No adventitious lung sounds including wheezes rhonchi or crackles. Room air saturation is 95%. Abdomen soft bowel sounds are heard. No masses or tenderness. Extremities are intact. No cyanosis clubbing or edema. Skin is without rash or lesion. Neurologic examination is brief but nonfocal. - Labs CBC & Chem 7: 09/22/23 08:21 09/22/23 08:21 Labs: Abnormal Lab Results - Last 24 Hours (Table) 09/21/23 09/21/23 09/22/23 Range/Units 16:09 20:02 06:04 RBC (4.30-5.90) m/uL Hgb (13.0-17.5) gm/dL Hct (39.0-53.0) % Chloride (98-107) mmol/L Carbon Dioxide (22-30) mmol/L BUN (9-20) mg/dL Glucose (74-99) mg/dL POC Glucose (mg/dL) 118 H 153 H 112 H (70-110) mg/dL 09/22/23 09/22/23 09/22/23 Range/Units 08:21 08:21 11:35 RBC 2.99 L (4.30-5.90) m/uL Hgb 9.1 L (13.0-17.5) gm/dL Hct 28.0 L (39.0-53.0) % Chloride 112 H (98-107) mmol/L Carbon Dioxide 20 L (22-30) mmol/L BUN 34 H (9-20) mg/dL Glucose 135 H (74-99) mg/dL POC Glucose (mg/dL) 152 H (70-110) mg/dL 09/22/23 Range/Units 11:45 RBC (4.30-5.90) m/uL Hgb (13.0-17.5) gm/dL Hct (39.0-53.0) % Chloride (98-107) mmol/L Carbon Dioxide (22-30) mmol/L BUN (9-20) mg/dL Glucose (74-99) mg/dL POC Glucose (mg/dL) 153 H (70-110) mg/dL Assessment and Plan Assessment: Acute non-ST segment elevation myocardial infarction in a patient found to have severe multivessel coronary artery disease. Status post coronary to bypass grafting x 4 with a CARLISLE to the LAD, radial artery to the ramus intermedius and obtuse marginal artery. Reverse saphenous vein graft to the RCA. Left atrial appendage ligation. Postoperative day #4. History of paroxysmal atrial fibrillation with previous cardioversions, anticoagulated with Eliquis. Hypertension. Hyperlipidemia. Obstructive sleep apnea utilizing home CPAP at 12 cm of water, nasal pillow due to significant claustrophobia. History of gout. Gastroesophageal reflux disease. Agent orange exposure while in [place]. Lifelong non-smoker, FEV1 value 2.45 L, 89% of predicted. Plan: Plan dated September 22, 2023. The patient appears to be doing relatively well. He is on room air. He is not receiving any IV fluids. Labs, x-rays, and medications are reviewed. He is postoperative day #4. The patient is being evaluated for possible discharge. Should he not be discharged, we will continue to follow the patient. The patient denies any shortness of breath, cough, wheezing, chest tightness, or phlegm production. He denies any chest pain or pressure. He does have some tenderness at the surgical site. Time with Patient: Less than 30
[2023-09-22] MEDS ORDERED: METOPROLOL TARTRATE 50 MG TAB PO SCH (21:00)
--- NOTE | 2023-09-23 15:37 | P.DS ---
Providers Date of admission: 09/13/23 03:17 Expected date of discharge: 09/22/23 Attending physician: Luis Stockton MD Consults: 09/13/23 03:17 Consult Physician Urgent Consulting Provider: Mary Oswald Consult Reason/Comments: NSTEMI Do you want consulting provider notified?: Yes 09/14/23 10:30 Consult Physician Routine Consulting Provider: Shekhar Cox Consult Reason/Comments: CABG eval Do you want consulting provider notified?: Yes 09/15/23 09:52 Consult Physician Routine Consulting Provider: Crystal Baumann Consult Reason/Comments: pulm clearance for open heart Do you want consulting provider notified?: Already Contacted 09/17/23 10:38 Consult to Anesthesia Routine Consulting Provider: Anesthesia,Services Consult Reason/Comments: Cardiac Surgery Pre-Op 09/18/23 13:31 Consult Physician Routine Consulting Provider: Grzegorz Lucero Consult Reason/Comments: Medical management Do you want consulting provider notified?: Yes Primary care physician: Liz Lucero [facility] Course: FINAL DIAGNOSIS: Multivessel coronary artery disease, NSTEMI this admission History of ischemic cardiomyopathy related to agent orange exposure Paroxysmal atrial fibrillation on Eliquis outpatient status post cardioversion x 2, status post left atrial appendage ligation and pulmonary vein isolation Hypertension Hyperlipidemia, treated, cholesterol 177, LDL 87 Ascending aortic aneurysm, followed outpatient by Dr. 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 PTSD from experiences in [place] Osteoarthritis Lifetime non-smoker, preoperative FEV1 89% of predicted Preoperative nasal swab positive for MSSA, treated Postoperative acute blood loss anemia, expected given hemodilution and cardiopulmonary bypass PRINCIPAL PROCEDURE: On pump coronary artery bypass grafting x 4, Left internal thoracic artery (in- situ) to left anterior descending coronary artery, radial artery from aorta sequential to ramus intermedius and obtuse marginal artery, reverse saphenous vein from aorta to distal right coronary artery Left atrial appendage ligation using #35mm AtriClip Bilateral pulmonary vein isolation with AtriCure RF Clamp Endoscopic left radial artery and right greater saphenous vein harvest Graft flow measurements using the Medi-Stim flow meter system Trans-esophageal echocardiogram performed by anesthesia HISTORY OF PRESENT ILLNESS: This is a 73-year-old gentleman who follows on outpatient basis with Dr. Liz Lucero for his primary care and with Dr. Dickey and Dr. Parkinson out of [facility] for his cardiology care. The patient presented to the emergency department here at [facility] on September 13, 2023, after being woken up from sleep with chest pain which radiated to his bilateral shoulders. The patient reported he did have some diaphoresis associated with the chest pain. He denied any complaints of nausea, vomiting, constipation, diarrhea, fever, chills, palpitations, shortness of breath, visual disturbances, headache, presyncope or syncope. Chest x-ray was completed in the emergency department which showed no acute cardiopulmonary process. A twelve- lead EKG showed normal sinus rhythm with T wave inversion and a heart rate of 65 bpm. Initial laboratory results showed WBC 8.0, hemoglobin 13.3, hematocrit 41.5, platelets 228, PT 10.8, INR 1.0, PTT 24.0, sodium 142, potassium 4.0, chloride 110, BUN 23, creatinine 1.12, glucose 101, calcium 9.9, magnesium 1.4, proBNP 368, and elevated serial troponins as high as 3.330. Due to the patient's presenting symptoms and elevated troponins cardiology was consulted and recommended cardiac catheterization which was completed by Dr. Campoverde and which revealed severe multivessel coronary artery disease including a tight stenosis of 95% in the proximal left anterior descending coronary artery, 70% stenosis to his proximal circumflex coronary artery, and intermediate disease involving the right coronary artery with a 40-50% stenosis. The patient also had a transthoracic 2D echocardiogram completed demonstrating normal left ventricular systolic function with ejection fraction 55-60%, no obvious regional wall motion abnormalities, trace mitral valve regurgitation, trace aortic valve regurgitation, trace tricuspid valve regurgitation, no pericardial effusion and mildly dilated ascending aorta. Consultation was placed to Dr. Stockton from cardiothoracic surgery. He was recommended to undergo urgent myocardial revascularization. The usual perioperative course was discussed in detail with the patient and his family, all risks and benefits were explained, all questions were answered, and consent was obtained to proceed with surgery. The patient kept inpatient due to the nature of his disease process. HOSPITAL COURSE: The patient was brought to the preoperative area 09/18/23, prepared in the usual fashion, and subsequently taken to the operating room where Dr. Stockton performed four-vessel off-pump CABG. Upon completion of surgery the patient was transferred to the cardiovascular intensive care unit where he was recovered and monitored hemodynamically. He was extubated, all lines, tubes, and drips were discontinued when appropriate, and he was transferred to 3 S cardiac stepdown unit for further monitoring and rehabilitation. His oxygen was titrated down, he continued to work with physical and occupational therapy, he was tolerating oral diet, his pain was controlled, and he was ready to be discharged to home with [facility] on postoperative day #4. He received written and verbal instruction regarding his medications, activity restrictions, signs and symptoms requiring physician notification, and follow-up appointments. Patient Condition at Discharge: Stable Plan - Discharge Summary Discharge Rx Participant: No New Discharge Prescriptions: New Melatonin 6 mg PO HS PRN tab PRN Reason: Insomnia Sennosides-Docusate Sodium [Senokot-S] 2 each PO HS PRN tab PRN Reason: Constipation Amiodarone [Cordarone] 400 mg PO BID #43 tab Metoprolol Tartrate [Lopressor] 100 mg PO BID #120 tab Acetaminophen Tab [Tylenol] 1,000 mg PO Q6HR PRN tab PRN Reason: Fever And/ Or Mild Pain (1-3) Continue Omeprazole 40 mg PO DAILY allopurinoL [Zyloprim] 300 mg PO DAILY Levothyroxine Sodium [Synthroid] 50 mcg PO DAILY Celecoxib [CeleBREX] 200 mg PO DAILY Aspirin 81 mg PO DAILY lamoTRIgine [LaMICtal] 25 mg PO HS Apixaban [Eliquis] 5 mg PO BID Changed Atorvastatin [Lipitor] 40 mg PO DAILY #30 tab amLODIPine [Norvasc] 2.5 mg PO DAILY #0 Discontinued Potassium Chloride [Klor-Con 20] 20 meq PO DAILY Furosemide [Lasix] 20 mg PO DAILY Sotalol [Betapace] 80 mg PO BID Losartan [Cozaar] 25 mg PO DAILY Discharge Medication List Omeprazole 40 mg PO DAILY 04/08/15 [History] allopurinoL [Zyloprim] 300 mg PO DAILY 04/08/15 [History] Apixaban [Eliquis] 5 mg PO BID 09/13/23 [History] Aspirin 81 mg PO DAILY 09/13/23 [History] Celecoxib [CeleBREX] 200 mg PO DAILY 09/13/23 [History] Levothyroxine Sodium [Synthroid] 50 mcg PO DAILY 09/13/23 [History] lamoTRIgine [LaMICtal] 25 mg PO HS 09/13/23 [History] Acetaminophen Tab [Tylenol] 1,000 mg PO Q6HR PRN tab 09/22/23 [Rx] Amiodarone [Cordarone] 400 mg PO BID #43 tab 09/22/23 [Rx] Atorvastatin [Lipitor] 40 mg PO DAILY #30 tab 09/22/23 [Rx] Melatonin 6 mg PO HS PRN tab 09/22/23 [Rx] Metoprolol Tartrate [Lopressor] 100 mg PO BID #120 tab 09/22/23 [Rx] Sennosides-Docusate Sodium [Senokot-S] 2 each PO HS PRN tab 09/22/23 [Rx] amLODIPine [Norvasc] 2.5 mg PO DAILY #0 09/22/23 [Rx] Follow up Appointment(s)/Referral(s): Crystal Baumann MD [STAFF PHYSICIAN] - 10/21/23 1:45 pm Zuly Castillo NPC [Nurse Practitioner] - 09/29/23 9:45 am (You will be seen in the surgeon's office behind the hospital in [facility], [place], [address]. Office phone number is ) Rehab [facility],Cardiac [NON-STAFF] - 4 Weeks (You will receive a phone call in approximately 4-6 weeks for evaluation for cardiac rehab) Liz Lucero DO [Primary Care Provider] - 10/04/23 12:45 pm EVERTON DICKEY DO [REFERRING] - As Needed (Out of [facility]) [facility] [NON-STAFF] - 1-2 Days (You should be seen by a nurse the day after discharge, then 2-3 times per week until you start cardiac rehab) Luis Stockton MD [STAFF PHYSICIAN] - 10/06/23 2:00 pm Davis Campoverde MD [STAFF PHYSICIAN] - 09/29/23 8:15 am Ambulatory/Diagnostic Orders: Complete Blood Count w/diff [LAB.AMB] Time Frame: 3 Days, Location: None Selected Comprehensive Metabolic Panel [LAB.AMB] Time Frame: 3 Days, Location: None Selected Activity/Diet/Wound Care/Special Instructions: DISCHARGE INSTRUCTIONS: 1. No driving for 4 weeks, or until physician gives their ok. 2. The patient should sleep in their own bed, no medical bed needed. 3. Stairs are not an issue. If the bedroom is upstairs, it is advised that the patient go up at night and down in the morning for the first week. Go slowly, using handrail and take 1 step at a time. 4. ANGEL hose are to be worn for 30 days post surgery or until physician discontinues. 5. Heart hugger is to be worn 100% of the time until physician discontinues.(except when showering) 6. No lifting, pushing, or pulling more than 10 pounds for 12 weeks. The physician will advise of any restriction changes. 7. The patient is expected to continue the prescribed walking program. 8. Continue pain control per as needed orders. 9. Continue with incentive spirometry and splinting/heart hugger until otherwise directed by the physician. 10. Must shower daily using liquid antibacterial soap 11. Routine sternal incision care. No powders, lotions, ointments on incisions. No dressings are necessary on incisions unless they are draining. Dermabond tape is to remain on sternal incision until surgeon follow-up. 12. Please call surgeon/BUSINESS RELATIONS MANAGER for temp greater than 101 F or purulent drainage from incisions. 13. You should weigh yourself daily, record and bring log with you to follow up appointments. 14. All prescriptions given by surgeon for 30 days. Refills need to be filled through validation software facilitator/primary care physician. 15. A Red armband has been placed on the patient. It should be worn for 30 days post discharge from surgery and will be removed by the cardiac surgeons. If an ER visit is necessary, please make sure the number on the Red armband is called before going to ER. 16. You have been referred to and are expected to begin Cardiac Rehab in approx imately 4-6 weeks. 17. Quitting smoking is the most important step you can take to improve your health. For additional information and assistance to quit smoking, please call the [place] tobacco quit line (7-693-BWMW-NOW/ ) or online: [email or web address] HOME HEALTH SERVICES TO PROVIDE: RN SKILLED HOME CARE SERVICES FOR POST-OP SURGICAL PATIENTS WITH THE FOLLOWING: Coronary Artery Bypass Surgery (CABG), Mitral Valve Replacement/Repair ( MVR), Aortic Valve Replacement/Repair (AVR) RN TO CONTINUE EDUCATION FROM ``ROAD TO A HEALTH HEART PATIENT EDUCATION MANUAL (GIVEN TO PATIENT IN THE HOSPITAL) MEDICATION RECONCILIATION WITH EDUCATION NEEDED ON FIRST HOME VISIT EMPHASIZE IMPORTANCE OF WEARING BREAST SUPPORT/HEART HUGGER ENCOURAGE USE OF INCENTIVE SPIROMETER 10 X EVERY HOUR WHILE AWAKE ENCOURAGE UTILIZATION OF LOWER EXTREMITY COMPRESSION STOCKINGS/ANGEL HOSE and ELEVATE LEGS ABOVE LEVEL OF HEART WHILE AT REST. ENCOURAGE AMBULATION 3-5x/day INCREASING TOLERATES, WHILE AVOIDING EXTREMES IN TEMPERATURE FREQUENCY: RN TO OPEN THE PATIENT WITHIN 24 HOURS OF DISCHARGE FROM THE HOSPITAL WITH TELEHEALTH INSTALLED AT [facility], RN TO VISIT 2-3 X A WEEK FOR 4 WEEKS ESTABLISHED BY PATIENT NEEDS. LABORATORY: CBC, CMP TO BE DRAWN ON THE THIRD DAY HOME, (RAN STAT) FAX RESULTS TO [phone]. TELEHEALTH PARAMETERS: WEIGHT: NOTIFY MD OF WEIGHT GAIN OF 2 LBS IN 24 HOURS OR 5 LBS IN ONE WEEK HR: NOTIFY MD OF HR <55 BPM OR HR>100 BPM BP: NOTIFY MD IF BP <90/55 OR BP>140/100 O2 SAT: NOTIFY MD IF PO2<93% ON ROOM AIR SEND TELEHEALTH REPORT TO [employer] WILDLIFE CONTROL OPERATOR AND CARDIOVASCULAR SURGEON THE FIRST WEEK OF CARE AND THEN BI-WEEKLY. PLEASE ADDITIONALLY COMMUNICATE ANY ABNORMALS AND NEW FINDINGS TO THE SURGEONS OFFICE. Discharge Disposition: HOME WITH HOME HEALTH SERVICES
== END 2023-09-22 13:56 | disposition home health service (06) | DRG 234 ==
LOC: EC 01:23 → 3SCARD 03:17 → 2SICU 09-18 07:11 → 3SCARD 09-21 21:10
PROVIDERS: ADMIT Thoracic Surgery (Cardiothoracic Vascular Surgery); ATTEND Thoracic Surgery (Cardiothoracic Vascular Surgery)
PROC: 4A023N7 Measurement of Cardiac Sampling and Pressure, Left Heart, Percutaneous Approach (ICD-10-PCS; 2023-09-14)
PROC: B2111ZZ Fluoroscopy of Multiple Coronary Arteries using Low Osmolar Contrast (ICD-10-PCS; 2023-09-14)
PROC: 05BA4ZZ Excision of Left Brachial Vein, Percutaneous Endoscopic Approach (ICD-10-PCS; 2023-09-18)
PROC: 06BP4ZZ Excision of Right Saphenous Vein, Percutaneous Endoscopic Approach (ICD-10-PCS; 2023-09-18)
PROC: 5A1221Z Performance of Cardiac Output, Continuous (ICD-10-PCS; 2023-09-18)
PROC: 02L70CK Occlusion of Left Atrial Appendage with Extraluminal Device, Open Approach (ICD-10-PCS; 2023-09-18)
PROC: 5A1223Z Performance of Cardiac Pacing, Continuous (ICD-10-PCS; 2023-09-18)
PROC: B246ZZ4 Ultrasonography of Right and Left Heart, Transesophageal (ICD-10-PCS; 2023-09-18)
PROC: 4A0335C Measurement of Arterial Flow, Coronary, Percutaneous Approach (ICD-10-PCS; 2023-09-18)
PROC: 02HV33Z Insertion of Infusion Device into Superior Vena Cava, Percutaneous Approach (ICD-10-PCS; 2023-09-18)
PROC: 4A133B1 Monitoring of Arterial Pressure, Peripheral, Percutaneous Approach (ICD-10-PCS; 2023-09-18)
PROC: 4A133J1 Monitoring of Arterial Pulse, Peripheral, Percutaneous Approach (ICD-10-PCS; 2023-09-18)
PROC: B24BZZ4 Ultrasonography of Heart with Aorta, Transesophageal (ICD-10-PCS; 2023-09-18)
PROC: 03HY32Z Insertion of Monitoring Device into Upper Artery, Percutaneous Approach (ICD-10-PCS; 2023-09-18)
PROC: 02100Z9 Bypass Coronary Artery, One Artery from Left Internal Mammary, Open Approach (ICD-10-PCS; principal; 2023-09-18 08:00)
PROC: 02100ZC Bypass Coronary Artery, One Artery from Thoracic Artery, Open Approach (ICD-10-PCS; 2023-09-18 08:00)
PROC: 021109W Bypass Coronary Artery, Two Arteries from Aorta with Autologous Venous Tissue, Open Approach (ICD-10-PCS; 2023-09-18 08:00)
PROC: 05HD33Z Insertion of Infusion Device into Right Cephalic Vein, Percutaneous Approach (ICD-10-PCS; 2023-09-20)
DX: I21.4 Non-ST elevation (NSTEMI) myocardial infarction (principal); D62 Acute posthemorrhagic anemia; I25.3 Aneurysm of heart; I25.5 Ischemic cardiomyopathy; F43.10 Post-traumatic stress disorder, unspecified; I25.10 Atherosclerotic heart disease of native coronary artery without angina pectoris; I48.0 Paroxysmal atrial fibrillation; I10 Essential (primary) hypertension; Z86.73 Personal history of transient ischemic attack (TIA), and cerebral infarction without residual deficits; E78.5 Hyperlipidemia, unspecified; Z79.01 Long term (current) use of anticoagulants; M19.90 Unspecified osteoarthritis, unspecified site; K21.9 Gastro-esophageal reflux disease without esophagitis; M10.9 Gout, unspecified; N40.0 Benign prostatic hyperplasia without lower urinary tract symptoms; G47.33 Obstructive sleep apnea (adult) (pediatric); E11.42 Type 2 diabetes mellitus with diabetic polyneuropathy; I71.21 Aneurysm of the ascending aorta, without rupture; F40.240 Claustrophobia; E03.9 Hypothyroidism, unspecified; E66.01 Morbid (severe) obesity due to excess calories; G47.00 Insomnia, unspecified; Z68.38 Body mass index [BMI] 38.0-38.9, adult; Z79.1 Long term (current) use of non-steroidal anti-inflammatories (NSAID); Z79.82 Long term (current) use of aspirin; Z79.890 Hormone replacement therapy; Z79.899 Other long term (current) drug therapy; Z86.79 Personal history of other diseases of the circulatory system; Z96.659 Presence of unspecified artificial knee joint; Z77.098 Contact with and (suspected) exposure to other hazardous, chiefly nonmedicinal, chemicals; Z22.321 Carrier or suspected carrier of Methicillin susceptible Staphylococcus aureus; Z88.5 Allergy status to narcotic agent; Z88.8 Allergy status to other drugs, medicaments and biological substances
CPT/HCPCS: 36410; 36415; 71045; 71046; 71250; 76937; 80048; 80053; 80061; 80074; 81003; 82330; 82805; 83036; 83735; 83880; 84443; 84484; 85025; 85027; 85049; 85610; 85730; 86850; 86891; 86900; 86901; 86920; 87070; 93005; 93306; 93458; 93880; 93922; 93970; 94150; 94640; 94760; 96365; 96375; 99291

== ENCOUNTER 2023-09-26 18:07 | Emergency (ER) | payer MEDICARE ==
[2023-09-26 18:12] VITALS: TEMP 98
--- NOTE | 2023-09-26 18:52 | ED ---
SOB HPI - General Source: patient Mode of arrival: wheelchair Limitations: no limitations <Carolyn Matos - Last Filed: 09/27/23 09:26> - General Source: RN notes reviewed, old records reviewed Mode of arrival: wheelchair Limitations: no limitations <Romero Naranjo - Last Filed: 09/29/23 01:55> - General Chief Complaint: Shortness of Breath Stated Complaint: CLIFFORD Time Seen by Provider: 09/26/23 18:34 - History of Present Illness Initial Comments: Patient is a 73 y/o male with PMH atrial fibrillation on eliquis, recent quadruple bypass, presenting for shortness of breath. Patient was recently discharged from this hospital about 3 days ago after being admitted for CO, quadruple bypass performed 5 days prior to discharge by Dr. Stockton. Today patient began experiencing shortness of breath while sitting and eating lunch. applied home pulse oximter which showed pulse ox 93%. Patient had to take multiple deep breaths and ultimately pulse ox javid to 96%. Patient states he felt like he needed oxygen at that time. Symptoms have since resolved and he states that today is the first day he began walking around, and he felt great. Denies chest pain or back pain. Endorses LE swelling, but is wearing compression stockings. He was told to hold off on taking his losartan and lasix until restarted by his legal librarian. He denies any fevers, chills, hemoptysis, sputum production, palpitations, chest pain, nausea, vomiting, diarrhea or abdominal pain. Does endorse a cough productive of clear sputum. (Carolyn Matos) 73 male to ER for evaluation with history of quadruple bypass in chest pain (Romero Naranjo) - Related Data Home Medications Medication Instructions Recorded Confirmed Omeprazole 40 mg PO DAILY 04/08/15 09/13/23 allopurinoL [Zyloprim] 300 mg PO DAILY 04/08/15 09/13/23 Apixaban [Eliquis] 5 mg PO BID 09/13/23 09/13/23 Aspirin 81 mg PO DAILY 09/13/23 09/13/23 Celecoxib [CeleBREX] 200 mg PO DAILY 09/13/23 09/13/23 Levothyroxine Sodium [Synthroid] 50 mcg PO DAILY 09/13/23 09/13/23 lamoTRIgine [LaMICtal] 25 mg PO HS 09/13/23 09/13/23 Previous Rx's Medication Instructions Recorded Acetaminophen Tab [Tylenol] 1,000 mg PO Q6HR PRN tab 09/22/23 Amiodarone [Cordarone] 400 mg PO BID #43 tab 09/22/23 Atorvastatin [Lipitor] 40 mg PO DAILY #30 tab 09/22/23 Melatonin 6 mg PO HS PRN tab 09/22/23 Metoprolol Tartrate [Lopressor] 100 mg PO BID #120 tab 09/22/23 Sennosides-Docusate Sodium 2 each PO HS PRN tab 09/22/23 [Senokot-S] amLODIPine [Norvasc] 2.5 mg PO DAILY #0 09/22/23 Allergies Allergy/AdvReac Type Severity Reaction Status Date / Time gabapentin Allergy severe pain Verified 09/26/23 18:12 tramadol Allergy severe pain Verified 09/26/23 18:12 Review of Systems ROS Other: All systems not noted in ROS Statement are negative. <Romero Naranjo - Last Filed: 09/29/23 01:55> ROS Statement: Those systems with pertinent positive or pertinent negative responses have been documented in the HPI. 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 Date of last positivie culture/infection: 1999 MDRO Source:: right knee Past Surgical History: Coronary Bypass/CABG, Hernia Repair, Joint Replacement, Orthopedic Surgery Additional Past Surgical History / Comment(s): left ankle & bilat knee replaced, arthroscopies knee., multiple EGD's Past Anesthesia/Blood Transfusion Reactions: Previous Problems w/ Anesthesia Additional Past Anesthesia/Blood Transfusion Reaction / Comment(s): prolonged confusion Past Psychological History: PTSD Smoking Status: Never smoker Past Alcohol Use History: Rare Past Drug Use History: None Reported - Past Family History Mother Family Medical History: Cancer (Leukemia) Father Family Medical History: Cancer (Type of cancer unknown) <Carolyn Matos - Last Filed: 09/27/23 09:26> General Exam Limitations: no limitations <Carolyn Matos - Last Filed: 09/27/23 09:26> General appearance: alert, in no apparent distress Head exam: Present: atraumatic, normocephalic, normal inspection Eye exam: Present: normal appearance, PERRL, EOMI. Absent: scleral icterus, conjunctival injection, periorbital swelling ENT exam: Present: normal exam, mucous membranes moist Neck exam: Present: normal inspection. Absent: tenderness, meningismus, lymphadenopathy Respiratory exam: Present: normal lung sounds bilaterally. Absent: respiratory distress, wheezes, rales, rhonchi, stridor Cardiovascular Exam: Present: regular rate, normal rhythm, normal heart sounds. Absent: systolic murmur, diastolic murmur, rubs, gallop, clicks GI/Abdominal exam: Present: soft, normal bowel sounds. Absent: distended, tenderness, guarding, rebound, rigid Extremities exam: Present: normal inspection, full ROM, normal capillary refill. Absent: tenderness, pedal edema, joint swelling, calf tenderness Back exam: Present: normal inspection Neurological exam: Present: alert, oriented X3, CN II-XII intact Psychiatric exam: Present: normal affect, normal mood Skin exam: Present: warm, dry, intact, normal color. Absent: rash <Romero Naranjo - Last Filed: 09/29/23 01:55> - General Exam Comments Initial Comments: PE: CONSTITUTIONAL: no apparent distress, well appearing, pleasant SKIN: warm, dry, no jaundice, hives or petechiae. Well-healing postsurgical incision sites on chest wall without surrounding erythema or exudates. EYES: pupils are equally round, extraocular movements intact without nystagmus, clear conjunctiva, non-icteric sclera HENT: normocephalic, atraumatic, moist mucus membranes, oropharynx clear without exudates NECK: full range of motion PULMONARY: Scant crackles and rhonchi in lung bases, no wheezes or rales, normal excursion, no accessory muscle use and no stridor CARDIOVASCULAR: regular rate, rhythm, normal S1 and S2. No appreciated murmurs. Strong radial pulses with intact distal perfusion. No calf tenderness, patient is wearing compression stockings however 1+ pretibial pitting edema noted in lower extremities with removal of stockings GASTROINTESTINAL: soft, non-tender, non-distended, no palpable masses, no reboun d or guarding MUSCULOSKELETAL: Extremities have no gross deformity, no edema, redness, or swelling NEUROLOGIC: _a/o x 3, GCS 15, normal mentation and speech. Moves all extremities x 4 without motor or sensory deficit PSYCHIATRIC: _normal mood and affect, thought process is clear and linear (Carolyn Matos) Course <Romero Naranjo - Last Filed: 09/29/23 01:55> Vital Signs 09/26/23 09/26/23 09/26/23 18:09 18:29 21:50 Temperature 98 F Pulse Rate 68 77 Respiratory 18 16 16 Rate Blood Pressure 106/48 128/76 O2 Sat by Pulse 96 99 Oximetry 09/26/23 22:34 Temperature Pulse Rate 70 Respiratory 18 Rate Blood Pressure 114/67 O2 Sat by Pulse 94 L Oximetry - Reevaluation(s) Reevaluation #1: Medical records reviewed (Romero Naranjo) Reevaluation #2: Patient informed of results and questions answered (Romero Naranjo) Medical Decision Making - Lab Data Result diagrams: 09/26/23 19:00 09/26/23 19:00 <Carolyn Matos - Last Filed: 09/27/23 09:26> - Lab Data Result diagrams: 09/26/23 19:00 09/26/23 19:00 - Radiology Data Radiology results: report reviewed (CTA chest negative for PE), image reviewed <Romero Naranjo - Last Filed: 09/29/23 01:55> - Medical Decision Making Was pt. sent in by a medical professional or institution (, PA, TRANSITION MGR RN, urgent care, hospital, or senior living...) When possible be specific @ -[No] Did you speak to anyone other than the patient for history (EMS, parent, family, police, friend...)? What history was obtained from this source @ -Spoke with patient's and daughter Did you review nursing and triage notes (agree or disagree)? Why? @ -[I reviewed and agree with nursing and triage notes] Were old charts reviewed (outside hosp., previous admission, EMS record, old EK G, old radiological studies, urgent care reports/EKG's, senior living records)? 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 @ -Differential Dyspnea: Coronary syndrome, arrhythmia, tamponade, pulmonary embolism, pneumonia, pneumothorax, pulmonary effusion, CHF exacerbation, anemia, neuromuscular, this is not meant to be an all-inclusive list. EKG interpreted by me (3pts min.). @ -[As above] X-rays interpreted by me (1pt min.). @ -[None done] CT interpreted by me (1pt min.). @ -I reviewed patient CT chest, I see no evidence of pulmonary embolism, cardiomegaly and pleural effusions noted, agree with radiologist interpretation, Read by radiologist as "no evidence of central PE, limited evaluation of the segmental and subsegmental branches, pulmonary vascular congestion, cardiomegaly and bilateral pleural effusions, correlate with serum BNP, subtle nodular contour of the liver with caudate lobe hypertrophy and gynecomastia, correlate for cirrhosis, biliary sludge versus cholelithiasis, right adrenal gland myolipoma". Patient is already anticoagulated on Eliquis and is not hypoxic or tachycardic here, currently denies any dyspnea, do not feel additional imaging to further evaluate the segmental and subsegmental branches indicated at this point. U/S interpreted by me (1pt. min.). @ -[None done] What testing was considered but not performed or refused? (CT, X-rays, U/S, labs)? Why? @Consider chest x-ray however given patient's recent hospitalization, surgery, Eliquis held for 5 days prior to surgery, CT PE study was performed instead What meds were considered but not given or refused? Why? @ -[None] Did you discuss the management of the patient with other professionals (professionals i.e. , PA, TRANSITION MGR RN, lab, RT, psych nurse, social media intern, fire apparatus engineer, teacher, field crop technical officer, major case detective)? Give summary @ -Discussed with Zuly, MANJINDER with cardiovascular surgery, provided recs of 40 mg IV Lasix, discharged to follow-up with her first thing in the morning in clinic Was smoking cessation discussed for >3mins.? @ -[No] Was critical care preformed (if so, how long)? @ -[No] Were there social determinants of health that impacted care today? How? (Homelessness, low income, unemployed, alcoholism, drug addiction, transportation, low edu. Level, literacy, decrease access to med. care, usp, rehab)? @ -[No] Was there de-escalation of care discussed even if they declined (Discuss DNR or withdrawal of care, Hospice)? DNR status @ -[No] What co-morbidities impacted this encounter? (DM, HTN, Smoking, COPD, CAD, Cancer, CVA, ARF, Chemo, Hep., AIDS, mental health diagnosis, sleep apnea, mor bid obesity)? @ -CAD, agent orange exposure, ischemic cardiomyopathy Was patient admitted / discharged? Hospital course, mention meds given and route, prescriptions, significant lab abnormalities, going to OR and other pertinent info. @ -Patient signed out to oncoming physician, Dr. Naranjo pending repeat troponin Patient is a pleasant 73-year-old male past medical history ischemic cardiomyopathy secondary to CAD, paroxysmal A-fib on Eliquis, recent quadruple bypass presenting for episode of shortness of breath that has since resolved. On my assessment patient is well-appearing and in no acute distress. He is conversant, pleasant and jovial. Noted to have postsurgical incisions that are well-healing without discharge or erythema, no chest wall tenderness to palpation, scant crackles and rhonchi in the bilateral lung bases, 1+ bilateral pretibial pitting edema, soft and nontender abdomen. Pulse ox 96% during exam and conversation. BP 106/48 no tachycardia. Differential diagnosis as above. CT PE study, EKG, troponin, BNP, CBC, CMP ordered. Patient and family are agreeable plan of care. Mild leukocytosis today, with blood cell count 11.9, previously on 09/22/2023 was 10.2, hemoglobin 9.3 appears to be near baseline slightly higher than prior, hemoglobin on 09/22/2023 was 9.1, potassium 5 though slightly hemolyzed, BUN 29 creatinine 1.21, prior on 09/22/2023 was 1.05, slightly elevated, GFR 58 troponin 0.794, on 09/12 was 3.330, I suspect today's elevation is downtrending from recent NSTEMI, though will repeat to ensure is downtrending or no significant uptrending, BNP 3280. Called cardiovascular surgery, spoke with MANJINDER Caruso with cardiovascular surgery. Kindly recommends 40 mg IV Lasix and discharged to follow-up in the clinic tomorrow morning as long as biox > 88%. I updated patient and family to plan of care. Patient will have repeat troponin drawn at 9:00. If no significant increase or is downtrending plan for discharge home. Patient and family are comfortable and agreeable plan of care. Patient ambulated with RN, biox 94%. Patient signed out to oncoming physician, Dr. Naranjo Pending repeat troponin. Diagnosis/symptom? @ -CHF exacerbation Acute, or Chronic, or Acute on Chronic? @ -Acute on chronic Uncomplicated (without systemic symptoms) or Complicated (systemic symptoms)? @ -Complicated Side effects of treatment? @ -[No] Exacerbation, Progression, or Severe Exacerbation? @Exacerbation (,Carolyn) 73 male to ER with chest pain 2 troponins are positive but downtrending. Patient can be discharged home (Romero Naranjo) - Lab Data Lab Results 09/26/23 09/26/23 09/26/23 Range/Units 18:56 19:00 19:00 WBC 11.9 H (3.8-10.6) k/uL RBC 3.21 L (4.30-5.90) m/uL Hgb 9.3 L (13.0-17.5) gm/dL Hct 29.2 L (39.0-53.0) % MCV 90.9 (80.0-100.0) fL MCH 29.1 (25.0-35.0) pg MCHC 32.0 (31.0-37.0) g/dL RDW 15.1 (11.5-15.5) % Plt Count 424 (150-450) k/uL MPV 8.4 Neutrophils % 81 % Lymphocytes % 11 % Monocytes % 5 % Eosinophils % 2 % Basophils % 0 % Neutrophils # 9.6 H (1.3-7.7) k/uL Lymphocytes # 1.3 (1.0-4.8) k/uL Monocytes # 0.6 (0-1.0) k/uL Eosinophils # 0.3 (0-0.7) k/uL Basophils # 0.0 (0-0.2) k/uL Hypochromasia Slight PT 12.0 (10.0-12.5) sec INR 1.1 (<1.2) APTT 23.7 (22.0-30.0) sec Sodium (137-145) mmol/L Potassium (3.5-5.1) mmol/L Chloride (98-107) mmol/L Carbon Dioxide (22-30) mmol/L Anion Gap mmol/L BUN (9-20) mg/dL Creatinine (0.66-1.25) mg/dL Est GFR (CKD-EPI)AfAm (>60 ml/min/1.73 sqM) Est GFR (CKD-EPI)NonAf (>60 ml/min/1.73 sqM) Glucose (74-99) mg/dL Calcium (8.4-10.2) mg/dL Magnesium (1.6-2.3) mg/dL Total Bilirubin (0.2-1.3) mg/dL AST (17-59) U/L ALT (4-49) U/L Alkaline Phosphatase (38-126) U/L Troponin I (0.000-0.034) ng/mL NT-Pro-B Natriuret Pep pg/mL Total Protein (6.3-8.2) g/dL Albumin (3.5-5.0) g/dL Influenza Type A (PCR) Not Detected (Not Detectd) Influenza Type B (PCR) Not Detected (Not Detectd) RSV (PCR) Not Detected (Not Detectd) SARS-CoV-2 (PCR) Not Detected (Not Detectd) 09/26/23 09/26/23 09/26/23 Range/Units 19:00 19:00 21:00 WBC (3.8-10.6) k/uL RBC (4.30-5.90) m/uL Hgb (13.0-17.5) gm/dL Hct (39.0-53.0) % MCV (80.0-100.0) fL MCH (25.0-35.0) pg MCHC (31.0-37.0) g/dL RDW (11.5-15.5) % Plt Count (150-450) k/uL MPV Neutrophils % % Lymphocytes % % Monocytes % % Eosinophils % % Basophils % % Neutrophils # (1.3-7.7) k/uL Lymphocytes # (1.0-4.8) k/uL Monocytes # (0-1.0) k/uL Eosinophils # (0-0.7) k/uL Basophils # (0-0.2) k/uL Hypochromasia PT (10.0-12.5) sec INR (<1.2) APTT (22.0-30.0) sec Sodium 139 (137-145) mmol/L Potassium 5.0 (3.5-5.1) mmol/L Chloride 109 H (98-107) mmol/L Carbon Dioxide 20 L (22-30) mmol/L Anion Gap 10 mmol/L BUN 29 H (9-20) mg/dL Creatinine 1.21 (0.66-1.25) mg/dL Est GFR (CKD-EPI)AfAm 68 (>60 ml/min/1.73 sqM) Est GFR (CKD-EPI)NonAf 58 (>60 ml/min/1.73 sqM) Glucose 109 H (74-99) mg/dL Calcium 9.1 (8.4-10.2) mg/dL Magnesium 1.9 (1.6-2.3) mg/dL Total Bilirubin 1.1 (0.2-1.3) mg/dL AST 31 (17-59) U/L ALT 26 (4-49) U/L Alkaline Phosphatase 69 (38-126) U/L Troponin I 0.794 H* 0.785 H* (0.000-0.034) ng/mL NT-Pro-B Natriuret Pep 3280 pg/mL Total Protein 6.3 (6.3-8.2) g/dL Albumin 3.5 (3.5-5.0) g/dL Influenza Type A (PCR) (Not Detectd) Influenza Type B (PCR) (Not Detectd) RSV (PCR) (Not Detectd) SARS-CoV-2 (PCR) (Not Detectd) - EKG Data EKG Comments: Atrial flutter 77 bpm QT/QTc 415/447 Normal axis Elevations or depressions compared to EKG performed on 09/23/2023, today's EKG appears improved, no longer has deep T wave inversions in V2, V3, V4 and V5 (Carolyn Matos) Disposition <Carolyn Matos - Last Filed: 09/27/23 09:26> Is patient prescribed a controlled substance at d/c from ED?: No Time of Disposition: 22:45 <Romero Naranjo - Last Filed: 09/29/23 01:55> Clinical Impression: Dyspnea Disposition: HOME SELF-CARE Condition: Good Instructions (If sedation given, give patient instructions): Dyspnea (ED) Referrals: Liz Lucero DO [Primary Care Provider] - 1-2 days
[2023-09-26 19:10] LABS: Basophils % (A) 0 %; Eosinophils # (A) 0.3 k/uL (0-0.7); Eosinophils % (A) 2 %; HCT 29.2 % (39.0-53.0); HGB 9.3 gm/dL (13.0-17.5); Hypochromasia Slight; Lymphocytes # (A) 1.3 k/uL (1.0-4.8); Lymphocytes % (A) 11 %; MCH 29.1 pg (25.0-35.0); MCV 90.9 fL (80.0-100.0); Mean Platelet Volume 8.4; Monocytes # (A) 0.6 k/uL (0-1.0); Monocytes % (A) 5 %; Neutrophils # (A) 9.6 k/uL (1.3-7.7); Neutrophils % (A) 81 %; Platelet Count 424 k/uL (150-450); RBC 3.21 m/uL (4.30-5.90); RDW 15.1 % (11.5-15.5); WBC 11.9 k/uL (3.8-10.6)
[2023-09-26 19:18] LABS: INR 1.1 (<1.2); Partial Thromboplastin Time 23.7 sec (22.0-30.0)
[2023-09-26 19:22] LABS: ALT 26 U/L (4-49); African American GFR (CKD) 68 (>60 ml/min/1.73 sqM); Albumin 3.5 g/dL (3.5-5.0); Anion Gap 10 mmol/L; Blood Urea Nitrogen 29 mg/dL (9-20); Calcium 9.1 mg/dL (8.4-10.2); Carbon Dioxide 20 mmol/L (22-30); Chloride 109 mmol/L (98-107); Glucose 109 mg/dL (74-99); Magnesium 1.9 mg/dL (1.6-2.3); Non-African American GFR(CKD) 58 (>60 ml/min/1.73 sqM); Sodium 139 mmol/L (137-145); Total Bilirubin 1.1 mg/dL (0.2-1.3); Total Protein 6.3 g/dL (6.3-8.2)
[2023-09-26 19:28] LABS: AST 31 U/L (17-59); Alkaline Phosphatase 69 U/L (38-126)
[2023-09-26 19:30] LABS: NT-Pro-B-Type Natriuretic Pept 3280 pg/mL
[2023-09-26] MEDS: FUROSEMIDE 10 MG/ML 4 ML VIAL IV STA (20:15)
--- NOTE | 2023-09-26 20:30 | CT ---
EXAMINATION TYPE: CT chest angio for PE CT DLP: 992 mGycm, Automated exposure control for dose reduction was used. DATE OF EXAM: 09/26/2023 8:20 PM COMPARISON: 09/15/2023 CLINICAL INDICATION:Male, 73 years old with history of shortness of breath, recent surgery; shortness of breath, recent bypass surgery TECHNIQUE/CONTRAST: CTA scan of the thorax is performed with IV Contrast, patient injected with 85ml mL of Isovue 300, VT P images are created and reviewed these are created on a separate workstation.. FINDINGS: Pulmonary Artery: There is no evidence for a central filling defect within the pulmonary vasculature to suggest acute pulmonary embolism. Limited evaluation of the segmental and subsegmental branches se condary to bolus timing. The pulmonary artery is of normal size. Lungs/Pleura: Trace bilateral pleural effusions No evidence of focal consolidation or pneumothorax. Airway: Large airways are patent. Heart: The heart is mildly enlarged for size. Atherosclerosis of the arterial vasculature. Left atria l appendage occlusion device present. Vasculature: No evidence of aortic aneurysm. Mediastinum: No gross evidence of adenopathy. Musculoskeletal: No acute osseous abnormalities Soft Tissues/lymph nodes: Gynecomastia changes bilaterally. Lower neck: No significant findings. Upper Abdomen: Adrenal fat-containing lesion measuring 20 mm compatible with myelolipoma. No left adr enal nodule. Calcifications are seen in the spleen. Coronary lobe hypertrophy with subtle nodularity to liver. High density layering in the gallbladder.. IMPRESSION: 1. No evidence of central pulmonary embolism. Limited evaluation of the segmental and subsegmental br anches. 2. Pulmonary vascular congestion, cardiomegaly and bilateral pleural effusions correlate with serum B D[employer]ING ROOM BUSSER. 3. Subtle nodular contour to liver with caudate lobe hypertrophy and gynecomastia, correlate for cirr hosis. 4. Biliary sludge versus cholelithiasis. 5. Right adrenal gland myelolipoma
[2023-09-26 22:35] VITALS: BP 114/67; PULSE 70; RESP 18
== END 2023-09-26 23:02 | disposition home or self-care (01) ==
LOC: EC 18:07
DX: R06.02 Shortness of breath (principal); I25.10 Atherosclerotic heart disease of native coronary artery without angina pectoris; I50.9 Heart failure, unspecified; I25.5 Ischemic cardiomyopathy; Z77.098 Contact with and (suspected) exposure to other hazardous, chiefly nonmedicinal, chemicals; Z88.8 Allergy status to other drugs, medicaments and biological substances
CPT/HCPCS: 36415; 71275; 80053; 83735; 83880; 84484; 85025; 85610; 85730; 87636; 93005; 96374; 99285